=== PATIENT | female | born 1985 | race Caucasian/White ===

== ENCOUNTER 2016-08-22 13:00 | Outpatient (RCR) | payer MEDICAID ==
--- OUTSIDE RECORDS SUMMARY | 2016-05-27 10:42 | XMS REPORT | Continuity of Care Document ---
Author Author [facility] Organization [facility] Address Unknown Phone Unavailable Care Team Providers Care Barrel Polisher Name Role Phone Christiana Moses PCP [phone] Source Comments Some departments are not documenting in the electronic medical record. If you do not see the information that you expected, contact Release of Information in the Health Information Management department at [phone] for further assistance in locating additional records.[facility] Active Allergies and Adverse Reactions Allergen Noted Date Severity Reactions Comments Aspirin 12/01/2015 High ANAPHYLAXIS Orajel 02/15/2016 High ANAPHYLAXIS Current Medications Prescription Sig. Disp. Refills Start End Date Status Date metFORMIN (GLUCOPHAGE) Take 1,000 mg by mouth Active 1,000 mg tablet twice daily with meals. montelukast (SINGULAIR) Take 10 mg by mouth at Active 10 mg tablet bedtime daily. cetirizine (ZYRTEC) 10 mg Take 10 mg by mouth Active tablet daily. fluticasone (FLONASE) 50 Apply 2 Sprays to each Active mcg/actuation nasal spray nostril as directed daily. tiotropium (SPIRIVA) 18 Inhale 18 mcg by mouth Active mcg capsule for inhaler daily. OXYGEN-AIR DELIVERY Insert 3 L/min into nose Active SYSTEMS [facility] as directed. pantoprazole DR Take 40 mg by mouth Active (PROTONIX) 40 mg tablet daily. acetaminophen (TYLENOL) Take 500 mg by mouth Active 500 mg tablet every 6 hours as needed for Pain. metoprolol XL (TOPROL XL) Take 25 mg by mouth Active 25 mg tablet daily. DULoxetine DR (CYMBALTA) Take 60 mg by mouth Active 60 mg capsule daily. ondansetron (ZOFRAN) 8 mg Take 8 mg by mouth every Active tablet 8 hours as needed for Nausea. trimethoprim/sulfamethoxa Take 1 Tab by mouth three Active zole (BACTRIM DS) 160/800 times weekly. mg tablet GUAIFENESIN/DEXTROMETHORP Take by mouth as Needed. Active MCGRAW (MUCUS DM PO) albuterol 0.5% Inhale 2.5 mg solution as Active (PROVENTIL; VENTOLIN) 2.5 directed every 6 hours as mg/0.5 mL nebu nebulizer needed. solution beclomethasone(+) (QVAR) Inhale 1 Puff by mouth 1 Inhaler 12/05/19 Active 80 mcg/actuation inhaler twice daily. Indications: 16 MAINTENANCE THERAPY FOR ASTHMA fluticasone/salmeterol Inhale 1 Puff by mouth 1 Inhaler 12/05/19 Active (ADVAIR DISKUS) 500-50 every 12 hours. 16 mcg inhalation disk predniSONE (DELTASONE) 10 Take 6 tabs/day x4 days, 52 Tab 0 01/02/20 Active mg tablet 4 tabs/day/x4 days, 3 16 tabs/ dayx4 days, then 2 tabs daily. Indications: asthma exacerbation atenolol (TENORMIN) 25 mg Take 25 mg by mouth Active tablet daily. benzonatate (TESSALON) Take 200 mg by mouth Active 100 mg capsule three times daily. predniSONE (DELTASONE) 20 Take 1 Tab by mouth daily 100 Tab 0 03/06/ 20 Active mg tablet with breakfast. Take 2 16 tabs daily x 5 days, then 1 tab daily. promethazine/codeine Take 5-10 mL by mouth 180 mL 0 04/05/20 Active (PHENERGAN W/CODEINE) every 6 hours as needed 16 6.25/10 mg/5 mL oral for Cough (at bedtime syrup only). Indications: COUGH Active Problems Problem Noted Date Stridor 02/15/2016 Overview: expiratory GERD without esophagitis 02/15/2016 Morbid obesity (HCC) 02/15/2016 Most Recent Encounters Date Type Specialty Providers Description 05/10/2016 Office Visit Pulmonology Dean Cabrera MD Gastroesophageal reflux disease, esophagitis presence not specified (Primary Dx); Laryngopharyngeal reflux (LPR); Severe persistent allergic asthma; Eosinophilic asthma (HCC); Morbid obesity due to excess calories (HCC); Chronic respiratory failure with hypoxia (HCC); Current chronic use of systemic steroids; Seasonal allergic rhinitis due to pollen 04/05/2016 Telephone Pulmonology Dean Cabrera MD Breathing Problem 03/05/2016 Telephone Pulmonology Dean Cabrera MD Other 03/01/2016 Telephone Pulmonology Dean Cabrera MD Labs Only Social History Tobacco Use Types Packs/Day Years Used Date Former Smoker Quit: 11/30/2010 Smokeless Tobacco: Never Used Alcohol Use Drinks/Week oz/Week Comments No Last Filed Vital Signs Vital Sign Reading Time Taken Blood Pressure 138/69 05/10/2016 9:35 AM CDT Pulse 97 05/10/2016 9:35 AM CDT Temperature 37 C (98.6 F) 05/10/2016 9:35 AM CDT Respiratory Rate 16 05/10/2016 9:35 AM CDT Height 1.753 m (5' 9.02") 05/10/2016 9:35 AM CDT Weight 147.737 kg (325 lb 11.2 05/10/2016 9:35 AM CDT oz) Body Mass Index 48.08 05/10/2016 9:35 AM CDT Oxygen Saturation 99% 05/10/2016 9:35 AM CDT Plan of Care Date Type Specialty Providers Description 07/03/2016 Appointment Gastroenterology Monica Bang MD [address] [place] [address] 07/26/2016 Appointment Pulmonology Dean Cabrera MD [address] [facility] [address] [place] [address] [phone] (Fax) Health Maintenance Due Date Last Done Comments Physical (Comprehensive) 1993 Exam Pertussis Vaccine 1997 Tetanus Vaccine 2003 Cervical Cancer Screening 2007 Influenza Vaccine 04/18/2016 Results from Last 3 Months Not on file
[~2016-08-22 13:00] MED LIST: ACET-461 PO; ACHD5005 PO; ADV1DS1 INH; ALBU0.632 IH; ALBU0.8322 IH; ALBU17AE23 IH; ALBU2.5V4 NEB; ALBU8.5H2 IH; ALBUTEROL; ALBUTEROL INHALER NEB; AMOX-358 PO; ATEN25TA PO; AZIT-21 PO; BECL10PO MC; BECL8.7A7 PO; BPR150TCR; BUDE6HFA IH; CEFD300C PO; CEFD300C3 PO; CETI10TA17 PO; CETI10TA20 PO; CIPR-226 PO; CODE118S2 PO; CYCL-97 PO; CYCL10TA9 PO; DCS100C PO; DESV50TA PO; DICY20TA57 PO; DOCU-161 PO; DULO60CA58 PO; ENXP40I.4 SQ; ESTROGEN CREME; FAMO20TA5 PO; FERR-57 PO; FLUO10CA19; FLUT16SP22 NS; FLUT1BLS IH; FLUT1DIS26 IH; FLUT1DIS27 PO; FLUT1DIS28 IH; FLUT9.9S NS; FNT100TD TD; HCT25T PO; HYDR-2997 PO; HYDR-32; HYDR1TAB3 PO; HYDR1TAB71 PO; HYDR1TAB8 OP; IBUP-1780 PO; IBUP-2055 PO; IBUP-30 PO; IRON PILL; LAMO100T69 PO; LANS30CA8 PO; LORA10CA PO; LORA10TA7 PO; LVF500T PO; Loratadine PO; METF-479 PO; METF-761 PO; METF1000 PO; METH40VI2 IV; METO-333 PO; METO-354 PO; METO10TA3 PO; METO25TA2 PO; MNTL10T; MONT10TA21 PO; MONT10TA24 PO; MONT4TAB5 PO; MTF500T PO; MULT-301 PO; MULT-974 PO; NAPR-243 PO; NITR-65 PO; ONDA8TAB6 PO; ONDAN4ODT PO; OXYC-12 PO; OXYC-188 PO; OXYC-272 PO; PANT40TA2 PO; PANT40TA3 PO; PHEN118S12 PO; PHENOL MC; PNT40TEC PO; PRD10T PO; PRD20T PO; PRED10TA PO; PRO-AIR INHALER; PROM5SYR PO; Prednisone; Prednisone PO; RABE20TA PO; RT-ALBUINH IH; RT-ALBUINH INH; SPIR50TA27 PO; SULF-222 PO; SULF1TAB35 PO; SULF1TAB38 PO; TAPE50TA PO; TIOT18CA2 IH; TRAM50TA2; TRAM50TA2 PO; TRAZ50TA67 PO; TRM50T PO; VITAMIN; [UNRECOGNIZED DRUG - OTHER] IV
== END 2016-08-25 | disposition home or self-care (01) ==
LOC: PULM 13:00
PROVIDERS: ATTEND Nurse Practitioner Adult Health
DX: J45.909 Unspecified asthma, uncomplicated (principal); E66.9 Obesity, unspecified
CPT/HCPCS: 99211

== ENCOUNTER 2016-09-29 15:05 | Emergency (ER) | payer MEDICAID ==
[~2016-09-29] VITALS: Ht 165.1 cm; Wt 95.3 kg
--- OUTSIDE RECORDS SUMMARY | 2016-09-29 15:12 | XMS REPORT | Continuity of Care Document ---
Author Author [facility] Organization [facility] Address Unknown Phone Unavailable Care Team Providers Care Demonstrator Sales Name Role Phone Christiana Moses PCP [phone] Source Comments Some departments are not documenting in the electronic medical record. If you do not see the information that you expected, contact Release of Information in the Health Information Management department at [phone] for further assistance in locating additional records.[facility] Active Allergies and Adverse Reactions Allergen [...] into nose Active SYSTEMS MISC as directed. acetaminophen (TYLENOL) Take 500 mg by mouth [...] mepolizumab(+) (NUCALA) Inject 1 mL 1 mL 11 07/04/20 Active 100 mg/mL solr injection subcutaneously [...] 17 daily. Indications: MAINTENANCE THERAPY FOR ASTHMA pantoprazole DR Take 1 Tab by mouth twice 60 Tab 5 09/19/19 Active (PROTONIX) 40 mg tablet daily. 17 ranitidine(+) (ZANTAC) Take 1 Tab by mouth at 30 Tab 5 09/24/19 Active 300 mg tablet bedtime daily. [address] Take 40 mg by mouth 09/19/19 Discontin (PROTONIX) 40 mg tablet daily. 17 ued beclomethasone(+) (QVAR) Inhale 1 Puff by mouth 1 Inhaler 11 12/05/19 09/04/19 Discontin 80 mcg/actuation inhaler twice [...] Recent Encounters Date Type Specialty Providers Description 09/26/2016 Telephone Pulmonology Dean Cabrera MD Other - Nucala 09/19/2016 Telephone Gastroenterology Tong Mcgowan MD Results 09/06/2016 Injection Pulmonology 09/04/2016 Refill Pulmonology Dean Cabrera MD SOB (shortness of breath) (Primary Dx) 09/03/2016 Telephone Pulmonology Dean Cabrera MD Worsening Symptoms 08/16/2016 Telephone Pulmonology Dean Cabrera MD Follow-up Phone Call 07/30/2016 [facility] Tong Mcgowan MD GERD (gastroesophageal Encounter reflux [...] Case Gastroenterology Tong Mcgowan MD 07/02/2016 Telephone PulmonDean Ga MD Other - Treatment options Social History Tobacco Use Types Packs/Day Years Used Date Former Smoker Quit: 11/30/2010 Smokeless Tobacco: Never Used Alcohol Use Drinks/Week oz/Week Comments No Last Filed Vital Signs Vital Sign Reading Time Taken Blood Pressure 118/98 07/30/2016 3:43 PM COMMERCIAL COLLECTIONS DRIVER Pulse 85 07/30/2016 3:43 PM COMMERCIAL COLLECTIONS DRIVER Temperature 36.4 C (97.5 F) 07/30/2016 2:57 PM COMMERCIAL COLLECTIONS DRIVER Respiratory Rate 19 07/26/2016 8:01 AM COMMERCIAL COLLECTIONS DRIVER Height 1.753 m (5' 9") 07/30/2016 12:25 PM COMMERCIAL COLLECTIONS DRIVER Weight 149.687 kg (330 lb) 07/30/2016 12:25 PM COMMERCIAL COLLECTIONS DRIVER Body Mass Index 48.71 07/30/2016 12:25 PM COMMERCIAL COLLECTIONS DRIVER Oxygen Saturation 97% 07/30/2016 3:43 PM COMMERCIAL COLLECTIONS DRIVER Plan of Care Date Type Specialty Providers Description 10/25/2016 Appointment Pulmonology Dean Caberra MD [address] [facility] [address] [place] [address] [phone] (Fax) Health Maintenance Due Date Last Done Comments Physical (Comprehensive) 1993 Exam Pertussis Vaccine 1997 Tetanus Vaccine 2003 Cervical Cancer Screening 2007 Influenza Vaccine 04/18/2016 Procedures from Last 3 Months Procedure Name Priority Date/Time Associated Diagnosis Comments PROCEDURE RECORD-SCAN 08/09/2016 Results for this 3:08 PM COMMERCIAL COLLECTIONS DRIVER procedure are in the results section. TELEMETRY STRIPS-SCAN 07/31/2016 Results for this 12:57 PM COMMERCIAL COLLECTIONS DRIVER procedure are in the results section. ESOPHAGOGASTRODUODENOSCOP 07/30/2016 GERD (gastroesophageal Y 12:00 PM COMMERCIAL COLLECTIONS DRIVER reflux disease) Special Needs Please call and schedule pt for EGD with PICKETT with Dr. Mcgowan. Results from Last 3 Months PROCEDURE RECORD-SCAN (08/09/2016 3:08 PM) Narrative Ordered by an unspecified provider. TELEMETRY STRIPS-SCAN (07/31/2016 12:57 PM) Narrative Ordered by an unspecified provider. EGD (07/30/2016 1:03 PM) Component Value Range Provation Report Patient Name: Angy Montana Procedure Date: 07/30/2016 1:03 PM CSN: [id number] Date of : 1985 Gender: Female Attending Physician: Tong Mcgowan MD Procedure: Upper GI endoscopy Indications: He artburn, History of COPD/asthma Providers: Tong Mcgowan MD (Doctor), Grecia Escudero MD (Fellow), Saniya De Los Santos (Nurse), Reed Nielsen Germination Testing Manager (Germination Testing Manager) Referring Physician: Dean Cabrera MD Medications: Mo [...] 27 seconds Procedure Code(s): --- Professional --- 36827, Esophagogastroduodenoscopy, flexible, transoral; diagnostic, including collection of specimen(s) by brushing or washing, when performed (separate procedure) Diagnosis Code(s): --- Professional --- R12, Heartburn CPT copyright 2015 [employer]. All rights reserved. The codes documented in this report are preliminary and upon medical biller/coder review may be revised to meet current [...]
[2016-09-29] MEDS ORDERED: RT-ALBUTEROL/IPRATROPIUM 3 ML (DUONEB) VIAL INH ONE (16:15)
[2016-09-29] MEDS ORDERED: predniSONE 20 MG TAB PO ONE (16:15)
[2016-09-29] MEDS ORDERED: PROMETHAZINE/ CODEINE SYRUP 5 ML UDC PO ONE (16:15)
--- NOTE | 2016-09-29 16:25 | ED General ---
General Chief Complaint: Cough/Cold/Flu Symptoms Stated Complaint: SOA, CHEST PAIN Nursing Triage Note: c/o cough/congestion/fever/chills/chest tightness. Onset yesterday Nursing Sepsis Screen: Possible Sepsis Risk Source of Information: Patient Exam Limitations: No Limitations History of Present Illness Time Seen by Provider: 16:24 Initial Comments To ER with reports of nonproductive cough, congestion, shortness of breath and chills as well as chest tightness. This began yesterday. She wears oxygen [id number] for a history of COPD, emphysema, bronchitis and asthma she states. Timing/Duration: 1-2 Days Severity: Moderate Associated Systoms: Cough Fever/Chills Allergies and Home Medications Allergies Coded Allergies: allantoin (Verified Allergy, Unknown, 08/22/15) aspirin (Verified Allergy, Unknown, 08/22/15) benzocaine (Verified Allergy, Unknown, 08/22/15) carbamide peroxide (Verified Allergy, Unknown, 08/22/15) Home Medications Acetaminophen 500 Mg Tablet 1,000-1,500 MG PO TID PRN PRN PAIN (Reported) TAKES 2-3 (500MG) TABLETS Albuterol Sulfate 2.5 Mg/3 Ml Vial.neb 2.5 MG NEB Q4H PRN PRN SHORTNESS OF BREATH (Reported) Albuterol Sulfate 8.5 Gm Hfa.aer.ad 2 PUFF INH Q4H PRN PRN SHORTNESS OF BREATH ( Reported) Amoxicillin/Potassium Clav 1 Each Tablet #14 1 EACH PO BID Prescribed by: DEBBIE SIBLEY on 04/26/16 0956 Atenolol 25 Mg Tablet 25 MG PO DAILY (Reported) Beclomethasone Dipropionate 8.7 Gm Aer.w.adap 1 PUFF PO BID (Reported) Cetirizine HCl 10 Mg Tablet 10 MG PO DAILY (Reported) Duloxetine HCl 60 Mg Capsule.dr 60 MG PO HS (Reported) Fluticasone Propionate 16 Gm [place].susp 2 SPRAYS NS DAILY (Reported) Fluticasone/Salmeterol 1 Each Blst.w.dev 1 PUFF PO BID (Reported) Ibuprofen 200 Mg Tablet 800 MG PO TID PRN PRN PAIN (Reported) TAKES 4 (200MG) TABLETS Metformin HCl 1,000 Mg Masisyc92r 1,000 MG PO BID WITH MEALS (Reported) Montelukast Sodium 10 Mg Tablet 10 MG PO HS (Reported) Multivitamin 1 Each Tablet 1 TAB PO DAILY (Reported) Pantoprazole Sodium 40 Mg Tablet.dr 40 MG PO DAILY (Reported) Prednisone 20 Mg Tab 40 MG PO DAILY (Reported) Promethazine/Phenyleph/Codeine 118 Ml Syrup #120 5 ML PO Q6H Prescribed by: JUAN BOB on 06/13/16 1627 Tiotropium [place] 1 Inh Aerp 1 CAP IH DAILY (Reported) Constitutional: see HPI EENTM: see HPI Respiratory: see HPI cough Cardiovascular: no symptoms reported see HPI chest pain Genitourinary: no symptoms reported Musculoskeletal: no symptoms reported Skin: no symptoms reported Psychiatric/Neurological: No Symptoms Reported Hematologic/Lymphatic: No Symptoms Reported Immunological/Allergic: no symptoms reported Past Dydjsty-Kphzjy-Zmbkmm Hx Patient Social History Alcohol Use: Denies Use Recreational Drug Use: No Smoking Status: Unknown if Ever Smoked Former Smoker/When Quit: Nov 24, 2006 Recent Foreign Travel: No Contact w/Someone Who Travel: No Recent Infectious Disease Expo: No Recent Hopitalizations: No Immunizations Up To Date Tetanus Booster (TDap): Less than 5yrs Date of Pneumonia Vaccine: Aug 18, 2014 Date of Influenza Vaccine: Jun 18, 2014 Seasonal Allergies Seasonal Allergies: Yes Surgeries HX Surgeries: Yes (Tracheostomy) Surgeries: Appendectomy, Gallbladder, Orthopedic, Tonsillectomy Respiratory Hx Respiratory Disorders: Yes Respiratory Disorders: Asthma, COPD Cardiovascular Hx Cardiac Disorders: Yes (History of symptomatic bradycardia) Cardiac Disorders: Hypertension Neurological Hx Neurological Disorders: Yes Reproductive System : No Hx Reproductive Disorders: Yes Sexually Transmitted Disease: No Female Reproductive Disorders: Polycystic Ovarian Dis 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 Genitourinary Hx Genitourinary Disorders: No Gastrointestinal Hx Gastrointestinal Disorders: Yes Gastrointestinal Disorders: Gastroesophageal Reflux, Gastrointestinal Bleed Musculoskeletal Hx Musculoskeletal Disorders: Yes (Degenerative Joint Disease) Musculoskeletal Disorders: Rheumatoid Arthritis Endocrine Hx Endocrine Disorders: Yes Endocrine Disorders: Diabetes, Non-Insulin dep HEENT HX ENT Disorders: No Loss of Vision: Denies Hearing Impairment: Denies Cancer Hx Cancer: No Psychosocial Hx Psychiatric Problems: Yes (manic depression, insomnia) Behavioral Health Disorders: Anxiety, Depression Integumentary HX Skin/Integumentary Disorder: No Blood Transfusions Hx Blood Disorders: No Adverse Reaction to a Blood Tr: No Family Medical History Significant Family History: Diabetes Family Medial History: Diabetes mellitus 19 MOTHER G8 SISTER Physical Exam Vital Signs Vital Sign - Last 12Hours 09/29/16 15:35 Temp 100.0 Pulse 86 Resp 22 B/P 153/70 Pulse Ox 95 O2 Delivery Nasal Cannula O2 Flow Rate 3 Capillary Refill : Less Than 3 Seconds General Appearance: No Apparent Distress WD/WN Eyes: Bilateral Eye EOMI, Bilateral Eye Normal Inspection, Bilateral Eye PERRL HEENT: PERRL/EOMI TMs Normal Neck: Full Range of Motion Normal Inspection Respiratory: No Accessory Muscle Use Decreased Breath Sounds Wheezing Cardiovascular: Regular Rate, Rhythm Normal Peripheral Pulses Gastrointestinal: Non Tender Soft Extremity: Normal Capillary Refill Normal Inspection Neurologic/Psychiatric: Alert Oriented x3 Skin: Normal Color Warm/Dry Progress/Results/Core Measures Results/Orders Lab Results Laboratory Tests Test 09/29/16 16:45 Range/Units Alanine Aminotransferase (ALT/SGPT) 48 0-55 U/L Albumin 4.0 3.2-4.5 G/DL Alkaline Phosphatase 77 40-136 U/L Anion Gap 12 5-14 MMOL/L Aspartate Amino Transf (AST/SGOT) 34 5-34 U/L BUN/Creatinine Ratio 11 Basophils # (Auto) 0.0 0.0-0.1 10^3/uL Basophils (%) (Auto) 0 0-10 % Blood Urea Nitrogen 8 7-18 MG/DL Calcium Level 9.1 8.5-10.1 MG/DL Carbon Dioxide Level 21 21-32 MMOL/L Chloride Level 107 98-107 MMOL/L Creatinine 0.72 0.60-1.30 MG/DL Eosinophils # (Auto) 0.1 0.0-0.3 10^3/uL Eosinophils (%) (Auto) 1 0-10 % Estimat Glomerular Filtration Rate > 60 Glucose Level 107 H 70-105 MG/DL Hematocrit 37 35-52 % Hemoglobin 12.3 11.5-16.0 G/DL Lymphocytes # (Auto) 3.1 1.0-4.0 X 10^3 Lymphocytes (%) (Auto) 28 12-44 % Mean Corpuscular Hemoglobin 26 25-34 PG Mean Corpuscular Hemoglobin Concent 33 32-36 G/DL Mean Corpuscular Volume 79 L 80-99 FL Mean Platelet Volume 10.1 7.4-10.4 FL Monocytes # (Auto) 0.5 0.0-1.0 X 10^3 Monocytes (%) (Auto) 5 0-12 % Neutrophils # (Auto) 7.2 1.8-7.8 X 10^3 Neutrophils (%) (Auto) 66 42-75 % Platelet Count 236 130-400 10^3/uL Potassium Level 3.8 3.6-5.0 MMOL/L Red Blood Count 4.71 4.35-5.85 10^6/uL Red Cell Distribution Width 15.4 H 10.0-14.5 % Sodium Level 140 135-145 MMOL/L Total Bilirubin 0.6 0.1-1.0 MG/DL Total Protein 6.9 6.4-8.2 G/DL White Blood Count 10.8 4.3-11.0 10^3/uL Micro Results Microbiology 09/29/16 Influenza Types A,B Antigen (AMINA) - Final, Complete My Orders Orders-NADIRA العلي APRN Influenza A And B Antigens (09/29/16 15:43) Cbc With Automated Diff (09/29/16 16:14) Comprehensive Metabolic Panel (09/29/16 16:14) Chest Pa/Lat (2 View) (09/29/16 16:14) Albuterol/Ipra Inhalation Soln (Duoneb I (09/29/16 16:15) Svn Sm Volume Nebulizer Rt-Rfs (09/29/16 16:14) Prednisone Tablet (Deltasone Tablet) (09/29/16 16:15) Promethazine/ Codeine Syrup (Phenergan W (09/29/16 16:15) Troponin I (09/29/16 16:25) Ekg Tracing (09/29/16 16:25) Albuterol Pre-Mix Nebs (Rt) (Proventil P (09/29/16 16:38) Albuterol Pre-Mix Nebs (Rt) (Proventil P (09/29/16 16:45) Medications Given in ED Current Medications Medications Dose Ordered Sig/Malick Route Start Time Stop Time Status Last Admin Dose Admin Albuterol Sulfate 2.5 mg STK-MED ONCE .ROUTE 09/29/16 16:38 09/29/16 16:40 DC 09/29/16 16:41 2.5 MG Albuterol Sulfate 2.5 mg STK-MED ONCE .ROUTE 09/29/16 16:45 09/29/16 16:46 DC 09/29/16 16:47 2.5 MG Albuterol/ Ipratropium 3 ml ONCE ONCE INH 09/29/16 16:15 09/29/16 16:16 DC 09/29/16 16:34 3 ML Prednisone 40 mg ONCE ONCE PO 09/29/16 16:15 09/29/16 16:16 DC 09/29/16 17:04 40 MG Promethazine HCl/ Codeine 7.5 ml ONCE ONCE PO 09/29/16 16:15 09/29/16 16:16 DC 09/29/16 17:04 7.5 ML Vital Signs/I&O Vital Sign - Last 12Hours 09/29/16 09/29/16 09/29/16 09/29/16 15:35 15:40 16:35 16:41 Temp 100.0 Pulse 86 Resp 22 B/P 153/70 Pulse Ox 95 93 95 O2 Delivery Nasal Cannula O2 Flow Rate 3 3 3 3 09/29/16 16:48 Pulse Ox 95 O2 Flow Rate 3 Blood Pressure Mean: 97 Diagnostic Imaging Diagonstic Imaging: Xray Plain Films/CT/US/NM/MRI: chest Comments NAME: AUB[facility] REC#: [id number] PT STATUS: REG ER : 1985 PHYSICIAN: NADIRA العلي APRN ADMIT DATE: 09/29/16/ER Draft Date of Exam:09/29/16 CHEST PA/LAT (2 VIEW) INDICATION: Shortness of breath, chest pressure. COMPARISON: 06/13/16. EXAMINATION: Frontal and lateral views of the chest were obtained. FINDINGS: New infiltrate in the left hilum. The right lung is clear. There is no pneumothorax. No effusion is seen. Osseous structures are age-appropriate. IMPRESSION: Left suprahilar infiltrate. Followup recommended to assure resolution. Dictated on workstation # [id number] Dict: 09/29/161719 Trans: 09/29/161727 [facility] [id number] Interpreted by: JAYCE HUI Electronically signed by: Departure Impression Impression: Primary Impression: Asthma with acute exacerbation Qualified Code: J45.21 - Mild intermittent asthma with (acute) exacerbation Additional Impression: Pneumonia Qualified Code: J18.1 - Lobar pneumonia, unspecified organism Disposition: 01 HOME, SELF-CARE Condition: Stable Departure-Patient Inst. Decision time for Depature: 17:38 Referrals: [facility] (PCP/Family) Primary Care Physician Patient Instructions: Pneumonia, Adult (DC) Add. Discharge Instructions: All discharge instructions reviewed with patient and/or family. Voiced understanding. 1. Follow-up with her regular doctor later this week for recheck 2. Return to ER for any worsening 3. Antibiotics as directed Scripts Levofloxacin (Levaquin)750 Mg [id number] Mg PO DAILY #6 TAB Prov:NADIRA العلي APRN 09/29/16 NADIRA العلي APRN Sep 29, 2016 16:25
[2016-09-29] MEDS ORDERED: RT-ALBUTEROL SULF 2.5 MG/3 ML PRE-MIX VIAL ONE ×2 (16:38→16:45)
--- NOTE | 2016-09-29 17:29 | Diagnostic Imaging Report ---
INDICATION: Shortness of breath, chest pressure. COMPARISON: 06/13/16. EXAMINATION: Frontal and lateral views of the chest were obtained. FINDINGS: New infiltrate in the left hilum. The right lung is clear. There is no pneumothorax. No effusion is seen. Osseous structures are age-appropriate. IMPRESSION: Left suprahilar infiltrate. Followup recommended to assure resolution. Dictated by: Dictated on workstation # [id number]
[2016-09-29 17:33] LABS: ALANINE AMINOTRANSFERASE 48 U/L (0-55); ANION GAP 12 MMOL/L (5-14); ASPARTATE AMINO TRANSFERASE 34 U/L (5-34); BASOPHILS % (AUTO) 0 % (0-10); BILIRUBIN,TOTAL 0.6 MG/DL (0.1-1.0); BLOOD UREA NITROGEN 8 MG/DL (7-18); BUN/CREATININE RATIO 11; CALCIUM 9.1 MG/DL (8.5-10.1); CARBON DIOXIDE 21 MMOL/L (21-32); CHLORIDE 107 MMOL/L (98-107); CREATININE SERUM 0.72 MG/DL (0.60-1.30); EOSINOPHILS # (AUTO) 0.1 10^3/uL (0.0-0.3); EOSINOPHILS % (AUTO) 1 % (0-10); GFR ESTIMATED > 60; GLUCOSE 107 MG/DL (70-105); LYMPHOCYTES # (AUTO) 3.1 X 10^3 (1.0-4.0); LYMPHOCYTES % (AUTO) 28 % (12-44); MEAN CORPUSCULAR HEMOGLOBIN 26 PG (25-34); MEAN CORPUSCULAR HGB CONC 33 G/DL (32-36); MEAN CORPUSCULAR VOLUME 79 FL (80-99); MEAN PLATELET VOLUME 10.1 FL (7.4-10.4); MONOCYTES # (AUTO) 0.5 X 10^3 (0.0-1.0); MONOCYTES % (AUTO) 5 % (0-12); NEUTROPHILS # (AUTO) 7.2 X 10^3 (1.8-7.8); NEUTROPHILS % (AUTO) 66 % (42-75); PLATELET COUNT 236 10^3/uL (130-400); POTASSIUM 3.8 MMOL/L (3.6-5.0); RED BLOOD COUNT 4.71 10^6/uL (4.35-5.85); RED CELL DISTRIBUTION WIDTH 15.4 % (10.0-14.5); SODIUM 140 MMOL/L (135-145); TOTAL PROTEIN 6.9 G/DL (6.4-8.2); WHITE BLOOD COUNT 10.8 10^3/uL (4.3-11.0)
[2016-09-29 17:38] LABS: TROPONIN I < 0.30 NG/ML (<0.30)
[2016-09-29] MEDS ORDERED: LEVO750T9 PO (17:42)
[2016-09-29 17:45] VITALS: BP 142/70
[2016-09-29] MEDS ORDERED: LEVOFLOXACIN 750 MG TAB (LEVAQUIN) PO ONE (17:45)
[2016-09-29] MEDS ORDERED: LEVOFLOXACIN 500 MG TAB (LEVAQUIN) PO ONE (18:00)
== END 2016-09-29 18:01 | disposition home or self-care (01) ==
LOC: EDUNIT# 15:05 → ER 15:07
DX: J18.9 Pneumonia, unspecified organism (principal); J45.901 Unspecified asthma with (acute) exacerbation; J44.9 Chronic obstructive pulmonary disease, unspecified; I10 Essential (primary) hypertension; E11.9 Type 2 diabetes mellitus without complications; Z79.84 Long term (current) use of oral hypoglycemic drugs; Z79.899 Other long term (current) drug therapy; Z99.81 Dependence on supplemental oxygen
CPT/HCPCS: 36415; 71020; 80053; 84484; 85025; 87804; 93005; 94640

== ENCOUNTER → 2016-10-24 | Outpatient (CLI) | payer MEDICAID ==
[~2016-10-24] MED LIST changes: +LEVO750T9 PO
--- OUTSIDE RECORDS SUMMARY | 2016-10-24 12:58 | XMS REPORT | Continuity of Care Document ---
Author Author [facility] Organization [facility] Address Unknown Phone Unavailable Care Team Providers Care Granite Polisher Name Role Phone Christiana Moses PCP [phone] Source Comments Some departments are not documenting in the electronic medical record. If you do not see the information that you expected, contact Release of Information in the Health Information Management department at [phone] for further assistance in locating additional records.[facility] Active Allergies and Adverse Reactions Allergen [...] Active 300 mg tablet bedtime daily. 17 Hospital, Clinic, or Ordered Dose Route Frequency [...] Recent Encounters Date Type Specialty Providers Description 10/23/2016 Telephone Pulmonology Dean Cabrera MD Other - BT approval 10/11/2016 Telephone Pulmonology Dean Cabrera MD Medication Problem - ADVAIR/QVAR 10/09/2016 Telephone Pulmonology Dean Cabrera MD 09/26/2016 Telephone Pulmonology Dean Cabrera MD Other - Nucala 09/19/2016 Telephone Gastroenterology Tong Mcgowan MD Results 09/06/2016 Injection Pulmonology 09/04/2016 Refill Pulmonology Dean Cabrera MD SOB (shortness of breath) (Primary Dx) 09/03/2016 Telephone Pulmonology Dean Cabrera MD Worsening Symptoms 08/16/2016 Telephone Pulmonology Dean Cabrera MD Follow-up Phone Call 07/30/2016 Endo Rslt Enc Pulmonology Dean Cabrera [...] 07/26/2016 Orders Only Pulmonology Dean Cabrera MD Social History Tobacco Use Types Packs/Day Years Used Date Former Smoker Quit: 11/30/2010 Smokeless Tobacco: Never Used Alcohol Use Drinks/Week oz/Week Comments No Last Filed Vital Signs Vital Sign Reading Time Taken Blood Pressure 118/98 07/30/2016 3:43 PM EMERGENCY DEPARTMENT RN Pulse 85 07/30/2016 3:43 PM EMERGENCY DEPARTMENT RN Temperature 36.4 C (97.5 F) 07/30/2016 2:57 PM EMERGENCY DEPARTMENT RN Respiratory Rate 19 07/26/2016 8:01 AM EMERGENCY DEPARTMENT RN Height 1.753 m (5' 9") 07/30/2016 12:25 PM EMERGENCY DEPARTMENT RN Weight 149.687 kg (330 lb) 07/30/2016 12:25 PM EMERGENCY DEPARTMENT RN Body Mass Index 48.71 07/30/2016 12:25 PM EMERGENCY DEPARTMENT RN Oxygen Saturation 97% 07/30/2016 3:43 PM EMERGENCY DEPARTMENT RN Plan of Care Date Type Specialty Providers Description 10/25/2016 Appointment Pulmonology Dean Cabrera MD [address] [facility] [address] [place] [address] [phone] (Fax) Health Maintenance Due Date Last Done Comments Physical (Comprehensive) 1993 Exam Pertussis Vaccine 1997 Tetanus Vaccine 2003 Cervical Cancer Screening 2007 Influenza Vaccine 04/18/2017 Procedures from Last 3 Months Procedure Name Priority Date/Time Associated Diagnosis Comments PROCEDURE RECORD-SCAN 08/09/2016 Results for this 3:08 PM EMERGENCY DEPARTMENT RN procedure are in the results section. TELEMETRY STRIPS-SCAN 07/31/2016 Results for this 12:57 PM EMERGENCY DEPARTMENT RN procedure are in the results section. ESOPHAGOGASTRODUODENOSCOP 07/30/2016 GERD (gastroesophageal Y 12:00 PM EMERGENCY DEPARTMENT RN reflux disease) Special Needs Please call and schedule pt for EGD with [facility] with Dr. Mcgowan. Results from Last 3 Months PROCEDURE RECORD-SCAN (08/09/2016 3:08 PM) Narrative Ordered by an unspecified provider. TELEMETRY STRIPS-SCAN (07/31/2016 12:57 PM) Narrative Ordered by an unspecified provider. EGD (07/30/2016 1:03 PM) Component Value Range Provation Report Patient Name: Angy [place] Procedure Date: 07/30/2016 1:03 PM CSN: [id number] Date of : 1985 Gender: Female Attending Physician: Tong Mcgowan MD Procedure: Upper GI endoscopy Indications: He artburn, History of COPD/asthma Providers: Tong Mcgowan MD (Doctor), Grecia Escudero MD (Fellow), Saniya De Los Santos (Nurse), Reed Nielsen Loan Collector (Loan Collector) Referring Physician: Dean Cabrera MD Medications: Mo [...] 27 seconds Procedure Code(s): --- Professional --- 70223, Esophagogastroduodenoscopy, flexible, transoral; diagnostic, including collection of specimen(s) by brushing or washing, when performed (separate procedure) Diagnosis Code(s): --- Professional --- R12, Heartburn CPT copyright 2015 [employer]. All rights reserved. The codes documented in this report are preliminary and upon insurance checker review may be revised to meet current [...]
--- NOTE | 2016-10-27 12:43 | ECHOCARDIOGRAPHY REPORT ---
PROCEDURE PHYSICIAN: SHAINA CALDERON DATE OF PROCEDURE: 10/24/2016 TWO DIMENSIONAL ECHOCARDIOGRAM REPORT PRIMARY PHYSICIAN: OTHER PHYSICIAN: REFERRING PHYSICIAN: Dr. Kelley Michelle, [facility] ORDERING PHYSICIAN: INDICATION FOR THE PROCEDURE: Shortness of breath. MEASUREMENTS DERIVED VALUES LV DIAMETER (LAX) NORMALS NORMALS Diastolic 4.5 (3.6-5.2) Eject. Fract. 50% (60%+/-6%) Systolic (2.3-3.9) Diastolic Vol. % Shortening (0.22-0.42) Systolic Vol. Aortic Root IVS THICKNESS Diastolic 1.2 (0.6-1.1) LVPW THICKNESS Diastolic 1.2 (0.6-1.1) LA DIAMETER Systolic 3.2 (2.1-3.7) FINDINGS: 1. Technically difficult study. 2. The left ventricle is normal in size, endocardium was not well visualized in all segments. Overall systolic function appeared to be preserved. Estimated ejection fraction 50%. 3. The left atrium is normal in size. No clot or thrombus were seen within the left atrium. 4. The right atrium and right ventricle are normal in size. No clot or thrombus were seen within the right side. 5. Mitral valve is normal in morphology with mild mitral regurgitation noted by color Doppler flow. No mitral valve prolapse. No mitral valve stenosis. 6. Aortic valve is trileaflet with normal opening and closing pattern. No significant aortic stenosis or regurgitation was seen. 7. Tricuspid valve is normal in morphology with mild tricuspid regurgitation noted by color Doppler flow. Insufficient Doppler signal across tricuspid valve to evaluate pulmonary artery pressures. 8. Pulmonic valve is functioning normally. 9. No pericardial effusion. CONCLUSION: 1. Technically difficult study. 2. Normal left ventricular size and systolic function. Endocardium was not well visualized in all segments. Overall ejection fraction estimated to be 50% percent. 3. Mild mitral and tricuspid regurgitation. 4. Insufficient Doppler signal to evaluate pulmonary artery pressure Job ID: [id number] Dictated Date: 10/27/2016 09:18:16 Station Cleaning Porter Date: 10/27/2016 12:39:23 / hans
== END ==
LOC: CARD 12:54
PROVIDERS: ATTEND Internal Medicine Cardiovascular Disease
DX: J44.9 Chronic obstructive pulmonary disease, unspecified (principal); I10 Essential (primary) hypertension; I34.0 Nonrheumatic mitral (valve) insufficiency; R00.1 Bradycardia, unspecified
CPT/HCPCS: 93306

== ENCOUNTER 2016-12-05 13:00 | Outpatient (RCR) | payer MEDICAID ==
--- OUTSIDE RECORDS SUMMARY | 2016-09-10 12:45 | XMS REPORT | Continuity of Care Document ---
Author Author [facility] Organization [facility] Address Unknown Phone Unavailable Care Team Providers Care Hardware Installer Name Role Phone Christiana Moses PCP [phone] Source Comments Some departments are not documenting in the electronic medical record. If you do not see the information that you expected, contact Release of Information in the Health Information Management department at [phone] for further assistance in locating additional records.[facility] Active Allergies and Adverse Reactions Allergen Noted [...] Insert 3 L/min into nose Active SYSTEMS MISC as directed. pantoprazole DR Take 40 mg by mouth Active (PROTONIX) 40 mg tablet daily. acetaminophen (TYLENOL) Take 500 mg by mouth Active 500 mg tablet every 6 hours as needed for Pain. DULoxetine DR (CYMBALTA) Take 60 mg by [...] as mg/0.5 mL nebu nebulizer needed. solution atenolol (TENORMIN) 25 mg Take 25 mg by mouth Active tablet daily. promethazine/codeine Take 5-10 mL by mouth 180 mL 0 04/05/20 Active (PHENERGAN W/CODEINE) every 6 hours as needed 16 6.25/10 mg/5 mL oral for Cough (at bedtime syrup only). Indications: COUGH mepolizumab(+) (NUCALA) Inject 1 mL 1 mL 07/04/20 Active 100 mg/mL solr injection subcutaneously to upper 16 arm, thigh, or abdomen every 4 weeks. Indications: severe persistent allergic asthma EPINEPHrine(+) (EPIPEN) 1 Inject 0.3 mg (1 Pen) 2 Each 0 07/04/20 Active mg/mL injection pen into thigh if needed for 16 (2-Pack) anaphylactic reaction. May repeat in 5-15 minutes if needed. Indications: ANAPHYLAXIS prednisone (DELTASONE) 20 Take 1 Tab by mouth daily 100 Tab 0 Active mg tablet with breakfast. Take 2 17 tabs daily x 5 days, then 1 tab daily. levoFLOXacin (LEVAQUIN) Take 1 Tab by mouth 7 Tab 0 09/03/19 Active 750 mg tablet daily. Indications: sx 17 URI fluticasone/salmeterol Inhale 1 Puff by mouth 1 Inhaler 09/04/19 Active (ADVAIR DISKUS) 500-50 into the lungs every 12 17 mcg inhalation disk hours. Indications: MAINTENANCE THERAPY FOR ASTHMA beclomethasone(+) (QVAR) Inhale 1 Puff by mouth 1 Inhaler 09/04/19 Active 80 mcg/actuation inhaler into the lungs twice 17 daily. Indications: MAINTENANCE THERAPY FOR ASTHMA beclomethasone(+) (QVAR) Inhale 1 Puff by mouth 1 Inhaler 12/05/19 09/04/19 Discontin 80 mcg/actuation inhaler twice daily. Indications: 16 17 ued MAINTENANCE THERAPY FOR ASTHMA fluticasone/salmeterol Inhale 1 Puff by mouth 1 Inhaler 11 12/05/19 09/04/19 Discontin (ADVAIR DISKUS) 500-50 every 12 hours. 16 17 ued mcg inhalation disk predniSONE (DELTASONE) 20 Take 1 Tab by mouth daily 100 Tab 0 09/03/19 Discontin mg tablet with breakfast. Take 2 16 17 ued tabs daily x 5 days, then 1 tab daily. Hospital, Clinic, or Ordered Dose Route Frequency Start End Date Status Other Facility Date Administered Medication mepolizumab(+) (NUCALA) 100mg SC Q30 Days 07/26/20 Active injection 100 mg 16 Active Problems Problem Noted Date Uncomplicated severe persistent asthma 07/26/2016 Chronic respiratory failure with hypoxia (HCC) 07/26/2016 Non-seasonal allergic rhinitis due to pollen 07/26/2016 H/O tracheostomy 07/26/2016 Current chronic use of inhaled steroid 07/26/2016 Current chronic use of systemic steroids 07/26/2016 Stridor 02/15/2016 Overview: expiratory GERD without esophagitis 02/15/2016 Morbid obesity (HCC) 02/15/2016 Most Recent Encounters Date Type Specialty Providers Description 09/06/2016 Injection Pulmonology Arrived 09/04/2016 Refill Pulmonology Dean Cabrera MD SOB (shortness of breath) (Primary Dx) 09/03/2016 Telephone Pulmonology Dean Cabrera MD Worsening Symptoms 08/16/2016 Telephone PulmonDean Ga MD Follow-up Phone Call 07/30/2016 Hospital Tong Mcgowan MD GERD (gastroesophageal Encounter reflux disease) 07/30/2016 Endo Rslt Enc Pulmonology Dean Cabrera MD 07/30/2016 Anesthesia Deyanira Castro MD Event 07/30/2016 Surgery Tong Mcgowan MD ESOPHAGOGASTRODUODENOSCOP Y 07/26/2016 Injection Pulmonology 07/26/2016 Office Visit Pulmonology Dean Cabrera MD Uncomplicated severe persistent asthma (Primary Dx); Chronic respiratory failure with hypoxia (HCC); Non-seasonal allergic rhinitis due to pollen; Morbid obesity due to excess calories (HCC); GERD without esophagitis; H/O tracheostomy; Current chronic use of inhaled steroid; Current chronic use of systemic steroids 07/26/2016 Orders Only Pulmonology Dean Cabrera MD 07/15/2016 Telephone Pulmonology Dean Cabrera MD Worsening Symptoms 07/03/2016 Office Visit Gastroenterology Monica Bang MD GERD without esophagitis (Primary Dx) 07/03/2016 Prep for Case Gastroenterology Tong Mcgowan MD 07/02/2016 Telephone PulDean Chew MD Other - Treatment options 06/27/2016 Telephone PulmonDean Ga MD Prior Authorization 06/14/2016 Telephone PulmonDean Ga MD Worsening Symptoms Social History Tobacco Use Types Packs/Day Years Used Date Former Smoker Quit: 11/30/2010 Smokeless Tobacco: Never Used Alcohol Use Drinks/Week oz/Week Comments No Last Filed Vital Signs Vital Sign Reading Time Taken Blood Pressure 118/98 07/30/2016 3:43 PM RAIMANN MACHINE OPERATOR Pulse 85 07/30/2016 3:43 PM RAIMANN MACHINE OPERATOR Temperature 36.4 C (97.5 F) 07/30/2016 2:57 PM RAIMANN MACHINE OPERATOR Respiratory Rate 19 07/26/2016 8:01 AM RAIMANN MACHINE OPERATOR Height 1.753 m (5' 9") 07/30/2016 12:25 PM RAIMANN MACHINE OPERATOR Weight 149.687 kg (330 lb) 07/30/2016 12:25 PM RAIMANN MACHINE OPERATOR Body Mass Index 48.71 07/30/2016 12:25 PM RAIMANN MACHINE OPERATOR Oxygen Saturation 97% 07/30/2016 3:43 PM RAIMANN MACHINE OPERATOR Plan of Care Date Type Specialty Providers Description 10/25/2016 Appointment Pulmonology Dean Cabrera MD [address] [facility] [address] [place] [address] [phone] (Fax) Health Maintenance Due Date Last Done Comments Physical (Comprehensive) 1993 Exam Pertussis Vaccine 1997 Tetanus Vaccine 2003 Cervical Cancer Screening 2007 Influenza Vaccine 04/18/2016 Procedures from Last 3 Months Procedure Name Priority Date/Time Associated Diagnosis Comments PROCEDURE RECORD-SCAN 08/09/2016 Results for this 3:08 PM RAIMANN MACHINE OPERATOR procedure are in the results section. TELEMETRY STRIPS-SCAN 07/31/2016 Results for this 12:57 PM RAIMANN MACHINE OPERATOR procedure are in the results section. ESOPHAGOGASTRODUODENOSCOP 07/30/2016 GERD (gastroesophageal Y 12:00 PM RAIMANN MACHINE OPERATOR reflux disease) Special Needs Please call and schedule pt for EGD with PICKETT with Dr. Mcgowan. Results from Last 3 Months PROCEDURE RECORD-SCAN (08/09/2016 3:08 PM) Narrative Ordered by an unspecified provider. TELEMETRY STRIPS-SCAN (07/31/2016 12:57 PM) Narrative Ordered by an unspecified provider. EGD (07/30/2016 1:03 PM) Component Value Range Provation Report Patient Name: Angy Montana Procedure Date: 07/30/2016 1:03 PM CSN: [id number] Date of : 1985 Gender: Female Attending Physician: Tong Mcgowan MD Procedure: Upper GI endoscopy Indications: He artburn, History of COPD/asthma Providers: Tong Mcgowan MD (Doctor), Grecia Escudero MD (Fellow), Saniya De Los Santos (Nurse), Reed Nielsen Ward Maid (Ward Maid) Referring Physician: Dean Cabrera MD Medications: Mo nitored Anesthesia Care Complications: No immediate complications. Procedure: Pre-Anesthesia Assessment: - Prior to the procedure, a History and Physical was performed, and patient medications and allergies were reviewed. The patient's tolerance of previous anesthesia was also reviewed. The risks and benefits of the procedure and the sedation options and risks were discussed with the patient. All questions were answered, and informed consent was obtained. Prior Anticoagulants: The patient has taken no previous anticoagulant or antiplatelet agents. ASA Grade Assessment: III - A patient with severe systemic disease. After reviewing the risks and benefits, the patient was deemed in satisfactory condition to undergo the procedure. After obtaining informed consent, the endoscope was passed under direct vision. Throughout the procedure, the patient's blood pressure, pulse, and oxygen saturations were monitored continuously. The Endoscope was introduced through the mouth, and advanced to the third part of duodenum. The upper GI endoscopy was accomplished without difficulty. The patient tolerated the procedure well. Findings: Esophagogastric landmarks were identified: the Z-line was found at 39 cm from the incisors. The examined esophagus was normal. The entire examined stomach, cardia (on retroflexion) and gastric fundus (on retroflexion) were normal. The examined duodenum was normal. Pickett PH capsule was placed at 6 cm above the GEJ at 33cm from the incisors. Post capsule placement was verified with repeat endoscope which appeared satisfactory. Impression: - Esophagogastric landmarks identified. - Normal esophagus. - Normal stomach, cardia and gastric fundus. - Normal examined duodenum. - No specimens collected. - Pickett PH capsule placed. Estimated Blood Loss: Estimated blood loss: none. Recommendation: - Patient has a contact number available for emergencies. The signs and symptoms of potential delayed complications were discussed with the patient. Return to normal activities tomorrow. Written discharge instructions were provided to the patient. - Resume previous diet. - Continue present medications. - Return to referring physician. Scope In: 2:42:55 PM Scope Out: 2:51:22 PM Total Procedure Duration Time 0 hours 8 minutes 27 seconds Procedure Code(s): --- Professional --- 89163, Esophagogastroduodenoscopy, flexible, transoral; diagnostic, including collection of specimen(s) by brushing or washing, when performed (separate procedure) Diagnosis Code(s): --- Professional --- R12, Heartburn CPT copyright 2015 [employer]. All rights reserved. The codes documented in this report are preliminary and upon odd ticket clerk review may be revised to meet current compliance requirements. Attending Participation: I was present and participated during the entire procedure, including non-guzman portions. Tong Mcgowan MD 07/30/2016 2:56:10 PM The attending physician has electronically signed and finalized this document. MD Grecia Rangel MD 07/30/2016 2:54:46 PM Number of Addenda: 0 Note Initiated On: 07/30/2016 1:03 PM POC GLUCOSE (07/30/2016 12:13 PM) Component Value Range Glucose, POC 159 (H) 70-100 MG/DL
== END 2016-12-09 | disposition home or self-care (01) ==
LOC: PULM 13:00
PROVIDERS: ATTEND Nurse Practitioner Adult Health
DX: J45.909 Unspecified asthma, uncomplicated (principal); E66.9 Obesity, unspecified
CPT/HCPCS: 93005

== ENCOUNTER 2017-01-04 08:24 | Emergency (ER) | payer MEDICAID ==
[~2017-01-04] VITALS: Ht 175.3 cm; Wt 151.5 kg
[2017-01-04 09:39] LABS: BILIRUBIN,URINE NEGATIVE (NEGATIVE); KETONES,URINE NEGATIVE (NEGATIVE); LEUKOCYTE ESTERASE ,URINE 1+ (NEGATIVE); NITRITE,URINE NEGATIVE (NEGATIVE); PH,URINE 6 (5-9); PROTEIN,URINE NEGATIVE (NEGATIVE); UROBILINOGEN,URINE NORMAL (NORMAL)
[2017-01-04] MEDS ORDERED: KETOROLAC 60 MG/2 ML VIAL IM ONE (10:30)
--- NOTE | 2017-01-04 10:31 | ED Abdominal Pain ---
General Chief Complaint: Abdominal/GI Problems Stated Complaint: ABD PAIN Nursing Triage Note: STATES SHE HAS NOT HAD A PERIOD IN OVER A YEAR. STARTED IT TWO DAYS AGO ALONG WITH SEVERE ABD PAIN. PT STATES SHE HAS BEEN TAKING HYDROCODONE FOR THE PAIN. Sepsis Screen: No Definite Risk Source of Information: Patient Exam Limitations: No Limitations History of Present Illness Time Seen By Provider: 10:30 Initial Comments To ER with lower abdominal pain that started yesterday. She states that she has a Mirena in place and has not had a menstrual period in over a year. Yesterday started having severe abdominal pain and brownish discharge from the vagina. No fevers. Timing/Duration: 1-2 Days Severity/Quality: Moderate Location: Suprapubic Radiation: No Radiation Activities at Onset: None Associated Symptoms: Denies Symptoms Allergies and Home Medications Allergies Coded Allergies: cocaine (Verified Allergy, Severe, SOA, 01/04/17) procaine (Verified Allergy, Severe, SOA, 01/04/17) tetracaine (Verified Allergy, Severe, SOA, 01/04/17) allantoin (Verified Allergy, Unknown, 08/22/15) aspirin (Verified Allergy, Unknown, 08/22/15) benzocaine (Verified Allergy, Unknown, 08/22/15) carbamide peroxide (Verified Allergy, Unknown, 08/22/15) proparacaine (Verified Allergy, Unknown, SOA, 01/04/17) Uncoded Allergies: CHLORPROCAINE (Allergy, Severe, SOA, 01/04/17) Home Medications Acetaminophen 500 Mg Tablet, 1,000-1,500 MG PO TID PRN for PAIN, (Reported) TAKES 2-3 (500MG) TABLETS Albuterol Sulfate 2.5 Mg/3 Ml Vial.neb, 2.5 MG NEB Q4H PRN for SHORTNESS OF BREATH, (Reported) Albuterol Sulfate 8.5 Gm Hfa.aer.ad, 2 PUFF INH Q4H PRN for SHORTNESS OF BREATH, (Reported) Amoxicillin/Potassium Clav 1 Each Tablet, 1 EACH PO BID, #14 Ref 0 Prescribed by: DEBBIE SIBLEY on 04/26/16 0956 Atenolol 25 Mg Tablet, 25 MG PO DAILY, (Reported) Beclomethasone Dipropionate 8.7 Gm Aer.w.adap, 1 PUFF PO BID, (Reported) Cetirizine HCl 10 Mg Tablet, 10 MG PO DAILY, (Reported) Doxycycline Hyclate 100 Mg Capsule, 100 MG PO BID, #20 Prescribed by: NADIRA العلي on 01/04/17 1142 Duloxetine HCl 60 Mg Capsule.dr, 60 MG PO HS, (Reported) Fluticasone Propionate 16 Gm [place].susp, 2 SPRAYS NS DAILY, (Reported) Fluticasone/Salmeterol 1 Each Blst.w.dev, 1 PUFF PO BID, (Reported) Ibuprofen 200 Mg Tablet, 800 MG PO TID PRN for PAIN, (Reported) TAKES 4 (200MG) TABLETS Levofloxacin 750 Mg Tablet, 750 MG PO DAILY, #6 Prescribed by: NADIRA العلي on 09/29/16 1742 Metformin HCl 1,000 Mg [id number], 1,000 MG PO BID WITH MEALS, (Reported) Metronidazole 500 Mg Tablet, 500 MG PO BID, #20 Prescribed by: NADIRA العلي on 01/04/17 1142 Montelukast Sodium 10 Mg Tablet, 10 MG PO HS, (Reported) Multivitamin 1 Each Tablet, 1 TAB PO DAILY, (Reported) Pantoprazole Sodium 40 Mg Tablet.dr, 40 MG PO DAILY, (Reported) Prednisone 20 Mg Tab, 40 MG PO DAILY, (Reported) Promethazine/Phenyleph/Codeine 118 Ml Syrup, 5 ML PO Q6H, #120 Ref 0 Prescribed by: JUAN BOB on 06/13/16 1627 Tiotropium [place] 1 Inh Aerp, 1 CAP IH DAILY, (Reported) Review of Systems Constitutional: see HPI EENTM: No Symptoms Reported Respiratory: No Symptoms Reported Cardiovascular: See HPI Gastrointestinal: See HPI, Abdominal Pain Genitourinary: No Symptoms Reported Musculoskeletal: no symptoms reported Skin: no symptoms reported Psychiatric/Neurological: No Symptoms Reported Endocrine: No Symptoms Reported Hematologic/Lymphatic: No Symptoms Reported Past Cqdlomp-Htkswl-Tffwpx Hx Patient Social History Alcohol Use: Denies Use Recreational Drug Use: No Smoking Status: Former Smoker Former Smoker/When Quit: Nov 24, 2006 Recent Foreign Travel: No Contact w/Someone Who Travel: No Recent Infectious Disease Expo: No Recent Hopitalizations: No Immunizations Up To Date Tetanus Booster (TDap): Less than 5yrs Date of Pneumonia Vaccine: Aug 18, 2014 Date of Influenza Vaccine: Jun 18, 2014 Seasonal Allergies Seasonal Allergies: Yes Surgeries HX Surgeries: Yes (Tracheostomy) Surgeries: Appendectomy, Gallbladder, Orthopedic, Tonsillectomy Respiratory Hx Respiratory Disorders: Yes Respiratory Disorders: Asthma, Chronic Bronchitis, COPD Cardiovascular Hx Cardiac Disorders: Yes (History of symptomatic bradycardia) Cardiac Disorders: Hypertension Neurological Hx Neurological Disorders: Yes Reproductive System Hx Reproductive Disorders: Yes Sexually Transmitted Disease: No Female Reproductive Disorders: Polycystic Ovarian Dis [employer]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[employer] 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 Genitourinary Hx Genitourinary Disorders: No Gastrointestinal Hx Gastrointestinal Disorders: Yes Gastrointestinal Disorders: Gastroesophageal Reflux, Gastrointestinal Bleed Musculoskeletal Hx Musculoskeletal Disorders: Yes (Degenerative Joint Disease) Musculoskeletal Disorders: Rheumatoid Arthritis Endocrine Hx Endocrine Disorders: Yes Endocrine Disorders: Diabetes, Non-Insulin dep HEENT HX ENT Disorders: No Loss of Vision: Denies Hearing Impairment: Denies Cancer Hx Cancer: No Psychosocial Hx Psychiatric Problems: Yes (manic depression, insomnia) Behavioral Health Disorders: Anxiety, Depression Integumentary HX Skin/Integumentary Disorder: No Blood Transfusions Hx Blood Disorders: No Adverse Reaction to a Blood Tr: No Family Medical History Significant Family History: Diabetes Family Medial History: Diabetes mellitus 19 MOTHER G8 SISTER Physical Exam Vital Signs VS - Last 72 Hours, by Label 01/04/17 09:00 Temp 98.4 Pulse 87 Resp 16 B/P (MAP) Pulse Ox 98 Capillary Refill : Less Than 3 Seconds General Appearance: WD/WN, no apparent distress HEENT: PERRL/EOMI, normal ENT inspection Neck: non-tender, full range of motion Respiratory: no respiratory distress, no accessory muscle use Gastrointestinal: normal bowel sounds, soft, tenderness Extremities: normal range of motion, non-tender Back: other (due to the patient's morbid obesity and previous hip surgery she is unable to get in an optimal position for pelvic exam. As such I'm not able to visualize the cervix. There was a small amount of brownish discharge noted in the vaginal vault and sample of this was collected for culture.) Neurologic/Psychiatric: alert, normal mood/affect, oriented x 3 Skin: normal color, warm/dry Progress/Results/Core Measures Results/Orders Lab Results Laboratory Tests Test 01/04/17 08:55 01/04/17 10:36 01/04/17 11:10 Range/Units Urine Color YELLOW Urine Clarity CLEAR Urine pH 6 5-9 Urine Specific [place] 1.025 H 1.016-1.022 Urine Protein NEGATIVE NEGATIVE Urine Glucose (UA) NEGATIVE NEGATIVE Urine Ketones NEGATIVE NEGATIVE Urine Nitrite NEGATIVE NEGATIVE Urine Bilirubin NEGATIVE NEGATIVE Urine Urobilinogen NORMAL NORMAL MG/DL Urine Leukocyte Esterase 1+ H NEGATIVE Urine RBC (Auto) 3+ H NEGATIVE Urine RBC NONE /HPF Urine WBC 2-5 /HPF Urine Squamous Epithelial Cells 2-5 /HPF Urine Crystals NONE /LPF Urine Bacteria FEW H /HPF Urine Casts NONE /LPF Urine Mucus NEGATIVE /LPF Urine Culture Indicated NO Urine Test NEGATIVE NEGATIVE White Blood Count 10.3 4.3-11.0 10^3/uL Red Blood Count 4.64 4.35-5.85 10^6/uL Hemoglobin 12.1 11.5-16.0 G/DL Hematocrit 38 35-52 % Mean Corpuscular Volume 83 80-99 FL Mean Corpuscular Hemoglobin 26 25-34 PG Mean Corpuscular Hemoglobin Concent 32 32-36 G/DL Red Cell Distribution Width 16.5 H 10.0-14.5 % Platelet Count 249 130-400 10^3/uL Mean Platelet Volume 9.5 7.4-10.4 FL Neutrophils (%) (Auto) 56 42-75 % Lymphocytes (%) (Auto) 36 12-44 % Monocytes (%) (Auto) 6 0-12 % Eosinophils (%) (Auto) 1 0-10 % Basophils (%) (Auto) 1 0-10 % Neutrophils # (Auto) 5.8 1.8-7.8 X 10^3 Lymphocytes # (Auto) 3.7 1.0-4.0 X 10^3 Monocytes # (Auto) 0.6 0.0-1.0 X 10^3 Eosinophils # (Auto) 0.1 0.0-0.3 10^3/uL Basophils # (Auto) 0.1 0.0-0.1 10^3/uL Neutrophils % (Manual) 47 % Lymphocytes % (Manual) 40 % Monocytes % (Manual) 11 % Band Neutrophils 2 % Hypersegmented Neutrophils SLIGHT Blood Morphology Comment NORMAL Micro Results Microbiology 01/04/17 Genital Culture, Resulted Pending 01/04/17 Wet Prep - Final, Resulted My Orders Orders - NADIRA العلي APRN Urine Bedside (01/04/17 10:12) Hcg,Qualitative Urine (01/04/17 10:15) Cbc With Automated Diff (01/04/17 10:28) Wet Prep (01/04/17 10:28) Neisseria Gonorrhea Dna (01/04/17 10:28) Chlamydia Dna (01/04/17 10:28) Genital Culture (01/04/17 10:28) Ketorolac Injection (Toradol Injection) (01/04/17 10:30) Manual Differential (01/04/17 10:36) Us Non Ob Transvaginal [id number] (01/04/17 10:31) Ceftriaxone Injection (Rocephin Injectio (01/04/17 11:45) Ct Abdomen/Pelvis Wo (01/04/17 12:06) Oxycodone/Apap 5/325mg Tablet (Percocet (01/04/17 12:15) Lidocaine 1% Injection (Xylocaine 1% Inj (01/04/17 12:18) Water (Sterile) For Injection (Sterile W (01/04/17 12:22) Medications Given in ED Current Medications Medications Dose Ordered Sig/Malick Route Start Time Stop Time Status Last Admin Dose Admin Ceftriaxone Sodium 1,000 mg ONCE ONCE IM 01/04/17 11:45 01/04/17 11:46 DC 01/04/17 12:37 1,000 MG Ketorolac Tromethamine 60 mg ONCE ONCE IM 01/04/17 10:30 01/04/17 10:31 DC 01/04/17 10:36 60 MG Oxycodone/ Acetaminophen 1 tab ONCE ONCE PO 01/04/17 12:15 01/04/17 12:16 DC 01/04/17 12:36 1 TAB Vital Signs/I&O Vital Sign - Last 12Hours 01/04/17 09:00 Temp 98.4 Pulse 87 Resp 16 B/P (MAP) Pulse Ox 98 Point of Care Testing Urine -Bedside: Negative Diagnostic Imaging Diagonstic Imaging: CT Comments NAME: GEN CUNNINGHAMBERLY Aye [facility] REC#: [id number] PT STATUS: REG ER : 1985 PHYSICIAN: NADIRA العلي APRN ADMIT DATE: 01/04/17/ER Draft Date of Exam:01/04/17 CT ABDOMEN/PELVIS WO PROCEDURE: CT abdomen and pelvis without contrast. TECHNIQUE: Multiple contiguous axial images were obtained through the abdomen and pelvis without the use of intravenous contrast. INDICATION: Abdominal pain. CORRELATION STUDY: 05/31/2010 FINDINGS: LOWER THORAX: Clear. Trace pericardial effusion. LIVER: Rather pronounced diffuse hepatic steatosis. Enlarged at 20 cm craniocaudal. GALLBLADDER: Absent with clips in the fossa. SPLEEN: Mildly enlarged. PANCREAS: Unremarkable. ADRENAL GLANDS: Unremarkable. KIDNEYS: Normal configuration. No calcification or obstruction. ABDOMINAL AORTA: Unremarkable, nonaneurysmal. A few small scattered subcentimeter lymph nodes. GASTROINTESTINAL TRACT: No obstruction or inflammation. Mild severity fecal retention. The appendix cannot be definitively localized. URINARY BLADDER: Decompressed. REPRODUCTIVE: Intrauterine contraceptive device is present. Adnexa is largely obscured by extensive metallic artifact. OSSEOUS STRUCTURES: Right hip arthroplasty hardware results in rather extensive metallic artifact over the right hemipelvis. IMPRESSION: 1. Right hemipelvis is largely obscured by metallic artifact. Given limitations, no definitive evidence for acute abnormality about the abdomen and/or pelvis. The appendix, however, cannot be cleared. 2. Hepatosplenomegaly with hepatic steatosis. Dictated on workstation # [id number] Dict: 01/04/17 1238 Trans: 01/04/17 1247 [facility] [id number] Interpreted by: MARIO CUTLER DO Electronically signed by: Departure Communication Progress Notes Patient states that she can in fact Lidocaine so the rocephin shot is mixed with lidocaine. Impression Impression: Primary Impression: PID (acute pelvic inflammatory disease) Disposition: 01 HOME, SELF-CARE Condition: Stable Departure-Patient Inst. Decision time for Depature: 11:41 Referrals: [facility] (PCP) Primary Care Physician TAD MIX (Family) Primary Care Physician Patient Instructions: Pelvic Inflammatory Disease Add. Discharge Instructions: 1. Antibiotics as directed 2. Follow-up with her regular doctor tomorrow 3. Return to ER for any worsening All discharge instructions reviewed with patient and/or family. Voiced understanding. Scripts Metronidazole (Flagyl) 500 Mg Tablet 500 MG PO BID, #20 TAB Prov: NADIRA العلي LATEX DIPPER 01/04/17 Doxycycline Hyclate (Doxycycline Hyclate) 100 Mg Capsule 100 MG PO BID, #20 CAP Prov: NADIRA العلي LATEX DIPPER 01/04/17 NADIRA العلي APRN January 04, 2017 10:31
[2017-01-04 10:54] LABS: BASOPHILS # (AUTO) 0.1 10^3/uL (0.0-0.1); BASOPHILS % (AUTO) 1 % (0-10); EOSINOPHILS # (AUTO) 0.1 10^3/uL (0.0-0.3); EOSINOPHILS % (AUTO) 1 % (0-10); LYMPHOCYTES # (AUTO) 3.7 X 10^3 (1.0-4.0); LYMPHOCYTES % (AUTO) 36 % (12-44); MEAN CORPUSCULAR HEMOGLOBIN 26 PG (25-34); MEAN CORPUSCULAR HGB CONC 32 G/DL (32-36); MEAN CORPUSCULAR VOLUME 83 FL (80-99); MEAN PLATELET VOLUME 9.5 FL (7.4-10.4); MONOCYTES # (AUTO) 0.6 X 10^3 (0.0-1.0); MONOCYTES % (AUTO) 6 % (0-12); NEUTROPHILS # (AUTO) 5.8 X 10^3 (1.8-7.8); NEUTROPHILS % (AUTO) 56 % (42-75); PLATELET COUNT 249 10^3/uL (130-400); RED BLOOD COUNT 4.64 10^6/uL (4.35-5.85); RED CELL DISTRIBUTION WIDTH 16.5 % (10.0-14.5); WHITE BLOOD COUNT 10.3 10^3/uL (4.3-11.0)
[2017-01-04 11:09] LABS: BAND NEUTROPHILS 2 %; NEUTROPHILS % (MANUAL) 47 %
[2017-01-04 11:10] LABS: LYMPHOCYTES % (MANUAL) 40 %
[2017-01-04] MEDS ORDERED: DOXY100C2 PO (11:42)
[2017-01-04] MEDS ORDERED: METR500T PO (11:42)
[2017-01-04] MEDS ORDERED: cefTRIAXone 1 GM (ROCEPHIN) VIAL IM ONE (11:45)
[2017-01-04] MEDS ORDERED: oxyCODONE/APAP 5/325MG (PERCOCET 5) TABLET PO ONE (12:15)
[2017-01-04] MEDS ORDERED: LIDOCAINE 1% INJ 20 ML (XYLOCAINE) VIAL ONE (12:18)
[2017-01-04] MEDS ORDERED: WATER (STERILE) FOR INJECTION 20 ML ONE (12:22)
--- NOTE | 2017-01-04 12:26 | Diagnostic Imaging Report ---
INDICATION: Abdominal pain TECHNIQUE: Multiple real time ruffin scale sonographic images were obtained of the pelvis endovaginally. CORRELATION STUDY: None FINDINGS: UTERUS/ENDOMETRIUM: Uterus measures 9.3 x 5.2 x 4.1 cm. Endometrial thickness is 8 mm. Linear echogenic structure compatible with an intrauterine contraceptive device is present. Probable small cervical nabothian cyst. RIGHT OVARY: 3.2 x 1.4 x 2.3 cm. LEFT OVARY: Not visualized. Right ovary has an unremarkable appearance apart from a few likely physiologic follicles. Vascular flow demonstrated to the right ovary. No significant free pelvic fluid. IMPRESSION: 1. Intrauterine contraceptive device present. 2. Right ovary unremarkable. 3. Nonvisualization of the left ovary. Dictated by: Dictated on workstation # [id number]
--- NOTE | 2017-01-04 12:48 | Diagnostic Imaging Report ---
PROCEDURE: CT abdomen and pelvis without contrast. TECHNIQUE: Multiple contiguous axial images were obtained through the abdomen and pelvis without the use of intravenous contrast. INDICATION: Abdominal pain. CORRELATION STUDY: 05/31/2010 FINDINGS: LOWER THORAX: Clear. Trace pericardial effusion. LIVER: Rather pronounced diffuse hepatic steatosis. Enlarged at 20 cm craniocaudal. GALLBLADDER: Absent with clips in the fossa. SPLEEN: Mildly enlarged. PANCREAS: Unremarkable. ADRENAL GLANDS: Unremarkable. KIDNEYS: Normal configuration. No calcification or obstruction. ABDOMINAL AORTA: Unremarkable, nonaneurysmal. A few small scattered subcentimeter lymph nodes. GASTROINTESTINAL TRACT: No obstruction or inflammation. Mild severity fecal retention. The appendix cannot be definitively localized. URINARY BLADDER: Decompressed. REPRODUCTIVE: Intrauterine contraceptive device is present. Adnexa is largely obscured by extensive metallic artifact. OSSEOUS STRUCTURES: Right hip arthroplasty hardware results in rather extensive metallic artifact over the right hemipelvis. IMPRESSION: 1. Right hemipelvis is largely obscured by metallic artifact. Given limitations, no definitive evidence for acute abnormality about the abdomen and/or pelvis. The appendix, however, cannot be cleared. 2. Hepatosplenomegaly with hepatic steatosis. Dictated by: Dictated on workstation # [id number]
[2017-01-04 13:01] VITALS: BP 153/86
== END 2017-01-04 13:01 | disposition home or self-care (01) ==
LOC: EDUNIT# 08:24 → ER 08:25
DX: N73.9 Female pelvic inflammatory disease, unspecified (principal); K76.0 Fatty (change of) liver, not elsewhere classified; R16.2 Hepatomegaly with splenomegaly, not elsewhere classified; E11.9 Type 2 diabetes mellitus without complications; I10 Essential (primary) hypertension; E66.01 Morbid (severe) obesity due to excess calories; J44.9 Chronic obstructive pulmonary disease, unspecified; Z79.84 Long term (current) use of oral hypoglycemic drugs; Z79.899 Other long term (current) drug therapy; Z87.891 Personal history of nicotine dependence
CPT/HCPCS: 36415; 74176; 76830; 81000; 84703; 85007; 85027; 87070; 87210; 87491; 87591; 96372; 99284

== ENCOUNTER 2017-02-25 13:00 | Outpatient (RCR) | payer MEDICAID ==
[~2017-02-25 13:00] MED LIST changes: +DOXY100C2 PO; +METR500T PO
[2017-03-23] MEDS ORDERED: LEVO500T2 PO (15:17)
[2017-03-23] MEDS ORDERED: BENZ-13 PO (15:17)
[2017-03-23] MEDS ORDERED: D-ME118S7 PO (15:17)
== END 2017-03-26 | disposition home or self-care (01) ==
LOC: PULM 13:00
PROVIDERS: ATTEND Nurse Practitioner Adult Health
DX: J45.909 Unspecified asthma, uncomplicated (principal); E66.9 Obesity, unspecified

== ENCOUNTER 2017-03-23 12:09 | Emergency (ER) | payer MEDICAID ==
[~2017-03-23] VITALS: Ht 175.3 cm; Wt 151.5 kg
[2017-03-23] MEDS ORDERED: methylPREDNISolone 125 MG (Solu-MEDROL) VIAL IV STA (13:55)
[2017-03-23] MEDS ORDERED: RT-ALBUTEROL/IPRATROPIUM 3 ML (DUONEB) VIAL INH ONE ×2 (14:00→15:15)
[2017-03-23] MEDS ORDERED: DEXAMETHASONE 4 MG/ML SDV (DECADRON) IH ONE (14:00)
[2017-03-23 14:05] LABS: BASOPHILS # (AUTO) 0.1 10^3/uL (0.0-0.1); BASOPHILS % (AUTO) 1 % (0-10); EOSINOPHILS # (AUTO) 0.7 10^3/uL (0.0-0.3); EOSINOPHILS % (AUTO) 5 % (0-10); LYMPHOCYTES # (AUTO) 3.4 X 10^3 (1.0-4.0); LYMPHOCYTES % (AUTO) 26 % (12-44); MEAN CORPUSCULAR HEMOGLOBIN 26 PG (25-34); MEAN CORPUSCULAR HGB CONC 31 G/DL (32-36); MEAN CORPUSCULAR VOLUME 82 FL (80-99); MEAN PLATELET VOLUME 9.8 FL (7.4-10.4); MONOCYTES # (AUTO) 0.8 X 10^3 (0.0-1.0); MONOCYTES % (AUTO) 6 % (0-12); NEUTROPHILS # (AUTO) 7.9 X 10^3 (1.8-7.8); NEUTROPHILS % (AUTO) 62 % (42-75); PLATELET COUNT 261 10^3/uL (130-400); RED BLOOD COUNT 4.77 10^6/uL (4.35-5.85); RED CELL DISTRIBUTION WIDTH 16.5 % (10.0-14.5); WHITE BLOOD COUNT 12.9 10^3/uL (4.3-11.0)
[2017-03-23 14:23] LABS: ALANINE AMINOTRANSFERASE 55 U/L (0-55); ALBUMIN 4.1 GM/DL (3.2-4.5); ANION GAP 13 MMOL/L (5-14); ASPARTATE AMINO TRANSFERASE 26 U/L (5-34); BILIRUBIN,TOTAL 0.8 MG/DL (0.1-1.0); BLOOD UREA NITROGEN 6 MG/DL (7-18); BUN/CREATININE RATIO 9; CALCIUM 9.6 MG/DL (8.5-10.1); CARBON DIOXIDE 23 MMOL/L (21-32); CHLORIDE 106 MMOL/L (98-107); CREATININE SERUM 0.67 MG/DL (0.60-1.30); GFR ESTIMATED > 60; GLUCOSE 94 MG/DL (70-105); POTASSIUM 3.9 MMOL/L (3.6-5.0); SODIUM 142 MMOL/L (135-145); TOTAL PROTEIN 7.1 GM/DL (6.4-8.2)
[2017-03-23] MEDS ORDERED: LEVOFLOXACIN 500 MG TAB (LEVAQUIN) PO STA (15:11)
--- NOTE | 2017-03-23 15:13 | Diagnostic Imaging Report ---
INDICATION: Shortness of air. COMPARISON: 09/29/2016. FINDINGS: Lungs are clear. No pleural effusion or pneumothorax. Previously noted left upper lobe consolidation has resolved. Normal heart size and pulmonary vasculature. IMPRESSION: 1. No acute cardiopulmonary process. Dictated by: Dictated on workstation # [id number]
[2017-03-23] MEDS ORDERED: BENZONATATE 100 MG (TESSALON) CAPSULE PO SCH (15:15)
[2017-03-23] MEDS ORDERED: cefTRIAXone INJECTION 1,000 MG in NS (IVPB) 50 ML IV ONE (15:15)
[2017-03-23] MEDS ORDERED: LEVO500T2 PO (15:17)
[2017-03-23] MEDS ORDERED: BENZ-13 PO (15:17)
[2017-03-23] MEDS ORDERED: D-ME118S7 PO (15:17)
--- NOTE | 2017-03-23 15:18 | ED Respiratory ---
General Chief Complaint: Respiratory Problems Stated Complaint: SOB Nursing Triage Note: PT STATES SOB, PAIN IN CHEST AND BACK FROM COUGHING, STARTED YESTERDAY, HX OF COPD AND ASTHMA. Source: patient History of Present Illness Time seen by provider: 13:37 Initial Comments PT ARRIVES VIA POV FROM HOME C/O INCREASE IN CHRONIC SHORTNESS OF BREATH SINCE YESTERDAY PT NORMALLY WEARS O2 AT 3L/NC CONTINUOUSLY PT C/O PRODUCTIVE COUGH WITH YELLOW SPUTUM SINCE YESTERDAY NO FEVER C/O CHEST BACK PAIN--WITH COUGHING MOSTLY NO FEVER, BUT HAS HAD OCCASIONAL SWEATS HAS HAD FATIGUE AND DECREASED ACTIVITY SINCE YESTERDAY PT WITH ASTHMA AND COPD--HAS MULTIPLE INHALERS AND NEBULIZER--USED ALBUTEROL NEBULIZER X TODAY ON WAKING AT 11:00. HAS NOT USED OTHER INHALERS TODAY PT TAKES PREDNISONE 20 MG DAILY, AND BACTRIM EVERY OTHER DAY FOR MAINTENANCE. NO SWELLING IN LEGS FEET PCP: [facility]: IN , HAS A ROUTINE APPOINTMENT IN Allergies and Home Medications Allergies Coded Allergies: cocaine (Verified Allergy, Severe, SOA, 01/04/17) procaine (Verified Allergy, Severe, SOA, 01/04/17) tetracaine (Verified Allergy, Severe, SOA, 01/04/17) allantoin (Verified Allergy, Unknown, 08/22/15) aspirin (Verified Allergy, Unknown, 08/22/15) benzocaine (Verified Allergy, Unknown, 08/22/15) carbamide peroxide (Verified Allergy, Unknown, 08/22/15) proparacaine (Verified Allergy, Unknown, SOA, 01/04/17) Uncoded Allergies: CHLORPROCAINE (Allergy, Severe, SOA, 01/04/17) Home Medications Acetaminophen 500 Mg Tablet, 1,000-1,500 MG PO TID PRN for PAIN, (Reported) TAKES 2-3 (500MG) TABLETS Albuterol Sulfate 2.5 Mg/3 Ml Vial.neb, 2.5 MG NEB Q4H PRN for SHORTNESS OF BREATH, (Reported) Albuterol Sulfate 8.5 Gm Hfa.aer.ad, 2 PUFF INH Q4H PRN for SHORTNESS OF BREATH, (Reported) Amoxicillin/Potassium Clav 1 Each Tablet, 1 EACH PO BID, #14 Ref 0 Prescribed by: DEBBIE SIBLEY on 04/26/16 0956 Atenolol 25 Mg Tablet, 25 MG PO DAILY, (Reported) Beclomethasone Dipropionate 8.7 Gm Aer.w.adap, 1 PUFF PO BID, (Reported) Benzonatate 100 Mg Capsule, 1-2 TAB PO TID, #30 Prescribed by: SUNITA CHOU on 03/23/17 1517 Cetirizine HCl 10 Mg Tablet, 10 MG PO DAILY, (Reported) D-Methorphan Hb/Prometh HCl 118 Ml Syrup, 1-2 TSP PO Q4H, #120 Prescribed by: SUNITA CHOU on 03/23/17 1517 Doxycycline Hyclate 100 Mg Capsule, 100 MG PO BID, #20 Prescribed by: NADIRA العلي on 01/04/17 1142 Duloxetine HCl 60 Mg Capsule.dr, 60 MG PO HS, (Reported) Fluticasone Propionate 16 Gm Ono.susp, 2 SPRAYS NS DAILY, (Reported) Fluticasone/Salmeterol 1 Each Blst.w.dev, 1 PUFF PO BID, (Reported) Ibuprofen 200 Mg Tablet, 800 MG PO TID PRN for PAIN, (Reported) TAKES 4 (200MG) TABLETS Levofloxacin 750 Mg Tablet, 750 MG PO DAILY, #6 Prescribed by: NADIRA العلي on 09/29/16 1742 Levofloxacin 500 Mg Tablet, 500 MG PO DAILY, #10 Prescribed by: SUNITA CHOU on 03/23/17 1517 Metformin HCl 1,000 Mg [id number], 1,000 MG PO BID WITH MEALS, (Reported) Metronidazole 500 Mg Tablet, 500 MG PO BID, #20 Prescribed by: NADIRA العلي on 01/04/17 1142 Montelukast Sodium 10 Mg Tablet, 10 MG PO HS, (Reported) Multivitamin 1 Each Tablet, 1 TAB PO DAILY, (Reported) Pantoprazole Sodium 40 Mg Tablet.dr, 40 MG PO DAILY, (Reported) Prednisone 20 Mg Tab, 40 MG PO DAILY, (Reported) Promethazine/Phenyleph/Codeine 118 Ml Syrup, 5 ML PO Q6H, #120 Ref 0 Prescribed by: JUAN BOB on 06/13/16 1627 Tiotropium Fluker 1 Inh Aerp, 1 CAP IH DAILY, (Reported) Constitutional: see HPI, diaphoresis, No fever, malaise EENTM: no symptoms reported Respiratory: see HPI, cough, dyspnea on exertion, No hemoptysis, orthopnea, phlegm, short of breath, No stridor, wheezing Cardiovascular: see HPI, chest pain, No edema, No palpitations, No syncope, No vascular heart diseas Gastrointestinal: no symptoms reported Genitourinary: no symptoms reported, other (LMP>1 YEAR--HAS MIRENA IUD IN PLACE ) Musculoskeletal: see HPI, back pain Skin: no symptoms reported Psychiatric/Neurological: No Symptoms Reported Hematologic/Lymphatic: No Symptoms Reported Immunological/Allergic: no symptoms reported Past Cxyllnv-Tyhgir-Wkasyq Hx Patient Social History Alcohol Use: Denies Use Recreational Drug Use: No Smoking Status: Former Smoker Type Used: Cigarettes Former Smoker/When Quit: Nov 24, 2006 Recent Foreign Travel: No Contact w/Someone Who Travel: No Recent Infectious Disease Expo: No Recent Hopitalizations: No (12/2016 [facility] TO INCREASE LUNG FUNCTION) Immunizations Up To Date Tetanus Booster (TDap): Less than 5yrs Date of Pneumonia Vaccine: Aug 18, 2014 Date of Influenza Vaccine: May 22, 2016 Seasonal Allergies Seasonal Allergies: Yes Surgeries HX Surgeries: Yes (Tracheostomy/REMOVAL) Surgeries: Appendectomy, Gallbladder, Orthopedic, Tonsillectomy, Tracheostomy Respiratory Hx Respiratory Disorders: Yes (RESPIRATORY FAILURE--S/P TRACH/REMOVAL; O2 AT 3L /NC CONTINUOUS; STEROID DEPENDENT) Respiratory Disorders: Asthma, Chronic Bronchitis, COPD Cardiovascular Hx Cardiac Disorders: Yes (History of symptomatic bradycardia; PT STATES SHE "ALMOST 3 TIMES" AT THE TIME OF TRACH PLACEMENT) Cardiac Disorders: Hypertension Neurological Hx Neurological Disorders: No Neurological Disorders: Headaches /Migraines Reproductive System : No Hx Reproductive Disorders: Yes Sexually Transmitted Disease: No Female Reproductive Disorders: Polycystic Ovarian Dis [employer]PER[employer] History: IUD Genitourinary Hx Genitourinary Disorders: No Gastrointestinal Hx Gastrointestinal Disorders: Yes Gastrointestinal Disorders: Gastroesophageal Reflux, Gastrointestinal Bleed Musculoskeletal Hx Musculoskeletal Disorders: Yes (Degenerative Joint Disease) Musculoskeletal Disorders: Arthritis, Rheumatoid Arthritis Endocrine Hx Endocrine Disorders: Yes (MORBID OBESTIY) Endocrine Disorders: Diabetes, Insulin dep, Diabetes, Non-Insulin dep HEENT HX ENT Disorders: No Loss of Vision: Denies Hearing Impairment: Denies Cancer Hx Cancer: No Psychosocial Hx Psychiatric Problems: Yes (manic depression, insomnia) Behavioral Health Disorders: Anxiety, Depression Integumentary HX Skin/Integumentary Disorder: No Blood Transfusions Hx Blood Disorders: No Adverse Reaction to a Blood Tr: No Family Medical History Significant Family History: Diabetes Family Medial History: Diabetes mellitus 19 MOTHER G8 SISTER Physical Exam Vital Signs Vital Sign - Last 12Hours 03/23/17 03/23/17 13:27 14:25 Temp 98.4 Pulse 110 Resp 22 B/P (MAP) 129/103 Pulse Ox 96 O2 Delivery Nasal Cannula O2 Flow Rate 2.00 FiO2 24 Capillary Refill : Less Than 3 Seconds General Appearance: no apparent distress, obese (MORBIDLY ), other (TEXTING / PLAYING ON PHONE. DOES NOT APPEAR TO BE IN ANY DISCOMFORT OR DISTRESS) HEENT: PERRL/EOMI, normal ENT inspection Neck: non-tender, full range of motion, supple, normal inspection Respiratory: no respiratory distress, no accessory muscle use, wheezing ( DIFFUSE EXPIRATORY WHEEZING IN ALL LUNG JUAREZ), other (TIGHT COUGH) Cardiovascular: no murmur, tachycardia (110'S) Gastrointestinal: non tender, soft Extremities: non-tender, normal capillary refill, other (UNABLE TO DETERMINE IF EDEMA IS PRESENT DUE TO OBESITY/BODY HABITUS) Neurologic/Psychiatric: head trimmer II-XII nml as tested, no motor/sensory deficits, alert, oriented x 3 Skin: normal color, warm/dry Focused Exam Lactic Acid Level Laboratory Tests Test 03/23/17 13:55 Lactic Acid Level 1.61 MMOL/L (0.50-2.00) Progress/Results/Core Measures Results/Orders Lab Results Laboratory Tests Test 03/23/17 13:55 Range/Units White Blood Count 12.9 H 4.3-11.0 10^3/uL Red Blood Count 4.77 4.35-5.85 10^6/uL Hemoglobin 12.3 11.5-16.0 G/DL Hematocrit 39 35-52 % Mean Corpuscular Volume 82 80-99 FL Mean Corpuscular Hemoglobin 26 25-34 PG Mean Corpuscular Hemoglobin Concent 31 L 32-36 G/DL Red Cell Distribution Width 16.5 H 10.0-14.5 % Platelet Count 261 130-400 10^3/uL Mean Platelet Volume 9.8 7.4-10.4 FL Neutrophils (%) (Auto) 62 42-75 % Lymphocytes (%) (Auto) 26 12-44 % Monocytes (%) (Auto) 6 0-12 % Eosinophils (%) (Auto) 5 0-10 % Basophils (%) (Auto) 1 0-10 % Neutrophils # (Auto) 7.9 H 1.8-7.8 X 10^3 Lymphocytes # (Auto) 3.4 1.0-4.0 X 10^3 Monocytes # (Auto) 0.8 0.0-1.0 X 10^3 Eosinophils # (Auto) 0.7 H 0.0-0.3 10^3/uL Basophils # (Auto) 0.1 0.0-0.1 10^3/uL Sodium Level 142 135-145 MMOL/L Potassium Level 3.9 3.6-5.0 MMOL/L Chloride Level 106 98-107 MMOL/L Carbon Dioxide Level 23 21-32 MMOL/L Anion Gap 13 5-14 MMOL/L Blood Urea Nitrogen 6 L 7-18 MG/DL Creatinine 0.67 0.60-1.30 MG/DL Estimat Glomerular Filtration Rate > 60 BUN/Creatinine Ratio 9 Glucose Level 94 70-105 MG/DL Lactic Acid Level 1.61 0.50-2.00 MMOL/L Calcium Level 9.6 8.5-10.1 MG/DL Total Bilirubin 0.8 0.1-1.0 MG/DL Aspartate Amino Transf (AST/SGOT) 26 5-34 U/L Alanine Aminotransferase (ALT/SGPT) 55 0-55 U/L Alkaline Phosphatase 74 40-136 U/L B-Type Natriuretic Peptide 41.7 <100.0 PG/ML Total Protein 7.1 6.4-8.2 GM/DL Albumin 4.1 3.2-4.5 GM/DL Serum Test, Qualitative NEGATIVE NEGATIVE My Orders Orders - JOSÉ ANTONIOSUNITA K DO Saline Lock/Iv-Start (03/23/17 13:37) Ekg Tracing (03/23/17 13:37) O2 (03/23/17 13:37) Monitor-Rhythm Ecg Trace Only (03/23/17 13:37) BNP (03/23/17 13:37) Cbc With Automated Diff (03/23/17 13:37) Comprehensive Metabolic Panel (03/23/17 13:37) Hcg,Qualitative Serum (03/23/17 13:37) Lactic Acid Analyzer (03/23/17 13:37) Blood Culture (03/23/17 13:37) Chest Pa/Lat (2 View) (03/23/17 13:37) Albuterol/Ipra Inhalation Soln (Duoneb I (03/23/17 14:00) Dexamethasone Injection (Decadron Inject (03/23/17 14:00) Rt Request For Service (03/23/17 13:55) Methylprednisolone Sod Succ (Solu-Medrol (03/23/17 13:55) Svn Sm Volume Nebulizer Rt-Rfs (03/23/17 13:55) Ceftriaxone Injection (Rocephin Injectio (03/23/17 15:15) Levofloxacin Tablet (Levaquin Tablet) (03/23/17 15:11) Albuterol/Ipra Inhalation Soln (Duoneb I (03/23/17 15:15) Svn Sm Volume Nebulizer Rt-Rfs (03/23/17 15:11) Benzonatate Capsule (Tessalon Perles) (03/23/17 15:15) Sputum Culture (03/23/17 15:52) Medications Given in ED Current Medications Medications Dose Ordered Sig/Malick Route Start Time Stop Time Status Last Admin Dose Admin Albuterol/ Ipratropium 3 ml ONCE ONCE INH 03/23/17 14:00 03/23/17 14:01 DC 03/23/17 14:25 3 ML Albuterol/ Ipratropium 3 ml ONCE ONCE INH 03/23/17 15:15 03/23/17 15:16 DC 03/23/17 15:49 3 ML Ceftriaxone Sodium 1000 mg/ Sodium Chloride 50 ml @ 100 mls/hr ONCE ONCE IV 03/23/17 15:15 03/23/17 15:44 DC 03/23/17 15:47 100 MLS/HR Dexamethasone Sodium Phosphate 20 mg ONCE ONCE IH 03/23/17 14:00 03/23/17 14:01 DC 03/23/17 14:25 20 MG Vital Signs/I&O Vital Sign - Last 12Hours 03/23/17 03/23/17 03/23/17 13:27 14:25 15:49 Temp 98.4 Pulse 110 Resp 22 B/P (MAP) 129/103 Pulse Ox 96 94 94 O2 Delivery Nasal Cannula Nasal Cannula Nasal Cannula O2 Flow Rate 2.00 1.00 1.00 FiO2 24 Blood Pressure Mean: 112 Progress Note : Progress Note WHEEZING AND COUGH DECREASED, INCREASED AERATION AFTER NEB TREATMENTS NO DETERIORATION IN PT'S CONDITION DURING ER STAY ECG Initial ECG Impression Time: 14:08 Initial ECG Rate: 103 Initial ECG Rhythm: Normal Sinus Initial ECG Impression: Normal Diagnostic Imaging Comments CXR--NO ACUTE PROCESS, PER RADIOLOGIST REPORT @ 1535 Reviewed: Reviewed by Me Departure Impression Impression: Primary Impression: Acute asthma exacerbation Additional Impression: Bronchitis Disposition: 01 HOME, SELF-CARE Condition: Improved Departure-Patient Inst. Referrals: [facility] (PCP) Primary Care Physician TAD MIX (Family) Primary Care Physician Patient Instructions: Asthma, Adult (DC), Acute Bronchitis, Adult (DC), Chronic Bronchitis (DC) Add. Discharge Instructions: CONTINUE YOUR REGULAR MEDICATIONS PRESCRIBED, EXCEPT INCREASE YOUR PREDNISONE TO 60 MG A DAY X 3 DAYS, 50 MG DAILY X 3 DAYS, THEN 40 MG DAILY FOLLOW UP WITH [facility] AND/YOUR ART DIRECTOR THIS WEEK FOR FURTHER CARE RETURN TO ER IF WORSE All discharge instructions reviewed with patient and/or family. Voiced understanding. Scripts D-Methorphan Hb/Prometh HCl (Promethazine-Dm Syrup) 118 Ml Syrup 1-2 TSP PO Q4H for Cough, #120 ML Prov: SUNITA CHOU DO 03/23/17 Benzonatate (Tessalon Perle) 100 Mg Capsule 1-2 TAB PO TID for Cough, #30 CAP Prov: SUNITA CHOU DO 03/23/17 Levofloxacin (Levaquin) 500 Mg Tablet 500 MG PO DAILY for INFECTION, #10 TAB Prov: SUNITA CHOU DO 03/23/17 SUNITA CHOU DO Mar 23, 2017 15:18
[2017-03-23 16:27] VITALS: BP 130/95
== END 2017-03-23 16:27 | disposition home or self-care (01) ==
LOC: EDUNIT# 12:09 → ER 12:11
DX: J45.901 Unspecified asthma with (acute) exacerbation (principal); F41.9 Anxiety disorder, unspecified; F32.9 Major depressive disorder, single episode, unspecified; E11.9 Type 2 diabetes mellitus without complications; E66.01 Morbid (severe) obesity due to excess calories; M06.9 Rheumatoid arthritis, unspecified; K21.9 Gastro-esophageal reflux disease without esophagitis; G43.909 Migraine, unspecified, not intractable, without status migrainosus; I10 Essential (primary) hypertension; Z90.49 Acquired absence of other specified parts of digestive tract; Z90.89 Acquired absence of other organs; Z87.891 Personal history of nicotine dependence; Z79.84 Long term (current) use of oral hypoglycemic drugs; Z87.42 Personal history of other diseases of the female genital tract; Z30.432 Encounter for removal of intrauterine contraceptive device; Z68.42 Body mass index [BMI] 45.0-49.9, adult
CPT/HCPCS: 36415; 71020; 80053; 83605; 83880; 84703; 85025; 87040; 87070; 87205; 93005; 93041; 94640

== ENCOUNTER 2017-07-15 12:45 | Observation (INO) | payer MEDICAID ==
[~2017-07-15] VITALS: Ht 175.3 cm; Wt 159.2 kg
[~2017-07-15 12:45] MED LIST changes: +ACET-168 PO; +AZIT250T12 PO; +BECL8.7A6 INH; +BENZ-13 PO; +BENZ200C51 PO; +D-ME118S7 PO; +FERR324T PO; +FURO40TA4 PO; +GUAI-148 PO; +HYDR-3820 PO; +INSU100I10 SC; +INSU100I14 SC; +LEVO500T2 PO; +LEVO750T39 PO; +METF500T8 PO; +POTA10TA36 PO; +RANI300T4 PO; +VORT10TA PO
[2017-07-15 14:00] VITALS: BP 150/77
--- OUTSIDE RECORDS SUMMARY | 2017-07-15 14:05 | XMS REPORT | Continuity of Care Document ---
Author Author [employer] Organization [facility] Address Unknown Phone Unavailable Care Team Providers Care Auto Service Dispatcher Name Role Phone [employer] Unavailable Unavailable Problems Medications Allergies, Adverse Reactions, Alerts Immunizations Results Vital Signs Encounters Location Location Details Encounter Type Encounter Number Reason For Visit Attending Provider ADM Date DC Date Status Source OUTPATIENT [id number] SUN MUNOZ 12/05/2015 12/05/2015 Active [facility] INPATIENT [id number] EVA MYERS 04/02/2017 04/09/2017 Active [facility] O Active [facility] Procedures Plan of Care Social History Assessment and Plan Family History Value Date Source Advance Directives Order Name Results Value Date Source
--- OUTSIDE RECORDS SUMMARY | 2017-07-15 14:06 | XMS REPORT | Encounter Summary ---
Author Author [facility] Organization 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 Name Role Phone PCP Unavailable Reason for Visit * Reason Comments Cough Breathing Problem Encounter Details Date Type Department Care Team Description 04/14/2017 Telephone [facility] Dean Cabrera MD Cough; Breathing Problem Physicians - Internal [address] [facility] [place] [address] [place] [address] [id number] [facility] [phone] [place] [address] Social History Tobacco Use Types Packs/Day Years Used Date Former Smoker Cigarettes 0.25 5 Quit: 11/30/2008 Smokeless Tobacco: Never Used Alcohol Use Drinks/Week oz/Week Comments No Sex Assigned at Date Recorded Not on file as of this encounter Functional Status Functional Status Response Date of Assessment Does the patient have a hearing impairment: No 04/03/2017 Does the patient have a visual impairment: Yes 12/11/2016 Does the patient have impaired ambulation: Yes 12/11/2016 Does the patient have an activity of daily living No 12/11/2016 (ADL) impairment: Does the patient have an instrumental activity of No 12/11/2016 daily living (IADL) impairment: Cognitive Status Response Date of Assessment Does the patient have a cognitive impairment: No 12/11/2016 as of this encounter Miscellaneous Notes * Telephone Encounter - Arcadio Hamilton RN - 04/14/2017 10:12 AM CDT Patient called and left a voice mail stating that she is still experiencing a productive cough with yellow sputum and SOB while getting up. She states to have started 20 mg of prednisone today and remembers Dr. Cabrera saying she may go up to 40 mg for a few days if she is still having problems. Message routed to Dr. Cabrera. in this encounter Plan of Treatment Not on fileas of this encounter Visit Diagnoses Not on filein this encounter
--- OUTSIDE RECORDS SUMMARY | 2017-07-15 14:06 | XMS REPORT | Encounter Summary ---
Author Author [facility] Organization [facility] Address Unknown Phone Unavailable Care Team Providers Care Campaign Coordinator Name Role Phone PCP Unavailable Reason for Referral * Consult, Test & Treat Status Reason Specialty Diagnoses / Referred By Referred To Procedures Contact Contact New Request Specialty Pulmonary Disease Diagnoses Dean Cabrera, Services / Pulmonology Uncomplicated MD Required severe [address] asthma [place] [address] [place], [place] continuous [address] supplemental Phone: oxygen [phone] Chronic Fax: respiratory [phone] failure with hypoxia (HCC) Morbid obesity, unspecified obesity type (HCC) Current chronic use of systemic steroids History of tracheostomy Current chronic use of inhaled steroid Reason for Visit * Reason Comments Asthma Encounter Details Date Type Department Care Team Description 05/02/2017 Office Visit [facility] Dean Cabrera MD Asthma exacerbation Physicians - Internal [address] (Primary Dx);Prophylactic Medicine [place] [address] antibiotic;Uncomplicated [address] [facility] [address] [place] [address] severe persistent [place], [place] [phone] [place] [id number] continuous supplemental [phone] oxygen;Chronic respiratory failure with hypoxia (HCC);Morbid obesity, unspecified obesity type;Current chronic use of systemic steroids;History of tracheostomy;Current chronic use of inhaled steroid;Chronic nonseasonal allergic rhinitis due to pollen;GERD without esophagitis Social History Tobacco Use Types Packs/Day Years Used Date Former Smoker Cigarettes 0.25 5 Quit: 11/30/2008 Smokeless Tobacco: Never Used Alcohol Use Drinks/Week oz/Week Comments No Sex Assigned at Date Recorded Not on file as of this encounter Last Filed Vital Signs Vital Sign Reading Time Taken Blood Pressure 148/97 05/02/2017 10:10 AM CDT Pulse 98 05/02/2017 10:10 AM CDT Temperature 36.9 C (98.5 F) 05/02/2017 10:10 AM CDT Respiratory Rate 16 05/02/2017 10:10 AM CDT Oxygen Saturation 100% 05/02/2017 10:10 AM CDT Inhaled Oxygen - - Concentration Weight 158.8 kg (350 lb 1.6 oz) 05/02/2017 10:10 AM CDT Height 185.3 cm (6' 0.95") 05/02/2017 10:10 AM CDT Body Mass Index 46.25 05/02/2017 10:10 AM CDT in this encounter Functional Status Functional Status Response [...] impairment: No 12/11/2016 as of this encounter Instructions * Patient Instructions - Maureen Juarez RN - 05/02/2017 10:00 AM CDT Clinic Visit Summary: It was a pleasure seeing you in clinic today. Please follow-up in 3 months. We will send a referral to [facility] in [place]. - Complete Zpack, then start azithromycin 250 mg tablet, every Friday, Friday and Friday. - Increase prednisone to 60 mg daily x 3 days, then 40 mg daily x 3 days, then 30 mg daily x 3 days, then resume 20 mg daily. Please contact the Pulmonary Clinic Nurse Coordinator with signs and symptoms of worsening condition: Increased shortness of breath, increased coughing, productive cough with thick &/ or abnormal colored secretions, bloody sputum, chest tightness, chest pain, wheezing, shortness of breath, fever, chills, night sweats, or any questions or concerns. Pulmonary Clinic Nurse Coordinator- Maureen Juarez RN office) [phone]; fax) [phone] * For URGENT issues after business hours/weekends/holidays call and request for the [facility] to be paged. - For refills on medications, please have your pharmacy an electronic refill request. Please allow at least 3 business days for refill requests. To cancel, change, or schedule a clinic appointment, contact the Pulmonary Schedulers at . in this encounter Progress Notes * Dean Cabrera MD - 05/02/2017 10:00 AM CDT Formatting of this note may be different from the original. Date of Service: 05/02/2017 Subjective: Aubree Travis is a 32 y.o. female. History of Present Illness Pt recently discharged from our hospital after experiencing increasing cough, wheeze and SOB suggestive of asthma exacerbation. We attempted to treat as outpatient without much success. Presents to clinic in follow-up today. Reports developing an episode of laughter the other day that resulted in the inability to move air in or out of her lungs. Per report, her gave her rescue breaths to clear her airway. Pt currently reports waking up in the night SOB and coughing up large volumes of sputum then taking a nebulized treatment in order to recover. Reports daily cough with any exertion and intermittent wheezing. Never felt much better after being discharged from clinic. Currently using her albuterol (both HFA and neb) 5-6 times daily, Advair BID, QVAR BID, Spiriva, Flonase, Zyrtec, Singulair, prednisone 20 mg and bactrim prophylaxis. Pt has failed therapy with Xolair and developed hypotension while receiving IL-5 therapy. We attempted bronchial thermoplasty but pt developed bronchospasm prior to procedure. Pt is obviously frustrated with her current level of control as am I. Pt's morbid obesity definitely plays a role in making her disease hard to control. I am planning on referring her for a second opinion to [facility] in [facility]. Review of Systems Constitutional: Positive for fatigue. Respiratory: Positive for cough, chest tightness, shortness of breath and wheezing. Musculoskeletal: Positive for back pain. Neurological: Positive for dizziness and numbness. All other systems reviewed and are negative. Results for AUBREE TRAVIS ( ) as of 05/05/2017 13:07 Ref. Range 12/05/2015 14:02 04/04/2017 13:32 Total IgE Unknown 159 (H) Aspergillus Fumigatus IgE Unknown <0.10... Aspergillus Fumigatus Class IgE Unknown 0 Aspergillus Fumigatus IgG Unknown 4.1 IgE Latest Ref Range: 0 - 180 IU/ML 93 CT in March of 2017 was essentially normal: FINDINGS: Lower Neck: Unremarkable Axilla, Mediastinum and Francisca: No thoracic adenopathy. Heart and Great Vessels: The heart is normal in size with trace pericardial effusion. Normal caliber thoracic aorta. Limited evaluation due to contrast bolus timing. No filling defects are seen within the central pulmonary arteries to suggest pulmonary embolism. Airway, Lungs and Pleura: The central airways are patent. No pleural effusion or focal consolidation. Minimal atelectasis in the right lung base. Upper Abdomen: Diffuse hepatic steatosis. Chest Wall and Osseous Structures: Mild thoracic spondylosis. No destructive osseous lesion. IMPRESSION 1. Limited evaluation due to contrast timing without definite acute pulmonary embolism. 2. No consolidating pneumonia or pleural effusion. 3. Diffuse hepatic steatosis. Objective: acetaminophen (TYLENOL) 500 mg tablet Take 500 mg by mouth every 6 hours as needed for Pain. albuterol (VENTOLIN HFA, PROAIR HFA, PROVENTIL HFA) 90 mcg/actuation inhaler Inhale 2 Puffs by mouth into the lungs every 6 hours as needed for Wheezing or Shortness of Breath. Shake well before use. Indications: ACUTE ASTHMA ATTACK albuterol 0.5% (PROVENTIL; VENTOLIN) 2.5 mg/0.5 mL nebu nebulizer solution Inhale 2.5 mg solution by nebulizer as directed every 4-6 hours as needed for Shortness of Breath or Wheezing. beclomethasone(+) (QVAR) 80 mcg/actuation inhaler Inhale 2 puffs by mouth into the lungs twice daily. Indications: MAINTENANCE THERAPY FOR ASTHMA cetirizine (ZYRTEC) 10 mg tablet Take 10 mg by mouth daily. dextromethorphan/guaiFENesin(+) (GUAIFENEX DM) 30/600 mg Tb12 Take 1 Tab by mouth twice daily as needed (allergies/congestion/cough). Indications: COLD SYMPTOMS EPINEPHrine(+) (EPIPEN) 1 mg/mL injection pen (2-Pack) Inject 0.3 mg (1 Pen ) into thigh if needed for anaphylactic reaction. May repeat in 5-15 minutes if needed. Indications: ANAPHYLAXIS ferrous gluconate 324 mg (38 mg iron) tab Take 1 tablet by mouth daily with breakfast. fluticasone (FLONASE) 50 mcg/actuation nasal spray Apply 1 spray to each nostril as directed daily. fluticasone/salmeterol (ADVAIR DISKUS) 500-50 mcg inhalation disk Inhale 1 Puff by mouth into the lungs every 12 hours. Indications: MAINTENANCE THERAPY FOR ASTHMA furosemide (LASIX) 40 mg tablet Take 40 mg by mouth every morning. guaiFENesin LA (MUCINEX) 600 mg tablet Take 1 tablet by mouth twice daily. HYDROcodone/acetaminophen(+) (NORCO) 10/325 mg tablet Take 1 Tab by mouth every 6 hours as needed for Pain insulin aspart (NOVOLOG FLEXPEN) 100 unit/mL injection PEN Inject 15 Units under the skin three times daily with meals. INSULIN GLARGINE,HUM.REC.ANLOG (LANTUS SOLOSTAR SC) Inject 45 Units under the skin daily. metFORMIN (GLUCOPHAGE) 500 mg tablet Take 1,000 mg by mouth twice daily with meals. montelukast (SINGULAIR) 10 mg tablet Take 10 mg by mouth at bedtime daily. OXYGEN-AIR DELIVERY SYSTEMS MISC Insert 3 L/min into nose as directed. pantoprazole DR (PROTONIX) 40 mg tablet Take 1 tablet by mouth daily. potassium chloride SR (K-DUR) 10 mEq tablet Take 10 mEq by mouth twice daily. Take with a meal and a full glass of water. prednisone (DELTASONE) 20 mg tablet Take 40 mg for 4 days then 20 mg daily and continue this dose unless instructed to change by your airplane cover maker. ranitidine(+) (ZANTAC) 300 mg tablet TAKE ONE TABLET BY MOUTH EVERY NIGHT AT BEDTIME tiotropium (SPIRIVA) 18 mcg capsule for inhaler Inhale 18 mcg by mouth daily. trimethoprim/sulfamethoxazole (BACTRIM DS) 160/800 mg tablet Take 1 Tab by mouth three times weekly. Friday, Friday, Friday vitamins, multiple tablet Take 1 Tab by mouth daily. vortioxetine(+) (TRINTELLIX) 10 mg tablet Take 10 mg by mouth daily. Vitals: 05/02/17 1010 BP: (!) 148/97 Pulse: 98 Resp: 16 Temp: 36.9 C (98.5 F) TempSrc: Oral SpO2: 100% Weight: (!) 158.8 kg (350 lb 1.6 oz) Height: 185.3 cm (72.95") Body mass index is 46.25 kg/(m^2). Physical Exam Constitutional: She is oriented to person, place, and time. She appears distressed. Morbidly obese female in distress secondary to chronic persistent cough. Coughs always. HENT: Head: Normocephalic and atraumatic. Mouth/Throat: No oropharyngeal exudate. Eyes: EOM are normal. Pupils are equal, round, and reactive to light. Right eye exhibits no discharge. Left eye exhibits no discharge. Neck: Normal range of motion. Neck supple. No tracheal deviation present. Cardiovascular: Normal rate, regular rhythm, normal heart sounds and intact distal pulses. Exam reveals no gallop and no friction rub. No murmur heard. Pulmonary/Chest: No stridor. She has wheezes. Difficult for pt to take deep breath without eliciting a cough. Musculoskeletal: She exhibits no edema or deformity. Lymphadenopathy: She has no cervical adenopathy. Neurological: She is alert and oriented to person, place, and time. Skin: Skin is warm and dry. No rash noted. She is not diaphoretic. No erythema. No pallor. Psychiatric: She has a normal mood and affect. Her behavior is normal. Judgment and thought content normal. Vitals reviewed. Name: Aubree Travis ID: [id number] Doctor: Dean Cabrera M.D. Height: 67.50 in Age: 30 Tech: BRIONNA Weight: 320.00 lbs Sex: Female Date: 12/05/2015 Time: 10:12:48 AM Race: PRE-BRONCH POST -BRONCH Corazon Prd %Prd Corazon %Prd %Chg @SPIROMETRY$ FVC (L) 3.18 4.22 75 3.40 81 7 FEV1 (L) 1.97 3.53 56 2.52 71 28 FEV1/FVC (%) 62 84 74 74 88 19 FEF 25% (L/sec) 2.75 6.07 45 5.47 90 98 FEF 50% (L/sec) 1.33 4.50 30 2.80 62 111 FEF 75% (L/sec) 0.44 1.90 23 0.95 50 116 FEF 25-75% (L/sec) 1.04 3.67 28 2.25 61 116 FEF Max (L/sec) 5.39 6.19 87 5.79 93 7 FIVC (L) 2.79 3.03 8 FIF 50% (L/sec) 4.15 4.84 86 4.26 88 3 FIF Max (L/sec) 4.15 5.24 26 @LUNG VOLUMES$ SVC (L) 3.18 4.22 75 IC (L) 2.66 3.81 70 ERV (L) 0.52 0.41 126 TGV (L) 3.08 3.08 100 RV (Pleth) (L) 2.55 1.56 163 TLC (Pleth) (L) 5.57 5.58 100 RV/TLC (Pleth) (%) 46 27 169 @DIFFUSION$ DLCOunc 19.58 26.39 74 DL/VA 4.77 4.76 100 VA (L) 4.11 5.64 73 Interpretation: Spirometry demonstrates a moderately severe obstructive defect with a mild reduction in vital capacity. The response to bronchodilators (Albuterol) indicates a reversible component. Residual volume is moderately increased. Total lung capacity is normal. Transport factor (Diffusion Capacity) not corrected for hemoglobin is normal. RV/TLC is increased. IMPRESSION: Abnormalities demonstrate moderately severe obstructive pulmonary disease with airtrapping. There is significant improvement in lung function following the administration of a bronchodilator. Yue Kwong M.D. *Patient gave good effort. 12/09/2016 12:17 PM - Interface, In [facility] Reslts Component Results Component Value Flag Ref Range Units Status FVC-Pre 3.01 L Final FVC-%Pred-pre 68 % Final FEV1-Pre 2.28 L Final FEV1-%Pred-Pre 62 % Final [id number] 1.80 L/sec Final [id number]-%Pred-Pre 48 % Final PEF-Pre 410.7 L/min Final Assessment and Plan: Mrs. Valero is a pleasant 32 yo female with: 1. Severe persistent asthma with poor control. Phenotype is likely allergic and obesity related. PFT's with obstruction and marked reversibility. -- Currently receiving optimal guideline based therapy with a baseline 20 mg prednisone requirement. Repetitive exacerbations. Poor control. -- Previous use of Xolair without benefit. -- I discontinued her Nucala after three injections due to persistent headaches and hypotension that seems to correlate with injections. Cardiac work-up reported as negative. I will acquire these results. -- She presented for first BT procedure but developed bronchospasm with simple spirometry in pre-op. Procedure canceled. Pt now deemed to high risk for BT by pulmonary and anesthesia. -- Her options are now quite limited. She is willing to travel to [place] for a second opinion in regards to her poorly controlled asthma and to see if she would be considered for bronchial thermoplasty at another institution. -- Continue inhaler regimen including Advair, QVAR, Spiriva, montelukast, Albuterol prn, Flonase and Zyrtec. -- Take Z-perry for acute cough with mucus production. Once complete will continue at 250 mg three times a week for inflammation control. -- Increase prednisone to 60 mg and initiate taper for acute exacerbation. -- ABPA labs negative. -- Previous CT chest essentially normal. -- Previous PFT's with obvious bronchoconstriction and reversibility. FEV1 of 71% post-bronchodilator therapy. 2. Allergic rhinitis: Continue current therapy with Flonase, Singulair and zyrtec. 3. GERD: -- Seen by ENT. Continue Protonix for LPR. -- EGD on 08-17-2016 was normal. -- Man testing showed DeMeester score of 41.7. Pt was encouraged to take PPI BID. Could not afford so was told to take PPI qd and add 300 mg of zantac as well. 4. Chronic cough: Likely multifactorial related to asthma, allergic rhinitis and GERD. Appreciate ENT evaluation by Dr. Begum. 5. Morbid Obesity: This is definitely playing a role with her dyspnea and likely contributes to difficulty with asthma control. She may be a weight loss, gastric bypass candidate in the future but I would like to see more stable lung disease prior to planning surgery. 6. 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 Complete steroid taper to 20 mg prednisone baseline. If stable will slowly wean to 17.5 mg. 7. Chronic hypoxemic respiratory failure: I am uncertain as to the etiology of her chronic hypoxia. This is not a typical finding in asthmatics, no matter the severity. Her morbid obesity and possible OHV syndrome may be at play but her bicarbonate of 28 does not suggest chronic hypercapnia. Will assess oxygen initiation notes from outside for more information. CXR review does not suggest parenchymal disease. Will schedule for exercise and nocturnal oximetry if information not provided in records. Previous PSG was negative for AISHWARYA but did show nocturnal hypoxia requiring 3L. Snoring as well. RTC in 3 months. Will need Flu vaccine when available early May. Pneumovax and Prevnar UTD. Previous hospital course and medical history below: I had the opportunity to meet Mrs. Travis and her in Pulmonary Clinic on 12-05-2015. I was asked to evaluate her for poorly controlled asthma. She is a morbidly obese 30 yo female with a short (<5 yr) h/o tobacco abuse who has been struggling with control of her asthma dating back to a hospitalization in February/ March of 2015. She was diagnosed with asthma, pneumonia and a collapsed lung at the age of 5. This seemed to resolve until she reached the age of 22 and experienced her first . During her her asthma seemed to flare. It remained relatively easy to control through the of a second child but then started to become a real problem following a bout of flu/ pneumonia last fall. In February 2015, she woke up one morning with severe shortness of breath. Her checked her oxygen saturations which were quite low prompting a trip to the ER. Like times before, she was placed on BiPAP in the ER but her condition continued to deteriorate requiring admission to the ICU. There, intubation was attempted times two without success and she was emergently trached. She recovered to inpatient rehabilitation and the trach was de-cannulated about 1 month post-hospitalization (This was all per pt report in clinic. I am attempting to acquire these medical records from [facility] [place] in [place]). She underwent a PSG which was negative. I am uncertain if this was done while she was trached or post-decannulation. Ever since her hospitalization she has been on 3 L of oxygen at rest and 4 to 5 L with exertion. She also wears oxygen at night. She is currently requiring a baseline dose of 20 mg prednisone to maintain any control at all. Her triggers include smoke, seasonal allergies, viral illness, strong smells, cold weather and chemicals. Her persistent symptoms include chronic cough, wheeze, chest tightness and shortness of breath. She was reportedly tested for allergies while hospitalized in February as well. Her cough is sometimes productive of thick yellow mucus. When she is treated with steroid tapers and antibiotics her symptoms seem to get better temporarily. It doesn't take long post-treatment for her symptoms to recur. She has never been evaluated for VCD. She does not work, has two healthy children and lives with her near [facility]. They have one dog in the home. They have removed all the carpet in their home and tried multiple techniques to remove environmental allergens. She sleeps on a wedge pillow at night for comfort and to help with breathing. She used to weigh closer to 200 to 250 lbs but her weight has gone up since being on steroids and depo injections. She consistently uses her rescue inhaler 4 to 10 times a day. She takes, Advair 250/50, Spiriva, Zyrtec, Singulair and Flonase and has received weekly steroid injections prior to seeing a local airplane cover maker. She is not on prednisone 20 mg chronically. She still notices post-nasal drip and is not convinced her GERD is completely controlled on pantoprazole. She went through pulmonary rehabilitation and had a syncopal episode. She reports a cardiac work-up was negative. Nurse HPI comments. HPI Comments: Patient reports breathing issues since 5 years of age, with pneumonia, and lung collapse. Resolved until 20s, after having children. Last year had flu/ pneumonia and severe breathing issues. Last February, was using nocturnal O2, and had severe asthma attack, ended up hospitalized. Was vented 2x , and ended up with trach. Has never been evaluated for vocal cord dysfunction. Last sleep study in March, at [facility] in [place]. Currently using 3 L continuous, increases to 4-5 L with exertion. Coughing, increasingly productive , with clear to dark yellow sputum. SOB both a rest and on exertion, wheezing with rescue inhaler use, 4-10 x per day. Has been previously tested for seasonal allergies. Takes Zyrtec, Singulair and Flonase. Has been given weekly steroid injections to manage, until seeing Pulmonology. Has been seen at [facility] in [place]. Diagnosed with borderline htn. Hx syncopal episodes, one time during Pulmonary Rehab. Has had echo and tilt test at [facility]. Uses [facility] in [place] for home O2. PFT's while on prednisone 20 mg. FEV1/FVC 62 FVC 3.18 75% (post bronchodilator 3.40 +6%) FEV1 1.97 55% (post bronchodilator 2.52 +27%) FEF 25-75% 1.04 28% (post bronchodilator 2.25 +115%) RV 2.55 163% TLC 5.57 99% DLCOunc 74% IgE 93 Outside records sent with pt: 09/20/2015 Absolute eos 600 WBC 12 Hgb 12 Hct 36.2 Platelets 291 Eos 5% TSH 2.010 Chemistries normal CXR 10-16-2015: Normal CXR 09-19-2015: Normal CXR 06-29-2015: Normal Echo report from 08-26-2014: Normal LV. Estimated EF 50% Mild Mitral and tricuspid regurgitation Estimated PA pressure of 40 mmHg. ADDENDUM 03-04-2016: Sputum culture from 01-04-2016 Negative for AFB. IgE level was 86.6 on 02-27-2016 Cat dander < 0.35 (on prednisone) Dog dander < 0.35 (on prednisone) Penicillium < 0.35 (on prednisone) Derm Pterony < 0.35 (on prednisone) Aspergillus studies pending Asp Ab IGG 5.1 reference <46.0 Will follow-up on eosinophil counts. Absolute eosinophil count was 650 on 20 mg of prednisone. % Eos is 6.0% SWALLOW MOTION SERIES CLINICAL HISTORY: 32-year-old female, dysphagia, asthma exacerbation TECHNIQUE: The procedure was performed in conjunction with members of the department of speech pathology. Video fluoroscopy was performed during swallowing of various consistencies of barium. The patient tolerated the procedure well and left the department in stable condition. TOTAL FLUOROSCOPY TIME: 60 seconds FINDINGS: Trace laryngeal penetration during swallowing with thin and nectar consistencies of barium. No aspiration. IMPRESSION 1. Trace penetration. 2. Mild dysphagia. 3. Please see separately dictated report from the Department of Speech Pathology for further description. ENT exam of airway from 02-15-2016: Secondary to hyperactive gag reflex and chronic throat symptoms, flexible fiberoptic laryngoscopy was performed. After obtaining verbal informed consent , I sprayed down the nasal cavity with neosynephrine and 4% lidocaine. After adequate time for decongestion and anesthesia a flexible nasopharyngolaryngoscope was inserted. The nasal cavity was clear. The nasopharynx showed no mass and normal soft palate mobility. The base of tongue , hypopharynx, supraglottis, glottis, and visualized subglottis were clear. Vocal cord motion was normal. ABNORMAL FINDINGS: NO evidence of VCD. When she is asked to recreate the sound she exhales deep with widely patent glottic airway. Subglottis very well visualized without scar tissue, granulation tissue or stenosis. NO VC cyst/polyp/granuloma. MILD interarytenoid pachydermia and edema consistent with LPRD. Allergy Consultation following bronchospasm prior to bronchial thermoplasty procedure. Concern for possible lidocaine allergy. Admission Date: 12/09/2016 LOS: 1 day Reason for Consult: patient had bronchospasm after PFTs. Please evaluate benzocaine allergy Consult type: Written and direct verbal contact to designated provider Assessment/Plan Hx of Benzocaine allergy: -Used Orajel for tooth ache, developed shortness of breathing, wheezing, throat closure, facial swelling within 5 minutes, concerning for type 1 hypersensitivity reaction (these types of reactions to local anesthetics are rare and the data implicating these agents is limited to case reports) -Pt has tolerated local anesthetic used during dental procedures over the years without any issues (drugs not known to pt) -Tolerated lidocaine during EGD at on 08/09/16 -Pulmonary medicine is planning to do bronchial thermoplasty and would like to know options regarding use of local anesthetics during the procedure. Per notes they typically use tetracaine with epinephrine. Local anesthetics broadly fall under two categories based on their chemical structure: Group 1 Benzoic acid esters: Benzocaine, Procaine, Tetracaine, etc. Group 2 Amides: Bupivacaine, Lidocaine, Mepivacaine, etc. Drugs in these 2 groups can cross react with each other within the same group but do not cross react with agents in other group. This is based on patch testing which is not used for acute IgE mediated hypersensitivity reactions such as the one she had. Possible options in this case are: 1. Can use lidocaine as pt has used this w/o issues in 08/02 2. Can request local anesthetic agent used during last dental procedure 2 years ago (will call patient's dental surgeon in AM to find out this information) 3. Could use an agent from Group 2 (Bupivacaine, Lidocaine or Mepivacaine) as drugs in that group would likely not cross react with Benzocaine in group 1. Ideally would like to conduct skin prick testing to agent planned to be used but pt has poorly controlled asthma with FEV1 of 56% and is not at a candidate for allergy skin testing. Unfortunately there are no validated blood testing available for local anesthetic sensitivity evaluation. We will provide further recommendations once we discuss with Dr. Cabrera as to what possible agents could be used and have information on local anesthetic used during dental procedures. Asthma exacerbation: -Severe persistent, poorly controlled, currently being treated for an exacerbation -Would defer management to pulmonary service and primary team Aspirin allergy: -Reports hx of ASA allergy in childhood. On more than one occasions, developed shortness of breathing, wheezing, throat closure, facial swelling, concerning for type 1 hypersensitivity reaction, would continue to avoid ASA -She has tolerated ibuprofen, no hx of chronic rhinosinusitis or nasal polyposis so do not suspect AERD Thank you for allowing us to participate in care of Ms. Travis. Page with questions/concerns [phone]. Will follow along Pt seen and discussed with Dr. Guajardo and plan of care formulated. Kirt Arango MD Allergy/Immunology Fellow ATTESTATION I personally performed the guzman portions of the E/M visit, discussed case with resident and concur with resident documentation of history, physical exam, assessment, and treatment plan unless otherwise noted. Staff name: Martina Guajardo DO Date: 12/10/2016 in this encounter Plan of Treatment Name Priority Associated Diagnoses Order Schedule AMB REFERRAL TO PULMONARY Routine Uncomplicated severe Ordered: 2016 persistent asthma Dependence on continuous supplemental oxygen Chronic respiratory failure with hypoxia (HCC) Morbid obesity, unspecified obesity type Current chronic use of systemic steroids History of tracheostomy Current chronic use of inhaled steroid as of this encounter Visit Diagnoses Diagnosis Asthma exacerbation - Primary Unspecified asthma, with exacerbation Prophylactic antibiotic Encounter for long-term (current) use of antibiotics Uncomplicated severe persistent asthma Dependence on continuous supplemental oxygen Chronic respiratory failure with hypoxia (HCC) Chronic respiratory failure Morbid obesity, unspecified obesity type (HCC) Current chronic use of systemic steroids History of tracheostomy Tracheostomy status Current chronic use of inhaled steroid Chronic nonseasonal allergic rhinitis due to pollen GERD without esophagitis Esophageal reflux in this encounter
--- OUTSIDE RECORDS SUMMARY | 2017-07-15 14:06 | XMS REPORT ---
Author Author [facility] Organization [facility] Address [address] [place] [address] Care Team Providers Care Oil Lease Broker Name Role Phone HILTON MIXNETTE Unavailable PROBLEMS Type Condition ICD9-CM Code [id number] Code Onset Dates Condition Status SNOMED Code Problem Degenerative joint disease M19.90 Active 715021794 Problem GERD (gastroesophageal reflux disease) K21.9 Active 256074890 Problem Asthma J45.909 Active 506311233 Problem Hip pain, right M25.551 Active 303133273448924 Problem Obesity E66.9 Active 036118606 Problem Localized edema R60.0 Active 305743335 Problem Environmental allergies Z91.09 Active 074934174 Problem Chronic respiratory failure, unspecified whether with hypoxia or hypercapnia J96.10 Active 49600717 Problem Other constipation K59.09 Active 533322397 Problem Unspecified asthma with (acute) exacerbation J45.901 Active 151560177 Problem Morbid (severe) obesity due to excess calories E66.01 Active 023174792 Problem Body mass index (BMI) of 50-59.9 in adult Z68.43 Active 281427636 Problem Depression F32.9 Active 41926220 Problem Metabolic syndrome E88.81 Active 631126554 Problem HTN (hypertension) I10 Active 92665087 Problem Lumbago with sciatica, left side M54.42 Active 28586427 Problem Type 2 diabetes mellitus with other diabetic kidney complication E11.29 Active 21509612 Problem Supplemental oxygen dependent Z99.81 Active 223555478974 Problem Current chronic use of systemic steroids Z79.52 Active 446845453558249 Problem Dependence on continuous supplemental oxygen Z99.81 Active 18974886193245 Problem Bronchitis J40 Active 85479142 Problem Iron (Fe) deficiency anemia D50.9 Active 13041051 Problem Syncopal episodes R55 Active 443322034 Problem Chronic tension-type headache, not intractable G44.229 Active 501646382 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 Z79.51 Active 821554811 Problem 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 E09.9 Active 225199349 Problem Pneumonia J18.9 Active 875145242 ALLERGIES Substance Reaction Event Type Date Status Aspirin anaphylaxis Drug Allergy December, Active SOCIAL HISTORY Never Assessed PLAN OF CARE Activity Details Follow Up 4 Weeks Reason:asthma VITAL SIGNS Height 68 in 2017-01-14 Weight 340.1 lbs 2017-01-14 Temperature 98.1 degrees Fahrenheit 2017-01-14 Heart Rate 92 bpm 2017-01-14 Respiratory Rate 20 2017-01-14 BMI 51.71 kg/m2 2017-01-14 Blood pressure systolic 128 mmHg 2017-01-14 Blood pressure diastolic 88 mmHg 2017-01-14 MEDICATIONS Medication Instructions Dosage Frequency Start Date End Date Duration Status Montelukast Sodium 10 MG TAKE ONE TABLET BY MOUTH DAILY 30 Active PredniSONE 20 MG TAKE ONE TABLET BY MOUTH ONCE DAILY 30 Active NovoLog Flexpen 100 UNIT/ML Subcutaneous 3 times a day inject 15 8h December Active Qvar 80 MCG/ACT Inhalation Twice a day 1 puff 12h Active Cane Sep, Active Lantus SoloStar 100 UNIT/ML Subcutaneous Once a day Inject 45 units 24h Nov, 30 days Active Potassium Chloride ER 10 MEQ Orally Twice a day 1 tablet with food 12h Active Hydrocodone-Acetaminophen 10-325 MG Orally 3 times a day ( max ) 1 tablet as needed December, Active Acetaminophen 500 MG Orally 3 times a day 2 tablets as needed 8h Active Flonase Allergy Relief 50 MCG/ACT Nasally Once a day 1 spray in each nostril 24h Sep, Active Spiriva HandiHaler 18 MCG INHALE CONTENTS OF ONE CAPSULE BY MOUTH ONCE DAILY (TWO INHALATIONS PER ONE CAPSULE) 30 Active Bactrim DS 800-160 MG Orally fri, fri and friday 1 tablet Active Cymbalta 60 mg Orally Once a day 1 capsule 24h Active Blood Glucose Test Strip - In Vitro 4 times a day test blood sugar 6h Oct, Active Cetirizine HCl 10 MG TAKE ONE TABLET BY MOUTH ONCE DAILY Active Pantoprazole Sodium 40 MG TAKE ONE TABLET BY MOUTH ONCE DAILY 30 Active Ranitidine HCl 300 MG Orally Once a day 1 capsule at bedtime 24h Active Multivitamin Adult - Active Advair Diskus 500-50 MCG/DOSE Inhalation Twice a day 1 puff 12h Active Lasix 40 mg Orally Once a day 1 tablet 24h Active ProAir HFA 108 (90 Base) MCG/ACT Inhalation every 4 hrs 2 puffs as needed 4h Active Blood Glucose Monitor Software 1 as directed 12h Oct, Active Oxygen 3L/NC Active Albuterol Sulfate (2.5 MG/3ML) 0.083% Inhalation every 4-6 hours prn 3 ml 30 Jun, 2015 Active MetFORMIN HCl ER (OSM) 1000 MG TAKE ONE TABLET BY MOUTH TWICE DAILY WITH MEALS 30 Active RESULTS No Results PROCEDURES No Known procedures IMMUNIZATIONS No Known Immunizations MEDICAL (GENERAL) HISTORY Type Description Date Medical History iron deficiency anemia Medical History Asthma Medical History Degenerative joint disease Medical History Anxiety and depression Medical History GERD Medical History polycystic ovarian disease Medical History Pneumonia Medical History obesity Medical History GI bleed Medical History Chronic pain Medical History Nocturnal hypoxia requiring O2 at 3L by nasal cannula Medical History Postoperative anemia Medical History COPD Medical History enlarged heart Surgical History tonsillectomy Surgical History wisdom teeth all Surgical History right hip x4 last one was total hip replaced , 1st one had brittany, 3rd one had screw and plate Surgical History appendectomy Surgical History cholecystectomy Surgical History right knee meniscus repaired Surgical History trach- Surgical History top teeth pulled Surgical History andoscopy Hospitalization History asthma flare up pneumonia was in ICU 03/2015 Hospitalization History pneumonia and shortness of breath 04/2015 Hospitalization History ER visit for syncope 08/22/15 Hospitalization History syndopal episode Hospitalization History Sepsis, [facility] pneumonia, severe asthma--[facility] 04/22/16 Hospitalization History asthma 12/09-12/12 Hospitalization History asthma 03/2017
--- OUTSIDE RECORDS SUMMARY | 2017-07-15 14:06 | XMS REPORT | Clinical Summary ---
Author Author [facility] Organization [facility] Address Unknown Phone Unavailable Care Team Providers Care Press Tender Short Goods Name Role Phone PCP Unavailable Source Comments Some departments are not documenting in the electronic medical record. If you do not see the information that you expected, contact Release of Information in the Health Information Management department at [phone] for further assistance in locating additional records.[facility] Allergies Active Allergy Reactions Severity Noted Date Comments Aspirin ANAPHYLAXIS High 12/01/2015 Benzocaine ANAPHYLAXIS High 02/15/2016 Chloroprocaine SEE COMMENTS Low 12/11/2016 Pt with anaphylaxis to Benzocaine which can cross react with Chlorprocaine Cocaine SEE COMMENTS Low 12/11/2016 Pt with anaphylaxis to Benzocaine which can cross react with Cocaine Procaine SEE COMMENTS Low 12/11/2016 Pt with anaphylaxis to Benzocaine which can cross react with Procaine Proparacaine SEE COMMENTS Low 12/11/2016 Pt with anaphylaxis to Benzocaine which can cross react with Proparacaine Tetracaine SEE COMMENTS Low 12/11/2016 Pt with anaphylaxis to Benzocaine which can cross react with Tetracaine Current Medications Prescription Sig. Disp. Refills Start End Date Status Date montelukast (SINGULAIR) Take 10 mg by mouth at Active 10 mg tablet bedtime daily. cetirizine (ZYRTEC) 10 mg Take 10 mg by mouth Active tablet daily. fluticasone (FLONASE) 50 Apply 1 spray to each Active mcg/actuation nasal spray nostril as directed daily. tiotropium (SPIRIVA) 18 Inhale 18 mcg by mouth Active mcg capsule for inhaler daily. OXYGEN-AIR DELIVERY Insert 3 L/min into nose Active SYSTEMS MISC as directed. acetaminophen (TYLENOL) Take 500 mg by mouth Active 500 mg tablet every 6 hours as needed for Pain. trimethoprim/sulfamethoxa Take 1 Tab by mouth three Active zole (BACTRIM DS) 160/800 times weekly. Friday, mg tablet Friday, Friday albuterol 0.5% Inhale 2.5 mg solution by Active (PROVENTIL; VENTOLIN) 2.5 nebulizer as directed mg/0.5 mL nebu nebulizer every 4-6 hours as needed solution for Shortness of Breath or Wheezing. EPINEPHrine(+) (EPIPEN) 1 Inject 0.3 mg (1 Pen) 2 Each 0 07/04/20 Active mg/mL injection pen into thigh if needed for 16 (2-Pack)Indications: anaphylactic reaction. Anaphylaxis May repeat in 5-15 minutes if needed. Indications: ANAPHYLAXIS fluticasone/salmeterol Inhale 1 Puff by mouth 1 Inhaler 11 09/04/19 Active (ADVAIR DISKUS) 500-50 into the lungs every 12 17 mcg inhalation hours. Indications: diskIndications: MAINTENANCE THERAPY FOR MAINTENANCE THERAPY FOR ASTHMA ASTHMA dextromethorphan/guaiFENe Take 1 Tab by mouth twice Active sin(+) (GUAIFENEX DM) daily as needed 30/600 mg (allergies/congestion/cou [id number]: COLD gh). Indications: COLD SYMPTOMS SYMPTOMS albuterol (VENTOLIN HFA, Inhale 2 Puffs by mouth Active PROAIR HFA, PROVENTIL into the lungs every 6 HFA) 90 mcg/actuation hours as needed for inhalerIndications: ACUTE Wheezing or Shortness of ASTHMA ATTACK Breath. Shake well before use. Indications: ACUTE ASTHMA ATTACK HYDROcodone/acetaminophen Take 1 Tab by mouth every Active (+) (NORCO) 10/325 mg 6 hours as needed for tablet Pain furosemide (LASIX) 40 mg Take 40 mg by mouth every Active tablet morning. vitamins, multiple tablet Take 1 Tab by mouth Active daily. INSULIN Inject 45 Units under the Active GLARGINE,HUM.REC.ANLOG skin daily. (LANTUS SOLOSTAR SC) insulin aspart (NOVOLOG Inject 15 Units under the Active FLEXPEN) 100 unit/mL skin three times daily injection PEN with meals. ranitidine(+) (ZANTAC) TAKE ONE TABLET BY MOUTH 30 Tab 4 03/20/20 Active 300 mg tablet EVERY NIGHT AT BEDTIME 17 vortioxetine(+) Take 10 mg by mouth Active (TRINTELLIX) 10 mg tablet daily. metFORMIN (GLUCOPHAGE) Take 1,000 mg by mouth Active 500 mg tablet twice daily with meals. potassium chloride SR Take 10 mEq by mouth Active (K-DUR) 10 mEq tablet twice daily. Take with a meal and a full glass of water. beclomethasone(+) (QVAR) Inhale 2 puffs by mouth 04/09/20 Active 80 mcg/actuation into the lungs twice 17 inhalerIndications: daily. Indications: MAINTENANCE THERAPY FOR MAINTENANCE THERAPY FOR ASTHMA ASTHMA prednisone (DELTASONE) 20 Take 40 mg for 4 days 40 tablet 0 04/10/20 Active mg tablet then 20 mg daily and 17 continue this dose unless instructed to change by your wage and salary administrator. pantoprazole DR Take 1 tablet by mouth 04/09/20 Active (PROTONIX) 40 mg tablet daily. 17 guaiFENesin LA (MUCINEX) Take 1 tablet by mouth 28 tablet 0 04/09/20 Active 600 mg tablet twice daily. 17 ferrous gluconate 324 mg Take 1 tablet by mouth 90 tablet 1 04/09/20 Active (38 mg iron) tab daily with breakfast. 17 azithromycin (ZITHROMAX) Take 2 tabs by mouth on 6 tablet 0 05/02/20 Active 250 mg tabletIndications: day 1, followed by 1 tab 17 Asthma exacerbation, by mouth daily on days 2 Prophylactic antibiotic - 5. azithromycin (ZITHROMAX) Take 1 tab by mouth, on 13 tablet 11 Active 250 mg tabletIndications: Friday, Friday and 17 ppx Friday, after completion of Zpack Indications: ppx prednisone (DELTASONE) 10 Take 6 tabs by mouth 82 tablet 0 05/02/20 Active mg tabletIndications: daily x 3 days, 4 tabs 17 Asthma exacerbation daily x 3 days, 3 tabs daily x 3 days, then resume 20 mg daily. levoFLOXacin (LEVAQUIN) Take 1 tablet by mouth 10 tablet 0 06/18/20 06/28/20 750 mg tabletIndications: daily for 10 days. Hold 17 17 Severe persistent asthma azithromycin while with acute exacerbation, taking. 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/09/2016 Uncomplicated severe persistent asthma 07/26/2016 Chronic respiratory failure with hypoxia (HCC) 07/26/2016 Non-seasonal allergic rhinitis due to pollen 07/26/2016 H/O tracheostomy 07/26/2016 Current chronic use of inhaled steroid 07/26/2016 Current chronic use of systemic steroids 07/26/2016 Stridor 02/15/2016 Overview: expiratory GERD without esophagitis 02/15/2016 Morbid obesity (HCC) 02/15/2016 Encounters Date Type Specialty Care Team Description 07/14/2017 Telephone Pulmonology Dean Cabrera MD Breathing Problem 06/18/2017 Telephone Pulmonology Dean Cabrera MD Breathing Problem ; Cough; Fever 05/02/2017 Office Visit Pulmonology Dean Cabrera MD Asthma exacerbation (Primary Dx);Prophylactic antibiotic;Uncomplicated severe persistent asthma;Dependence on continuous supplemental oxygen;Chronic respiratory failure with hypoxia (HCC);Morbid obesity, unspecified obesity type;Current chronic use of systemic steroids;History of tracheostomy;Current chronic use of inhaled steroid;Chronic nonseasonal allergic rhinitis due to pollen;GERD without esophagitis 04/14/2017 Telephone Pulmonology Dean Cabrera MD Cough; Breathing Problem from Last 3 Months Family History Medical History Relation Name Comments Hypertension Father Diabetes Mother Migraines Mother Asthma Paternal Grandmother Heart Attack Paternal Grandmother Diabetes Sister Relation Name Status Comments Brother Alive Father Alive Mother Alive Paternal Grandmother Sister Alive Social History Tobacco Use Types Packs/Day Years Used Date Former Smoker Cigarettes 0.25 5 Quit: 11/30/2008 Smokeless Tobacco: Never Used Alcohol Use Drinks/Week oz/Week Comments No Sex Assigned at Date Recorded Not on file Last Filed Vital Signs Vital Sign Reading [...] Mass Index 46.25 05/02/2017 10:10 AM CDT Plan of Treatment Health Maintenance Due Date Last Done Comments PHYSICAL (COMPREHENSIVE) 1993 EXAM PERTUSSIS VACCINE 1997 TETANUS VACCINE 2003 CERVICAL CANCER SCREENING 01/07/2016 INFLUENZA VACCINE 03/18/2017 Results Not on filefrom Last 3 Months
--- OUTSIDE RECORDS SUMMARY | 2017-07-15 14:06 | XMS REPORT | Encounter Summary ---
Author Author [facility] Organization [facility] Address Unknown Phone Unavailable Care Team Providers Care Planning Manager Name Role Phone PCP Unavailable Reason for Visit * Reason Comments Breathing Problem Encounter Details Date Type Department Care Team Description 07/14/2017 Telephone [facility] Dean Cabrera MD Breathing Problem Physicians - Internal [address] [facility] [place] [address] [place] [address] [address] [facility] MED [phone] [place] [address] Social History Tobacco Use Types [...] encounter Miscellaneous Notes * Telephone Encounter - Maureen Juarez RN - 07/14/2017 3:40 PM SOCIAL MEDIA COMMUNITY MANAGER RN called patient. Patient states shes' "having problems breathing again...chest hurting on exhalation". Feeling weak. Skin is pale; diaphoretic. Patient denies fevers, chills. Continues taking Advair, Qvar, Spiriva; and albuterol q 4 hours. Continues Lasix 40 mg daily, and increased LE swelling and periorbital edema. Continues on 20 mg prednisone. Taking ppx Bactrim and azithromycin. Recently started using oxycodone and lidocaine for cracked tooth. Face is swollen. Patient has been referred to specialist in [place], with appointment . RN will discuss with Dr. Cabrera and call patient with recommendations. in this encounter Plan of Treatment Not on fileas of this encounter Visit Diagnoses Not on filein this encounter
--- OUTSIDE RECORDS SUMMARY | 2017-07-15 14:06 | XMS REPORT | Encounter Summary ---
Author Author [facility] Organization [facility] Address Unknown Phone Unavailable Care Team Providers Care Machine Tester Name Role Phone PCP Unavailable Reason for Referral * Radiology Services Status Reason Specialty Diagnoses / Referred By Referred To Procedures Contact Contact New Request Radiology Diagnoses Dean Cabrera Severe MD persistent [address] acute [place] [address] exacerbation [place], [place] SOB (shortness [address] of breath) on Phone: exertion [phone] Chest pressure Fax: Blood-tinged [phone] sputum Cough with sputum P rocedures CT CHEST WO CONTRAST Reason for Visit * Reason Comments Breathing Problem Cough Fever Encounter Details Date Type Department Care Team Description 06/18/2017 Telephone [facility] Dean Cabrera MD Breathing Problem; Cough; Physicians - Internal [address] Fever Medicine [place] [address] [place] [address] MED [phone] [place] [address] Social History Tobacco Use Types [...] as of this encounter Miscellaneous Notes * Addendum Note - Nikolas Stockton RN - 06/18/2017 4:51 PM CDT Addended by: NIKOLAS STOCKTON on: 06/18/2017 04:51 PM Modules accepted: Orders * Telephone Encounter - Nikolas Stockton RN - 06/18/2017 3:56 PM CDT RN called patient. Dr. Cabrera would like her to complete a CT chest, be seen [id number] by a local provider, and start Levaquin 750 mg daily x 10. Patient prefers [facility] in [place] for CT, and [facility] for Levaquin. RN instructed patient to hold azithromycin while taking Levaquin. * Telephone Encounter - Nikolas Stockton RN - 06/18/2017 10:25 AM CDT RN called patient to clarify symptoms. In addition to chest pressure, and "extreme" SOB, pt reports low grade fever; extreme fatigue; PC with yellow sputum, sometimes blood-tinged; and diaphoresis since last weekend. Patient denies nasal/ sinus congestion. Patient states that family was afraid to leave her at home alone during the day, so she's currently staying with her mother. She has been too ill to leave her bed today. Patient is currently taking all medications as prescribed: Advair BID, Qvar 2 puffs BID; Spiriva; Zyrtec, Flonase, Mucinex, Singulair; Lasix; prednisone; and Azithromycin and Bactrim ppx. Using albuterol Q 4 hours. RN will discuss with Dr. Cabrera, and call patient with recommendations. in this encounter Plan of Treatment Name Priority Associated Diagnoses Order Schedule CT CHEST WO CONTRAST Routine Severe persistent asthma Expected: 2016 with acute exacerbation (Approximate), Expires: SOB (shortness of breath) 06/18/2018 on exertion Chest pressure Blood-tinged sputum Cough with sputum as of this encounter Visit Diagnoses Diagnosis Severe persistent asthma without complication - Primary Severe persistent asthma with acute exacerbation Unspecified asthma, with exacerbation SOB (shortness of breath) on exertion Shortness of breath Chest pressure Other chest pain Blood-tinged sputum Hemoptysis, unspecified Cough with sputum Cough in this encounter
--- OUTSIDE RECORDS SUMMARY | 2017-07-15 14:09 | XMS REPORT ---
Author Author TAD MIX Organization [facility] [place] Address [address] [place] [address] Care Team Providers Care Packaging Line Attendant Name Role Phone HILTON MIXNETTE Unavailable PROBLEMS Type Condition ICD9-CM Code [id number] Code Onset Dates Condition Status SNOMED Code Problem Degenerative joint disease M19.90 Active 180507759 Problem GERD (gastroesophageal reflux disease) K21.9 Active 674382086 Problem Asthma J45.909 Active 904113895 Problem Hip pain, right M25.551 Active 834782293226097 Problem Obesity E66.9 Active 290426761 Problem Localized edema R60.0 Active 788173286 Problem Environmental allergies Z91.09 Active 865978972 Problem Chronic respiratory failure, unspecified whether with hypoxia or hypercapnia J96.10 Active 19635348 Problem Other constipation K59.09 Active 711727569 Problem Unspecified asthma with (acute) exacerbation J45.901 Active 299615432 Problem Morbid (severe) obesity due to excess calories E66.01 Active 929411106 Problem Body mass index (BMI) of 50-59.9 in adult Z68.43 Active 117055560 Problem Depression F32.9 Active 73638093 Problem Metabolic syndrome E88.81 Active 728318626 Problem HTN (hypertension) I10 Active 67754608 Problem Lumbago with sciatica, left side M54.42 Active 34429092 Problem Type 2 diabetes mellitus with other diabetic kidney complication E11.29 Active 68805172 Problem Supplemental oxygen dependent Z99.81 Active 494330681966 Problem Current chronic use of systemic steroids Z79.52 Active 985345969933146 Problem Dependence on continuous supplemental oxygen Z99.81 Active 46870736132201 Problem Bronchitis J40 Active 02544839 Problem Iron (Fe) deficiency anemia D50.9 Active 47735024 Problem Syncopal episodes R55 Active 673538702 Problem Chronic tension-type headache, not intractable G44.229 Active 945065152 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
--- OUTSIDE RECORDS SUMMARY | 2017-07-15 14:15 | XMS REPORT ---
Author Author TAD MIX Organization [facility] [place] Address [address] [place] [address] Care Team Providers Care Caregiver Services Home Name Role Phone HILTON MIXNETTE Unavailable PROBLEMS Type Condition ICD9-CM Code [id number] Code Onset Dates Condition Status SNOMED Code Problem Degenerative joint disease M19.90 Active 649913936 Problem GERD (gastroesophageal reflux disease) K21.9 Active 831703502 Problem Asthma J45.909 Active 280952437 Problem Hip pain, right M25.551 Active 881648870192143 Problem Obesity E66.9 Active 977222655 Problem Localized edema R60.0 Active 302372544 Problem Environmental allergies Z91.09 Active 071655322 Problem Chronic respiratory failure, unspecified whether with hypoxia or hypercapnia J96.10 Active 25994940 Problem Other constipation K59.09 Active 626238625 Problem Unspecified asthma with (acute) exacerbation J45.901 Active 554434900 Problem Morbid (severe) obesity due to excess calories E66.01 Active 359699304 Problem Body mass index (BMI) of 50-59.9 in adult Z68.43 Active 117448277 Problem Depression F32.9 Active 20486206 Problem Metabolic syndrome E88.81 Active 004657852 Problem HTN (hypertension) I10 Active 02145517 Problem Lumbago with sciatica, left side M54.42 Active 03334069 Problem Type 2 diabetes mellitus with other diabetic kidney complication E11.29 Active 75328307 Problem Supplemental oxygen dependent Z99.81 Active 355248896075 Problem Current chronic use of systemic steroids Z79.52 Active 405070614491654 Problem Dependence on continuous supplemental oxygen Z99.81 Active 29529480096393 Problem Bronchitis J40 Active 11251728 Problem Iron (Fe) deficiency anemia D50.9 Active 54837064 Problem Syncopal episodes R55 Active 938451427 Problem Chronic tension-type headache, not intractable G44.229 Active 880360400 Problem 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
--- OUTSIDE RECORDS SUMMARY | 2017-07-15 14:18 | XMS REPORT ---
Author Author TAD MIX Organization [facility] [place] Address [address] [place] [address] Care Team Providers Care [place] Guide Name Role Phone HILTON MIXNETTE Unavailable PROBLEMS Type Condition ICD9-CM Code ONQ04-LE Code Onset Dates Condition Status SNOMED Code Problem Degenerative joint disease M19.90 Active 162496368 Problem GERD (gastroesophageal reflux disease) K21.9 Active 173606381 Problem Asthma J45.909 Active 148817675 Problem Hip pain, right M25.551 Active 339713810443815 Problem Obesity E66.9 Active 656900432 Problem Localized edema R60.0 Active 009126131 Problem Environmental allergies Z91.09 Active 328445661 Problem Chronic respiratory failure, unspecified whether with hypoxia or hypercapnia J96.10 Active 54034562 Problem Other constipation K59.09 Active 141480925 Problem Unspecified asthma with (acute) exacerbation J45.901 Active 407834905 Problem Morbid (severe) obesity due to excess calories E66.01 Active 839113047 Problem Body mass index (BMI) of 50-59.9 in adult Z68.43 Active 501016228 Problem Depression F32.9 Active 24484656 Problem Metabolic syndrome E88.81 Active 109045176 Problem HTN (hypertension) I10 Active 67411673 Problem Lumbago with sciatica, left side M54.42 Active 75208799 Problem Type 2 diabetes mellitus with other diabetic kidney complication E11.29 Active 25353340 Problem Supplemental oxygen dependent Z99.81 Active 175235955970 Problem Current chronic use of systemic steroids Z79.52 Active 988312587093723 Problem Dependence on continuous supplemental oxygen Z99.81 Active 29587745055201 Problem Bronchitis J40 Active 50327705 Problem Iron (Fe) deficiency anemia D50.9 Active 81489399 Problem Syncopal episodes R55 Active 854946796 Problem Chronic tension-type headache, not intractable G44.229 Active 317721072 Problem rn long term care current use of inhaled steroid Z79.51 Active 828429343 Problem 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 E09.9 Active 369652980 Problem Pneumonia J18.9 Active 744835271 ALLERGIES Substance Reaction Event Type Date Status Aspirin anaphylaxis Drug Allergy December, Active SOCIAL HISTORY Never Assessed PLAN OF CARE Activity Details Follow Up 4 Weeks Reason:dm VITAL SIGNS Height 68 in 2016-12-17 Weight 332.2 lbs 2016-12-17 Temperature 98.2 degrees Fahrenheit 2016-12-17 Heart Rate 120 bpm 2016-12-17 Respiratory Rate 22 2016-12-17 BMI 50.51 kg/m2 2016-12-17 Blood pressure systolic 124 mmHg 2016-12-17 Blood pressure diastolic 70 mmHg 2016-12-17 MEDICATIONS Medication Instructions Dosage Frequency Start Date End Date Duration Status MetFORMIN HCl ER (MOD) 1000 MG Orally 2 times a day 1 tablet with evening meal 12h 17 Oct, 2015 Active Spiriva Respimat 1.25 MCG/ACT Inhalation Once a day 2 puffs 24h Sep, Active Montelukast Sodium 10 MG TAKE ONE TABLET BY MOUTH DAILY 30 Active NovoLog Flexpen 100 UNIT/ML Subcutaneous 3 times a day inject 15 8h December Active Lasix 40 mg Orally Once a day 1 tablet 24h 30 Active EpiPen 0.3 MG/0.3ML (1:1000) Active ZyrTEC 10 mg 1 tablet by Oral route 1 time per day Feb, Active Bactrim DS 800-160 MG Orally mon, fri and friday 1 tablet Active Lantus SoloStar 100 UNIT/ML Subcutaneous Once a day Inject 45 units 24h Nov, 30 days Active Atenolol 25 MG Orally Once a day 1 tablet 24h Active Multivitamin Adult - Active Cane Sep, Active Hydrocodone-Acetaminophen 10-325 MG Orally 3 times a day ( max ) 1 tablet as needed December, 28 Active PredniSONE 20 MG TAKE ONE TABLET BY MOUTH ONCE DAILY 30 Active Cymbalta 60 mg Orally Once a day 1 capsule 24h Active Advair Diskus 500-50 MCG/DOSE Inhalation Twice a day 1 puff 12h Active Albuterol Sulfate (2.5 MG/3ML) 0.083% Inhalation every 4-6 hours prn 3 ml Jun, Active Protonix 40 mg Orally, please voucher Once a day 1 tablet 24h Active Gaviscon 95-358 MG/15ML Orally Four times a day 15 ml after meals and at bedtime as needed 6h 19 May, 2016 Active MetFORMIN HCl ER (OSM) 1000 MG TAKE ONE TABLET BY MOUTH TWICE DAILY WITH MEALS 30 Active Symbicort 160-4.5 mcg/actuation Inhalation Twice a day inhale 2 puffs by inhalation route 2 times per day in the morning and evening 12h May, Active Blood Glucose Monitor Software 1 as directed Oct, Active Levaquin 750 MG Orally Once a day 1 tablet 24h Active Oxygen 3L/NC Active ProAir HFA 108 (90 Base) MCG/ACT Inhalation every 4 hrs 2 puffs as needed 4h 90 days Active Potassium Chloride ER 10 MEQ Orally Twice a day 1 tablet with food 12h 30 Active Cetirizine HCl 10 MG TAKE ONE TABLET BY MOUTH ONCE DAILY 30 Active Qvar 80 MCG/ACT Inhalation Twice a day 1 puff 12h Active Spiriva HandiHaler 18 MCG INHALE CONTENTS OF ONE CAPSULE BY MOUTH ONCE DAILY (TWO INHALATIONS PER ONE CAPSULE) 30 Active Flonase Allergy Relief 50 MCG/ACT Nasally Once a day 1 spray in each nostril 24h 10 Sep, 2016 90 days Active Acetaminophen 500 MG Orally 3 times a day 2 tablets as needed 8h Active Pantoprazole Sodium 40 MG TAKE ONE TABLET BY MOUTH ONCE DAILY 30 Active Blood Glucose Test Strip 1 as directed Oct, Active RESULTS No Results PROCEDURES Procedure Date Ordered Result Body Site GLYCATED HEMOGLOBIN TEST December 17, 2016 MICROALBUMIN, SEMIQUANT December 17, 2016 IMMUNIZATIONS No Known Immunizations MEDICAL (GENERAL) HISTORY [...] episode Hospitalization History Sepsis, RLL pneumonia, severe asthma--[facility] 04/22/16 Hospitalization History asthma 12/09-12/12 Hospitalization History asthma 03/2017
[2017-07-15] MEDS ORDERED: MULT1TAB69 PO (15:00)
[2017-07-15] MEDS ORDERED: OXYC-529 PO (15:00)
[2017-07-15] MEDS ORDERED: LIDO15SO2 MM (15:00)
[2017-07-15 15:42] VITALS: BP_SYST 114; BP_SYST 157; BP_DIAS 79; BP_DIAS 83
[2017-07-15] MEDS ORDERED: PATIENT MAY USE OWN MEDS, ALL PO SCH (16:15)
[2017-07-15] MEDS ORDERED: LIDOCAINE 2% VISCOUS 15 ML UDC MM PRN (16:30)
[2017-07-15] MEDS ORDERED: [UNRECOGNIZED DRUG - OTHER] PO PRN (16:30)
[2017-07-15 16:38] LABS: BASOPHILS # (AUTO) 0.1 10^3/uL (0.0-0.1); BASOPHILS % (AUTO) 1 % (0-10); EOSINOPHILS # (AUTO) 0.4 10^3/uL (0.0-0.3); EOSINOPHILS % (AUTO) 4 % (0-10); LYMPHOCYTES # (AUTO) 3.5 X 10^3 (1.0-4.0); LYMPHOCYTES % (AUTO) 36 % (12-44); MEAN CORPUSCULAR HEMOGLOBIN 27 PG (25-34); MEAN CORPUSCULAR HGB CONC 31 G/DL (32-36); MEAN CORPUSCULAR VOLUME 86 FL (80-99); MEAN PLATELET VOLUME 9.8 FL (7.4-10.4); MONOCYTES # (AUTO) 0.6 X 10^3 (0.0-1.0); MONOCYTES % (AUTO) 7 % (0-12); NEUTROPHILS # (AUTO) 5.3 X 10^3 (1.8-7.8); NEUTROPHILS % (AUTO) 54 % (42-75); PLATELET COUNT 236 10^3/uL (130-400); RED BLOOD COUNT 4.04 10^6/uL (4.35-5.85); RED CELL DISTRIBUTION WIDTH 17.2 % (10.0-14.5); WHITE BLOOD COUNT 9.8 10^3/uL (4.3-11.0)
[2017-07-15] MEDS: ENOXAPARIN 40 MG/0.4 ML (LOVENOX) SYR SC SCH (16:45)
[2017-07-15] MEDS: ACETAMINOPHEN 500 MG TAB (TYLENOL) PO PRN (16:48)
[2017-07-15] MEDS ORDERED: RT-ALBUTEROL SULF 2.5 MG/3 ML PRE-MIX VIAL ONE (16:48)
--- NOTE | 2017-07-15 16:54 | Diagnostic Imaging Report ---
INDICATION: Respiratory distress. COMPARISON STUDY: Chest from June 20. FINDINGS: Frontal and lateral views of the chest demonstrate the lungs to be clear. The heart size and vascularity are normal. There are no pleural effusions. IMPRESSION: Normal chest. Dictated by: Dictated on workstation # [id number]
[2017-07-15 16:55] LABS: ALANINE AMINOTRANSFERASE 74 U/L (0-55); ALBUMIN 3.7 GM/DL (3.2-4.5); ANION GAP 8 MMOL/L (5-14); ASPARTATE AMINO TRANSFERASE 24 U/L (5-34); BILIRUBIN,TOTAL 0.5 MG/DL (0.1-1.0); BLOOD UREA NITROGEN 9 MG/DL (7-18); BUN/CREATININE RATIO 12; CALCIUM 9.3 MG/DL (8.5-10.1); CARBON DIOXIDE 28 MMOL/L (21-32); CHLORIDE 106 MMOL/L (98-107); CREATININE SERUM 0.75 MG/DL (0.60-1.30); GFR ESTIMATED > 60; GLUCOSE 119 MG/DL (70-105); POTASSIUM 3.4 MMOL/L (3.6-5.0); SODIUM 142 MMOL/L (135-145); TOTAL PROTEIN 6.3 GM/DL (6.4-8.2)
[2017-07-15] MEDS ORDERED: BENZONATATE 100 MG (TESSALON) CAPSULE PO PRN (17:45)
[2017-07-15] MEDS: methylPREDNISolone 40 MG/ML (Solu-MEDROL) VIAL IV SCH ×2 (18:02→23:53)
[2017-07-15] MEDS: FERROUS SULF 325 MG (IRON) TAB PO SCH (18:02)
[2017-07-15] MEDS: KCL 10 MEQ TAB (MICRO K) PO SCH (18:03)
[2017-07-15] MEDS: inSUlin ASPART (NovoLOG) 1 UNIT/0.01 ML (CHARGE PER UNIT) SC SCH ×2 (18:03→20:44)
[2017-07-15] MEDS: RT-ALBUTEROL SULF 2.5 MG/3 ML PRE-MIX VIAL IH SCH ×2 (18:49→22:53)
[2017-07-15] MEDS: RT-ADVAIR HFA 115/21 MCG PER PUFF IH SCH (18:50)
[2017-07-15 20:15] VITALS: BP 128/67
[2017-07-15] MEDS: MONTELUKAST 10 MG (SINGULAIR) TAB PO SCH (20:44)
[2017-07-15] MEDS: HYDROcodone/APAP 10 MG/325 MG (LORTAB) TAB PO PRN (20:44)
[2017-07-15] MEDS: metFORMIN XR 500 MG (GLUCOPHAGE XR) TAB PO SCH (20:44)
[2017-07-15] MEDS: RT-FLUTICASONE 110 MCG (FLOVENT) PER PUFF INH SCH (23:01)
[2017-07-16] VITALS (7 sets, daily range): BP systolic 111–154; BP diastolic 56–85
[2017-07-16] MEDS: RT-ALBUTEROL SULF 2.5 MG/3 ML PRE-MIX VIAL IH SCH ×6 (02:33→22:17)
[2017-07-16] MEDS: MULTIVIT W/MINERALS TAB (THERAGRAN M) PO SCH (05:40)
[2017-07-16] MEDS: PANTOPRAZOLE 40 MG (PROTONIX) TAB PO SCH (05:40)
[2017-07-16] MEDS: FERROUS SULF 325 MG (IRON) TAB PO SCH ×3 (05:40→16:43)
[2017-07-16] MEDS: KCL 10 MEQ TAB (MICRO K) PO SCH ×2 (05:40→16:43)
[2017-07-16] MEDS: methylPREDNISolone 40 MG/ML (Solu-MEDROL) VIAL IV SCH ×4 (05:40→23:58)
[2017-07-16] MEDS: HYDROcodone/APAP 10 MG/325 MG (LORTAB) TAB PO PRN ×3 (05:41→20:21)
[2017-07-16] MEDS: inSUlin ASPART (NovoLOG) 1 UNIT/0.01 ML (CHARGE PER UNIT) SC SCH ×7 (05:41→20:28)
[2017-07-16] MEDS: RT-ADVAIR HFA 115/21 MCG PER PUFF IH SCH ×2 (07:11→18:59)
[2017-07-16] MEDS: RT-FLUTICASONE 110 MCG (FLOVENT) PER PUFF INH SCH ×2 (07:11→18:59)
[2017-07-16] MEDS: UMECLIDINIUM BROMIDE (INCRUSE ELLIPTA) 7'S IH SCH (07:12)
[2017-07-16] MEDS: inSUlin DETERMIR 1 UNIT/0.01 ML (LEVEMIR) CHARGE PER UNIT SQ SCH (08:44)
[2017-07-16] MEDS: LORATADINE (CLARITIN) 10 MG TAB PO SCH (08:45)
[2017-07-16] MEDS: metFORMIN XR 500 MG (GLUCOPHAGE XR) TAB PO SCH ×2 (08:45→20:21)
[2017-07-16] MEDS: FUROSEMIDE 40 MG (LASIX) TAB PO SCH (08:45)
[2017-07-16] MEDS: FLUTICASONE NASAL SPRAY (FLONASE) 16 GM BTL NS SCH (08:47)
[2017-07-16] MEDS ORDERED: NON-FORMULARY MEDICATION 1 EA EA (Vortioxetine Hydrobromide (Trintellix) 10 MG) PO SCH (09:00)
--- NOTE | 2017-07-16 09:34 | Pulmonary Consultation ---
History of Present Illness History of Present Illness Date of Consultation 07/16/17 09:31 Time Seen by Provider: 08:21 Date of Admission History of Present Illness 32yo with hx of severe uncontrolled asthma and noncompliance presented secondary to worsening SOB and wheezing. Onset was 2-3 days ago. Pt has had multiple episodes of hospitalizations secondary to asthma AE. 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 Pt states she has been taking her meds and does not smoke. She does have 1 inside dog. I am consulted for ICU management. Allergies and Home Medications Allergies Coded Allergies: cocaine (Verified Allergy, Severe, SOA, 01/04/17) procaine (Verified Allergy, Severe, SOA, 01/04/17) tetracaine (Verified Allergy, Severe, SOA, 01/04/17) allantoin (Verified Allergy, Unknown, 08/22/15) aspirin (Verified Allergy, Unknown, 08/22/15) benzocaine (Verified Allergy, Unknown, 08/22/15) carbamide peroxide (Verified Allergy, Unknown, 08/22/15) proparacaine (Verified Allergy, Unknown, SOA, 01/04/17) Uncoded Allergies: CHLORPROCAINE (Allergy, Severe, SOA, 01/04/17) Home Medications Acetaminophen 500 Mg Tablet, 500-1,000 MG PO Q4H PRN for PAIN-MILD, (Reported) Albuterol Sulfate 2.5 Mg/3 Ml Vial.neb, 2.5 MG NEB Q4H PRN for SHORTNESS OF BREATH, (Reported) Albuterol Sulfate 8.5 Gm Hfa.aer.ad, 2 PUFF INH Q4H PRN for SHORTNESS OF BREATH, (Reported) Azithromycin 250 Mg Tablet, 250 MG PO MoWeFr, (Reported) Beclomethasone Dipropionate 8.7 Gm Aer.w.adap, 2 PUFF INH BID, (Reported) Benzonatate 200 Mg Capsule, 200 MG PO TID PRN for COUGH, (Reported) Cetirizine HCl 10 Mg Tablet, 10 MG PO DAILY, (Reported) Ferrous Gluconate 324 Mg Tablet, 324 MG PO DAILY, (Reported) Fluticasone Propionate 16 Gm [place].susp, 1 SPRAYS NS DAILY, (Reported) Fluticasone/Salmeterol 1 Each Blst.w.dev, 1 PUFF PO BID, (Reported) Furosemide 40 Mg Tablet, 40 MG PO DAILY, (Reported) Guaifenesin/Pseudoephedrne HCl 1 Each Tab.er.12h, 1 TAB PO TID PRN for CONGESTION, (Reported) Hydrocodone/Acetaminophen 1 Each Tablet, 1 TAB PO TID PRN for PAIN-MODERATE, ( Reported) Ibuprofen 200 Mg Tablet, 800 MG PO TID PRN for PAIN-MILD, (Reported) TAKES 4 (200MG) TABLETS Insulin Aspart 300 Units/3 Ml Solution, 15 UNITS SC TIDWM, (Reported) Insulin Glargine,Hum.rec.anlog 100 Unit/1 Ml Insuln.pen, 45 UNITS SC DAILY, ( Reported) Lidocaine HCl 15 Ml Solution, 5 MG MM EVERY 3 HOURS PRN for TOOTH PAIN, ( Reported) Metformin HCl 500 Mg Tab.er.24h, 1,000 MG PO BID, (Reported) TAKES 2 (500MG) TABLETS Montelukast Sodium 10 Mg Tablet, 10 MG PO HS, (Reported) Multivitamin 1 Each Tablet, 1 TAB PO DAILY, (Reported) Oxycodone HCl 5 Mg Tablet, 5-10 MG PO Q6H PRN for PAIN-SEVERE, (Reported) TAKES 1-2 OF A (5 MG) TABLET Pantoprazole Sodium 40 Mg Tablet.dr, 40 MG PO DAILY, (Reported) Potassium Chloride 10 Meq Tab.er.prt, 10 MEQ PO BID, (Reported) Prednisone 20 Mg Tab, 20 MG PO DAILY, (Reported) Prednisone 20 Mg Tab, 20 MG PO DAILY, #22 Ref 0 Take 3 tabs(60mg)daily,decrease by 1/2 tab(10mg)every other day. Prescribed by: DEBBIE SIBLEY on 07/18/17 1104 Promethazine HCl/Codeine 118 Ml Syrup, 5 ML PO Q6H PRN for COUGH, (Reported) Ranitidine HCl 300 Mg Tablet, 300 MG PO HS, (Reported) Sulfamethoxazole/Trimethoprim 1 Each Tablet, 1 TAB PO MoWeFr, (Reported) Tiotropium Matheny 1 Inh Aerp, 1 CAP IH DAILY, (Reported) Vortioxetine Hydrobromide 10 Mg Tablet, 10 MG PO DAILY, (Reported) Past Eontrao-Wfqobx-Facnxs Hx Patient Social History Alcohol Use: Denies Use Recreational Drug Use: No Smoking Status: Former Smoker Type Used: Cigarettes Former Smoker, Quit: Jul 15, 2006 Recent Foreign Travel: No Contact w/Someone Who Travel: No Recent Infectious Disease Expo: No Recent Hopitalizations: No (12/2016 [facility] TO INCREASE LUNG FUNCTION) Immunizations Up To Date Tetanus Booster (TDap): Less than 5yrs PED Vaccines UTD: Yes Date of Pneumonia Vaccine: Aug 18, 2014 Date of Influenza Vaccine: May 19, 2017 Seasonal Allergies Seasonal Allergies: Yes Surgeries History of Surgeries: Yes (Tracheostomy, RT HIP) Surgeries: Appendectomy, Gallbladder, Orthopedic, Tonsillectomy, Tracheostomy Respiratory History of Respiratory Disorde: Yes Respiratory Disorders: Asthma, Chronic Bronchitis, COPD Currently Using CPAP: No Currently Using BIPAP: No Cardiovascular History of Cardiac Disorders: Yes (History of symptomatic bradycardia) Cardiac Disorders: Hypertension Neurological History of Neurological Disord: No Neurological Disorders: Headaches /Migraines Reproductive System Hx Reproductive Disorders: Yes Sexually Transmitted Disease: No HIV/AIDS: No Female Reproductive Disorders: Polycystic Ovarian Dis 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 Genitourinary History of Genitourinary Disor: No Gastrointestinal History of Gastrointestinal Di: Yes Gastrointestinal Disorders: Gastroesophageal Reflux, Gastrointestinal Bleed Musculoskeletal History of Musculoskeletal Dis: Yes (Degenerative Joint Disease) Musculoskeletal Disorders: Arthritis, Rheumatoid Arthritis Endocrine History of Endocrine Disorders: Yes Endocrine Disorders: Diabetes, Insulin dep, Diabetes, Non-Insulin dep HEENT History of HEENT Disorders: No Loss of Vision: Denies Hearing Impairment: Denies Cancer History of Cancer: No Psychosocial History of Psychiatric Problem: Yes (manic depression, insomnia) Behavioral Health Disorders: Anxiety, Depression Integumentary History of Skin or Integumenta: No Blood Transfusions History of Blood Disorders: No Adverse Reaction to a Blood Tr: No Family Medical History Significant Family History: Diabetes Family Medial History: Diabetes mellitus 19 MOTHER G8 SISTER Review of Systems Time Seen by Provider: 08:24 Constitutional: Weakness, Malaise, No: Fever, Chills, Sweats, Other Eyes: No: Pain, Vision change, Conjunctivae inflammation, Eyelid inflammation, Other, Redness ENT: No: Ear pain, Ear discharge, Nose pain, Nose discharge, Nose congestion, Mouth pain, Mouth swelling, Throat pain, Throat swelling, Other Respiratory: Cough, Shortness of breath, SOB with excertion, Wheezing, Sputum, No: Hemoptysis Cardiovascular: Orthopnea, Paroxysmal Noc. Dyspnea, Lt Headedness, No: Chest Pain, Palpitations, Edema, Other Neurological: Weakness Exam Exam Vital Signs Date Time Temp Pulse Resp B/P (MAP) Pulse Ox O2 Delivery O2 Flow Rate FiO2 07/16/17 08:35 96.8 105 20 154/83 95 Nasal Cannula 3.00 07/16/17 07:16 97 Nasal Cannula 3.00 07/16/17 07:15 97 Nasal Cannula 3.00 07/16/17 07:14 97 Nasal Cannula 3.00 07/16/17 07:12 97 Nasal Cannula 3.00 07/16/17 03:37 96.5 100 20 112/63 97 Nasal Cannula 3.00 07/16/17 02:34 95 Nasal Cannula 3.00 07/16/17 00:00 97.1 93 18 111/56 97 Nasal Cannula 3.00 07/15/17 22:53 97 Nasal Cannula 3.00 07/15/17 20:15 98.1 105 16 128/67 94 Nasal Cannula 3.00 07/15/17 18:52 97 Nasal Cannula 3.00 07/15/17 17:05 95 98 32 07/15/17 17:01 98 Nasal Cannula 3.00 07/15/17 15:42 97.8 99 16 157/83 98 Nasal Cannula 3.00 07/15/17 14:15 Nasal Cannula 07/15/17 14:00 98.1 106 20 150/77 96 Nasal Cannula 3.00 General Appearance: No Apparent Distress, WD/WN HEENT: PERRL/EOMI, TMs Normal Respiratory: No Accessory Muscle Use, No Respiratory Distress, Decreased Breath Sounds Gastrointestinal: normal bowel sounds, non tender, soft, abnormal bowel sounds Extremity: Normal Capillary Refill, Normal Inspection Neurologic/Psychiatric: Alert, Oriented x3, No Motor/Sensory Deficits Skin: Normal Color, Warm/Dry Results Lab Laboratory Tests 07/15/17 16:30 Assessment/Plan Assessment/Plan severe asthmaAE - no signs of infection -No Abx needed -Solumedrol 40 IV Q6 -SVNS Q4 Chronic respiratory failure Morbid obesity 254 Clinical Quality Measures DVT/VTE Risk/Contraindication: Risk Factor Score Per Nursin RFS Level Per Nursing on Admit: 3=High MARICHUY GUADALUPE DO Jul 16, 2017 09:33
--- NOTE | 2017-07-16 10:02 | Progress Note (SOAP) ---
Subjective Subjective/Events-last exam Tamia is still feeling poorly this morning. She states that she gets easily short of breath when she gets up and around. She feels better after nebs - which she just had a little bit ago Review of Systems Date Seen by Provider: Jul 16, 2017 Time Seen by Provider: 09:00 Pulmonary: Dyspnea, Cough Cardiovascular: No: Chest Pain Objective Exam Last Set of Vital Signs Vital Signs Date Time Temp Pulse Resp B/P (MAP) Pulse Ox O2 Delivery O2 Flow Rate FiO2 07/16/17 09:00 95 Nasal Cannula 3.00 07/16/17 08:35 96.8 105 20 154/83 07/15/17 17:05 32 Capillary Refill : I&O Intake and Output 07/17/17 00:00 Intake Total 400 ml Output Total 1250 ml Balance -850 ml Intake Oral 400 ml Output Urine Total 1250 ml General: Alert, Oriented X3, Cooperative, Mild Distress Lungs: Clear to Auscultation, Normal Air Movement Heart: Regular Rate, Normal S1, Normal S2, No Murmurs, Gallops, Rubs Abdomen: Normal Bowel Sounds, Soft, No Tenderness, No Hepatosplenomegaly, No Masses Extremities: No Cyanosis, No Edema (trace) Psych/Mental Status: Mental Status NL, Mood NL Results/Procedures Lab Laboratory Tests 07/15/17 16:30: White Blood Count 9.8, Red Blood Count 4.04L, Hemoglobin 10.8L, Hematocrit 35, Mean Corpuscular Volume 86, Mean Corpuscular Hemoglobin 27, Mean Corpuscular Hemoglobin Concent 31L, Red Cell Distribution Width 17.2H, Platelet Count 236, Mean Platelet Volume 9.8, Neutrophils (%) (Auto) 54, Lymphocytes (%) (Auto) 36, Monocytes (%) (Auto) 7, Eosinophils (%) (Auto) 4, Basophils (%) (Auto) 1, Neutrophils # (Auto) 5.3, Lymphocytes # (Auto) 3.5, Monocytes # (Auto) 0.6, Eosinophils # (Auto) 0.4H, Basophils # (Auto) 0.1, Sodium Level 142, Potassium Level 3.4L, Chloride Level 106, Carbon Dioxide Level 28, Anion Gap 8, Blood Urea Nitrogen 9, Creatinine 0.75, Estimat Glomerular Filtration Rate > 60, BUN/ Creatinine Ratio 12, Glucose Level 119H, Calcium Level 9.3, Total Bilirubin 0.5 , Aspartate Amino Transf (AST/SGOT) 24, Alanine Aminotransferase (ALT/SGPT) 74H , Alkaline Phosphatase 60, Total Protein 6.3L, Albumin 3.7 07/15/17 20:01: Glucometer 144H 07/16/17 05:12: Glucometer 204H Assessment/Plan Assessment/Plan Admission Dx SEVERE COPD SEVERE PERSISTENT ASTHMA WITH EXACERBATION CHRONIC RESPIRATORY FAILURE CHRONIC STEROIDS HISTORY OF TRACHEOSTOMY SUPRAMORBID OBESITY, BMI 52 DIABETES MELLITUS TYPE 2 Plan SEVERE COPD SEVERE PERSISTENT ASTHMA WITH EXACERBATION CHRONIC RESPIRATORY FAILURE CHRONIC STEROIDS HISTORY OF TRACHEOSTOMY ADM: 2nd admission this month. very concerning for prognosis. will do SVN q4h and solumedrol 40 q6h for now. Plan to decrease to q8h tomorrow. I have a call into Dr Dean Saleh at . His nurse is Maureen - [phone] - to see if there is anything else we need to be doing. I'd also like his overall plan for her care, which by her history includes bronchial thermoplasty at [facility] in [facility]. She states she now only has 1 dog but is living with her and 9 and 8 year old children. holding abx for now as she does not have a pneumonia. will restart the azithromyicn and bactrim if Dr Farley does not add abx today. He has kindly agreed to consult while she is in house. SUPRAMORBID OBESITY, BMI 52 DIABETES MELLITUS TYPE 2 ADM - BS high d/t steroids. Have restarted the home insulin regimen. will monitor and adjust as necessary. DVT PROPH: high risk so added lovenox Clinical Quality Measures DVT/VTE Risk/Contraindication: Risk Factor Score Per Nursin RFS Level Per Nursing on Admit: 3=High DEBBIE SIBLEY MD Jul 16, 2017 10:02 am
[2017-07-16] MEDS: ENOXAPARIN 40 MG/0.4 ML (LOVENOX) SYR SC SCH (15:07)
[2017-07-16] MEDS: MONTELUKAST 10 MG (SINGULAIR) TAB PO SCH (20:22)
[2017-07-16] MEDS: ACETAMINOPHEN 500 MG TAB (TYLENOL) PO PRN (21:53)
[2017-07-17] VITALS (9 sets, daily range): BP systolic 114–196; BP diastolic 59–102
[2017-07-17] MEDS: RT-ALBUTEROL SULF 2.5 MG/3 ML PRE-MIX VIAL IH SCH ×6 (02:25→23:03)
[2017-07-17] MEDS: FERROUS SULF 325 MG (IRON) TAB PO SCH ×3 (06:48→17:02)
[2017-07-17] MEDS: MULTIVIT W/MINERALS TAB (THERAGRAN M) PO SCH (06:48)
[2017-07-17] MEDS: methylPREDNISolone 40 MG/ML (Solu-MEDROL) VIAL IV SCH (06:48)
[2017-07-17] MEDS: HYDROcodone/APAP 10 MG/325 MG (LORTAB) TAB PO PRN ×3 (06:48→20:49)
[2017-07-17] MEDS: KCL 10 MEQ TAB (MICRO K) PO SCH ×2 (06:48→17:02)
[2017-07-17] MEDS: PANTOPRAZOLE 40 MG (PROTONIX) TAB PO SCH (06:49)
[2017-07-17] MEDS: RT-ADVAIR HFA 115/21 MCG PER PUFF IH SCH ×2 (06:50→19:27)
[2017-07-17] MEDS: UMECLIDINIUM BROMIDE (INCRUSE ELLIPTA) 7'S IH SCH (06:54)
[2017-07-17] MEDS: inSUlin ASPART (NovoLOG) 1 UNIT/0.01 ML (CHARGE PER UNIT) SC SCH ×7 (06:56→20:34)
[2017-07-17] MEDS: FLUTICASONE NASAL SPRAY (FLONASE) 16 GM BTL NS SCH (08:24)
[2017-07-17] MEDS: LORATADINE (CLARITIN) 10 MG TAB PO SCH (08:25)
[2017-07-17] MEDS: FUROSEMIDE 40 MG (LASIX) TAB PO SCH (08:25)
[2017-07-17] MEDS: metFORMIN XR 500 MG (GLUCOPHAGE XR) TAB PO SCH ×2 (08:25→20:34)
[2017-07-17] MEDS: inSUlin DETERMIR 1 UNIT/0.01 ML (LEVEMIR) CHARGE PER UNIT SQ SCH (08:26)
--- NOTE | 2017-07-17 09:30 | Progress Note (SOAP) ---
Subjective Subjective/Events-last exam Pt states she is anxious and having back and chest pain this morning. She states she still isn't breathing well. She tells me today that weight loss surgery has been discussed but that Dr Saleh indicated that her lung function was too poor to do it. Review of Systems Date Seen by Provider: Jul 17, 2017 Time Seen by Provider: 08:00 Pulmonary: Dyspnea, Cough Objective Exam Last Set of Vital Signs Vital Signs Date Time Temp Pulse Resp B/P (MAP) Pulse Ox O2 Delivery O2 Flow Rate FiO2 07/17/17 09:00 Nasal Cannula 3.00 07/17/17 08:00 98.8 96 16 121/78 96 07/15/17 17:05 32 Capillary Refill : I&O Intake and Output 07/18/17 00:00 Intake Total 320 ml Output Total 1100 ml Balance -780 ml Intake Oral 320 ml Output Urine Total 1100 ml General: Alert, Oriented X3, Cooperative, No Acute Distress Lungs: Clear to Auscultation, Normal Air Movement Heart: Regular Rate, Normal S1, Normal S2, No Murmurs, Gallops, Rubs Abdomen: Normal Bowel Sounds, Soft, No Tenderness, No Hepatosplenomegaly, No Masses Extremities: No Clubbing, No Cyanosis, No Edema Psych/Mental Status: Mental Status NL, Mood NL Results/Procedures Lab Laboratory Tests 07/16/17 10:24: Glucometer 274H 07/16/17 15:17: Glucometer 220H 07/16/17 20:24: Glucometer 273H 07/17/17 05:53: Glucometer 221H 07/17/17 09:01: Glucometer 252H Assessment/Plan Assessment/Plan Plan SEVERE COPD SEVERE PERSISTENT ASTHMA WITH EXACERBATION CHRONIC RESPIRATORY FAILURE CHRONIC STEROIDS HISTORY OF TRACHEOSTOMY ADM: 2nd admission this month. very concerning for prognosis. will do SVN q4h and solumedrol 40 q6h for now. Plan to decrease to q8h tomorrow. I have a call into Dr Dean Saleh at . His nurse is Maureen - [phone] - to see if there is anything else we need to be doing. I'd also like his overall plan for her care, which by her history includes bronchial thermoplasty at [facility] in [facility]. She states she now only has 1 dog but is living with her and 9 and 8 year old children. holding abx for now as she does not have a pneumonia. will restart the azithromyicn and bactrim if Dr Farley does not add abx today. He has kindly agreed to consult while she is in house. 07/17 - Spoke with Dr Farley as well as Dr Saleh. Dr Saleh indicates that Tamia is likely short of breath at baseline and that there is not the need for IV steroids. We will plan to obtain a PFT or Spirometry today while she is in house. He thinks that her baseline is 50-60%. She is not eligible for the bronchial thermoplasty as her insurance would not cover the procedure. change to po steroids today and plan for home tomorrow. SUPRAMORBID OBESITY, BMI 52 DIABETES MELLITUS TYPE 2 ADM - BS high d/t steroids. Have restarted the home insulin regimen. will monitor and adjust as necessary. 07/17 - Will be looking for a place to refer her for weight loss surgery, probably in [place]. DVT PROPH: high risk so added lovenox Clinical Quality Measures DVT/VTE Risk/Contraindication: Risk Factor Score Per Nursin RFS Level Per Nursing on Admit: 3=High DEBBIE SIBLEY MD Jul 17, 2017 09:29
--- NOTE | 2017-07-17 11:16 | Pulmonary Progress Note ---
Subjective Time Seen by Provider: 11:16 Subjective/Events-last exam No complications noted. Exam Exam Vital Signs Date Time Temp Pulse Resp B/P (MAP) Pulse Ox O2 Delivery O2 Flow Rate FiO2 07/17/17 10:30 96 Nasal Cannula 3.00 07/17/17 09:00 Nasal Cannula 3.00 07/17/17 08:00 98.8 96 16 121/78 96 Nasal Cannula 3.00 07/17/17 06:54 97 Nasal Cannula 3.00 07/17/17 06:52 97 Nasal Cannula 3.00 07/17/17 06:50 97 Nasal Cannula 3.00 07/17/17 06:42 97 Nasal Cannula 3.00 07/17/17 06:25 97 173/89 Nasal Cannula 3.00 07/17/17 06:25 99 196/102 Nasal Cannula 3.00 07/17/17 06:24 95 182/102 99 Nasal Cannula 3.00 07/17/17 05:13 97.9 98 18 117/59 95 Nasal Cannula 3.00 07/17/17 04:14 97.9 98 18 117/59 95 Nasal Cannula 3.00 07/17/17 02:26 95 Nasal Cannula 3.00 07/17/17 00:16 97.6 90 18 114/66 95 Nasal Cannula 3.00 07/16/17 22:18 95 Nasal Cannula 3.00 07/16/17 21:00 Nasal Cannula 3.00 07/16/17 20:41 96.7 101 18 121/80 94 Nasal Cannula 3.00 07/16/17 19:05 Nasal Cannula 3.00 07/16/17 19:04 Nasal Cannula 3.00 07/16/17 18:59 96 Nasal Cannula 3.00 07/16/17 16:00 98.0 107 20 119/82 94 Nasal Cannula 3.00 07/16/17 15:11 96 Nasal Cannula 3.00 07/16/17 12:00 98.0 114 20 135/85 97 Nasal Cannula 3.00 General Appearance: No Apparent Distress, WD/WN Neck: Full Range of Motion, Non Tender, Supple Respiratory: No Accessory Muscle Use, No Respiratory Distress, Decreased Breath Sounds Gastrointestinal: normal bowel sounds, non tender, soft, no organomegaly Neurologic/Psychiatric: Alert, Oriented x3 Skin: Normal Color, Warm/Dry Results Lab Laboratory Tests 07/15/17 16:30 Assessment/Plan Assessment/Plan severe asthmaAE - no signs of infection -Will do Full PFT today -No Abx needed -D/C Solumedrol now -- start prednisone taper tomorrow -SVNS Q4 Chronic respiratory failure Morbid obesity 232 Clinical Quality Measures DVT/VTE Risk/Contraindication: Risk Factor Score Per Nursin RFS Level Per Nursing on Admit: 3=High MARICHUY GUADALUPE DO Jul 17, 2017 11:16
--- NOTE | 2017-07-17 11:42 | Discharge Instructions ---
Discharge [email or web address] Discharge Medications New, Converted or Re-Newed RX: Transmitted to Pharmacy New Medications: Prednisone (Prednisone) 20 Mg Tab 20 MG PO DAILY, #22 TAB 0 Refills Take 3 tabs(60mg)daily,decrease by 1/2 tab(10mg)every other day. Continued Medications: Acetaminophen (Acetaminophen Extra Strength) 500 Mg Tablet 500-1000 MG PO Q4H PRN for PAIN-MILD, TAB Albuterol Sulfate (Albuterol Sulfate) 2.5 Mg/3 Ml Vial.neb 2.5 MG NEB Q4H PRN for SHORTNESS OF BREATH, EA Albuterol Sulfate (Proair Hfa) 8.5 Gm Hfa.aer.ad 2 PUFF INH Q4H PRN for SHORTNESS OF BREATH, INHALER Azithromycin (Azithromycin) 250 Mg Tablet 250 MG PO MoWeFr, TAB Beclomethasone Dipropionate (Qvar) 8.7 Gm Aer.w.adap 2 PUFF INH BID, INHALER Benzonatate (Benzonatate) 200 Mg Capsule 200 MG PO TID PRN for COUGH, CAP Cetirizine HCl (Cetirizine HCl) 10 Mg Tablet 10 MG PO DAILY, TAB Ferrous Gluconate (Ferrous Gluconate) 324 Mg Tablet 324 MG PO DAILY, TAB Fluticasone Propionate (Fluticasone Propionate) 16 Gm Sunman.susp 1 SPRAYS NS DAILY, EA Fluticasone/Salmeterol (Advair 500-50 Diskus) 1 Each Blst.w.dev 1 PUFF PO BID, INHALER Furosemide (Furosemide) 40 Mg Tablet 40 MG PO DAILY, TAB Guaifenesin/Pseudoephedrne HCl (Mucinex D ER Tablet) 1 Each Tab.er.12h 1 TAB PO TID PRN for CONGESTION, TAB Hydrocodone/Acetaminophen (Hydrocodon-Acetaminophn 10-325) 1 Each Tablet 1 TAB PO TID PRN for PAIN-MODERATE, TAB Ibuprofen (Advil) 200 Mg Tablet 800 MG PO TID PRN for PAIN-MILD, TAB TAKES 4 (200MG) TABLETS Insulin Aspart (Novolog Flexpen) 300 Units/3 Ml Solution 15 UNITS SC TIDWM, EA Insulin Glargine,Hum.rec.anlog (Lantus Solostar) 100 Unit/1 Ml Insuln.pen 45 UNITS SC DAILY, EA Lidocaine HCl (Lidocaine HCl Viscous) 15 Ml Solution 5 MG MM EVERY 3 HOURS PRN for TOOTH PAIN Metformin HCl (Metformin HCl ER) 500 Mg Tab.er.24h 1000 MG PO BID, TAB TAKES 2 (500MG) TABLETS Montelukast Sodium (Montelukast Sodium) 10 Mg Tablet 10 MG PO HS, TAB Multivitamin (Multivitamins) 1 Each Tablet 1 TAB PO DAILY, TAB Oxycodone HCl (Oxycodone HCl) 5 Mg Tablet 5-10 MG PO Q6H PRN for PAIN-SEVERE TAKES 1-2 OF A (5 MG) TABLET Pantoprazole Sodium (Pantoprazole Sodium) 40 Mg Tablet.dr 40 MG PO DAILY, TAB Potassium Chloride (Potassium Chloride) 10 Meq Tab.er.prt 10 MEQ PO BID, TAB Prednisone (Prednisone) 20 Mg Tab 20 MG PO DAILY, TAB Promethazine HCl/Codeine (Promethazine-Codeine Syrup) 118 Ml Syrup 5 ML PO Q6H PRN for COUGH, EA Ranitidine HCl (Ranitidine HCl) 300 Mg Tablet 300 MG PO HS, TAB Sulfamethoxazole/Trimethoprim (Sulfamethoxazole-Tmp Ds Tablet) 1 Each Tablet 1 TAB PO MoWeFr, TAB Tiotropium [place] (Spiriva) 1 Inh Aerp 1 CAP IH DAILY, INHALER Vortioxetine Hydrobromide (Trintellix) 10 Mg Tablet 10 MG PO DAILY, TAB Patient Instructions Goal/Follow Up Appt: DR SIBLEY AT 4PM ON 07/23 Patient Instructions: -PLEASE TAKE YOUR PREDNISONE TAPER PRESCRIBED. -WE WILL BE CALLING YOU ABOUT A REFERRAL TO A BARIATRIC (WEIGHT LOSS) SURGERY CENTER. Return to [facility] For: increased SOB, home O2 sats less than 90% Activity & Diet Discharge Diet: ADA Diet Activity as Tolerated: Yes Copy Copies To 1: DEBBIE SIBLEY MD, JULIE A MD Jul 17, 2017 11:33
[2017-07-17] MEDS: ENOXAPARIN 40 MG/0.4 ML (LOVENOX) SYR SC SCH (17:02)
[2017-07-17] MEDS: ACETAMINOPHEN 500 MG TAB (TYLENOL) PO PRN (17:04)
[2017-07-17] MEDS: RT-FLUTICASONE 110 MCG (FLOVENT) PER PUFF INH SCH ×2 (19:27→23:03)
[2017-07-17] MEDS: MONTELUKAST 10 MG (SINGULAIR) TAB PO SCH (20:49)
[2017-07-18] VITALS: BP 102/50
[2017-07-18] MEDS: RT-ALBUTEROL SULF 2.5 MG/3 ML PRE-MIX VIAL IH SCH ×3 (02:21→10:00)
[2017-07-18 04:00] VITALS: BP 125/59
[2017-07-18] MEDS: inSUlin ASPART (NovoLOG) 1 UNIT/0.01 ML (CHARGE PER UNIT) SC SCH ×4 (05:32→12:41)
[2017-07-18] MEDS: PANTOPRAZOLE 40 MG (PROTONIX) TAB PO SCH (06:01)
[2017-07-18] MEDS: FERROUS SULF 325 MG (IRON) TAB PO SCH ×2 (06:01→12:40)
[2017-07-18] MEDS: MULTIVIT W/MINERALS TAB (THERAGRAN M) PO SCH (06:01)
[2017-07-18] MEDS: KCL 10 MEQ TAB (MICRO K) PO SCH (06:01)
[2017-07-18] MEDS: RT-FLUTICASONE 110 MCG (FLOVENT) PER PUFF INH SCH (06:38)
[2017-07-18] MEDS: UMECLIDINIUM BROMIDE (INCRUSE ELLIPTA) 7'S IH SCH (06:39)
[2017-07-18] MEDS: RT-ADVAIR HFA 115/21 MCG PER PUFF IH SCH (06:39)
--- NOTE | 2017-07-18 07:33 | Pulmonary Progress Note ---
Subjective Time Seen by Provider: 07:27 Subjective/Events-last exam Pt feels improved. Exam Exam Vital Signs Date Time Temp Pulse Resp B/P (MAP) Pulse Ox O2 Delivery O2 Flow Rate FiO2 07/18/17 06:42 97 Nasal Cannula 3.00 07/18/17 06:41 98 Nasal Cannula 3.00 07/18/17 06:39 98 Nasal Cannula 3.00 07/18/17 06:39 98 Nasal Cannula 3.00 07/18/17 04:00 96.6 84 20 125/59 (81) 98 Nasal Cannula 3.00 07/18/17 02:22 98 Nasal Cannula 3.00 07/18/17 00:00 96.5 88 18 102/50 (67) 97 Nasal Cannula 3.00 07/17/17 23:04 98 Nasal Cannula 3.00 07/17/17 20:30 Nasal Cannula 3.00 07/17/17 19:40 98 Nasal Cannula 3.00 07/17/17 19:39 98 Nasal Cannula 3.00 07/17/17 19:28 98 Nasal Cannula 3.00 07/17/17 19:22 97.0 87 18 135/73 (93) 98 Nasal Cannula 3.00 07/17/17 15:29 97.1 98 20 146/78 (100) 98 Nasal Cannula 3.00 07/17/17 14:25 97 Nasal Cannula 3.00 07/17/17 12:00 98.4 94 20 131/79 (96) 96 Nasal Cannula 3.00 07/17/17 10:30 96 Nasal Cannula 3.00 07/17/17 09:00 Nasal Cannula 3.00 07/17/17 08:00 98.8 96 16 121/78 96 Nasal Cannula 3.00 General Appearance: No Apparent Distress, WD/WN Neck: Full Range of Motion, Non Tender, Supple Respiratory: No Accessory Muscle Use, No Respiratory Distress, Decreased Breath Sounds Gastrointestinal: normal bowel sounds, non tender, soft, no organomegaly Neurologic/Psychiatric: Alert, Oriented x3 Skin: Normal Color, Warm/Dry Assessment/Plan Assessment/Plan severe asthma - currently at baseline -Will do Full PFT today -No Abx needed - prednisone taper tomorrow -SVNS Q4 , advair, incruse Allergic rhinitis -Singulair, Flonase, claritin Chronic respiratory failure Morbid obesity -Consult dietary for education Pt is scheduled for full PFT today at 11. I am ok with patient being discharged after PFT and dietary consultation. Continue prednisone taper. I will f/u with patient in 1-2 wks. 232 Clinical Quality Measures DVT/VTE Risk/Contraindication: Risk Factor Score Per Nursin RFS Level Per Nursing on Admit: 3=High MARICHUY GUADALUPE DO Jul 18, 2017 07:33
[2017-07-18 08:00] VITALS: BP 129/64
[2017-07-18] MEDS: LORATADINE (CLARITIN) 10 MG TAB PO SCH (08:37)
[2017-07-18] MEDS: FLUTICASONE NASAL SPRAY (FLONASE) 16 GM BTL NS SCH (08:37)
[2017-07-18] MEDS: FUROSEMIDE 40 MG (LASIX) TAB PO SCH (08:37)
[2017-07-18] MEDS: metFORMIN XR 500 MG (GLUCOPHAGE XR) TAB PO SCH (08:38)
[2017-07-18] MEDS: HYDROcodone/APAP 10 MG/325 MG (LORTAB) TAB PO PRN (08:38)
[2017-07-18] MEDS: inSUlin DETERMIR 1 UNIT/0.01 ML (LEVEMIR) CHARGE PER UNIT SQ SCH (08:38)
[2017-07-18] MEDS ORDERED: PRD20T PO (11:04)
[2017-07-18] MEDS ORDERED: RT-ALBUTEROL SULF 2.5 MG/3 ML PRE-MIX VIAL IH ONE (11:15)
[2017-07-18 14:26] VITALS: BP 129/64
--- NOTE | 2017-07-19 12:11 | Discharge Summary ---
Diagnosis/Chief Complaint Date of Admission Jul 15, 2017 at 14:00 Date of Discharge Jul 18, 2017 at 14:10 Admission Diagnosis Admission Diagnosis SEVERE COPD SEVERE PERSISTENT ASTHMA WITH EXACERBATION CHRONIC RESPIRATORY FAILURE CHRONIC STEROIDS HISTORY OF TRACHEOSTOMY ADM: 2nd admission this month. very concerning for prognosis. will do SVN q4h and solumedrol 40 q6h for now. Plan to decrease to q8h tomorrow. I have a call into Dr Dean Saleh at . His nurse is Maureen - [phone] - to see if there is anything else we need to be doing. I'd also like his overall plan for her care, which by her history includes bronchial thermoplasty at [facility] in [facility]. She states she now only has 1 dog but is living with her and 9 and 8 year old children. holding abx for now as she does not have a pneumonia. will restart the azithromyicn and bactrim if Dr Farley does not add abx today. He has kindly agreed to consult while she is in house. 07/17 - Spoke with Dr Farley as well as Dr Saleh. Dr Saleh indicates that Tamia is likely short of breath at baseline and that there is not the need for IV steroids. We will plan to obtain a PFT or Spirometry today while she is in house. He thinks that her baseline is 50-60%. She is not eligible for the bronchial thermoplasty as her insurance would not cover the procedure. change to po steroids today and plan for home tomorrow. DISCHARGE: Tamia did get her PFTs today and was doing that when I saw her. She states she is ready for DC as planned. I will see her in clinic. We discussed the need for bariatric surgery. I also informed her that [facility] had declined the BT based on her insurance status. Our plan now is to see her about once a month and also to get spirometry prior to a direct admission next time. She will likely need a therapist, and we will arrange pulmonary rehab. SUPRAMORBID OBESITY, BMI 52 DIABETES MELLITUS TYPE 2 ADM - BS high d/t steroids. Have restarted the home insulin regimen. will monitor and adjust as necessary. 07/17 - Will be looking for a place to refer her for weight loss surgery, probably in [place]. 07/18 - no changes while in house. Discharge Diagnosis SEE ABOVE Chief Complaint/HPI Chief Complaint/HPI 32yo supramorbidly obese woman with history of asthma, COPD, prior trach presented to clinic with complaints of shortness of breath and was directly admitted for IV steroids and antibiotics. Discharge Summary-Simple/Stand Discharge Physical Examination Allergies: Coded Allergies: cocaine (Verified Allergy, Severe, SOA, 01/04/17) procaine (Verified Allergy, Severe, SOA, 01/04/17) tetracaine (Verified Allergy, Severe, SOA, 01/04/17) allantoin (Verified Allergy, Unknown, 08/22/15) aspirin (Verified Allergy, Unknown, 08/22/15) benzocaine (Verified Allergy, Unknown, 08/22/15) carbamide peroxide (Verified Allergy, Unknown, 08/22/15) proparacaine (Verified Allergy, Unknown, SOA, 01/04/17) Uncoded Allergies: CHLORPROCAINE (Allergy, Severe, SOA, 01/04/17) Vitals & I&Os Vital Sign - Last 12Hours Date Time Temp Pulse Resp B/P (MAP) Pulse Ox O2 Delivery O2 Flow Rate FiO2 07/18/17 14:26 96 20 129/64 98 Nasal Cannula 3.00 07/18/17 08:00 97.1 07/15/17 17:05 32 General Appearance: Alert, Oriented X3, Cooperative, No Acute Distress Psych/Mental Status: Mental Status NL, Mood NL Hospital Course See final discharge diagnosis. Labs Laboratory Tests Test 07/16/17 15:17 07/16/17 20:24 07/17/17 05:53 07/17/17 09:01 Range/Units Glucometer 220 H 273 H 221 H 252 H 70-110 MG/DL Test 07/17/17 14:42 07/17/17 20:23 07/18/17 04:50 07/18/17 09:59 Range/Units Glucometer 216 H 164 H 112 H 141 H 70-110 MG/DL Discharge Instructions to patient/family Please see electronic discharge instructions given to patient. Discharge Medications Reviewed and agree with Discharge Medication list on patient's Discharge Instruction sheet Clinical Quality Measures DVT/VTE Risk/Contraindication: Risk Factor Score Per Nursin RFS Level Per Nursing on Admit: 3=High Copy Copies To 1: DEBBIE SIBLEY MD, JULIE A MD Jul 19, 2017 12:11
== END 2017-07-18 11:06 | disposition home or self-care (01) ==
LOC: 4TH 13:58 → UNDOADMOB 13:58 → 4TH 14:00
PROVIDERS: ADMIT Family Medicine; ATTEND Family Medicine
DX: J45.51 Severe persistent asthma with (acute) exacerbation (principal); J96.10 Chronic respiratory failure, unspecified whether with hypoxia or hypercapnia; J44.9 Chronic obstructive pulmonary disease, unspecified; E66.01 Morbid (severe) obesity due to excess calories; Z68.43 Body mass index [BMI] 50.0-59.9, adult; E11.9 Type 2 diabetes mellitus without complications; I10 Essential (primary) hypertension; G43.909 Migraine, unspecified, not intractable, without status migrainosus; E28.2 Polycystic ovarian syndrome; K21.9 Gastro-esophageal reflux disease without esophagitis; M19.91 Primary osteoarthritis, unspecified site; M06.9 Rheumatoid arthritis, unspecified; G89.29 Other chronic pain; F41.9 Anxiety disorder, unspecified; F32.9 Major depressive disorder, single episode, unspecified; Z79.4 Long term (current) use of insulin; Z79.52 Long term (current) use of systemic steroids; Z99.81 Dependence on supplemental oxygen; Z87.891 Personal history of nicotine dependence
CPT/HCPCS: 36415; 71020; 80053; 82962; 85025; 93005; 94060; 94640; 94726; 94729; 94760; 99211; G0378

== ENCOUNTER 2018-04-21 18:04 | Emergency (ER) | payer MEDICAID ==
[~2018-04-21] VITALS: Ht 175.3 cm; Wt 156.5 kg
[~2018-04-21 18:04] MED LIST changes: -BENZ-13 PO; +BENZ100C18 PO; -CODE118S2 PO; +CODE118S4 PO; +LIDO15SO2 MM; +METF-399 PO; -METF1000 PO; +MULT1TAB69 PO; +OXYC-529 PO
[2018-04-21] MEDS ORDERED: RT-ALBUTEROL/IPRATROPIUM 3 ML (DUONEB) VIAL INH ONE (18:30)
[2018-04-21 18:36] LABS: BASOPHILS # (AUTO) 0.1 10^3/uL (0.0-0.1); BASOPHILS % (AUTO) 1 % (0-10); EOSINOPHILS # (AUTO) 0.5 10^3/uL (0.0-0.3); EOSINOPHILS % (AUTO) 4 % (0-10); HEMATOCRIT 37 % (35-52); HEMOGLOBIN 12.3 G/DL (11.5-16.0); LYMPHOCYTES # (AUTO) 3.2 X 10^3 (1.0-4.0); LYMPHOCYTES % (AUTO) 26 % (12-44); MEAN CORPUSCULAR HEMOGLOBIN 27 PG (25-34); MEAN CORPUSCULAR HGB CONC 33 G/DL (32-36); MEAN CORPUSCULAR VOLUME 81 FL (80-99); MEAN PLATELET VOLUME 11.1 FL (7.4-10.4); MONOCYTES # (AUTO) 0.7 X 10^3 (0.0-1.0); MONOCYTES % (AUTO) 6 % (0-12); NEUTROPHILS % (AUTO) 64 % (42-75); PLATELET COUNT 344 10^3/uL (130-400); RED BLOOD COUNT 4.62 10^6/uL (4.35-5.85); RED CELL DISTRIBUTION WIDTH 15.4 % (10.0-14.5); WHITE BLOOD COUNT 12.4 10^3/uL (4.3-11.0)
--- NOTE | 2018-04-21 18:40 | Diagnostic Imaging Report ---
EXAM: CHEST 1 VIEW, AP/PA ONLY INDICATION: Chest tightness. Shortness of breath. COMPARISON: Chest radiograph 07/15/2017. FINDINGS: Normal heart size and pulmonary vascularity. No focal pulmonary opacity, pleural effusion or pneumothorax. No acute osseous findings. IMPRESSION: No acute cardiopulmonary findings. Dictated by: Dictated on workstation # [id number]
[2018-04-21 18:55] LABS: ALANINE AMINOTRANSFERASE 64 U/L (0-55); ALKALINE PHOSPHATASE 77 U/L (40-136); BILIRUBIN,TOTAL 0.5 MG/DL (0.1-1.0); BUN/CREATININE RATIO 8; CALCIUM 9.7 MG/DL (8.5-10.1); CARBON DIOXIDE 23 MMOL/L (21-32); CHLORIDE 104 MMOL/L (98-107); CREATININE SERUM 0.75 MG/DL (0.60-1.30); GFR ESTIMATED > 60; GLUCOSE 173 MG/DL (70-105); MAGNESIUM 2.4 MG/DL (1.8-2.4); POTASSIUM 3.9 MMOL/L (3.6-5.0); SODIUM 139 MMOL/L (135-145)
[2018-04-21 19:06] LABS: INR 0.9 (0.8-1.4); PROTHROMBIN TIME PATIENT 11.8 SEC (12.2-14.7)
[2018-04-21] MEDS ORDERED: IOHEXOL 350 MG/ML 150 ML (OMNIPAQUE 350) VIAL IV ONE (19:45)
--- NOTE | 2018-04-21 20:51 | Diagnostic Imaging Report ---
PROCEDURE: CT angiography of the chest with contrast. TECHNIQUE: Multiple contiguous axial images were obtained through the chest after uneventful bolus administration of intravenous contrast. Reconstructed CTA MIP acquisitions were also performed. INDICATION: Cough. Shortness of breath. Chest pain. Elevated D-dimer. COMPARISON: CTA chest 06/19/2017. FINDINGS: Examination is mildly limited by contrast timing and limitations regarding tube current versus body mass. There are no large or central pulmonary emboli. No evidence of thoracic aneurysm or dissection. Normal heart size. No pericardial effusion. No mediastinal, hilar or axillary lymphadenopathy. The lungs are clear. No pleural effusion or pneumothorax. No endobronchial lesions. Hepatic steatosis. Cholecystectomy. No acute osseous findings. IMPRESSION: 1. No large or central pulmonary emboli. No thoracic aortic aneurysm or dissection. 2. No acute CT findings in the chest. 3. Hepatic steatosis. Dictated by: Dictated on workstation # [id number]
[2018-04-21 21:05] VITALS: BP 133/88
[2018-04-21] MEDS ORDERED: IPRA0.2S51 IH (21:14)
--- NOTE | 2018-04-21 21:14 | ED Respiratory ---
General Chief Complaint: Respiratory Problems Stated Complaint: CHEST TIGHTNESS, SOB Nursing Triage Note: Patient presents to ER, ambulatory with complaint of chest tightness, shortness of breath and cough x 2-3 weeks. Patient has been on antibiotics and is currently taking Doxycycline since Friday for these symptoms and states her prednisone was increased to 40 mg. Patient has chronic respiratory disease and is on oxygen at 3 LPM via nasal cannula at home. Patient sees Dr. Saleh at [facility] for the respiratory problems. Source: patient Exam Limitations: no limitations History of Present Illness Date Seen by Provider: Apr 22, 2018 Time Seen by Provider: 18:15 Initial Comments This 33-year-old woman presents to the emergency room from the [facility] with complaints of cough, wheezing, shortness of air, and chest tightness. She has significant COPD and is dependent on supplemental oxygen at 3 L/m. She has been feeling ill for about 3 weeks. She is presently on a round of doxycycline as prescribed by her filler blender, Dr. Saleh. She reports having a temperature at home up to 101. Prior to starting doxycycline she finished a round of Levaquin. She also had her prednisone increased. She has been using nebulizer treatments at home but still feels short of breath. She is afebrile here with stable vital signs. Allergies and Home Medications Allergies Coded Allergies: cocaine (Verified Allergy, Severe, SOA, 01/04/17) procaine (Verified Allergy, Severe, SOA, 01/04/17) tetracaine (Verified Allergy, Severe, SOA, 01/04/17) allantoin (Verified Allergy, Unknown, 08/22/15) aspirin (Verified Allergy, Unknown, 08/22/15) benzocaine (Verified Allergy, Unknown, 08/22/15) carbamide peroxide (Verified Allergy, Unknown, 08/22/15) proparacaine (Verified Allergy, Unknown, SOA, 01/04/17) Uncoded Allergies: CHLORPROCAINE (Allergy, Severe, SOA, 01/04/17) Home Medications Acetaminophen 500 Mg Tablet, 500-1,000 MG PO Q4H PRN for PAIN-MILD, (Reported) Albuterol Sulfate 2.5 Mg/3 Ml Vial.neb, 2.5 MG NEB Q4H PRN for SHORTNESS OF BREATH, (Reported) Albuterol Sulfate 8.5 Gm Hfa.aer.ad, 2 PUFF INH Q4H PRN for SHORTNESS OF BREATH, (Reported) Azithromycin 250 Mg Tablet, 250 MG PO MoWeFr, (Reported) Beclomethasone Dipropionate 8.7 Gm Aer.w.adap, 2 PUFF INH BID, (Reported) Benzonatate 200 Mg Capsule, 200 MG PO TID PRN for COUGH, (Reported) Cetirizine HCl 10 Mg Tablet, 10 MG PO DAILY, (Reported) Ferrous Gluconate 324 Mg Tablet, 324 MG PO DAILY, (Reported) Fluticasone Propionate 16 Gm [place].susp, 1 SPRAYS NS DAILY, (Reported) Fluticasone/Salmeterol 1 Each Blst.w.dev, 1 PUFF PO BID, (Reported) Furosemide 40 Mg Tablet, 40 MG PO DAILY, (Reported) Guaifenesin/Pseudoephedrne HCl 1 Each Tab.er.12h, 1 TAB PO TID PRN for CONGESTION, (Reported) Hydrocodone/Acetaminophen 1 Each Tablet, 1 TAB PO TID PRN for PAIN-MODERATE, ( Reported) Ibuprofen 200 Mg Tablet, 800 MG PO TID PRN for PAIN-MILD, (Reported) TAKES 4 (200MG) TABLETS Insulin Aspart 300 Units/3 Ml Solution, 15 UNITS SC TIDWM, (Reported) Insulin Glargine,Hum.rec.anlog 100 Unit/1 Ml Insuln.pen, 45 UNITS SC DAILY, ( Reported) Ipratropium Patterson 0.2 Mg/1 Ml Solution, 0.5 MG IH Q6H PRN for SHORTNESS OF BREATH Prescribed by: BRIT CLEANING on 04/21/182113 Lidocaine HCl 15 Ml Solution, 5 MG MM EVERY 3 HOURS PRN for TOOTH PAIN, ( Reported) Metformin HCl 500 Mg Tab.er.24h, 1,000 MG PO BID, (Reported) TAKES 2 (500MG) TABLETS Montelukast Sodium 10 Mg Tablet, 10 MG PO HS, (Reported) Multivitamin 1 Each Tablet, 1 TAB PO DAILY, (Reported) Oxycodone HCl 5 Mg Tablet, 5-10 MG PO Q6H PRN for PAIN-SEVERE, (Reported) TAKES 1-2 OF A (5 MG) TABLET Pantoprazole Sodium 40 Mg Tablet.dr, 40 MG PO DAILY, (Reported) Potassium Chloride 10 Meq Tab.er.prt, 10 MEQ PO BID, (Reported) Prednisone 20 Mg Tab, 20 MG PO DAILY, (Reported) Prednisone 20 Mg Tab, 20 MG PO DAILY Take 3 tabs(60mg)daily,decrease by 1/2 tab(10mg)every other day. Prescribed by: DEBBIE SIBLEY on 07/18/17 1108 Promethazine HCl/Codeine 118 Ml Syrup, 5 ML PO Q6H PRN for COUGH, (Reported) Ranitidine HCl 300 Mg Tablet, 300 MG PO HS, (Reported) Sulfamethoxazole/Trimethoprim 1 Each Tablet, 1 TAB PO MoWeFr, (Reported) Tiotropium Patterson 1 Inh Aerp, 1 CAP IH DAILY, (Reported) Vortioxetine Hydrobromide 10 Mg Tablet, 10 MG PO DAILY, (Reported) Patient Home Medication List Home Medication List Reviewed: Yes Review of Systems Review of Systems Constitutional: see HPI EENTM: no symptoms reported Respiratory: see HPI Cardiovascular: no symptoms reported Gastrointestinal: no symptoms reported Genitourinary: no symptoms reported : No Musculoskeletal: no symptoms reported Skin: no symptoms reported Psychiatric/Neurological: No Symptoms Reported Hematologic/Lymphatic: No Symptoms Reported Immunological/Allergic: no symptoms reported Past Rjikaol-Gqnmyv-Jkzbqv Hx Past Med/Social Hx: Reviewed and Corrections made Patient Social History Alcohol Use: Denies Use Recreational Drug Use: No Type Used: Cigarettes Former Smoker, Quit: Jul 15, 2006 Recent Foreign Travel: No Contact w/Someone Who Travel: No Recent Infectious Disease Expo: No Recent Hopitalizations: No (12/2016 [facility] TO INCREASE LUNG FUNCTION) Immunizations Up To Date Tetanus Booster (TDap): Unknown PED Vaccines UTD: Yes Date of Pneumonia Vaccine: Aug 18, 2014 Date of Influenza Vaccine: May 19, 2017 Seasonal Allergies Seasonal Allergies: Yes Past Medical History Surgeries: Yes (Tracheostomy, RT HIP) Appendectomy, Gallbladder, Orthopedic, Tonsillectomy, Tracheostomy Respiratory: Yes Asthma (Eosinophilic), Chronic Bronchitis, COPD (With chronic hypoxia) Currently Using CPAP: No Currently Using BIPAP: No Cardiac: Yes (History of symptomatic bradycardia) Hypertension Neurological: Yes Headaches /Migraines Reproductive Disorders: Yes Female Reproductive Disorders: Polycystic Ovarian Dis 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 Sexually Transmitted Disease: No HIV/AIDS: No Genitourinary: No Gastrointestinal: Yes Gastroesophageal Reflux, Gastrointestinal Bleed Musculoskeletal: Yes (Degenerative Joint Disease) Arthritis, Rheumatoid Arthritis Endocrine: Yes (And morbid obesity) Diabetes, Insulin dep, Diabetes, Non-Insulin dep HEENT: No Loss of Vision: Denies Hearing Impairment: Denies Cancer: No Psychosocial: Yes (manic depression, insomnia) Anxiety, Depression Integumentary: No Blood Disorders: No Adverse Reaction/Blood Tranf: No Family Medical History Reviewed Nursing Family Hx Diabetes mellitus 19 MOTHER G8 SISTER Diabetes Physical Exam Vital Signs - First Documented 04/21/18 18:05 Temp 98.8 Pulse 110 Resp 24 B/P (MAP) 150/110 (123) Pulse Ox 98 O2 Delivery Nasal Cannula O2 Flow Rate 3.00 Capillary Refill : Less Than 3 Seconds Height: 5'9.00" Weight: 345lbs. 15.6oz. 156.275681gk; 51.8 BMI Method:Stated General Appearance: WD/WN, mild distress, obese HEENT: PERRL/EOMI, normal ENT inspection, pharynx normal Neck: normal inspection Respiratory: no respiratory distress, no accessory muscle use; No crackles, No rhonchi; wheezing Cardiovascular: no edema, no murmur, tachycardia Gastrointestinal: non tender, soft Extremities: normal inspection, no pedal edema Neurologic/Psychiatric: soda tester II-XII nml as tested, no motor/sensory deficits, alert, normal mood/affect, oriented x 3 Skin: normal color, warm/dry Progress/Results/Core Measures Suspected Sepsis Recent Fever Within 48 Hours: No Infection Criteria Present: None New/Unexplained Altered Menta: No Sepsis Screen: No Definite Risk SIRS Temperature:98.8 Pulse: 102 Respiratory Rate: 20 Laboratory Tests 04/21/18 18:24: White Blood Count 12.4H Blood Pressure 133 /88 Mean: 103 Laboratory Tests 04/21/18 18:24: Creatinine 0.75, INR Comment 0.9, Platelet Count 344, Total Bilirubin 0.5 Results/Orders Lab Results Laboratory Tests Test 04/21/18 18:24 Range/Units White Blood Count 12.4 H 4.3-11.0 10^3/uL Red Blood Count 4.62 4.35-5.85 10^6/uL Hemoglobin 12.3 11.5-16.0 G/DL Hematocrit 37 35-52 % Mean Corpuscular Volume 81 80-99 FL Mean Corpuscular Hemoglobin 27 25-34 PG Mean Corpuscular Hemoglobin Concent 33 32-36 G/DL Red Cell Distribution Width 15.4 H 10.0-14.5 % Platelet Count 344 130-400 10^3/uL Mean Platelet Volume 11.1 H 7.4-10.4 FL Neutrophils (%) (Auto) 64 42-75 % Lymphocytes (%) (Auto) 26 12-44 % Monocytes (%) (Auto) 6 0-12 % Eosinophils (%) (Auto) 4 0-10 % Basophils (%) (Auto) 1 0-10 % Neutrophils # (Auto) 8.0 H 1.8-7.8 X 10^3 Lymphocytes # (Auto) 3.2 1.0-4.0 X 10^3 Monocytes # (Auto) 0.7 0.0-1.0 X 10^3 Eosinophils # (Auto) 0.5 H 0.0-0.3 10^3/uL Basophils # (Auto) 0.1 0.0-0.1 10^3/uL Prothrombin Time 11.8 L 12.2-14.7 SEC INR Comment 0.9 0.8-1.4 Activated Partial Thromboplast Time 20 L 24-35 SEC D-Dimer 0.79 H 0.00-0.49 UG/ML Sodium Level 139 135-145 MMOL/L Potassium Level 3.9 3.6-5.0 MMOL/L Chloride Level 104 98-107 MMOL/L Carbon Dioxide Level 23 21-32 MMOL/L Anion Gap 12 5-14 MMOL/L Blood Urea Nitrogen 6 L 7-18 MG/DL Creatinine 0.75 0.60-1.30 MG/DL Estimat Glomerular Filtration Rate > 60 BUN/Creatinine Ratio 8 Glucose Level 173 H 70-105 MG/DL Calcium Level 9.7 8.5-10.1 MG/DL Corrected Calcium 9.7 8.5-10.1 MG/DL Magnesium Level 2.4 1.8-2.4 MG/DL Total Bilirubin 0.5 0.1-1.0 MG/DL Aspartate Amino Transf (AST/SGOT) 55 H 5-34 U/L Alanine Aminotransferase (ALT/SGPT) 64 H 0-55 U/L Alkaline Phosphatase 77 40-136 U/L Myoglobin 18.0 10.0-92.0 NG/ML Troponin I < 0.30 <0.30 NG/ML C-Reactive Protein High Sensitivity 1.92 H 0.00-0.50 MG/DL B-Type Natriuretic Peptide < 10.0 <100.0 PG/ML Total Protein 7.0 6.4-8.2 GM/DL Albumin 4.0 3.2-4.5 GM/DL My Orders Orders - BRIT MARCUM MD Cbc With Automated Diff (04/21/18 18:16) Magnesium (04/21/18 18:16) Chest 1 View, Ap/Pa Only (04/21/18 18:16) Ekg Tracing (04/21/18 18:16) Cardiac Profile 1 (04/21/18 18:16) Comprehensive Metabolic Panel (04/21/18 18:16) Myoglobin Serum (04/21/18 18:16) Protime With Inr (04/21/18 18:16) Partial Thromboplastin Time (04/21/18 18:16) O2 (04/21/18 18:16) Monitor-Rhythm Ecg Trace Only (04/21/18 18:16) Saline Lock/Iv-Start (04/21/18 18:16) BNP (04/21/18 18:16) Hs C Reactive Protein (04/21/18 18:16) Albuterol/Ipra Inhalation Soln (Duoneb I (04/21/18 18:30) Svn Small Volume Nebulizer (04/21/18 18:24) Fibrin Degradation Products (04/21/18 18:45) Ct Angio Chest W (04/21/18 19:30) Iohexol Injection (Omnipaque 350 Mg/Ml 1 (04/21/18 19:45) Medications Given in ED Vital Signs/I&O 04/21/18 04/21/18 04/21/18 04/21/18 18:05 18:05 18:53 21:05 Temp 98.8 Pulse 110 102 Resp 24 20 B/P (MAP) 150/110 (123) 133/88 (103) Pulse Ox 98 98 97 O2 Delivery Nasal Cannula Nasal Cannula Nasal Cannula Nasal Cannula O2 Flow Rate 3.00 3.00 3.00 3.00 04/21/18 21:21 Temp 100.2 Pulse 92 Resp 16 B/P (MAP) 137/68 Pulse Ox 98 O2 Delivery Nasal Cannula O2 Flow Rate 3.00 Capillary Refill : Less Than 3 Seconds Blood Pressure Mean: 103 Progress Note : Progress Note Patient was given a DuoNeb treatment which improved her symptoms. D-dimer was performed as part of the workup and was positive. In the context of persistent exacerbation of COPD and tachycardia, CT angiogram was felt appropriate to offer. After discussing risks and benefits, patient elected to proceed with CT angiogram. CT angiogram ultimately noted no pulmonary emboli of significant size. Patient was ultimately dismissed home. ECG Initial ECG Impression Date: Apr 21, 2018 Initial ECG Impression Time: 18:33 Initial ECG Rate: 99 Initial ECG Rhythm: S.Tach Comment Sinus tachycardia with no ST elevation or depression. No abnormal intervals or axis deviation. Diagnostic Imaging Diagonstic Imaging: Xray Plain Films/CT/US/NM/MRI: chest Comments Chest x-ray viewed by me and report reviewed. See report below: [facility] REC[facility] [id number] PT STATUS: [facility] ER : 1985 PHYSICIAN: BRIT MARCUM MD ADMIT DATE: 04/21/18/ER Signed Date of Exam: 04/21/18 CHEST 1 VIEW, AP/PA ONLY EXAM: CHEST 1 VIEW, AP/PA ONLY INDICATION: Chest tightness. Shortness of breath. COMPARISON: Chest radiograph 07/15/2017. FINDINGS: Normal heart size and pulmonary vascularity. No focal pulmonary opacity, pleural effusion or pneumothorax. No acute osseous findings. IMPRESSION: No acute cardiopulmonary findings. Dictated by: Dictated on workstation # [id number] Dict: 04/21/181835 Trans: 04/21/182231 Interpreted by: JOHN WHITAKER MD Electronically signed by: JOHN WHITAKER MD 04/21/182231 Diagonstic Imaging: CT Plain Films/CT/US/NM/MRI: chest Comments CT angiogram of the chest reviewed by me and report reviewed. See report below: [facility] REC#: [id number] PT STATUS: [facility] ER : 1985 PHYSICIAN: BRIT MARCUM MD ADMIT DATE: 04/21/18/ER Signed Date of Exam: 04/21/18 CT ANGIO CHEST W PROCEDURE: CT angiography of the chest with contrast. TECHNIQUE: Multiple contiguous axial images were obtained through the chest after uneventful bolus administration of intravenous contrast. Reconstructed CTA MIP acquisitions were also performed. INDICATION: Cough. Shortness of breath. Chest pain. Elevated D-dimer. COMPARISON: CTA chest 06/19/2017. FINDINGS: Examination is mildly limited by contrast timing and limitations regarding tube current versus body mass. There are no large or central pulmonary emboli. No evidence of thoracic aneurysm or dissection. Normal heart size. No pericardial effusion. No mediastinal, hilar or axillary lymphadenopathy. The lungs are clear. No pleural effusion or pneumothorax. No endobronchial lesions. Hepatic steatosis. Cholecystectomy. No acute osseous findings. IMPRESSION: 1. No large or central pulmonary emboli. No thoracic aortic aneurysm or dissection. 2. No acute CT findings in the chest. 3. Hepatic steatosis. Dictated by: Dictated on workstation # [id number] Dict: 04/21/182026 Trans: 04/21/182231 Interpreted by: JOHN WHITAKER MD Electronically signed by: JOHN WHITAKER MD 04/21/182231 Departure Impression Primary Impression: Acute asthma exacerbation Qualified Codes: J45.901 - Unspecified asthma with (acute) exacerbation Additional Impression: Chest tightness Disposition: 01 HOME, SELF-CARE Condition: Improved Departure-Patient Inst. Decision time for Depature: 21:05 Referrals: [facility] [place] (PCP) Primary Care Physician TAD MIX (Family) Primary Care Physician Patient Instructions: Asthma, Adult (DC) Add. Discharge Instructions: Follow-up with your primary care provider and your filler blender for further instructions. You may add ipratropium to your nebulizer treatments in addition to albuterol. Use as prescribed. Return to care if symptoms are worsening. Continue all other medications as prescribed. All discharge instructions reviewed with patient and/or family. Voiced understanding. Scripts Ipratropium Patterson (Ipratropium Patterson) 0.2 Mg/1 Ml Solution 0.5 MG IH Q6H PRN for SHORTNESS OF BREATH, #30 EA Prov: BRIT MARCUM MD 04/21/18 Copy Copies To 1: LEX ABRAHAM JOSHUA T MD Apr 21, 2018 21:14
[2018-04-21 21:21] VITALS: BP 137/68
== END 2018-04-21 21:23 | disposition home or self-care (01) ==
LOC: EDUNIT# 18:04 → ER 18:05
DX: J45.901 Unspecified asthma with (acute) exacerbation (principal); R07.89 Other chest pain; J44.9 Chronic obstructive pulmonary disease, unspecified; I10 Essential (primary) hypertension; G43.909 Migraine, unspecified, not intractable, without status migrainosus; K21.9 Gastro-esophageal reflux disease without esophagitis; M06.9 Rheumatoid arthritis, unspecified; F41.9 Anxiety disorder, unspecified; F33.9 Major depressive disorder, recurrent, unspecified; G47.00 Insomnia, unspecified; E11.9 Type 2 diabetes mellitus without complications; Z87.19 Personal history of other diseases of the digestive system; Z97.5 Presence of (intrauterine) contraceptive device; Z88.5 Allergy status to narcotic agent; Z87.448 Personal history of other diseases of urinary system; Z88.4 Allergy status to anesthetic agent; Z88.6 Allergy status to analgesic agent; Z88.8 Allergy status to other drugs, medicaments and biological substances; Z79.51 Long term (current) use of inhaled steroids; Z79.4 Long term (current) use of insulin; Z79.52 Long term (current) use of systemic steroids; Z87.891 Personal history of nicotine dependence; Z90.89 Acquired absence of other organs; Z93.0 Tracheostomy status
CPT/HCPCS: 36415; 71045; 71275; 80053; 83735; 83874; 83880; 84484; 85025; 85379; 85610; 85730; 86141; 93005; 94640

== ENCOUNTER 2018-05-25 18:25 | Emergency (ER) | payer MEDICAID ==
[~2018-05-25] VITALS: Ht 175.3 cm; Wt 156.9 kg
[2018-05-25] MEDS ORDERED: RT-ALBUTEROL/IPRATROPIUM 3 ML (DUONEB) VIAL INH ONE ×2 (20:30→20:45)
[2018-05-25] MEDS ORDERED: NS IV 1000 ML 1,000 ML IV ONE (20:40)
[2018-05-25 21:18] LABS: BASOPHILS % (AUTO) 0 % (0-10); EOSINOPHILS % (AUTO) 0 % (0-10); HEMATOCRIT 38 % (35-52); HEMOGLOBIN 12.5 G/DL (11.5-16.0); LYMPHOCYTES % (AUTO) 38 % (12-44); MEAN CORPUSCULAR HEMOGLOBIN 27 PG (25-34); MEAN CORPUSCULAR HGB CONC 33 G/DL (32-36); MEAN CORPUSCULAR VOLUME 82 FL (80-99); MEAN PLATELET VOLUME 10.1 FL (7.4-10.4); MONOCYTES % (AUTO) 7 % (0-12); NEUTROPHILS % (AUTO) 55 % (42-75); PLATELET COUNT 226 10^3/uL (130-400); RED BLOOD COUNT 4.66 10^6/uL (4.35-5.85); RED CELL DISTRIBUTION WIDTH 16.3 % (10.0-14.5); WHITE BLOOD COUNT 10.2 10^3/uL (4.3-11.0)
[2018-05-25 21:19] LABS: LYMPHOCYTES # (AUTO) 3.9 X 10^3 (1.0-4.0); MONOCYTES # (AUTO) 0.7 X 10^3 (0.0-1.0); NEUTROPHILS # (AUTO) 5.6 X 10^3 (1.8-7.8)
[2018-05-25 21:30] LABS: BUN/CREATININE RATIO 10; CALCIUM 9.6 MG/DL (8.5-10.1); CARBON DIOXIDE 25 MMOL/L (21-32); CHLORIDE 104 MMOL/L (98-107); CREATININE SERUM 0.79 MG/DL (0.60-1.30); GFR ESTIMATED > 60; GLUCOSE 147 MG/DL (70-105); POTASSIUM 3.5 MMOL/L (3.6-5.0); SODIUM 142 MMOL/L (135-145)
[2018-05-25] MEDS ORDERED: methylPREDNISolone 125 MG (Solu-MEDROL) VIAL IVP ONE (21:30)
[2018-05-25] MEDS ORDERED: LEVOFLOXACIN 500 MG TAB (LEVAQUIN) PO ONE (21:45)
[2018-05-25] MEDS ORDERED: LEVO750T9 PO (22:00)
--- NOTE | 2018-05-25 22:01 | ED Respiratory ---
General Chief Complaint: Respiratory Problems Stated Complaint: COUGH,FEVER,CONGESTION Nursing Triage Note: AMBULATORY TO ED WITH C/O SOA,COUGH, CONGESTION STARTED ON FRIDAY WITH COUGH BECOMING WORSE SINCE FRIDAY. WEARS CONTINUOUS 3L, HAS LONG HX ASTHMA, COPD, BRONCHITIS, EMPHYSEMA. 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 Source: patient, old records Exam Limitations: no limitations History of Present Illness Date Seen by Provider: May 25, 2018 Time Seen by Provider: 18:29 Initial Comments This 33-year-old woman presents to the emergency room with respiratory illness for the past 3 days. She has cough, shortness of breath, and wheezing. She reports subjective fever at home as well. She wears oxygen at 3 L/m continuously and has a long-standing problem with COPD. She contacted her leather sprayer in [place] who she states directed her to outpatient x-rays. Those were performed earlier today. Patient reports that her leather sprayer could not get in touch with her primary care provider and therefore directed her to the ER. Patient takes inhaled bronchodilators at home as well as prednisone 30 mg daily. Allergies and Home Medications Allergies Coded Allergies: cocaine (Verified Allergy, Severe, SOA, 01/04/17) procaine (Verified Allergy, Severe, SOA, 01/04/17) tetracaine (Verified Allergy, Severe, SOA, 01/04/17) allantoin (Verified Allergy, Unknown, 08/22/15) aspirin (Verified Allergy, Unknown, 08/22/15) benzocaine (Verified Allergy, Unknown, 08/22/15) carbamide peroxide (Verified Allergy, Unknown, 08/22/15) proparacaine (Verified Allergy, Unknown, SOA, 01/04/17) Uncoded Allergies: CHLORPROCAINE (Allergy, Severe, SOA, 01/04/17) Home Medications Acetaminophen 500 Mg Tablet, 500-1,000 MG PO Q4H PRN for PAIN-MILD, (Reported) Albuterol Sulfate 2.5 Mg/3 Ml Vial.neb, 2.5 MG NEB Q4H PRN for SHORTNESS OF BREATH, (Reported) Albuterol Sulfate 8.5 Gm Hfa.aer.ad, 2 PUFF INH Q4H PRN for SHORTNESS OF BREATH, (Reported) Azithromycin 250 Mg Tablet, 250 MG PO MoWeFr, (Reported) Beclomethasone Dipropionate 8.7 Gm Aer.w.adap, 2 PUFF INH BID, (Reported) Benzonatate 200 Mg Capsule, 200 MG PO TID PRN for COUGH, (Reported) Cetirizine HCl 10 Mg Tablet, 10 MG PO DAILY, (Reported) Ferrous Gluconate 324 Mg Tablet, 324 MG PO DAILY, (Reported) Fluticasone Propionate 16 Gm [place].susp, 1 SPRAYS NS DAILY, (Reported) Fluticasone/Salmeterol 1 Each Blst.w.dev, 1 PUFF PO BID, (Reported) Furosemide 40 Mg Tablet, 40 MG PO DAILY, (Reported) Guaifenesin/Pseudoephedrne HCl 1 Each Tab.er.12h, 1 TAB PO TID PRN for CONGESTION, (Reported) Hydrocodone/Acetaminophen 1 Each Tablet, 1 TAB PO TID PRN for PAIN-MODERATE, ( Reported) Ibuprofen 200 Mg Tablet, 800 MG PO TID PRN for PAIN-MILD, (Reported) TAKES 4 (200MG) TABLETS Insulin Aspart 300 Units/3 Ml Solution, 15 UNITS SC TIDWM, (Reported) Insulin Glargine,Hum.rec.anlog 100 Unit/1 Ml Insuln.pen, 45 UNITS SC DAILY, ( Reported) Ipratropium [place] 0.2 Mg/1 Ml Solution, 0.5 MG IH Q6H PRN for SHORTNESS OF BREATH Prescribed by: BRIT CLEANING on 04/21/182113 Levofloxacin 750 Mg Tablet, 750 MG PO DAILY Prescribed by: BRIT CLEANING on 05/25/182199 Lidocaine HCl 15 Ml Solution, 5 MG MM EVERY 3 HOURS PRN for TOOTH PAIN, ( Reported) Metformin HCl 500 Mg Tab.er.24h, 1,000 MG PO BID, (Reported) TAKES 2 (500MG) TABLETS Montelukast Sodium 10 Mg Tablet, 10 MG PO HS, (Reported) Multivitamin 1 Each Tablet, 1 TAB PO DAILY, (Reported) Oxycodone HCl 5 Mg Tablet, 5-10 MG PO Q6H PRN for PAIN-SEVERE, (Reported) TAKES 1-2 OF A (5 MG) TABLET Pantoprazole Sodium 40 Mg Tablet.dr, 40 MG PO DAILY, (Reported) Potassium Chloride 10 Meq Tab.er.prt, 10 MEQ PO BID, (Reported) Prednisone 20 Mg Tab, 20 MG PO DAILY, (Reported) Prednisone 20 Mg Tab, 20 MG PO DAILY Take 3 tabs(60mg)daily,decrease by 1/2 tab(10mg)every other day. Prescribed by: DEBBIE SIBLEY on 07/18/17 1104 Promethazine HCl/Codeine 118 Ml Syrup, 5 ML PO Q6H PRN for COUGH, (Reported) Ranitidine HCl 300 Mg Tablet, 300 MG PO HS, (Reported) Sulfamethoxazole/Trimethoprim 1 Each Tablet, 1 TAB PO MoWeFr, (Reported) Tiotropium [place] 1 Inh Aerp, 1 CAP IH DAILY, (Reported) Vortioxetine Hydrobromide 10 Mg Tablet, 10 MG PO DAILY, (Reported) Patient Home Medication List Home Medication List Reviewed: Yes Review of Systems Review of Systems Constitutional: see HPI EENTM: no symptoms reported Respiratory: see HPI Cardiovascular: no symptoms reported Gastrointestinal: no symptoms reported Genitourinary: no symptoms reported Musculoskeletal: no symptoms reported Skin: no symptoms reported Psychiatric/Neurological: No Symptoms Reported Hematologic/Lymphatic: No Symptoms Reported Immunological/Allergic: no symptoms reported Past Lkbfiln-Pikyhj-Lvdfmw Hx Past Med/Social Hx: Reviewed Nursing Past Med/Soc Hx Patient Social History Alcohol Use: Denies Use Recreational Drug Use: No Type Used: Cigarettes Former Smoker, Quit: Jul 15, 2006 Recent Foreign Travel: No Contact w/Someone Who Travel: No Recent Infectious Disease Expo: No Recent Hopitalizations: No Immunizations Up To Date Tetanus Booster (TDap): Unknown PED Vaccines UTD: Yes Date of Pneumonia Vaccine: Aug 18, 2014 Date of Influenza Vaccine: May 19, 2017 Seasonal Allergies Seasonal Allergies: Yes Past Medical History Surgeries: Yes (Tracheostomy, RT HIP) Appendectomy, Gallbladder, Orthopedic, Tonsillectomy, Tracheostomy Respiratory: Yes Asthma, Chronic Bronchitis, COPD Currently Using CPAP: No Currently Using BIPAP: No Cardiac: Yes (History of symptomatic bradycardia) Hypertension Neurological: Yes Headaches /Migraines : No Reproductive Disorders: Yes Female Reproductive Disorders: Polycystic 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 Sexually Transmitted Disease: No HIV/AIDS: No Genitourinary: No Gastrointestinal: Yes Gastroesophageal Reflux, Gastrointestinal Bleed Musculoskeletal: Yes (Degenerative Joint Disease) Arthritis, Rheumatoid Arthritis Endocrine: Yes (And morbid obesity) Diabetes, Insulin dep HEENT: No Loss of Vision: Denies Hearing Impairment: Denies Cancer: No Psychosocial: Yes (manic depression, insomnia) Anxiety, Depression Integumentary: No Blood Disorders: No Adverse Reaction/Blood Tranf: No Family Medical History Reviewed Nursing Family Hx Diabetes mellitus 19 MOTHER G8 SISTER Diabetes Physical Exam Vital Signs - First Documented 05/25/18 05/25/18 19:45 20:36 Temp 99.0 Pulse 114 Resp 22 B/P (MAP) 142/104 (117) Pulse Ox 97 O2 Delivery Nasal Cannula O2 Flow Rate 3.00 Capillary Refill : Less Than 3 Seconds Height: 5'9.00" Weight: 345lbs. 15.6oz. 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 nml as tested, no motor/sensory deficits, alert, normal mood/affect, oriented x 3 Skin: normal color, warm/dry Progress/Results/Core Measures Suspected Sepsis Recent Fever Within 48 Hours: Yes Infection Criteria Present: Suspected New Infection New/Unexplained Altered Menta: No Sepsis Screen: Possible Sepsis Risk SIRS Temperature:99.0 Pulse: 114 Respiratory Rate: 22 Laboratory Tests 05/25/18 21:03: White Blood Count 10.2 Blood Pressure 142 /104 Mean: 117 Laboratory Tests 05/25/18 21:03: Creatinine 0.79, Platelet Count 226 Results/Orders Lab Results Laboratory Tests Test 05/25/18 21:03 Range/Units White Blood Count 10.2 4.3-11.0 10^3/uL Red Blood Count 4.66 4.35-5.85 10^6/uL Hemoglobin 12.5 11.5-16.0 G/DL Hematocrit 38 35-52 % Mean Corpuscular Volume 82 80-99 FL Mean Corpuscular Hemoglobin 27 25-34 PG Mean Corpuscular Hemoglobin Concent 33 32-36 G/DL Red Cell Distribution Width 16.3 H 10.0-14.5 % Platelet Count 226 130-400 10^3/uL Mean Platelet Volume 10.1 7.4-10.4 FL Neutrophils (%) (Auto) 55 42-75 % Lymphocytes (%) (Auto) 38 12-44 % Monocytes (%) (Auto) 7 0-12 % Eosinophils (%) (Auto) 0 0-10 % Basophils (%) (Auto) 0 0-10 % Neutrophils # (Auto) 5.6 1.8-7.8 X 10^3 Lymphocytes # (Auto) 3.9 1.0-4.0 X 10^3 Monocytes # (Auto) 0.7 0.0-1.0 X 10^3 Eosinophils # (Auto) 0.0 0.0-0.3 10^3/uL Basophils # (Auto) 0.0 0.0-0.1 10^3/uL Sodium Level 142 135-145 MMOL/L Potassium Level 3.5 L 3.6-5.0 MMOL/L Chloride Level 104 98-107 MMOL/L Carbon Dioxide Level 25 21-32 MMOL/L Anion Gap 13 5-14 MMOL/L Blood Urea Nitrogen 8 7-18 MG/DL Creatinine 0.79 0.60-1.30 MG/DL Estimat Glomerular Filtration Rate > 60 BUN/Creatinine Ratio 10 Glucose Level 147 H 70-105 MG/DL Calcium Level 9.6 8.5-10.1 MG/DL C-Reactive Protein High Sensitivity 2.67 H 0.00-0.50 MG/DL Micro Results Microbiology 05/25/18 Influenza Types A,B Antigen (AMINA) - Final, Complete My Orders Orders - BRIT MARCUM MD Influenza A And B Antigens (05/25/18 18:28) Albuterol/Ipra Inhalation Soln (Duoneb I (05/25/18 20:30) Svn Small Volume Nebulizer (05/25/18 20:28) Basic Metabolic Panel (05/25/18 20:40) Cbc With Automated Diff (05/25/18 20:40) Hs C Reactive Protein (05/25/18 20:40) Saline Lock/Iv-Start (05/25/18 20:40) Ns Iv 1000 Ml (Sodium Chloride 0.9%) (05/25/18 20:40) Albuterol/Ipra Inhalation Soln (Duoneb I (05/25/18 20:45) Methylprednisolone Sod Succ (Solu-Medrol (05/25/18 21:30) Levofloxacin Tablet (Levaquin Tablet) (05/25/18 21:45) Medications Given in ED Current Medications Medications Dose Ordered Sig/Malick Route Start Time Stop Time Status Last Admin Dose Admin Levofloxacin 750 mg ONCE ONCE PO 05/25/18 21:45 05/25/18 21:46 DC 05/25/18 21:44 750 MG Methylprednisolone Sodium Succinate 125 mg ONCE ONCE IVP 05/25/18 21:30 05/25/18 21:31 DC 05/25/18 21:43 125 MG Vital Signs/I&O 05/25/18 05/25/18 05/25/18 05/25/18 19:45 20:36 20:43 22:13 Temp 99.0 99.0 Pulse 114 114 Resp 22 22 B/P (MAP) 142/104 (117) 139/95 (110) Pulse Ox 97 98 98 98 O2 Delivery Nasal Cannula Nasal Cannula Nasal Cannula Nasal Cannula O2 Flow Rate 3.00 3.00 3.00 Capillary Refill : Less Than 3 Seconds Blood Pressure Mean: 117 Progress Note : Progress Note Chest x-ray from earlier in the day was reviewed. No evidence of pneumonia was found. Labs were reviewed and were relatively unremarkable. A liter of IV normal saline was administered. DuoNeb treatment was given. Case was discussed with Dr. Valdez. We agree that patient does not require admission at this time. Solu-Medrol 125 mg IV was given prior to dismissal. Departure Impression Primary Impression: Acute asthma exacerbation Qualified Codes: J45.901 - Unspecified asthma with (acute) exacerbation Additional Impression: Upper respiratory infection Qualified Codes: J06.9 - Acute upper respiratory infection, unspecified Disposition: HOME, SELF-CARE Condition: Improved Departure-Patient Inst. Decision time for Depature: 21:58 Referrals: [facility] (PCP/Family) Primary Care Physician Patient Instructions: Asthma, Adult (DC) Add. Discharge Instructions: Continue with your inhaled medications as prescribed. Increase your prednisone dose to 60 mg daily on Friday and Friday. Follow-up with your primary care provider soon as possible. Call in the morning for an appointment. Stay well-hydrated. Complete your antibiotics as prescribed. Return to the ER if you have worsening symptoms. All discharge instructions reviewed with patient and/or family. Voiced understanding. Scripts Levofloxacin (Levaquin) 750 Mg Tablet 750 MG PO DAILY, #4 TAB Prov: BRIT MARCUM MD 05/25/18 BRIT MARCUM MD May 25, 2018 22:01
[2018-05-25 22:13] VITALS: BP 139/95
== END 2018-05-25 22:22 | disposition home or self-care (01) ==
LOC: EDUNIT# 18:25 → ER 18:26
DX: J45.901 Unspecified asthma with (acute) exacerbation (principal); J06.9 Acute upper respiratory infection, unspecified; J44.9 Chronic obstructive pulmonary disease, unspecified; I10 Essential (primary) hypertension; G43.909 Migraine, unspecified, not intractable, without status migrainosus; K21.9 Gastro-esophageal reflux disease without esophagitis; E11.9 Type 2 diabetes mellitus without complications; E66.01 Morbid (severe) obesity due to excess calories; F41.9 Anxiety disorder, unspecified; F32.9 Major depressive disorder, single episode, unspecified; G47.00 Insomnia, unspecified; Z68.43 Body mass index [BMI] 50.0-59.9, adult; Z87.448 Personal history of other diseases of urinary system; Z97.5 Presence of (intrauterine) contraceptive device; Z79.52 Long term (current) use of systemic steroids; Z87.19 Personal history of other diseases of the digestive system; Z79.51 Long term (current) use of inhaled steroids; Z79.4 Long term (current) use of insulin; Z87.891 Personal history of nicotine dependence; Z93.0 Tracheostomy status; Z90.89 Acquired absence of other organs; Z88.5 Allergy status to narcotic agent; Z88.4 Allergy status to anesthetic agent; Z88.6 Allergy status to analgesic agent; Z88.8 Allergy status to other drugs, medicaments and biological substances
CPT/HCPCS: 36415; 80048; 85025; 86141; 87804; 94640

== ENCOUNTER → 2018-05-25 | Outpatient (CLI) | payer MEDICAID ==
[~2018-05-25] MED LIST changes: +IPRA0.2S51 IH
--- NOTE | 2018-05-25 14:31 | Diagnostic Imaging Report ---
INDICATION: Chest heaviness and fever. Comparison is made with prior examination from 04/21/2018. FINDINGS: The heart size is normal. Lungs are clear. There is no pleural effusion or pneumothorax. Mediastinum is unremarkable. IMPRESSION: No acute cardiopulmonary abnormality. Dictated by: Dictated on workstation # [id number]
== END ==
LOC: RAD 13:51
PROVIDERS: ATTEND Internal Medicine Critical Care Medicine
DX: J45.51 Severe persistent asthma with (acute) exacerbation (principal); R50.9 Fever, unspecified; R09.3 Abnormal sputum
CPT/HCPCS: 71046

== ENCOUNTER → 2019-03-23 | Outpatient (CLI) | payer MEDICAID ==
[~2019-03-23] MED LIST changes: -D-ME118S7 PO; -DULO60CA58 PO; +DULO60CA59 PO; -PHEN118S12 PO; +PHEN118S29 PO; +PROM118S4 PO
== END ==
LOC: CARD 11:39
PROVIDERS: ATTEND Physician Assistant
DX: I51.7 Cardiomegaly (principal); J44.9 Chronic obstructive pulmonary disease, unspecified; I10 Essential (primary) hypertension; E66.01 Morbid (severe) obesity due to excess calories
CPT/HCPCS: 93306

== ENCOUNTER 2019-04-24 20:21 | Emergency (ER) | payer MEDICAID ==
[~2019-04-24] VITALS: Ht 175.3 cm; Wt 151.0 kg
[2019-04-24] MEDS ORDERED: NS IV 1000 ML 1,000 ML IV STA (20:48)
[2019-04-24] MEDS ORDERED: KETOROLAC 30 MG/ML VIAL IVP STA (20:51)
[2019-04-24 20:55] LABS: BASOPHILS % (AUTO) 0 % (0-10); EOSINOPHILS % (AUTO) 0 % (0-10); HEMATOCRIT 39 % (35-52); HEMOGLOBIN 12.7 G/DL (11.5-16.0); LYMPHOCYTES # (AUTO) 1.5 X 10^3 (1.0-4.0); LYMPHOCYTES % (AUTO) 16 % (12-44); MEAN CORPUSCULAR HEMOGLOBIN 27 PG (25-34); MEAN CORPUSCULAR HGB CONC 33 G/DL (32-36); MEAN CORPUSCULAR VOLUME 83 FL (80-99); MEAN PLATELET VOLUME 10.7 FL (7.4-10.4); MONOCYTES # (AUTO) 0.3 X 10^3 (0.0-1.0); MONOCYTES % (AUTO) 3 % (0-12); NEUTROPHILS # (AUTO) 7.7 X 10^3 (1.8-7.8); NEUTROPHILS % (AUTO) 81 % (42-75); PLATELET COUNT 245 10^3/uL (130-400); RED CELL DISTRIBUTION WIDTH 14.9 % (10.0-14.5); WHITE BLOOD COUNT 9.6 10^3/uL (4.3-11.0)
--- NOTE | 2019-04-24 21:01 | ED Abdominal Pain ---
General Stated Complaint: SOB, STOMACH PAIN Source of Information: Patient Exam Limitations: No Limitations (BRIT REESE MED STUDENT) History of Present Illness Date Seen by Provider: Apr 24, 2019 Time Seen by Provider: 20:40 Initial Comments The patient is a WD/WN morbidly obese 34 y/o female who presents with a chief complaint of abdominal pain and shortness of breath. She reports that the abdominal pain is a sharp stabbing pain that started 2 days ago and has pr ogressively gotten worse and is now at 7/10. She initially believed that she had a yeast infection due to itching and burning in the vaginal area that then progressed to the abdominal pain. She states that she has had similar symptoms before and was diagnosed with pelvic inflammatory disease. She is also complaining of nausea with 3-4 bout of vomiting over the last 2 days. The isis ent also admits to frequent urination without burning and constant thirst. She states that her last bowel movement was 2 days ago. Her last menstrual period was one month ago and she has had intermittent bleeding since then. Timing/Duration: 1-2 Days Severity/Quality: Moderate Location: LLQ Radiation: No Radiation Activities at Onset: None Associated Symptoms: Fever/Chills, Nausea/Vomiting, Shortness of Air (BRIT REESE MED STUDENT) Timing/Duration: 1-2 Days Severity/Quality: Moderate, Aching, Burning Location: LLQ Radiation: No Radiation Activities at Onset: None Associated Symptoms: Fever/Chills, Nausea/Vomiting, Shortness of Air (TAMRA RICE MD) Allergies and Home Medications Allergies Coded Allergies: cocaine (Verified Allergy, Severe, SOA, 01/04/17) procaine (Verified Allergy, Severe, SOA, 01/04/17) tetracaine (Verified Allergy, Severe, SOA, 01/04/17) allantoin (Verified Allergy, Unknown, 08/22/15) aspirin (Verified Allergy, Unknown, 08/22/15) benzocaine (Verified Allergy, Unknown, 08/22/15) carbamide peroxide (Verified Allergy, Unknown, 08/22/15) proparacaine (Verified Allergy, Unknown, SOA, 01/04/17) Uncoded Allergies: CHLORPROCAINE (Allergy, Severe, SOA, 01/04/17) Home Medications Acetaminophen 500 Mg Tablet, 500-1,000 MG PO Q4H PRN for PAIN-MILD, (Reported) Albuterol Sulfate 2.5 Mg/3 Ml Vial.neb, 2.5 MG NEB Q4H PRN for SHORTNESS OF BREATH, (Reported) Albuterol Sulfate 8.5 Gm Hfa.aer.ad, 2 PUFF INH Q4H PRN for SHORTNESS OF BREATH, (Reported) Azithromycin 250 Mg Tablet, 250 MG PO MoWeFr, (Reported) Beclomethasone Dipropionate 8.7 Gm Aer.w.adap, 2 PUFF INH BID, (Reported) Benzonatate 200 Mg Capsule, 200 MG PO TID PRN for COUGH, (Reported) Cetirizine HCl 10 Mg Tablet, 10 MG PO DAILY, (Reported) Ferrous Gluconate 324 Mg Tablet, 324 MG PO DAILY, (Reported) Fluticasone Propionate 16 Gm Taylor.susp, 1 SPRAYS NS DAILY, (Reported) Fluticasone/Salmeterol 1 Each Blst.w.dev, 1 PUFF PO BID, (Reported) Furosemide 40 Mg Tablet, 40 MG PO DAILY, (Reported) Guaifenesin/Pseudoephedrne HCl 1 Each Tab.er.12h, 1 TAB PO TID PRN for CONGESTION, (Reported) Hydrocodone/Acetaminophen 1 Each Tablet, 1 TAB PO TID PRN for PAIN-MODERATE, (Reported) Ibuprofen 200 Mg Tablet, 800 MG PO TID PRN for PAIN-MILD, (Reported) TAKES 4 (200MG) TABLETS Insulin Aspart 300 Units/3 Ml Solution, 15 UNITS SC TIDWM, (Reported) Insulin Glargine,Hum.rec.anlog 100 Unit/1 Ml Insuln.pen, 45 UNITS SC DAILY, (Reported) Ipratropium Bob White 0.2 Mg/1 Ml Solution, 0.5 MG IH Q6H PRN for SHORTNESS OF BREATH Prescribed by: BRIT CLEANING on 04/21/182113 Levofloxacin 750 Mg Tablet, 750 MG PO DAILY Prescribed by: BRIT CLEANING on 05/25/182199 Lidocaine HCl 15 Ml Solution, 5 MG MM EVERY 3 HOURS PRN for TOOTH PAIN, (Reported) Metformin HCl 500 Mg Tab.er.24h, 1,000 MG PO BID, (Reported) TAKES 2 (500MG) TABLETS Montelukast Sodium 10 Mg Tablet, 10 MG PO HS, (Reported) Multivitamin 1 Each Tablet, 1 TAB PO DAILY, (Reported) Oxycodone HCl 5 Mg Tablet, 5-10 MG PO Q6H PRN for PAIN-SEVERE, (Reported) TAKES 1-2 OF A (5 MG) TABLET Pantoprazole Sodium 40 Mg Tablet.dr, 40 MG PO DAILY, (Reported) Potassium Chloride 10 Meq Tab.er.prt, 10 MEQ PO BID, (Reported) Prednisone 20 Mg Tab, 20 MG PO DAILY, (Reported) Prednisone 20 Mg Tab, 20 MG PO DAILY Take 3 tabs(60mg)daily,decrease by 1/2 tab(10mg)every other day. Prescribed by: DEBBIE SIBLEY on 07/18/17 1104 Promethazine HCl/Codeine 118 Ml Syrup, 5 ML PO Q6H PRN for COUGH, (Reported) Ranitidine HCl 300 Mg Tablet, 300 MG PO HS, (Reported) Sulfamethoxazole/Trimethoprim 1 Each Tablet, 1 TAB PO MoWeFr, (Reported) Tiotropium Bob White 1 Inh Aerp, 1 CAP IH DAILY, (Reported) Vortioxetine Hydrobromide 10 Mg Tablet, 10 MG PO DAILY, (Reported) Patient Home Medication List Home Medication List Reviewed: Yes (TAMRA RICE MD) Review of Systems Review of Systems Respiratory: Cough, Shortness of Air Cardiovascular: Denies Chest Pain, Denies Palpitations Gastrointestinal: Abdominal Pain, Nausea, Vomiting Genitourinary: Burning, Frequency, Urgency (BR[employer] RE[employer] MED STUDENT) Constitutional: see HPI EENTM: No Symptoms Reported Respiratory: See HPI Cardiovascular: Denies Chest Pain, Denies Edema Gastrointestinal: Abdominal Pain, Nausea, Vomiting Genitourinary: Burning, Discharge, Frequency, Urgency Musculoskeletal: no symptoms reported Skin: no symptoms reported Psychiatric/Neurological: No Symptoms Reported (TAMRA RICE MD) Past Xzdhyzj-Fkoyda-Rzicpk Hx Past Med/Social Hx: Reviewed Nursing Past Med/Soc Hx (TAMRA RICE MD) Patient Social History Type Used: Cigarettes Former Smoker, Quit: Jul 15, 2006 Recent Hopitalizations: No (BRIT REESE MED STUDENT) Immunizations Up To Date Tetanus Booster (TDap): Unknown PED Vaccines UTD: Yes Date of Pneumonia Vaccine: Aug 18, 2014 Date of Influenza Vaccine: May 19, 2017 (BRIT REEES STUDENT) Seasonal Allergies Seasonal Allergies: Yes (BRIT REESE STUDENT) Past Medical History Surgeries: Yes (Tracheostomy, RT HIP) Appendectomy, Gallbladder, Orthopedic, Tonsillectomy, Tracheostomy Respiratory: Yes Asthma, Chronic Bronchitis, COPD Currently Using CPAP: No Currently Using BIPAP: No Cardiac: Yes (History of symptomatic bradycardia) Hypertension Neurological: Yes Headaches /Migraines Reproductive Disorders: Yes Female Reproductive Disorders: Polycystic Ovarian Dis 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 Sexually Transmitted Disease: No HIV/AIDS: No Genitourinary: No Gastrointestinal: Yes Gastroesophageal Reflux, Gastrointestinal Bleed Musculoskeletal: Yes (Degenerative Joint Disease) Arthritis, Rheumatoid Arthritis Endocrine: Yes (And morbid obesity) Diabetes, Insulin dep HEENT: No Loss of Vision: Denies Hearing Impairment: Denies Cancer: No Psychosocial: Yes (manic depression, insomnia) Anxiety, Depression Integumentary: No Blood Disorders: No Adverse Reaction/Blood Tranf: No (BRIT REESE) Family Medical History Reviewed Nursing Family Hx (TAMRA RICE MD) Diabetes mellitus 19 MOTHER G8 SISTER Diabetes (BRIT REESE STUDENT) Physical Exam Vital Signs Vital Signs - First Documented 04/24/19 20:25 Temp 99.6 Pulse 112 Resp 20 B/P (MAP) 167/82 (110) Pulse Ox 96 (TAMRA RICE MD) Vital Signs Capillary Refill : (BRIT REESE STUDENT) Height/Weight/BMI Height: 5'9.00" Weight: 345lbs. 15.6oz. 156.489966to; 51.8 BMI Method:Stated General Appearance: WD/WN, mild distress, obese Respiratory: chest non-tender, lungs clear, normal breath sounds Cardiovascular: regular rate, rhythm, no JVD, no murmur Gastrointestinal: normal bowel sounds, soft, tenderness Neurologic/Psychiatric: alert, normal mood/affect, oriented x 3 Skin: normal color, warm/dry (BRIT REESE STUDENT) General Appearance: WD/WN, mild distress, obese Neck: full range of motion, supple Respiratory: lungs clear, normal breath sounds Cardiovascular: no murmur, tachycardia Gastrointestinal: soft, tenderness (left lower quadrant) Pelvic: normal external exam, no masses, discharge (white); No lesions, No mass, No tender w/ cervical motion; tender adnexa (left); No vaginal bleeding Neurologic/Psychiatric: alert, normal mood/affect, oriented x 3 Skin: normal color, warm/dry (TAMRA RICE MD) Progress/Results/Core Measures Results/Orders Lab Results Laboratory Tests Test 04/24/19 20:40 04/24/19 20:59 04/24/19 22:05 04/24/19 23:05 Range/Units White Blood Count 9.6 4.3-11.0 10^3/uL Red Blood Count 4.70 4.35-5.85 10^6/uL Hemoglobin 12.7 11.5-16.0 G/DL Hematocrit 39 35-52 % Mean Corpuscular Volume 83 80-99 FL Mean Corpuscular Hemoglobin 27 25-34 PG Mean Corpuscular Hemoglobin Concent 33 32-36 G/DL Red Cell Distribution Width 14.9 H 10.0-14.5 % Platelet Count 245 130-400 10^3/uL Mean Platelet Volume 10.7 H 7.4-10.4 FL Neutrophils (%) (Auto) 81 H 42-75 % Lymphocytes (%) (Auto) 16 12-44 % Monocytes (%) (Auto) 3 0-12 % Eosinophils (%) (Auto) 0 0-10 % Basophils (%) (Auto) 0 0-10 % Neutrophils # (Auto) 7.7 1.8-7.8 X 10^3 Lymphocytes # (Auto) 1.5 1.0-4.0 X 10^3 Monocytes # (Auto) 0.3 0.0-1.0 X 10^3 Eosinophils # (Auto) 0.0 0.0-0.3 10^3/uL Basophils # (Auto) 0.0 0.0-0.1 10^3/uL Sodium Level 133 L 135-145 MMOL/L Potassium Level 4.2 3.6-5.0 MMOL/L Chloride Level 97 L 98-107 MMOL/L Carbon Dioxide Level 20 L 21-32 MMOL/L Anion Gap 16 H 5-14 MMOL/L Blood Urea Nitrogen 8 7-18 MG/DL Creatinine 1.20 0.60-1.30 MG/DL Estimat Glomerular Filtration Rate 52 BUN/Creatinine Ratio 7 Glucose Level 677 *H 70-105 MG/DL Calcium Level 9.8 8.5-10.1 MG/DL Corrected Calcium 9.6 8.5-10.1 MG/DL Total Bilirubin 0.5 0.1-1.0 MG/DL Aspartate Amino Transf (AST/SGOT) 69 H 5-34 U/L Alanine Aminotransferase (ALT/SGPT) 99 H 0-55 U/L Alkaline Phosphatase 111 40-136 U/L C-Reactive Protein High Sensitivity 2.33 H 0.00-0.50 MG/DL Total Protein 7.5 6.4-8.2 GM/DL Albumin 4.3 3.2-4.5 GM/DL Urine Color YELLOW Urine Clarity CLEAR Urine pH 6 5-9 Urine Specific [place] 1.005 L 1.016-1.022 Urine Protein NEGATIVE NEGATIVE Urine Glucose (UA) 4+ H NEGATIVE Urine Ketones 2+ H NEGATIVE Urine Nitrite NEGATIVE NEGATIVE Urine Bilirubin NEGATIVE NEGATIVE Urine Urobilinogen NORMAL NORMAL MG/DL Urine Leukocyte Esterase 2+ H NEGATIVE Urine RBC (Auto) 2+ H NEGATIVE Urine RBC 5-10 H /HPF Urine WBC 2-5 /HPF Urine Squamous Epithelial Cells 2-5 /HPF Urine Crystals NONE /LPF Urine Bacteria FEW H /HPF Urine Casts NONE /LPF Urine Mucus NEGATIVE /LPF Urine Culture Indicated YES Glucometer 428 *H 70-110 MG/DL (TAMRA RICE MD) My Orders Orders - TAMRA RICE MD Cbc With Automated Diff (04/24/19 20:48) Comprehensive Metabolic Panel (04/24/19 20:48) Hs C Reactive Protein (04/24/19 20:48) Ua Culture If Indicated (04/24/19 20:48) Ns Iv 1000 Ml (Sodium Chloride 0.9%) (04/24/19 20:48) Ed Iv/Invasive Line Start (04/24/19 20:48) Urine Bedside (04/24/19 20:48) Ketorolac Injection (Toradol Injection) (04/24/19 20:51) Urine Culture (04/24/19 20:59) Ct Abd/Pelvis Wo(Kidney Stone) (04/24/19 21:23) Insulin (Regular) Human (Humulin R (Per (04/24/19 21:36) Lactated Ringers (Lr 1000 Ml Iv Solution (04/24/19 21:36) Fentanyl Injection (Sublimaze Injection (04/24/19 21:47) Wet Prep (04/24/19 21:49) Neisseria Gonorrhea Swab (04/24/19 21:49) Chlamydia Trachomatis Swab (04/24/19 21:49) Ceftriaxone For Iv Use (Rocephin For I (04/24/19 22:30) Azithromycin Tablet (Zithromax Tablet) (04/24/19 22:21) Fluconazole Tablet (Ed Only) (Diflucan T (04/24/19 22:24) Insulin (Regular) Human (Humulin R (Per (04/24/19 23:10) Rx-Hydrocodone/Apap 5-325 Mg (Rx-Vicodin (04/24/19 23:15) (TAMRA RICE MD) Medications Given in ED Current Medications Medications Dose Ordered Sig/Malick Route Start Time Stop Time Status Last Admin Dose Admin Ceftriaxone Sodium 1000 mg/ Sterile Water 10 ml @ 200 mls/hr ONCE ONCE IV 04/24/19 22:30 04/24/19 22:32 DC 04/24/19 22:31 200 MLS/HR Lactated Ringer's 1,000 ml @ 0 mls/hr Q0M ONCE IV 04/24/19 21:36 04/24/19 21:38 DC 04/24/19 21:58 1,000 MLS/HR (TAMRA RICE MD) Vital Signs/I&O 04/24/19 20:25 Temp 99.6 Pulse 112 Resp 20 B/P (MAP) 167/82 (110) Pulse Ox 96 (TAMRA RICE MD) Progress Progress Note : Time: 21:00 Progress Note The patient is resting with mild discomfort. She is using supplemental O2 and will be evaluated with CBC, CMP,and UA. (BRIT REESE MED STUDENT) Progress Note : Progress Note I have seen and evaluated the patient and agree with above except as indicated. Have directed the plan of care. Patient is here with left lower quadrant abdominal pain as well as burning with urination and white discharge that she believes may be a yeast infection. She does have diabetes mellitus and has had problems controlling her blood sugars. She states that she has been in the 500 range. Recently increased her prednisone as she has adrenal insufficiency so she changed it from 15 mg to 30 mg per her doctor's instructions and she did do that today. Has had some nausea and vomiting. Does have history of PID in the past. She does have Mirena for control. She is sexually active. Physical exam as above. IV, labs, UA, UCG, normal saline 1 L bolus, fentanyl 50 g IV and Toradol 30 mg IV ordered. Repeat fluids bolus due to markedly elevated sugar of LR 1 L bolus. Insulin 10 units IV. Pelvic exam done and wet prep and GC and chlamydia ordered. Monitor patient. 2315: Patient did have moderate wbc's on wet prep and all else negative. Rocephin 1 g IV and Zithromax 1 g by mouth given. We will continue outpatient treatment with Flagyl. Clinically, patient has used infection and Diflucan 150 mg by mouth given. Patient did have blood sugar decreased to 428. Insulin 10 units subcutaneous given. Discharged home with a go pack of hydrocodone. Patient will follow-up in the clinic. I will send a copy of the note to Dr. Debbie Sibley. Discharged home with return precautions. Patient verbalize understanding instructions and agreement with plan. I did discuss with her the need to follow-up with her doctor or [facility] for her left ovarian cyst 4.5 cm. (TAMRA RICE MD) Diagnostic Imaging Diagonstic Imaging: CT Plain Films/CT/US/NM/MRI: abdomen, pelvis Comments NAME: [facility] REC#: [id number] PT STATUS: REG ER : 1985 PHYSICIAN: TAMRA RICE MD ADMIT DATE: 04/24/19/ER Draft Date of Exam:04/24/19 CT ABD/PELVIS WO(KIDNEY STONE) PROCEDURE: CT urinary tract, rule out kidney stone. TECHNIQUE: Multiple contiguous axial images were obtained through the abdomen and pelvis without the use of intravenous contrast. Auto Exposure Controls were utilized during the CT exam to meet ALARA standards for radiation dose reduction. INDICATION: Abdominal pain and shortness of breath. FINDINGS: The visualized lung bases appear clear without focal infiltrate or consolidation. There is no effusion. There is advanced hepatic steatosis. There is no focal intrahepatic abnormality. The patient is status post cholecystectomy without biliary dilatation. Spleen is normal in size. Pancreas demonstrates no focal abnormality. There is no adrenal mass. The kidneys are nonobstructed. There are no findings of urolithiasis. Small and large bowel appear normal in caliber without evidence of obstruction. There is no focal abnormal bowel thickening. There are no inflammatory change within the right lower quadrant. There is no abnormal induration or stranding within the omentum or mesentery. There are no findings of free air or free fluid. There is no abscess. Urinary bladder is unremarkable. There is an intrauterine device. There is a 4.5 cm left ovarian cyst. There are no pathologically enlarged lymph nodes. Aorta is normal in caliber. No acute or suspicious osseous abnormality. IMPRESSION: 1. No CT evidence of an acute inflammatory or obstructive process within the abdomen or pelvis. 2. Advanced hepatic steatosis. 3. Previous cholecystectomy. 4. No evidence of bowel obstruction, appendicitis or abnormal bowel thickening. 5. No focal inflammation within the omentum or mesentery. There is no free air or free fluid 6. Left ovarian cyst. Dictated on workstation # [id number] Dict: 04/24/19 2203 Trans: 04/24/192211 [facility] [id number] Interpreted by: SUJATHA TAVERAS MD Electronically signed by: (TAMRA RICE MD) Departure Impression Primary Impression: Left ovarian cyst Additional Impressions: Cervicitis Uncontrolled type 2 diabetes mellitus Qualified Codes: E11.65 - Type 2 diabetes mellitus with hyperglycemia Disposition: 01 HOME, SELF-CARE Condition: Stable Departure-Patient Inst. Decision time for Depature: 23:22 (TAMRA RICE MD) Referrals: [facility] [place] (PCP/Family) Primary Care Physician ARMINDA CADENA DENNIS G MD SHAW, ANGELA C DO Patient Instructions: Hyperglycemia, Adult (DC), Ovarian Cyst (DC), Vaginitis Add. Discharge Instructions: Continue home meds as previously prescribed. Talk with her DrDalila about her uncontrolled diabetes. Also talk with her doctor regarding the ovarian cyst and or seek insurance specialist for further evaluation. You may take ibuprofen 600 mg every 8 hours as needed for pain. You may take Tylenol/acetaminophen 1000 mg every 8 hours as needed for pain if you are not taking the prescribed pain medicine. Do not take both together as both have acetaminophen in them. Do not exceed 4000 mg of acetaminophen in 24 hours. Return for worse pain, fever, vomiting, weakness, breathing problems or other concerns as needed. Scripts Metronidazole (Metronidazole) 500 Mg Tablet 500 MG PO BID, #14 TAB 0 Refills Prov: TAMRA RICE MD 04/24/19 Hydrocodone Bit/Acetaminophen (Hydrocodone/Acetaminophen 5/325mg Tablet) 1 Tab Tab 1 EACH PO Q6H PRN for PAIN-MODERATE MDD 10 for 3 Days, #6 TAB 0 Refills Prov: TAMRA RICE MD 04/24/19 Copy Copies To 1: DEBBIE SIBLEY MD, JOSHUA K MED STUDENT Apr 24, 2019 21:01 TAMRA RICE MD Apr 24, 2019 22:16
[2019-04-24 21:09] LABS: BILIRUBIN,URINE NEGATIVE (NEGATIVE); CLARITY,URINE CLEAR; COLOR,URINE YELLOW; GLUCOSE, URINE (UA) 4+ (NEGATIVE); KETONES,URINE 2+ (NEGATIVE); LEUKOCYTE ESTERASE ,URINE 2+ (NEGATIVE); NITRITE,URINE NEGATIVE (NEGATIVE); PH,URINE 6 (5-9); PROTEIN,URINE NEGATIVE (NEGATIVE); UROBILINOGEN,URINE NORMAL (NORMAL)
[2019-04-24] MEDS ORDERED: FLUT1BLS13 (21:12)
[2019-04-24] MEDS ORDERED: LATA2.5D5 (21:12)
[2019-04-24] MEDS ORDERED: BREX2TAB (21:12)
[2019-04-24] MEDS ORDERED: PHEN15CA PO (21:12)
[2019-04-24] MEDS ORDERED: BRIN8DRO (21:12)
[2019-04-24] MEDS ORDERED: LISI-556 (21:12)
[2019-04-24] MEDS ORDERED: FLUT200B (21:12)
[2019-04-24 21:14] LABS: CALCIUM 9.8 MG/DL (8.5-10.1); CREATININE SERUM 1.2 MG/DL (0.60-1.30); POTASSIUM 4.2 MMOL/L (3.6-5.0)
[2019-04-24 21:15] LABS: ALBUMIN 4.3 GM/DL (3.2-4.5); BILIRUBIN,TOTAL 0.5 MG/DL (0.1-1.0); TOTAL PROTEIN 7.5 GM/DL (6.4-8.2)
[2019-04-24 21:20] LABS: BACTERIA,URINE FEW /HPF
[2019-04-24] MEDS ORDERED: inSUlin (REGULAR) HUMAN 1 UNIT/0.01 ML (CHARGE PER UNIT) IV STA (21:36)
[2019-04-24] MEDS ORDERED: LACTATED RINGERS 1,000 ML IV ONE (21:36)
[2019-04-24] MEDS ORDERED: fentaNYL INJECTION 100 MCG/2 ML AMP IVP STA (21:47)
--- NOTE | 2019-04-24 22:13 | Diagnostic Imaging Report ---
PROCEDURE: CT urinary tract, rule out kidney stone. TECHNIQUE: Multiple contiguous axial images were obtained through the abdomen and pelvis without the use of intravenous contrast. Auto Exposure Controls were utilized during the CT exam to meet ALARA standards for radiation dose reduction. INDICATION: Abdominal pain and shortness of breath. FINDINGS: The visualized lung bases appear clear without focal infiltrate or consolidation. There is no effusion. There is advanced hepatic steatosis. There is no focal intrahepatic abnormality. The patient is status post cholecystectomy without biliary dilatation. Spleen is normal in size. Pancreas demonstrates no focal abnormality. There is no adrenal mass. The kidneys are nonobstructed. There are no findings of urolithiasis. Small and large bowel appear normal in caliber without evidence of obstruction. There is no focal abnormal bowel thickening. There are no inflammatory change within the right lower quadrant. There is no abnormal induration or stranding within the omentum or mesentery. There are no findings of free air or free fluid. There is no abscess. Urinary bladder is unremarkable. There is an intrauterine device. There is a 4.5 cm left ovarian cyst. There are no pathologically enlarged lymph nodes. Aorta is normal in caliber. No acute or suspicious osseous abnormality. IMPRESSION: 1. No CT evidence of an acute inflammatory or obstructive process within the abdomen or pelvis. 2. Advanced hepatic steatosis. 3. Previous cholecystectomy. 4. No evidence of bowel obstruction, appendicitis or abnormal bowel thickening. 5. No focal inflammation within the omentum or mesentery. There is no free air or free fluid 6. Left ovarian cyst. Dictated by: Dictated on workstation # [id number]
[2019-04-24] MEDS ORDERED: AZITHROMYCIN 250 MG TAB (ZITHROMAX) PO STA (22:21)
[2019-04-24] MEDS ORDERED: FLUCONAZOLE 150 MG TABLET (ED ONLY) PO STA (22:24)
[2019-04-24] MEDS ORDERED: cefTRIAXone FOR IV USE 1,000 MG in WATER (STERILE) FOR INJECTION 10 ML IV ONE (22:30)
[2019-04-24] MEDS ORDERED: inSUlin (REGULAR) HUMAN 1 UNIT/0.01 ML (CHARGE PER UNIT) SC STA (23:10)
[2019-04-24] MEDS ORDERED: RX-HYDROCODONE/APAP 5/325 MG #4 TAB PK PO PRN (23:15)
[2019-04-24] MEDS ORDERED: ACHD5005 PO (23:25)
[2019-04-24] MEDS ORDERED: METR-145 PO (23:25)
[2019-04-24 23:29] VITALS: BP 133/85
== END 2019-04-24 23:31 | disposition home or self-care (01) ==
LOC: EDUNIT# 20:21 → ER 20:23
DX: N83.202 Unspecified ovarian cyst, left side (principal); N72 Inflammatory disease of cervix uteri; E11.9 Type 2 diabetes mellitus without complications; J44.9 Chronic obstructive pulmonary disease, unspecified; I10 Essential (primary) hypertension; G43.909 Migraine, unspecified, not intractable, without status migrainosus; K21.9 Gastro-esophageal reflux disease without esophagitis; M06.9 Rheumatoid arthritis, unspecified; F31.9 Bipolar disorder, unspecified; E66.01 Morbid (severe) obesity due to excess calories; G47.00 Insomnia, unspecified; Z88.5 Allergy status to narcotic agent; Z88.6 Allergy status to analgesic agent; Z88.8 Allergy status to other drugs, medicaments and biological substances; Z88.4 Allergy status to anesthetic agent; Z79.4 Long term (current) use of insulin; Z79.52 Long term (current) use of systemic steroids; Z87.891 Personal history of nicotine dependence; Z90.49 Acquired absence of other specified parts of digestive tract; Z90.89 Acquired absence of other organs; Z93.0 Tracheostomy status; Z68.42 Body mass index [BMI] 45.0-49.9, adult
CPT/HCPCS: 36415; 74176; 80053; 81000; 82962; 84703; 85025; 86141; 87088; 87210; 87491; 87591; 96361; 96372; 96374; 96375

== ENCOUNTER → 2020-10-05 | Outpatient (CLI) | payer MEDICAID ==
[~2020-10-05] MED LIST changes: +ACHYD1T PO; +BREX2TAB; +BRIN8DRO; -CETI10TA20 PO; +CETI10TA49 PO; +FLUT1BLS13; +FLUT200B; -HYDR-3820 PO; -IBUP-2055 PO; +IBUP-2473 PO; +LATA2.5D5; -LIDO15SO2 MM; +LIDO20SO23 MM; +LISI-729; -METF-761 PO; +METF-846 PO; +METF-865 PO; -METF500T8 PO; +METR-145 PO; -MONT10TA24 PO; +MONT10TA32 PO; +MULT-567 PO; -MULT1TAB69 PO; +OXC5T PO; -OXYC-529 PO; -PANT40TA3 PO; +PANT40TA52 PO; +PHEN15CA PO; -PROM118S4 PO; +PROM118S5 PO; +RT-ALBUTEROL SULF 2.5 MG/3 ML PRE-MIX VIAL INH ONE
== END ==
LOC: RT 10:12
PROVIDERS: ATTEND Internal Medicine Critical Care Medicine
DX: J45.51 Severe persistent asthma with (acute) exacerbation (principal)
CPT/HCPCS: 94060; 94726; 94729

== ENCOUNTER → 2020-10-17 | Outpatient (CLI) | payer MEDICAID ==
[~2020-10-17] MED LIST changes: -RT-ALBUTEROL SULF 2.5 MG/3 ML PRE-MIX VIAL INH ONE
--- NOTE | 2020-10-17 14:25 | Diagnostic Imaging Report ---
EXAM: Lumbar spine - 2-3 views. INDICATION: Back pain. Long-term steroid use. COMPARISON: None. FINDINGS: There are 5 lumbar-type vertebral bodies. Normal alignment. Vertebral body heights are preserved. No substantial spondylotic change. No suspicious osteoblastic or lytic lesions. The visualized pelvis is intact. Cholecystectomy clips. IMPRESSION: No acute radiographic findings in the lumbar spine. No substantial spondylotic change. Dictated by: Dictated on workstation # [id number]
--- NOTE | 2020-10-17 15:40 | Diagnostic Imaging Report ---
INDICATION: Neck pain and back pain. TIME OF EXAM: 10:46 a.m. EXAMINATION: Three views of the cervical spine were obtained. FINDINGS: Alignment is normal. C1 through C6 is identified with clarity on the lateral view. Disc spaces are maintained. Prevertebral tissues are normal. Odontoid appears intact. IMPRESSION: No acute abnormality is detected. Dictated by: Dictated on workstation # [id number]
--- NOTE | 2020-10-17 15:41 | Diagnostic Imaging Report ---
INDICATION: Back pain. Time of exam: 10:52 a.m. Two views of the thoracic spine were obtained. Vertebral body heights are maintained. No acute compression fracture is seen. There is some mild generalized degenerative disc disease. Pedicles and paraspinous line are intact. IMPRESSION: Thoracic spondylosis. No acute bony abnormality is detected. Dictated by: Dictated on workstation # [id number]
== END ==
LOC: RAD 10:18
PROVIDERS: ATTEND Internal Medicine Critical Care Medicine
DX: M47.814 Spondylosis without myelopathy or radiculopathy, thoracic region (principal); Z79.899 Other long term (current) drug therapy
CPT/HCPCS: 72040; 72070; 72100

== ENCOUNTER → 2020-12-05 | Outpatient (CLI) | payer MEDICAID | LOC: CARD 10:00 | PROVIDERS: ATTEND Internal Medicine Cardiovascular Disease | DX: I11.9 Hypertensive heart disease without heart failure (principal) | CPT/HCPCS: 93306 ==

== ENCOUNTER 2021-03-18 18:44 | Emergency (ER) | payer MEDICAID ==
[~2021-03-18] VITALS: Ht 175 cm; Wt 140.6 kg
--- NOTE | 2021-03-18 19:13 | ED Upper Extremity ---
General Chief Complaint: Upper Extremity Stated Complaint: LEFT SHOULDER PAIN Nursing Triage Note: Patient ambulatory to ER with c/o left shoulder pain. pt states she went to bed last night feeling fine but woke up this AM with severe pain to the left shoulder that hurts worse with movement. Patient has taken tylenol and Ibuprofen with no relief. History of Present Illness Date Seen by Provider: Mar 18, 2021 Time Seen by Provider: 19:13 Initial Comments This is a 36-year-old female who presents to the ER with complaints of left shoulder pain that started upon awakening around 1:00 this afternoon. Allergies and Home Medications Allergies Coded Allergies: cocaine (Verified Allergy, Severe, SOA, 01/04/17) procaine (Verified Allergy, Severe, SOA, 01/04/17) tetracaine (Verified Allergy, Severe, SOA, 01/04/17) allantoin (Verified Allergy, Unknown, 08/22/15) aspirin (Verified Allergy, Unknown, 08/22/15) benzocaine (Verified Allergy, Unknown, 08/22/15) carbamide peroxide (Verified Allergy, Unknown, 08/22/15) proparacaine (Verified Allergy, Unknown, SOA, 01/04/17) Uncoded Allergies: CHLORPROCAINE (Allergy, Severe, SOA, 01/04/17) Home Medications Acetaminophen 500 Mg Tablet, 500-1,000 MG PO Q4H PRN for PAIN-MILD, (Reported) Albuterol Sulfate 2.5 Mg/3 Ml Vial.neb, 2.5 MG NEB Q4H PRN for SHORTNESS OF BREATH, (Reported) Albuterol Sulfate 8.5 Gm Hfa.aer.ad, 2 PUFF INH Q4H PRN for SHORTNESS OF BREATH, (Reported) Azithromycin 250 Mg Tablet, 250 MG PO MoWeFr, (Reported) Beclomethasone Dipropionate 8.7 Gm Aer.w.adap, 2 PUFF INH BID, (Reported) Benzonatate 200 Mg Capsule, 200 MG PO TID PRN for COUGH, (Reported) Cetirizine HCl 10 Mg Tablet, 10 MG PO DAILY, (Reported) Ferrous Gluconate 324 Mg Tablet, 324 MG PO DAILY, (Reported) Fluticasone Propionate 16 Gm [place].susp, 1 SPRAYS NS DAILY, (Reported) Fluticasone/Salmeterol 1 Each Blst.w.dev, 1 PUFF PO BID, (Reported) Furosemide 40 Mg Tablet, 40 MG PO DAILY, (Reported) Guaifenesin/Pseudoephedrne HCl 1 Each Tab.er.12h, 1 TAB PO TID PRN for CONGESTION, (Reported) Hydrocodone Bit/Acetaminophen 1 Each Tablet, 1 TAB PO TID PRN for PAIN-MODERATE, (Reported) Hydrocodone Bit/Acetaminophen 1 Tab Tab, 1 EACH PO Q6H PRN for PAIN-MODERATE Prescribed by: TAMRA RICE on 04/24/192324 Ibuprofen 200 Mg Tablet, 800 MG PO TID PRN for PAIN-MILD, (Reported) TAKES 4 (200MG) TABLETS Insulin Aspart 300 Units/3 Ml Solution, 15 UNITS SC TIDWM, (Reported) Insulin Glargine,Hum.rec.anlog 100 Unit/1 Ml Insuln.pen, 45 UNITS SC DAILY, (Reported) Ipratropium Chauncey 0.2 Mg/1 Ml Solution, 0.5 MG IH Q6H PRN for SHORTNESS OF BREATH Prescribed by: BRIT CLEANING on 04/21/182113 Levofloxacin 750 Mg Tablet, 750 MG PO DAILY Prescribed by: BRIT CLEANING on 05/25/182199 Lidocaine HCl 15 Ml Solution, 5 MG MM EVERY 3 HOURS PRN for TOOTH PAIN, (Reported) Metformin HCl 500 Mg Tab.er.24h, 1,000 MG PO BID, (Reported) TAKES 2 (500MG) TABLETS Metronidazole 500 Mg Tablet, 500 MG PO BID Prescribed by: TAMRA RICE on 04/24/192324 Montelukast Sodium 10 Mg Tablet, 10 MG PO HS, (Reported) Multivitamin 1 Each Tablet, 1 TAB PO DAILY, (Reported) Oxycodone Hcl 5 Mg Tablet, 5-10 MG PO Q6H PRN for PAIN-SEVERE, (Reported) TAKES 1-2 OF A (5 MG) TABLET Pantoprazole Sodium 40 Mg Tablet.dr, 40 MG PO DAILY, (Reported) Potassium Chloride 10 Meq Tab.er.prt, 10 MEQ PO BID, (Reported) Prednisone 20 Mg Tab, 20 MG PO DAILY, (Reported) Prednisone 20 Mg Tab, 20 MG PO DAILY Take 3 tabs(60mg)daily,decrease by 1/2 tab(10mg)every other day. Prescribed by: DEBBIE SIBLEY on 07/18/17 1104 Promethazine HCl/Codeine 118 Ml Syrup, 5 ML PO Q6H PRN for COUGH, (Reported) Ranitidine HCl 300 Mg Tablet, 300 MG PO HS, (Reported) Sulfamethoxazole/Trimethoprim 1 Each Tablet, 1 TAB PO MoWeFr, (Reported) Tiotropium Chauncey 1 Inh Aerp, 1 CAP IH DAILY, (Reported) Vortioxetine Hydrobromide 10 Mg Tablet, 10 MG PO DAILY, (Reported) Past Nrvemly-Dieagv-Kbbmwx Hx Patient Social History Tobacco Use?: No Smoking Status: Never a Smoker Smokeless Tobacco Frequency: Never a User Use of E-Cig and/or Vaping dev: No Use of E-Cig and/or Vaping Armin: Never a User Substance use?: No Alcohol Use?: No Pt feels they are or have been: No Immunizations Up To Date Tetanus Booster (TDap): Unknown PED Vaccines UTD: Yes Seasonal Allergies Seasonal Allergies: Yes Past Medical History Surgery/Hospitalization HX: right hip surgery x 3, trach history, gallbladder, History of COPD Asthma, Chronic hypoxia- patient is on oxygen at 3 LPM via [place] at all times Surgeries: Yes (Tracheostomy, RT HIP) Appendectomy, Gallbladder, Orthopedic, Tonsillectomy, Tracheostomy Respiratory: Yes Asthma, Chronic Bronchitis, COPD Currently Using CPAP: No Currently Using BIPAP: No Cardiac: Yes (History of symptomatic bradycardia) Hypertension Neurological: Yes Headaches /Migraines Reproductive Disorders: Yes Female Reproductive Disorders: Polycystic Ovarian Dis 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[employer] 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 History: IUD Sexually Transmitted Disease: No HIV/AIDS: No Genitourinary: No Gastrointestinal: Yes Gastroesophageal Reflux, Gastrointestinal Bleed Musculoskeletal: Yes (Degenerative Joint Disease) Arthritis, Rheumatoid Arthritis Endocrine: Yes (And morbid obesity) Diabetes, Insulin dep HEENT: No Loss of Vision: Denies Hearing Impairment: Denies Cancer: No Psychosocial: Yes (manic depression, insomnia) Anxiety, Depression Integumentary: No Blood Disorders: No Adverse Reaction/Blood Tranf: No Family Medical History Diabetes mellitus 19 MOTHER G8 SISTER Diabetes Physical Exam Vital Signs Vital Signs - First Documented 03/18/21 18:51 Temp 36.9 Pulse 97 Resp 20 B/P (MAP) 137/87 (104) Pulse Ox 99 O2 Delivery Nasal Cannula O2 Flow Rate 3.00 Capillary Refill : Less Than 3 Seconds Height, Weight, BMI Height: 5'9.00" Weight: 333lbs. 15.6oz. 151.935602ps; 45.00 BMI Method:Actual Progress/Results/Core Measures Results/Orders My Orders Orders - BIBIANA OSEGUERA APRN Orphenadrine Inj (Ed Only) (Norflex Inje (03/18/21 19:30) Medications Given in ED Current Medications Medications Dose Ordered Sig/Malick Route Start Time Stop Time Status Last Admin Dose Admin Orphenadrine Citrate 60 mg ONCE ONCE IM 03/18/21 19:30 03/18/21 19:31 DC 03/18/21 19:24 60 MG Vital Signs/I&O 03/18/21 18:51 Temp 36.9 Pulse 97 Resp 20 B/P (MAP) 137/87 (104) Pulse Ox 99 O2 Delivery Nasal Cannula O2 Flow Rate 3.00 Blood Pressure Mean: 104 Departure Impression Primary Impression: Left shoulder strain Disposition: 01 HOME, SELF-CARE Condition: Improved Departure-Patient Inst. Decision time for Depature: 19:55 Referrals: [facility] [place] (PCP/Family) Primary Care Physician Patient Instructions: Using Cold for Pain Add. Discharge Instructions: Plan: 1. Use ice 20 minutes at a time 4-6x per day. 2. May use Tylenol as needed for pain per package. 3. Use Flexeril every 8 hours as needed for breakthrough pain. 4. Follow up with your doctor if your symptoms persist. 5. Return to ER for any new, concerning, or worsening symptoms. All discharge instructions reviewed with patient and/or family. Voiced understanding. Scripts Cyclobenzaprine HCl (Cyclobenzaprine HCl) 10 Mg Tablet 10 MG PO Q8H PRN for SPASMS, #15 TAB 0 Refills Prov: BIBIANA OSEGUERA APRN 03/18/21 BIBIANA OSEGUERA APRN Mar 18, 2021 19:13
[2021-03-18] MEDS ORDERED: ORPHENADRINE 60 MG/2 ML (NORFLEX) AMP (ED ONLY) IM ONE (19:30)
[2021-03-18] MEDS ORDERED: CYCL10TA9 PO (20:32)
[2021-03-18] MEDS ORDERED: RX-CYCLOBENZAPRINE 10 MG (FLEXERIL) TAB PPK#3 PO STA (20:32)
[2021-03-18 20:53] VITALS: BP 135/80
== END 2021-03-18 20:54 | disposition home or self-care (01) ==
LOC: EDUNIT# 18:44 → ER 18:49
DX: S46.912A Strain of unspecified muscle, fascia and tendon at shoulder and upper arm level, left arm, initial encounter (principal); J44.9 Chronic obstructive pulmonary disease, unspecified; I10 Essential (primary) hypertension; K21.9 Gastro-esophageal reflux disease without esophagitis; F32.9 Major depressive disorder, single episode, unspecified; E66.01 Morbid (severe) obesity due to excess calories; E11.9 Type 2 diabetes mellitus without complications; Z68.42 Body mass index [BMI] 45.0-49.9, adult; Z79.899 Other long term (current) drug therapy; Z79.4 Long term (current) use of insulin; Z79.52 Long term (current) use of systemic steroids; X58.XXXA Exposure to other specified factors, initial encounter
CPT/HCPCS: 99284; A4565

== ENCOUNTER 2021-09-23 13:34 | Emergency (ER) | payer MEDICAID ==
[~2021-09-23] VITALS: Ht 175.3 cm; Wt 140.6 kg
[~2021-09-23 13:34] MED LIST changes: +CYCL10TA25 PO; -DOXY100C2 PO; +DOXY100C5 PO; -LISI-729; +LISI5TAB20; +MONT-40 PO; -MONT10TA32 PO; -PHEN15CA PO; +PHEN15CA6 PO; -POTA10TA36 PO; +POTA10TA37 PO
[2021-09-23] MEDS ORDERED: HYDROcodone/APAP 5 MG/325 MG (LORTAB) TAB PO ONE (14:15)
[2021-09-23] MEDS ORDERED: LACTATED RINGERS 1,000 ML IV SCH (14:15)
[2021-09-23] MEDS ORDERED: RT-ALBUTEROL/IPRATROPIUM 3 ML (DUONEB) VIAL INH ONE (14:15)
[2021-09-23] MEDS ORDERED: methylPREDNISolone 125 MG (Solu-MEDROL) VIAL IVP ONE (14:15)
[2021-09-23 14:17] LABS: ABG BASE EXCESS -0.3 MMOL/L (-2.5-2.5); ABG OXYGEN SATURATION 99 % (94-100); ABG PCO2 31 MMHG (35-45); ABG PH 7.48 (7.37-7.43); ABG PO2 92 MMHG (79-93); ABG TCO2 24.1 MMOL/L (21.0-31.0); ALLENS TEST YES-POS; INSPIRED O2 3L; VENTILATOR NO
[2021-09-23 14:18] LABS: BASOPHILS # (AUTO) 0.1 10^3/uL (0.0-0.1); BASOPHILS % (AUTO) 1 % (0-10); EOSINOPHILS # (AUTO) 0.2 10^3/uL (0.0-0.3); EOSINOPHILS % (AUTO) 2 % (0-10); HEMATOCRIT 40 % (35-52); HEMOGLOBIN 12.9 g/dL (11.5-16.0); LYMPHOCYTES # (AUTO) 1.5 10^3/uL (1.0-4.0); LYMPHOCYTES % (AUTO) 14 % (12-44); MEAN CORPUSCULAR HEMOGLOBIN 26 pg (25-34); MEAN CORPUSCULAR HGB CONC 32 g/dL (32-36); MEAN CORPUSCULAR VOLUME 81 fL (80-99); MEAN PLATELET VOLUME 9.9 fL (9.0-12.2); MONOCYTES # (AUTO) 0.2 10^3/uL (0.0-1.0); MONOCYTES % (AUTO) 2 % (0-12); NEUTROPHILS # (AUTO) 8.7 10^3/uL (1.8-7.8); NEUTROPHILS % (AUTO) 80 % (42-75); PLATELET COUNT 251 10^3/uL (130-400); WHITE BLOOD COUNT 10.8 10^3/uL (4.3-11.0)
--- NOTE | 2021-09-23 14:24 | ED Respiratory ---
General Chief Complaint: Respiratory Problems Stated Complaint: SOA, COUGH, H/A, Nursing Triage Note: PT TO RM 9 W C/O INCREASING SOA, COUGH, AND STABBING CP SX YESTERDAY. PT REPORTS SHE TESTED COVID + ON . PT WEARS 3L NC HOME O2. PT A&OX4. Source: patient Exam Limitations: no limitations History of Present Illness Date Seen by Provider: Sep 23, 2021 Time Seen by Provider: 14:21 Initial Comments To ER by private vehicle from home with reports of a worsening of her chronic shortness of breath and cough since last night. She is had chills but no fever. She has a stabbing left-sided chest pain. She tested positive for Covid on 08/29/2021 but became symptomatic 2 days prior on 08/27/2021. She was Covid vaccinated. She has an extensive pulmonary history for which she follows with Dr. Cabrera from pulmonology at the [facility] and has an appointment with him on 09/25/2021. Past medical history includes severe persistent asthma, morbid obesity with possible obesity hypoventilation syndrome, chronic hypoxemic respiratory failure requiring oxygen supplement at 3 L/min per nasal cannula. She is steroid-dependent at 15 mg/day of prednisone. She has had to use her nebulizer twice overnight once yesterday evening and once this morning. Timing/Duration: constant, getting worse Prior Episodes/Possible Cause: no prior episodes Associated Symptoms: cough, shortness of breath Allergies and Home Medications Allergies Coded Allergies: cocaine (Verified Allergy, Severe, SOA, 01/04/17) procaine (Verified Allergy, Severe, SOA, 01/04/17) tetracaine (Verified Allergy, Severe, SOA, 01/04/17) allantoin (Verified Allergy, Unknown, 08/22/15) aspirin (Verified Allergy, Unknown, 08/22/15) benzocaine (Verified Allergy, Unknown, 08/22/15) carbamide peroxide (Verified Allergy, Unknown, 08/22/15) proparacaine (Verified Allergy, Unknown, SOA, 01/04/17) Uncoded Allergies: CHLORPROCAINE (Allergy, Severe, SOA, 01/04/17) Patient Home Medication List Home Medication List Reviewed: Yes Acetaminophen (Acetaminophen Extra Strength) 500 Mg Tablet, 500-1,000 MG PO Q4H PRN for PAIN-MILD, (Reported) Entered as Reported by: DARIO MIMS on 06/19/17 1331 Albuterol Sulfate (Albuterol Sulfate) 2.5 Mg/3 Ml Vial.neb, 2.5 MG NEB Q4H PRN for SHORTNESS OF BREATH, (Reported) Entered as Reported by: SALLIE SANTOS on 05/11/15 09 Albuterol Sulfate (Proair Hfa) 8.5 Gm Hfa.aer.ad, 2 PUFF INH Q4H PRN for SHORTNESS OF BREATH, (Reported) Entered as Reported by: DARIO MIMS on 08/22/15 1500 Azithromycin (Azithromycin) 250 Mg Tablet, 250 MG PO MoWeFr, (Reported) Entered as Reported by: DARIO MIMS on 06/19/17 1331 Azithromycin (Azithromycin) 250 Mg Tablet, 250 MG PO UD Prescribed by: NADIRA العلي on 09/23/21 1525 Beclomethasone Dipropionate (Qvar) 8.7 Gm Aer.w.adap, 2 PUFF INH BID, (Reported) Entered as Reported by: DARIO MIMS on 06/19/17 1331 Benzonatate (Benzonatate) 200 Mg Capsule, 200 MG PO TID PRN for COUGH, (Reported) Entered as Reported by: DARIO MIMS on 06/19/17 1331 Benzonatate (Tessalon Perles) 100 Mg Capsule, 200 MG PO TID Prescribed by: NADIRA العلي on 09/23/21 1502 Brexpiprazole (Rexulti) 2 Mg Tablet, (Reported) Entered as Reported by: CRISTINA TSNAG on 04/24/192111 Brinzolamide/Brimonidine Tart (Simbrinza 1%-0.2% Eye Drops) 8 Ml Drops.susp, (Reported) Entered as Reported by: CRISTINA TSANG on 04/24/192111 Cetirizine HCl (Cetirizine HCl) 10 Mg Tablet, 10 MG PO DAILY, (Reported) Entered as Reported by: SALLIE SANTOS on 05/11/15 09 Cyclobenzaprine HCl (Cyclobenzaprine HCl) 10 Mg Tablet, 10 MG PO Q8H PRN for SPASMS Prescribed by: BIBIANA OSEGUERA on 03/18/212031 Ferrous Gluconate (Ferrous Gluconate) 324 Mg Tablet, 324 MG PO DAILY, (Reported) Entered as Reported by: DARIO MIMS on 06/19/17 133 Fluticasone Furoate (Arnuity Ellipta) 200 Mcg Blst.w.dev, (Reported) Entered as Reported by: CRISTINA TSANG on 04/24/192111 Fluticasone Propion/Salmeterol (Fluticasone-Salmeterol 500-50) 1 Each Blst.w. dev, (Reported) Entered as Reported by: CRISTINA TSANG on 04/24/192111 Fluticasone Propionate (Fluticasone Propionate) 16 Gm [place].susp, 1 SPRAYS NS DAILY, (Reported) Entered as Reported by: SALLIE SANTOS on 05/11/15 0931 Fluticasone/Salmeterol (Advair 500-50 Diskus) 1 Each Blst.w.dev, 1 PUFF PO BID, (Reported) Entered as Reported by: DARIO MIMS on 04/23/16 0935 Furosemide (Furosemide) 40 Mg Tablet, 40 MG PO DAILY, (Reported) Entered as Reported by: DARIO MIMS on 06/19/17 1331 Guaifenesin/Pseudoephedrne HCl (Mucinex D ER Tablet) 1 Each Tab.er.12h, 1 TAB PO TID PRN for CONGESTION, (Reported) Entered as Reported by: DARIO MIMS on 06/19/17 1334 Hydrocodone Bit/Acetaminophen (HYDROcodone/APAP 10/325 TABLET) 1 Each Tablet, 1 TAB PO TID PRN for PAIN-MODERATE, (Reported) Entered as Reported by: DARIO MIMS on 06/19/17 1331 Hydrocodone Bit/Acetaminophen (Lortab 5 Mg Tablet) 1 Tab Tab, 1 EACH PO Q6H PRN for PAIN-MODERATE Prescribed by: TAMRA RICE on 04/24/19 232 Ibuprofen (Advil) 200 Mg Tablet, 800 MG PO TID PRN for PAIN-MILD, (Reported) Entered as Reported by: DARIO MIMS on 04/23/16 0935 Insulin Aspart (Novolog Flexpen) 300 Units/3 Ml Solution, 15 UNITS SC TIDWM, (Reported) Entered as Reported by: DARIO MIMS on 06/19/17 133 Insulin Glargine,Hum.rec.anlog (Lantus Solostar) 100 Unit/1 Ml Insuln.pen, 45 UNITS SC DAILY, (Reported) Entered as Reported by: DARIO MIMS on 06/19/171330 Ipratropium [place] (Ipratropium [place]) 0.2 Mg/1 Ml Solution, 0.5 MG IH Q6H PRN for SHORTNESS OF BREATH Prescribed by: BRIT CLEANING on 04/21/182113 Latanoprost (Latanoprost) 2.5 Ml Drops, (Reported) Entered as Reported by: CRISTINA TSANG on 04/24/192111 Levofloxacin (Levaquin) 750 Mg Tablet, 750 MG PO DAILY Prescribed by: BRIT CLEANING on 05/25/182199 Lidocaine HCl (Lidocaine HCl Viscous) 15 Ml Solution, 5 MG MM EVERY 3 HOURS PRN for TOOTH PAIN, (Reported) Entered as Reported by: SALLIE SANTOS on 07/15/171499 Lisinopril (Lisinopril) 5 Mg Tablet, (Reported) Entered as Reported by: CRISTINA TSANG on 04/24/192111 Metformin HCl (Metformin HCl ER) 500 Mg Tab.er.24h, 1,000 MG PO BID, (Reported) Entered as Reported by: DARIO MIMS on 06/19/171330 Metronidazole (Metronidazole) 500 Mg Tablet, 500 MG PO BID Prescribed by: TAMRA RICE on 04/24/19 232 Montelukast Sodium (Montelukast Sodium) 10 Mg Tablet, 10 MG PO HS, (Reported) Entered as Reported by: SALLIE SANTOS on 05/11/15 0931 Multivitamin (Multivitamins) 1 Each Tablet, 1 TAB PO DAILY, (Reported) Entered as Reported by: SALLIE SANTOS on 07/15/17 1500 Oxycodone Hcl (Oxyir Tablet) 5 Mg Tablet, 5-10 MG PO Q6H PRN for PAIN-SEVERE, (Reported) Entered as Reported by: SALLIE SANTOS on 07/15/17 1500 Pantoprazole Sodium (Pantoprazole Sodium) 40 Mg Tablet.dr, 40 MG PO DAILY, (Reported) Entered as Reported by: SALLIE SANTOS on 05/11/15 0931 Phentermine HCl (Phentermine HCl) 15 Mg Capsule, 15 MG PO, (Reported) Entered as Reported by: CRISTINA TSANG on 04/24/19 211 Potassium Chloride (Potassium Chloride) 10 Meq Tab.er.prt, 10 MEQ PO BID, (Reported) Entered as Reported by: DARIO MIMS on 06/19/17 133 Prednisone (Prednisone) 20 Mg Tab, 20 MG PO DAILY, (Reported) Entered as Reported by: DARIO MIMS on 04/23/16 0935 Prednisone (Prednisone) 20 Mg Tab, 20 MG PO DAILY Prescribed by: DEBBIE SIBLEY on 07/18/17 1104 Promethazine HCl/Codeine (Promethazine-Codeine Syrup) 118 Ml Syrup, 5 ML PO Q6H PRN for COUGH, (Reported) Entered as Reported by: DARIO MIMS on 06/19/17 133 Ranitidine HCl (Ranitidine HCl) 300 Mg Tablet, 300 MG PO HS, (Reported) Entered as Reported by: DARIO MIMS on 06/19/17 1331 Sulfamethoxazole/Trimethoprim (Sulfamethoxazole-Tmp Ds Tablet) 1 Each Tablet, 1 TAB PO MoWeFr, (Reported) Entered as Reported by: DARIO MIMS on 06/19/17 133 Tiotropium [place] (Spiriva) 1 Inh Aerp, 1 CAP IH DAILY, (Reported) Entered as Reported by: NIKOLAS KEE on 05/10/15 1536 Vortioxetine Hydrobromide (Trintellix) 10 Mg Tablet, 10 MG PO DAILY, (Reported) Entered as Reported by: DARIO MIMS on 06/19/17 133 Review of Systems Review of Systems Constitutional: see HPI, chills EENTM: see HPI Respiratory: see HPI, cough (Cough is nonproductive but bothersome), short of breath, wheezing Cardiovascular: no symptoms reported Genitourinary: no symptoms reported Musculoskeletal: no symptoms reported Skin: no symptoms reported Psychiatric/Neurological: No Symptoms Reported Hematologic/Lymphatic: No Symptoms Reported Immunological/Allergic: no symptoms reported Past Lnuggau-Ztchtq-Vmhryq Hx Patient Social History Tobacco Use?: No Use of E-Cig and/or Vaping dev: No Substance use?: No Alcohol Use?: No Immunizations Up To Date Tetanus Booster (TDap): Unknown PED Vaccines UTD: Yes First/Initial COVID19 Vaccinat: 2020 Second COVID19 Vaccination Chris: 2020 COVID19 Vaccine 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: TRISH Seasonal Allergies Seasonal Allergies: Yes Past Medical History Surgery/Hospitalization HX: right hip surgery x 3, trach history, gallbladder, History of COPD Asthma, Chronic hypoxia- patient is on oxygen at 3 LPM via NC at all times Surgeries: Yes (Tracheostomy, RT HIP) Appendectomy, Gallbladder, Orthopedic, Tonsillectomy, Tracheostomy Respiratory: Yes Asthma, Chronic Bronchitis, COPD Currently Using CPAP: No Currently Using BIPAP: No Cardiac: Yes (History of symptomatic bradycardia) Hypertension Neurological: Yes Headaches /Migraines Reproductive Disorders: Yes Female Reproductive Disorders: Polycystic Ovarian Dis 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 Sexually Transmitted Disease: No HIV/AIDS: No Genitourinary: No Gastrointestinal: Yes Gastroesophageal Reflux, Gastrointestinal Bleed Musculoskeletal: Yes (Degenerative Joint Disease) Arthritis, Rheumatoid Arthritis Endocrine: Yes (And morbid obesity) Diabetes, Insulin dep HEENT: No Loss of Vision: Denies Hearing Impairment: Denies Cancer: No Psychosocial: Yes (manic depression, insomnia) Anxiety, Depression Integumentary: No Blood Disorders: No Adverse Reaction/Blood Tranf: No Family Medical History Diabetes mellitus 19 MOTHER G8 SISTER Diabetes Physical Exam Vital Signs - First Documented 09/23/21 13:58 Temp 36.9 Pulse 115 Resp 26 B/P (MAP) 194/85 (121) Pulse Ox 97 O2 Delivery Nasal Cannula O2 Flow Rate 3.00 Capillary Refill : Less Than 3 Seconds Height: 5'9.00" Weight: 333lbs. 15.6oz. 151.847123wk; 45.00 BMI Method:Actual General Appearance: WD/WN, no apparent distress, obese, other (Alert and oriented very pleasant. Heart rate is about 100 205 sinus. Oxygen 97 to 99% on her baseline 3 L. Lungs are diminished and without obvious wheezing. No stridor.) Eyes: Bilateral Eye Normal Inspection, Bilateral Eye PERRL, Bilateral Eye EOMI Neck: non-tender, full range of motion Respiratory: no respiratory distress, no accessory muscle use Cardiovascular: regular rate, rhythm, no murmur Gastrointestinal: normal bowel sounds, non tender Extremities: normal range of motion, non-tender Neurologic/Psychiatric: alert, normal mood/affect, oriented x 3 Skin: normal color, warm/dry Progress/Results/Core Measures Suspected Sepsis SIRS Temperature: Pulse: 115 Respiratory Rate: 26 Laboratory Tests 09/23/21 14:05: White Blood Count 10.8 Blood Pressure 194 /85 Mean: 121 Laboratory Tests 09/23/21 14:05: Creatinine 0.76, Platelet Count 251, Total Bilirubin 0.7 Results/Orders Lab Results Laboratory Tests Test 09/23/21 14:05 09/23/21 14:07 09/23/21 14:09 Range/Units White Blood Count 10.8 4.3-11.0 10^3/uL Red Blood Count 4.91 3.80-5.11 10^6/uL Hemoglobin 12.9 11.5-16.0 g/dL Hematocrit 40 35-52 % Mean Corpuscular Volume 81 80-99 fL Mean Corpuscular Hemoglobin 26 25-34 pg Mean Corpuscular Hemoglobin Concent 32 32-36 g/dL Red Cell Distribution Width 14.7 H 10.0-14.5 % Platelet Count 251 130-400 10^3/uL Mean Platelet Volume 9.9 9.0-12.2 fL Immature Granulocyte % (Auto) 1 % Neutrophils (%) (Auto) 80 H 42-75 % Lymphocytes (%) (Auto) 14 12-44 % Monocytes (%) (Auto) 2 0-12 % Eosinophils (%) (Auto) 2 0-10 % Basophils (%) (Auto) 1 0-10 % Neutrophils # (Auto) 8.7 H 1.8-7.8 10^3/uL Lymphocytes # (Auto) 1.5 1.0-4.0 10^3/uL Monocytes # (Auto) 0.2 0.0-1.0 10^3/uL Eosinophils # (Auto) 0.2 0.0-0.3 10^3/uL Basophils # (Auto) 0.1 0.0-0.1 10^3/uL Immature Granulocyte # (Auto) 0.1 0.0-0.1 10^3/uL D-Dimer 0.83 H 0.00-0.49 UG/ML Sodium Level 138 135-145 MMOL/L Potassium Level 3.7 3.6-5.0 MMOL/L Chloride Level 103 98-107 MMOL/L Carbon Dioxide Level 23 21-32 MMOL/L Anion Gap 12 5-14 MMOL/L Blood Urea Nitrogen 4 L 7-18 MG/DL Creatinine 0.76 0.60-1.30 MG/DL Estimat Glomerular Filtration Rate 105 BUN/Creatinine Ratio 5 Glucose Level 173 H 70-105 MG/DL Calcium Level 10.0 8.5-10.1 MG/DL Corrected Calcium 9.8 8.5-10.1 MG/DL Total Bilirubin 0.7 0.1-1.0 MG/DL Aspartate Amino Transf (AST/SGOT) 17 5-34 U/L Alanine Aminotransferase (ALT/SGPT) 29 0-55 U/L Alkaline Phosphatase 74 40-136 U/L Troponin I < 0.028 <0.028 NG/ML C-Reactive Protein High Sensitivity 3.51 H 0.00-0.50 MG/DL B-Type Natriuretic Peptide < 10.0 <100.0 PG/ML Total Protein 8.4 H 6.4-8.2 GM/DL Albumin 4.3 3.2-4.5 GM/DL Procalcitonin 0.05 <0.10 NG/ML Serum Test, Qualitative NEGATIVE NEGATIVE Blood Gas Puncture Site R RAD Blood Gas Patient Temperature 36.0 Arterial Blood pH 7.48 H 7.37-7.43 Arterial Blood Partial Pressure CO2 31 L 35-45 MMHG Arterial Blood Partial Pressure O2 92 79-93 MMHG Arterial Blood HCO3 23 23-27 MMOL/L Arterial Blood Total CO2 24.1 21.0-31.0 MMOL/L Arterial Blood Oxygen Saturation 99 94-100 % Arterial Blood Base Excess -0.3 -2.5-2.5 MMOL/L Rogers Test YES-POS Blood Gas Ventilator Setting NO Blood Gas Inspired Oxygen 3L Influenza Type A Antigen NEGATIVE NEGATIVE Influenza Type B Antigen NEGATIVE NEGATIVE My Orders Orders - NADIRA العلي APRN Arterial Blood Gas (09/23/21 14:07) Cbc With Automated Diff (09/23/21 14:11) Hcg,Qualitative Serum (09/23/21 14:11) Comprehensive Metabolic Panel (09/23/21 14:11) Fibrin Degradation Products (09/23/21 14:11) Influenza A & B Antigens (09/23/21 14:11) Hs C Reactive Protein (09/23/21 14:11) Procalcitonin (Pct) (09/23/21 14:11) Ed Iv/Invasive Line Start (09/23/21 14:11) Lactated Ringers (Lr 1000 Ml Iv Solution (09/23/21 14:15) Bnp [place] (09/23/21 14:11) Troponin I [place] (09/23/21 14:11) Ekg Tracing (09/23/21 14:11) Hydrocodone/Apap 5/325 Tablet (Lortab 5 (09/23/21 14:15) Methylprednisolone Sod Succ (Solu-Medrol (09/23/21 14:15) Albuterol/Ipra Inhalation Soln (Duoneb I (09/23/21 14:15) Svn Small Volume Nebulizer (09/23/21 14:11) Chest 1 View, Ap/Pa Only (09/23/21 14:15) Ct Angio Chest W (09/23/21 14:47) Iohexol Injection (Omnipaque 350 Mg/Ml 1 (09/23/21 15:00) Received Contrast (Hold Metformin- Contr (09/23/21 15:00) Ns (Ivpb) (Sodium Chloride 0.9% Ivpb Bag (09/23/21 15:00) Medications Given in ED Current Medications Medications Dose Ordered Sig/Malick Route Start Time Stop Time Status Last Admin Dose Admin Acetaminophen/ Hydrocodone Bitart 1 ea ONCE ONCE PO 09/23/21 14:15 09/23/21 14:16 DC 09/23/21 14:34 1 EA Albuterol/ Ipratropium 3 ml ONCE ONCE INH 09/23/21 14:15 09/23/21 14:16 DC 09/23/21 14:35 3 ML Iohexol 100 ml ONCE ONCE IV 09/23/21 15:00 09/23/21 15:01 DC 09/23/21 15:10 88 ML Methylprednisolone Sodium Succinate 125 mg ONCE ONCE IVP 09/23/21 14:15 09/23/21 14:16 DC 09/23/21 14:34 125 MG Sodium Chloride 100 ml ONCE ONCE IV 09/23/21 15:00 09/23/21 15:01 DC 09/23/21 15:10 80 ML Vital Signs/I&O 09/23/21 13:58 Temp 36.9 Pulse 115 Resp 26 B/P (MAP) 194/85 (121) Pulse Ox 97 O2 Delivery Nasal Cannula O2 Flow Rate 3.00 Capillary Refill : Less Than 3 Seconds Blood Pressure Mean: 121 Departure Communication (Admissions) EKG shows sinus rhythm at [address] segment changes no ectopy. Family Conversation NAME: AUBREE [facility] REC#: [id number] PT STATUS: REG ER : 1985 PHYSICIAN: NADIRA العلي APRN ADMIT DATE: 09/23/21/ER Draft Date of Exam:09/23/21 CHEST 1 VIEW, AP/PA ONLY EXAMINATION: Chest radiograph, portable AP view. DATE: 09/23/2021 2:31 PM INDICATION: 36-year-old female, cough, shortness of breath. COMPARISON: April 21, 2018. FINDINGS: Heart size and mediastinal contours are unchanged. There is no identified pneumothorax. There is no large pleural effusion. There is no identified focal airspace consolidation. IMPRESSION: No identified acute cardiopulmonary abnormality. Dictated on workstation # [id number] Dict: 09/23/21 1432 Trans: 09/23/21 1440 PJE [id number] Interpreted by: EARNEST CHAHAL MD Electronically signed by: 1424-Arterial blood gas was obtained, will give her a DuoNeb, Solu-Medrol, check some labs. 1533-she overall feels better, her cough is controlled. Labs are unimpressive. She is already on Zithromax at home. Impression Primary Impression: Chronic hypoxemic respiratory failure Additional Impression: Asthma with acute exacerbation Disposition: 01 HOME, SELF-CARE Condition: Stable Departure-Patient Inst. Decision time for Depature: 14:59 Referrals: [facility] (PCP) Primary Care Physician [facility]/ (Family) Primary Care Physician Patient Instructions: Asthma in Adults Add. Discharge Instructions: 1. Use your nebulizer 1 treatment every 4 hours. Return to ER for any worsening. Cough medication as directed. There are some small inflammatory changes in the left upper lung likely related to your recent Covid infection. I have sent the images to [facility] so that Dr. Cabrera can review them if he wishes to. All discharge instructions reviewed with patient and/or family. Voiced understanding. Scripts Hydrocodone/Acetaminophen (Hydrocodone-Acetamin 5-325 mg) 1 Each Tablet 1 TAB PO Q6H PRN for PAIN-MODERATE (5-7), #10 TAB Prov: NADIRA العلي APRN 09/23/21 Benzonatate (TESSALON PERLES) 100 Mg Capsule 200 MG PO TID, #14 CAP Prov: NADIRA العلي APRN 09/23/21 NADIRA العلي APRN Sep 23, 2021 14:24
[2021-09-23 14:36] LABS: ALBUMIN 4.3 GM/DL (3.2-4.5); CHLORIDE 103 MMOL/L (98-107); POTASSIUM 3.7 MMOL/L (3.6-5.0); SODIUM 138 MMOL/L (135-145)
[2021-09-23 14:38] LABS: GLUCOSE 173 MG/DL (70-105); TOTAL PROTEIN 8.4 GM/DL (6.4-8.2)
[2021-09-23 14:39] LABS: CARBON DIOXIDE 23 MMOL/L (21-32)
[2021-09-23 14:40] LABS: BILIRUBIN,TOTAL 0.7 MG/DL (0.1-1.0)
--- NOTE | 2021-09-23 14:40 | Diagnostic Imaging Report ---
EXAMINATION: Chest radiograph, portable AP view. DATE: 09/23/2021 2:31 PM INDICATION: 36-year-old female, cough, shortness of breath. COMPARISON: April 21, 2018. FINDINGS: Heart size and mediastinal contours are unchanged. There is no identified pneumothorax. There is no large pleural effusion. There is no identified focal airspace consolidation. IMPRESSION: No identified acute cardiopulmonary abnormality. Dictated by: Dictated on workstation # [id number]
[2021-09-23 14:42] LABS: ALKALINE PHOSPHATASE 74 U/L (40-136); CREATININE SERUM 0.76 MG/DL (0.60-1.30); GFR ESTIMATED 105
[2021-09-23 14:43] LABS: BUN/CREATININE RATIO 5
[2021-09-23 14:45] LABS: ALANINE AMINOTRANSFERASE 29 U/L (0-55)
[2021-09-23] MEDS ORDERED: IOHEXOL 350 MG/ML 100 ML (OMNIPAQUE 350) VIAL IV ONE (15:00)
[2021-09-23] MEDS ORDERED: HOLD METFORMIN - RECEIVED CONTRAST 20 ML VIAL IV SCH (15:00)
[2021-09-23] MEDS ORDERED: NS 100 ML (IVPB) BAG IV ONE (15:00)
[2021-09-23] MEDS ORDERED: BENZ100C18 PO (15:02)
--- NOTE | 2021-09-23 15:21 | Diagnostic Imaging Report ---
PROCEDURE: CT angiography of the chest with contrast. TECHNIQUE: Multiple contiguous axial images were obtained through the chest after uneventful bolus administration of intravenous contrast. 3D reconstructed CTA MIP acquisitions were also performed. Auto Exposure Controls were utilized during the CT exam to meet ALARA standards for radiation dose reduction. DATE: September 23, 2021. COMPARISON: Chest radiograph May 25, 2018. CT chest April 21, 2018. INDICATION: 36-year-old female, shortness of breath. Elevated d-dimer. FINDINGS: There are two small foci of groundglass type consolidation in the peripheral aspect of the left upper lobe without additional identified focal airspace consolidation. There is some respiratory motion artifact present. There is no identified pulmonary nodule or lung mass. There is no pneumothorax. There is no pleural effusion. The central airways are patent. There is no identified central or segmental pulmonary embolus. There is limited evaluation for subsegmental pulmonary emboli given timing of the contrast bolus and respiratory motion artifact. The heart is not enlarged. There is no pericardial effusion. There is no identified abnormally enlarged mediastinal, hilar or axillary lymph node meeting CT size criteria for adenopathy. The patient is status post cholecystectomy. There is soft tissue attenuation in the anterior mediastinum which may reflect prominent thymic tissue. This is similar in appearance to the prior CT chest exam. There is no identified acute bony abnormality. IMPRESSION: CT CHEST. 1. 2 small foci of groundglass type lung consolidation in the left upper lobe which may relate to early infectious or inflammatory etiology. Atypical infectious etiologies, including Covid 19, are in the differential diagnosis. 2. No identified central or segmental pulmonary embolus. Dictated by: Dictated on workstation # [id number]
[2021-09-23] MEDS ORDERED: AZIT250T12 PO (15:25)
[2021-09-23] MEDS ORDERED: ACHD5005 PO (15:35)
[2021-09-23 16:09] VITALS: BP 112/66
== END 2021-09-23 16:08 | disposition home or self-care (01) ==
LOC: EDUNIT# 13:34 → ER 13:37
DX: J96.11 Chronic respiratory failure with hypoxia (principal); J44.9 Chronic obstructive pulmonary disease, unspecified; I10 Essential (primary) hypertension; K21.9 Gastro-esophageal reflux disease without esophagitis; E66.01 Morbid (severe) obesity due to excess calories; E11.9 Type 2 diabetes mellitus without complications; F41.9 Anxiety disorder, unspecified; F32.9 Major depressive disorder, single episode, unspecified; Z68.42 Body mass index [BMI] 45.0-49.9, adult; Z79.4 Long term (current) use of insulin; Z79.899 Other long term (current) drug therapy
CPT/HCPCS: 36415; 71045; 71275; 80053; 82805; 83880; 84145; 84484; 84703; 85025; 85379; 86141; 87804; 93005; 94640

== ENCOUNTER → 2021-11-12 | Outpatient (CLI) | payer MEDICAID ==
--- NOTE | 2021-11-12 12:04 | Diagnostic Imaging Report ---
INDICATION: Routine screening. No prior studies are available for comparison. This is a baseline study. 2-D and 3-D bilateral screening mammography was performed with CAD. Scattered fibroglandular densities are identified bilaterally. No mass or malignant-appearing microcalcifications are seen. Axillae are unremarkable. IMPRESSION: BI-RADS Category 1 No mammographic features suspicious for malignancy are identified. ACR BI-RADS Category 1: Negative. Result letter will be mailed to the patient. Note: At least 10% of breast cancer is not imaged by mammography. Dictated by: Dictated on workstation # [id number]
== END ==
LOC: RAD 10:00
PROVIDERS: ATTEND Obstetrics & Gynecology
DX: Z12.31 Encounter for screening mammogram for malignant neoplasm of breast (principal)
CPT/HCPCS: 77063; 77067

== ENCOUNTER → 2021-12-10 | Outpatient (CLI) | payer MEDICAID | LOC: CARD 12:00 | PROVIDERS: ATTEND Physician Assistant | DX: I11.9 Hypertensive heart disease without heart failure (principal) | CPT/HCPCS: 93306 ==

== ENCOUNTER → 2021-12-24 | Outpatient (CLI) | payer MEDICAID ==
[~2021-12-24] VITALS: Ht 175 cm; Wt 138.6 kg
[~2021-12-24] MED LIST changes: +BUPR1PAT TD; +DULA4.5P SQ; +EMPA10TA PO; -LISI5TAB20; +LISI5TAB20 PO; +PAMI30VI8 SQ; +[UNRECOGNIZED DRUG - OTHER]
== END | disposition home or self-care (01) ==
LOC: PREOP 05:36
PROVIDERS: ATTEND Specialist
DX: Z01.818 Encounter for other preprocedural examination (principal)

== ENCOUNTER 2021-12-31 08:59 | Day surgery (SDC) | payer MEDICAID ==
[~2021-12-31] VITALS: Ht 175 cm; Wt 138.6 kg
[2021-12-31 09:00] VITALS: BP 136/84
[2021-12-31] MEDS ORDERED: PHENYLEPHRINE 10% OPHTH (NEO-SYN) 5 ML BTL OU PRN (09:15)
[2021-12-31] MEDS ORDERED: TROPICAMIDE 1% OPH SOLN (MYDRIACYL) 15 ML BTL OU PRN (09:15)
[2021-12-31] MEDS: TETRACAINE 0.5% OPHTH SOLN 4 ML BTL (SINGLE DOSE ONLY) OU PRN ×2 (09:21→09:24)
[2021-12-31 09:35] VITALS: BP 136/84
--- NOTE | 2021-12-31 09:51 | Ophthalmologist Pre-Op Note ---
Pre-Operative Progress Note H&P Reviewed The H&P was reviewed, patient examined and no changes noted. Date H&P Reviewed: December 31, 2021 Time H&P Reviewed: 09:33 Pre-Op Dx Secondary Cataract, Bilateral Eyes ANNELIESE CHENG MD December 31, 2021 09:51
--- NOTE | 2021-12-31 09:53 | Ophthalmology Operative Report ---
YAG Capsulotomy PREOPERATIVE DIAGNOSIS: Secondary Cataract Bilateral POSTOPERATIVE DIAGNOSIS: Secondary Cataract Bilateral PROCEDURE: YAG Capsulotomy, Bilateral SURGEON: Marcin Cheng ANESTHESIA: Topical anesthesia COMPLICATIONS: None ESTIMATED BLOOD LOSS: Minimal DESCRIPTION OF PROCEDURE: After proper informed consent was obtained, the patient's, a 36 female , received one drop of Tropicamide and one drop of Tetracaine in each eye. The patient was then placed at the YAG laser and using a power of [ 4.0] millijoules and bursts [18] right eye and [24 ] left eye were used to fashion a central capsulotomy. The patient tolerated the procedure well without complications. MARCIN CHENG MD December 31, 2021 09:53
== END 2021-12-31 09:35 | disposition home or self-care (01) ==
LOC: SDC 08:59
PROVIDERS: ATTEND Specialist
DX: E11.36 Type 2 diabetes mellitus with diabetic cataract (principal); H26.40 Unspecified secondary cataract; Z87.891 Personal history of nicotine dependence; Z79.4 Long term (current) use of insulin; Z79.84 Long term (current) use of oral hypoglycemic drugs

== ENCOUNTER → 2022-01-02 | Outpatient (CLI) | payer MEDICAID ==
[~2022-01-02] MED LIST changes: +CATHETER FLUSH 10 ML SYR IVP PRN; +REGADENOSON 0.4 MG/5 ML SYR (LEXISCAN) IV ONE
[2022-01-02 09:30] VITALS: BP 179/84
[2022-01-02 10:14] LABS: ALBUMIN 3.8 GM/DL (3.2-4.5); BILIRUBIN,TOTAL 0.4 MG/DL (0.1-1.0); CALCIUM 9.1 MG/DL (8.5-10.1); CREATININE SERUM 0.68 MG/DL (0.60-1.30); POTASSIUM 3.8 MMOL/L (3.6-5.0); TOTAL PROTEIN 6.7 GM/DL (6.4-8.2)
--- NOTE | 2022-01-02 12:07 | Cardiology Stress Test Report ---
Stress Test Report Date of Procedure/Referring: Date of Procedure: January 02, 2022 Soheila Romero Admitting Physician Kana [facility] Indications: HTN Baseline Heart Rate: 90 Baseline Blood Pressure: Blood Pressure Systolic: 179 Blood Pressure Diastolic: 84 Baseline Vitals Vital Signs Date Time Temp Pulse Resp B/P (MAP) Pulse Ox O2 Delivery O2 Flow Rate FiO2 01/02/22 09:30 90 179/84 (115) Baseline EKG: Baseline EKG: NSR Summary After explaining the procedure to the patient, she signed a consent and then brought to the stress nuclear laboratory. Patient received 0.4 mg Lexiscan for stress test, ECG, heart rate and blood pressure were monitored continuously. Resting and stress dose of radio tracer were injected, imaging was acquired and reviewed in short axis, horizontal long axis and vertical long axis views. TID: 1.09 SSS: 18 SDS: 11 EF: 50 1. Patient tolerated Lexiscan well 2. Reversible ischemia involving the anterior wall and anterolateral wall 3. Normal left ventricular size with mild hypokinesia of the anterior wall, ejection fraction 50% SHAINA CALDERON MD January 02, 2022 12:07
== END ==
LOC: CARD 08:30
PROVIDERS: ATTEND Physician Assistant
DX: I10 Essential (primary) hypertension (principal); E78.2 Mixed hyperlipidemia
CPT/HCPCS: 78452; 80053; 80061; 93017; A9502; 36415

== ENCOUNTER 2022-01-09 09:00 | Day surgery (SDC) | payer MEDICAID ==
[~2022-01-09] VITALS: Ht 175.3 cm; Wt 142.1 kg
[2022-01-09] VITALS (9 sets, daily range): BP systolic 100–120; BP diastolic 64–81
[2022-01-09 07:29] LABS: HEMATOCRIT 39 % (35-52); HEMOGLOBIN 11.9 g/dL (11.5-16.0); MEAN CORPUSCULAR HEMOGLOBIN 25 pg (25-34); MEAN CORPUSCULAR HGB CONC 31 g/dL (32-36); MEAN CORPUSCULAR VOLUME 82 fL (80-99); MEAN PLATELET VOLUME 9.5 fL (9.0-12.2); PLATELET COUNT 308 10^3/uL (130-400); WHITE BLOOD COUNT 16.3 10^3/uL (4.3-11.0)
--- NOTE | 2022-01-09 07:34 | Diagnostic Imaging Report ---
INDICATION: ABN STRESS TEST, COPD, O2 DEPENDENT COMPARISON: 09/23/2021 FINDINGS: Single frontal view of the chest demonstrates normal heart size and pulmonary vascularity. The lungs are well aerated and clear. No large pleural effusion or pneumothorax is seen. The visualized osseous structures show no acute abnormalities. IMPRESSION: 1. No acute cardiopulmonary process. Dictated by: Dictated on workstation # [id number]
[2022-01-09 07:42] LABS: BILIRUBIN,URINE NEGATIVE (NEGATIVE); CLARITY,URINE CLEAR; COLOR,URINE YELLOW; GLUCOSE, URINE (UA) 2+ (NEGATIVE); KETONES,URINE NEGATIVE (NEGATIVE); LEUKOCYTE ESTERASE ,URINE NEGATIVE (NEGATIVE); NITRITE,URINE NEGATIVE (NEGATIVE); PROTEIN,URINE TRACE (NEGATIVE)
[2022-01-09 07:49] LABS: ALBUMIN 4.2 GM/DL (3.2-4.5); POTASSIUM 3.5 MMOL/L (3.6-5.0)
[2022-01-09 07:50] LABS: CALCIUM 9.4 MG/DL (8.5-10.1)
[2022-01-09 07:51] LABS: TOTAL PROTEIN 7.5 GM/DL (6.4-8.2)
[2022-01-09 07:53] LABS: BILIRUBIN,TOTAL 0.6 MG/DL (0.1-1.0)
[2022-01-09 07:55] LABS: CREATININE SERUM 0.75 MG/DL (0.60-1.30)
[2022-01-09 08:10] LABS: BACTERIA,URINE MODERATE /HPF
[2022-01-09 08:11] LABS: YEAST,URINE FEW /HPF
[2022-01-09 08:12] LABS: HCG,QUALITATIVE URINE NEGATIVE (NEGATIVE)
[2022-01-09 08:16] LABS: INR 0.9 (0.8-1.4); PROTHROMBIN TIME PATIENT 12.4 SEC (12.2-14.7)
[~2022-01-09 09:00] MED LIST changes: +BECL10.62 IH; +BREX3TAB PO; +BRIN8DRO OP; +BUPR1PAT2 TD; +BUSP10TA95 PO; -CATHETER FLUSH 10 ML SYR IVP PRN; +DUPI300S SQ; +ERGO1250 PO; +FLUT1BLS13 IH; +FLUT200B IH; +HEParin (CATH LAB) 2,000 ML IV ONE; +INSU100V SQ; +INSU100V6 SQ; +IPRA3AMP31 IH; +LATA7.5D OP; +LIDOCAINE 1% INJ 20 ML VIAL ONE; +LISI40TA9 PO; +MEDR10TA PO; +NS IV 1000 ML 1,000 ML IV SCH; +NS IV 1000 ML 1,000 ML ONE; +PRED5TAB PO; +PREG75CA75 PO; +PROP10DR4 OP; -REGADENOSON 0.4 MG/5 ML SYR (LEXISCAN) IV ONE; +VORT20TA PO; +methylPREDNISolone 125 MG (Solu-MEDROL) VIAL ONE
[2022-01-09] MEDS ORDERED: VERAPAMIL 5 MG/2 ML (CALAN) VIAL IV ONE (09:05)
[2022-01-09] MEDS ORDERED: NITRO DRIP 25000 MCG/D5W 250 ML IV ONE (09:05)
[2022-01-09] MEDS ORDERED: fentaNYL INJ 100 MCG/2 ML AMP ONE (09:05)
[2022-01-09] MEDS ORDERED: HEParin 1000 UNIT/ML (10ML VIAL) FOR BOLUS ONE (09:05)
[2022-01-09] MEDS ORDERED: MIDAZOLAM 5 MG/5 ML (VERSED) VIAL ONE (09:05)
--- NOTE | 2022-01-09 09:47 | Conscious Sedation/ASA ---
Conscious Sedation Pre-Proced Time 09:00 ASA Score 3 For ASA 3 and 4: Consider anesthesia and medical clearance. Also, for patients with a history of failed moderate sedation consider anesthesia. Airway Lungs Heart ASA score ASA 1: a normal healthy patient ASA 2: a patient with a mild systemic disease (mid diabetes, controlled hypertension, obesity x ASA 3: a patient with a severe systemic disease that limits activity (angina, COPD, prior Myocardial infarction) ASA 4: a patient with an incapacitating disease that is a constant threat to life (CHF, renal failure) ASA 5: a moribund patient not expected to survive 24 hrs. (ruptured aneurysm) ASA 6: a declared brain- patient whose organs are being harvested. For emergent operations, add the letter E after the classification Mallampati Classification Grade 3 Sedation Plan Analgesia, Amnesia, Plan communicated to team members, Discussed options with patient/fam, Discussed risks with patient/fam The patient is an appropriate candidate to undergo the planned procedure, sedation, and anesthesia. The patient immediately re-assessed prior to indication. SHAINA CALDERON MD January 09, 2022 09:47
--- NOTE | 2022-01-09 09:49 | Discharge Inst-Post CATH ---
Discharge Inst-CATH/EP Problems Reviewed?: Yes Post Cardiac Cath/EP D/C Inst Follow Up/Plan Appointment with Dr. Martinez's office in 2 to 4 weeks <b>CARDIAC CATH/EP PROCEDURE DISCHARGE INSTRUCTIONS</b> ACTIVITY * Go Home directly and rest. * Limit activity of the leg (or wrist if it was used) for 7 days including aer obics, swimming, jogging, bicycling, etc. * Restrict stair-climbing for 7 days if possible, if not, climb up with your non-cath leg, then bring together on the same step. * Avoid lifting, pushing, pulling or excessive movement of the affected extremi ty for 7 days. * Customary sexual activity may be resumed after 2 days-use caution not to use a position that strains or causes pain to the affected extremity. * No driving for 24 hours. * NO SMOKING. * Avoid straining for bowel movements for 7 days. * Gentle walking on level ground is allowed. * Returning to work will depend on the type of procedure and the results. Your doctor will discuss this with you. CALL YOUR DOCTOR FOR ANY OF THE FOLLOWING: *If bleeding from the puncture site occurs- Apply gentle pressure to site with clean cloth and call your doctor or EMS. * If a knot or lump forms under the skin, increases in size, or causes pain. * If bruising appears to be worsening or moving further down your leg instead of disappearing. * Temperature above 101 F. CARE OF YOUR GROIN INCISION; * Bruising or purple discoloration of the skin near the puncture site is common. * You may shower only, no bathtub bathing for 5 days. Be careful to avoid slipping as your leg may feel stiff. * If a closure device was used on your femoral artery, please see the attached guide regarding care of the device and your leg. * Leave dressing on FOR 24 hours. CARE OF YOUR WRIST INCISION; * Bruising or purple discoloration of the skin near the puncture site is common. * You may shower. * DO NOT submerge wrist. * Leave dressing on FOR 24 hours. SHAINA MARTINEZ MD January 09, 2022 09:49
--- NOTE | 2022-01-09 09:53 | Cardiac Cath Report ---
Cardiac Cath Report Physician (s)/Transmission Inspector (s) Physician SHAINA CALDERON MD Pre-Procedure Diagnosis Pre-Procedure Diagnosis: Coronary artery disease Post-Procedure Note Procedure Start Date: January 09, 2022 Name of Procedure: Left heart catheterization Findings/Procedure Note PROCEDURE NOTE: 37-year-old lady with history of hypertension, hyperlipidemia, diabetes mellitus, had an abnormal stress test, scheduled for cardiac catheterization possible PTCA. After explaining the procedure to the patient, all pros and cons were explained, all questions were answered. The patient signed the consent and then she was placed on the cardiac catheterization laboratory. Groin was prepped SL fashion local anesthesia was used. Sheath placed in the right radial artery, [place] catheter was advanced to the left ventricular cavity, pressure was measured, pullback LV to aorta, engaged the right and left coronary system, angiogram was done. At the end of the procedure the sheath was removed. Vascular band was used FINDINGS: Hemodynamics LV 104/16, end-diastolic pressure of 16 Aorta 94/69 mean of 75 ANATOMY: Left Main is free of obstructive disease Left Anterior Descending slightly tortuous with mild disease no significant obstructive disease Left Circumflex is free of obstructive disease Right Coronary Artery is small nondominant artery with no obstructive disease LV Gram was not done, pressure was measured CONCLUSION: 1. Slightly tortuous coronary system with mild disease nonobstructive disease 2. Normal left ventricular end-diastolic pressure DISCUSSION AND RECOMMENDATION: Patient had significant reversible ischemia involving the anterior wall, most probably secondary to breast attenuation. Her coronary anatomy showed very mild disease nonobstructive disease Anesthesia Type: Conscious Sedation Estimated blood loss (mL): 10 ml Contrast Amount: 50 ml Total Radiation Dose: 810 mGy Post-Procedure Diagnosis Post-operative diagnosis: Chest pain Coronary artery disease Hypertension Hyperlipidemia SHAINA CALDERON MD January 09, 2022 09:53
[2022-01-09] MEDS ORDERED: NS IV 1000 ML 1,000 ML IV SCH (10:00)
== END 2022-01-09 12:05 ==
LOC: CATH 09:00 → SDC 10:04 → CATH 12:05
PROVIDERS: ATTEND Internal Medicine Cardiovascular Disease
DX: I25.10 Atherosclerotic heart disease of native coronary artery without angina pectoris (principal); E78.5 Hyperlipidemia, unspecified; E11.9 Type 2 diabetes mellitus without complications; E66.9 Obesity, unspecified; I10 Essential (primary) hypertension; J44.9 Chronic obstructive pulmonary disease, unspecified; J45.998 Other asthma; Z68.44 Body mass index [BMI] 60.0-69.9, adult; Z87.891 Personal history of nicotine dependence; Z79.899 Other long term (current) drug therapy; Z99.81 Dependence on supplemental oxygen; Z79.4 Long term (current) use of insulin; Z79.84 Long term (current) use of oral hypoglycemic drugs
CPT/HCPCS: 71045; 80053; 81000; 84703; 85027; 85610; 85730; 87081; 87088; 93005; 93458; C1894; 36415

== ENCOUNTER 2022-01-31 12:54 | Outpatient (CLI) | payer MEDICAID ==
[~2022-01-31 12:54] MED LIST changes: -HEParin (CATH LAB) 2,000 ML IV ONE; -LIDOCAINE 1% INJ 20 ML VIAL ONE; -NS IV 1000 ML 1,000 ML IV SCH; -NS IV 1000 ML 1,000 ML ONE; -methylPREDNISolone 125 MG (Solu-MEDROL) VIAL ONE
[2022-01-31] MEDS ORDERED: IRON DEXTRAN 25 MG/NS 6.25 ML TOTAL VOLUME IV ONE ×3 (13:15)
[2022-01-31] MEDS ORDERED: IRON DEXTRAN 1,000 MG/NS 250 ML IVPB IV ONE ×2 (13:30)
[2022-01-31 14:00] VITALS: BP 116/69
== END 2022-01-31 16:25 ==
LOC: SDC 12:54
PROVIDERS: ATTEND Pediatrics
DX: D50.9 Iron deficiency anemia, unspecified (principal)
CPT/HCPCS: 96365

== ENCOUNTER → 2022-05-02 | Outpatient (CLI) | payer MEDICAID ==
[~2022-05-02] MED LIST changes: +LEVO750T PO; -LEVO750T39 PO; +POTA-177 PO; -POTA10TA37 PO; +RT-ALBUTEROL SULF 2.5 MG/3 ML PRE-MIX VIAL INH ONE
== END ==
LOC: RT 09:15
PROVIDERS: ATTEND Internal Medicine Critical Care Medicine
DX: J45.50 Severe persistent asthma, uncomplicated (principal)
CPT/HCPCS: 94060; 94726; 94729

== ENCOUNTER 2022-10-04 13:21 | Emergency (ER) | payer MEDICAID ==
[~2022-10-04] VITALS: Ht 172 cm; Wt 134.0 kg
[~2022-10-04 13:21] MED LIST changes: +ALBU8.5H6 INH; -RT-ALBUINH INH; -RT-ALBUTEROL SULF 2.5 MG/3 ML PRE-MIX VIAL INH ONE
[2022-10-04] MEDS ORDERED: NS IV 1000 ML 1,000 ML IV STA (13:44)
[2022-10-04] MEDS ORDERED: fentaNYL INJ 100 MCG/2 ML AMP IVP STA (13:44)
[2022-10-04] MEDS ORDERED: ONDANSETRON 4 MG/2 ML (SDV) Z0FRAN IVP ONE ×2 (13:45→15:15)
[2022-10-04 13:57] LABS: BASOPHILS # (AUTO) 0.1 10^3/uL (0.0-0.1); BASOPHILS % (AUTO) 1 % (0-10); EOSINOPHILS % (AUTO) 9 % (0-10); HEMATOCRIT 36 % (35-52); HEMOGLOBIN 11.7 g/dL (11.5-16.0); LYMPHOCYTES # (AUTO) 2.8 10^3/uL (1.0-4.0); LYMPHOCYTES % (AUTO) 27 % (12-44); MEAN CORPUSCULAR HEMOGLOBIN 27 pg (25-34); MEAN CORPUSCULAR HGB CONC 33 g/dL (32-36); MEAN CORPUSCULAR VOLUME 82 fL (80-99); MEAN PLATELET VOLUME 9.8 fL (9.0-12.2); MONOCYTES # (AUTO) 0.6 10^3/uL (0.0-1.0); MONOCYTES % (AUTO) 5 % (0-12); NEUTROPHILS # (AUTO) 6.1 10^3/uL (1.8-7.8); NEUTROPHILS % (AUTO) 58 % (42-75); PLATELET COUNT 216 10^3/uL (130-400); WHITE BLOOD COUNT 10.5 10^3/uL (4.3-11.0)
[2022-10-04 13:59] LABS: ALBUMIN 4.1 GM/DL (3.2-4.5); POTASSIUM 3.8 MMOL/L (3.6-5.0)
--- NOTE | 2022-10-04 13:59 | ED GI ---
General Chief Complaint: Abdominal/GI Problems Stated Complaint: POST OP VOMITING AND NAUSEA Nursing Triage Note: PT AMB TO RM 6 PT CO OF N/V FOR 3 DAYS, PT HAS RECENTLY HAD GASTRIC SLEEVE ON 08/30/22. PT SENT TO ED BY SURGEON. PT WEARS O2@ 2L PER N/C. Source of Information: Patient Exam Limitations: No Limitations (NIURKA HATCH) History of Present Illness Date Seen by Provider: Oct 04, 2022 Time Seen by Provider: 13:55 Initial Comments Patient is a 37-year-old female who presents to the ED for left upper quadrant abdominal pain with nausea and vomiting. Nausea started on Friday with vomiting on Friday. She reports 10+ episodes daily since Friday. She denies hematemesis. She reports a dull achy pain since Friday to her left upper quadrant with sharp pain right after eating. Has not been able to take her oral medications secondary to not able to keep fluid and food down over the past 48 hours. She states she did have a bowel movement on Friday. History of appendectomy and cholecystectomy. Denies chest pain, shortness of breath, cough, headache, dizziness, dysuria, hematuria. She reports low-grade fever. She had a gastric endoscopy sleeve placed by Dr. Yovany mcdermott on August 30. Has had no issues or pain since. She is currently on 2 L oxygen daily for asthma and COPD. She has diabetic. Has not been able to take her Zofran. Currently on hyoscyamine placed by her GI specialist. (NIURKA HATCH) Allergies and Home Medications Allergies Coded Allergies: cocaine (Verified Allergy, Severe, SOA, 01/04/17) procaine (Verified Allergy, Severe, SOA, 01/04/17) tetracaine (Verified Allergy, Severe, SOA, 01/04/17) allantoin (Verified Allergy, Unknown, 08/22/15) aspirin (Verified Allergy, Unknown, 08/22/15) benzocaine (Verified Allergy, Unknown, 08/22/15) carbamide peroxide (Verified Allergy, Unknown, 08/22/15) proparacaine (Verified Allergy, Unknown, SOA, 01/04/17) Uncoded Allergies: CHLORPROCAINE (Allergy, Severe, SOA, 5/20/17) Patient Home Medication List Home Medication List Reviewed: Yes (NIURKA HATCH) Albuterol Sulfate (Albuterol Sulfate) 2.5 Mg/3 Ml Vial.neb, 2.5 MG NEB Q4H PRN for SHORTNESS OF BREATH, (Reported) Entered as Reported by: SALLIE SANTOS on 05/11/15 0931 Albuterol Sulfate (Ventolin Hfa) 8.5 Gm Hfa.aer.ad, 2 PUFF INH Q4H PRN for SHORTNESS OF BREATH, (Reported) Entered as Reported by: DARIO MIMS on 08/22/15 1500 Beclomethasone Dipropionate (Qvar Redihaler) 80 Mcg/Actuation Hfa.aeroba, 1 PUFF IH BID, (Reported) Entered as Reported by: PA MIRELES on 01/09/22824 Brexpiprazole (Rexulti) 3 Mg Tablet, 3 MG PO HS, (Reported) Entered as Reported by: PA MIRELES on 01/09/22824 Brinzolamide/Brimonidine Tart (Simbrinza 1%-0.2% Eye Drops) 1 %-0.2 % Drops.susp, 1 ML OP TID, (Reported) Entered as Reported by: PA MIRELES on 01/09/22824 Buprenorphine (Butrans) 10 Mcg/Hour Patch.tdwk, 1 EACH TD FRIDAY, (Reported) Entered as Reported by: PA MIRELES on 01/09/22824 Buspirone HCl (Buspirone HCl) 10 Mg Tablet, 10 MG PO TID, (Reported) Entered as Reported by: PA MIRELES on 01/09/22824 Cephalexin (Cephalexin) 500 Mg Tablet, 500 MG PO BID Prescribed by: CASIE PEREZ on 10/04/22 1739 Cetirizine HCl (Cetirizine HCl) 10 Mg Tablet, 10 MG PO DAILY, (Reported) Entered as Reported by: PA MIRELES on 01/09/22824 Dulaglutide (Trulicity) 4.5 Mg/0.5 Ml Pen.injctr, 4.5 MG SQ FRIDAY, (Reported) Entered as Reported by: PA MIRELES on 01/09/22824 Dupilumab (Dupixent) 300 Mg/2 Ml Syringe, 300 MG SQ [id number], (Reported) Entered as Reported by: PA MIRELES on 01/09/22824 Empagliflozin (Jardiance) 10 Mg Tablet, 10 MG PO DAILY, (Reported) Entered as Reported by: PA MIRELES on 01/09/22824 Ergocalciferol (Vitamin D2) (Vitamin D2) 1,250 Mcg (16580 Unit) Capsule, 1,250 MCG PO FRIDAY, (Reported) Entered as Reported by: PA MIRELES on 01/09/22824 Ferrous Gluconate (Ferrous Gluconate) 324 Mg (38 Mg Iron) Tablet, 324 MG PO DAILY, (Reported) Entered as Reported by: PA MIRELES on 01/09/22824 Fluticasone Furoate (Arnuity Ellipta) 200 Mcg Blst.w.dev, 1 PUFF IH DAILY, (Reported) Entered as Reported by: PA MIRELES on 01/09/22824 Fluticasone Propion/Salmeterol (Fluticasone-Salmeterol 500-50) 500 Mcg-50 Mcg/Dose Blst.w.dev, 1 PUFF IH BID, (Reported) Entered as Reported by: PA MIRELES on 01/09/22824 Fluticasone Propionate (Fluticasone Propionate) 16 Gm [place].susp, 1 SPRAYS NS DAILY, (Reported) Entered as Reported by: SALLIE ASNTOS on 05/11/15 0931 Furosemide (Furosemide) 40 Mg Tablet, 40 MG PO DAILY PRN for FLUID RETENTION, (Reported) Entered as Reported by: DARIO MIMS on 06/19/17 1331 Insulin Glargine,Hum.rec.anlog (Lantus) 100 Unit/Ml Vial, 20 UNIT SQ BID, (Reported) Entered as Reported by: PA MIRELES on 01/09/22824 Insulin Lispro (Humalog) 100 Unit/Ml Vial, 60 UNIT SQ BEFORE BREAKFAST, (Reported) Entered as Reported by: PA MIRELES on 01/09/22824 Insulin Lispro (Humalog) 100 Unit/Ml Vial, 40 UNIT SQ BEFORE LUNCH, (Reported) Entered as Reported by: PA MIRELES on 01/09/22824 Insulin Lispro (Humalog) 100 Unit/Ml Vial, 60 UNIT SQ BEFORE DINNER, (Reported) Entered as Reported by: PA MIRELES on 01/09/22824 Ipratropium/Albuterol Sulfate (Iprat-Albut 0.5-3(2.5) mg/3 ml) 0.5 Mg-3 Mg (2.5 Mg Base)/3 Ml Ampul.neb, 3 ML IH Q4H PRN for SHORTNESS OF BREATH, (Reported) Entered as Reported by: PA MIRELES on 01/09/22824 Latanoprost/Pf (Latanoprost 0.005% Eye Drop) 0.005 % Drops, 1 DROP OP BID, (Reported) Entered as Reported by: PA MIRELES on 01/09/22824 Lisinopril (Lisinopril) 40 Mg Tablet, 40 MG PO DAILY, (Reported) Entered as Reported by: PA MIRELES on 01/09/22824 Medroxyprogesterone Acetate (Provera) 10 Mg Tablet, 10 MG PO DAILY, (Reported) Entered as Reported by: PA MIRELES on 01/09/22824 Pantoprazole Sodium (Pantoprazole Sodium) 40 Mg Tablet.dr, 40 MG PO BID, (Reported) Entered as Reported by: PA MIRELES on 01/09/22824 Potassium Chloride (Potassium Chloride) 10 Meq Tab.er.prt, 10 MEQ PO BID, (Reported) Entered as Reported by: PA MIRELES on 01/09/22824 Prednisone (Prednisone) 5 Mg Tablet, 15 MG PO DAILY, (Reported) Entered as Reported by: PA MIRELES on 01/09/22824 Pregabalin (Pregabalin) 75 Mg Capsule, 75 MG PO TID, (Reported) Entered as Reported by: PA MIRELES on 01/09/22824 Promethazine HCl (Promethazine Tablet) 25 Mg Tablet, 25 MG PO Q6H PRN for NAUSEA /VOMITING Prescribed by: CASIE PEREZ on 10/04/22 4298 Propylene Glycol/Peg 400 (Systane Gel Eye Drops) 0.3 %-0.4 % Drops.gel, 1 DROP OP DAILY PRN for DRY EYES, (Reported) Entered as Reported by: PA MIRELES on 01/09/22824 Vortioxetine Hydrobromide (Trintellix) 20 Mg Tablet, 20 MG PO HS, (Reported) Entered as Reported by: PA MIRELES on 01/09/22824 Review of Systems Review of Systems Constitutional: No chills, No diaphoresis; fever; No malaise, No weakness EENTM: No Double Vision, No Eye Pain Respiratory: Denies Cough, Denies Orthopnea Cardiovascular: Denies Chest Pain, Denies Edema Gastrointestinal: Abdominal Pain; Denies Constipated, Denies Diarrhea; Nausea, Vomiting Genitourinary: Denies Burning Musculoskeletal: No back pain, No joint pain, No muscle pain, No muscle stiffness Skin: No change in color, No change in hair/nails Psychiatric/Neurological: Denies Anxiety, Denies Depressed (NIURKA HATCH) All Other Systems Reviewed Negative Unless Noted: Yes (NIURKA HATCH) Past Dcliwyq-Aflwpg-Ucojwh Hx Patient Social History Tobacco Use?: No Substance use?: No Alcohol Use?: No Pt feels they are or have been: No (NIURKA HATCH) Immunizations Up To Date Tetanus Booster (TDap): Unknown PED Vaccines UTD: Yes Influenza Vaccine Up-to-Date: Yes; Up-to-Date First/Initial COVID19 Vaccinat: 2020 Second COVID19 Vaccination Chris: 2020 Third COVID19 Vaccination Date: 2020 (NIURKA HATCH) Seasonal Allergies Seasonal Allergies: Yes (NIURKA HATCH) Past Medical History Surgery/Hospitalization HX: right hip surgery x 3, trach history, gallbladder, GASTRIC SLEEVE History of COPD Asthma, Chronic hypoxia- patient is on oxygen at 3 LPM via NC at all times Surgeries: Yes (Tracheostomy, RT HIP) Appendectomy, Gallbladder, Orthopedic, Tonsillectomy, Tracheostomy Respiratory: Yes Asthma, Chronic Bronchitis, COPD Currently Using CPAP: No Currently Using BIPAP: No Cardiac: Yes (History of symptomatic bradycardia) Hypertension Neurological: Yes Headaches /Migraines Reproductive Disorders: Yes Female Reproductive Disorders: Polycystic 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 Sexually Transmitted Disease: No HIV/AIDS: No Genitourinary: No Gastrointestinal: Yes Gastroesophageal Reflux, Gastrointestinal Bleed Musculoskeletal: Yes (Degenerative Joint Disease) Arthritis, Rheumatoid Arthritis Endocrine: Yes (And morbid obesity) Diabetes, Insulin dep HEENT: No Loss of Vision: Denies Hearing Impairment: Denies Cancer: No Psychosocial: Yes (manic depression, insomnia) Anxiety, Depression Integumentary: No Blood Disorders: No Adverse Reaction/Blood Tranf: No (NIURKA HATCH) Family Medical History Diabetes mellitus 19 MOTHER G8 SISTER Diabetes (NIURKA HATCH) Physical Exam Vital Signs Vital Signs - First Documented 10/04/22 13:32 Temp 36.6 Pulse 104 Resp 22 B/P (MAP) 169/103 (125) Pulse Ox 99 O2 Delivery Nasal Cannula O2 Flow Rate 2.00 (BRIT MARCUM MD) Vital Signs Capillary Refill : Less Than 3 Seconds (NIURKA HATCH) Height/Weight/BMI Height: 5'9.00" Weight: 333lbs. 15.6oz. 151.846804sw; 45.00 BMI Method:Actual General Appearance: WD/WN, no apparent distress HEENT: PERRL/EOMI, normal ENT inspection, TMs normal, pharynx normal Neck: non-tender, full range of motion, supple, normal inspection Respiratory: chest non-tender, lungs clear, normal breath sounds, no respiratory distress, no accessory muscle use Cardiovascular: regular rate, rhythm, no edema, no gallop, no JVD Gastrointestinal: soft, no organomegaly, tenderness (Left upper quadrant tenderness.) Extremities: normal range of motion, non-tender, normal inspection, no pedal edema, no calf tenderness Back: normal inspection, no CVA tenderness, no vertebral tenderness 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 II-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 nml as tested, no motor/sensory deficits, alert, normal mood/affect, oriented x 3 Skin: normal color, warm/dry (NIURKA HATCH) Progress/Results/Core Measures Results/Orders Lab Results Laboratory Tests Test 10/04/22 13:37 10/04/22 15:35 Range/Units White Blood Count 10.5 4.3-11.0 10^3/uL Red Blood Count 4.35 3.80-5.11 10^6/uL Hemoglobin 11.7 11.5-16.0 g/dL Hematocrit 36 35-52 % Mean Corpuscular Volume 82 80-99 fL Mean Corpuscular Hemoglobin 27 25-34 pg Mean Corpuscular Hemoglobin Concent 33 32-36 g/dL Red Cell Distribution Width 17.0 H 10.0-14.5 % Platelet Count 216 130-400 10^3/uL Mean Platelet Volume 9.8 9.0-12.2 fL Immature Granulocyte % (Auto) 1 % Neutrophils (%) (Auto) 58 42-75 % Lymphocytes (%) (Auto) 27 12-44 % Monocytes (%) (Auto) 5 0-12 % Eosinophils (%) (Auto) 9 0-10 % Basophils (%) (Auto) 1 0-10 % Neutrophils # (Auto) 6.1 1.8-7.8 10^3/uL Lymphocytes # (Auto) 2.8 1.0-4.0 10^3/uL Monocytes # (Auto) 0.6 0.0-1.0 10^3/uL Eosinophils # (Auto) 1.0 H 0.0-0.3 10^3/uL Basophils # (Auto) 0.1 0.0-0.1 10^3/uL Immature Granulocyte # (Auto) 0.1 0.0-0.1 10^3/uL Sodium Level 139 135-145 MMOL/L Potassium Level 3.8 3.6-5.0 MMOL/L Chloride Level 105 98-107 MMOL/L Carbon Dioxide Level 24 21-32 MMOL/L Anion Gap 10 5-14 MMOL/L Blood Urea Nitrogen 5 L 7-18 MG/DL Creatinine 0.65 0.60-1.30 MG/DL Estimat Glomerular Filtration Rate 117 BUN/Creatinine Ratio 8 Glucose Level 83 70-105 MG/DL Calcium Level 9.2 8.5-10.1 MG/DL Corrected Calcium 9.1 8.5-10.1 MG/DL Total Bilirubin 0.8 0.1-1.0 MG/DL Aspartate Amino Transf (AST/SGOT) 17 5-34 U/L Alanine Aminotransferase (ALT/SGPT) 22 0-55 U/L Alkaline Phosphatase 64 40-136 U/L Total Protein 7.5 6.4-8.2 GM/DL Albumin 4.1 3.2-4.5 GM/DL Lipase 24 8-78 U/L Urine Color YELLOW Urine Clarity SL CLOUDY Urine pH 6.0 5-9 Urine Specific [place] 1.015 L 1.016-1.022 Urine Protein NEGATIVE NEGATIVE Urine Glucose (UA) NEGATIVE NEGATIVE Urine Ketones 3+ H NEGATIVE Urine Nitrite NEGATIVE NEGATIVE Urine Bilirubin 1+ H NEGATIVE Urine Urobilinogen 0.2 < = 1.0 MG/DL Urine Leukocyte Esterase 2+ H NEGATIVE Urine RBC (Auto) NEGATIVE NEGATIVE Urine RBC 0-2 /HPF Urine WBC 5-10 H /HPF Urine Squamous Epithelial Cells 25-50 H /HPF Urine Crystals PRESENT H /LPF Urine Amorphous Sediment FEW GERONIMO URATES H /LPF Urine Bacteria MODERATE H /HPF Urine Casts NONE /LPF Urine Mucus LARGE H /LPF Urine Culture Indicated YES Urine Opiates Screen POSITIVE H NEGATIVE Urine Oxycodone Screen NEGATIVE NEGATIVE Urine Methadone Screen NEGATIVE NEGATIVE Urine Propoxyphene Screen NEGATIVE NEGATIVE Urine Barbiturates Screen NEGATIVE NEGATIVE Ur Tricyclic Antidepressants Screen NEGATIVE NEGATIVE Urine Phencyclidine Screen NEGATIVE NEGATIVE Urine Amphetamines Screen NEGATIVE NEGATIVE Urine Methamphetamines Screen NEGATIVE NEGATIVE Urine Benzodiazepines Screen NEGATIVE NEGATIVE Urine Cocaine Screen NEGATIVE NEGATIVE Urine Cannabinoids Screen NEGATIVE NEGATIVE (BRIT MARCUM MD) Vital Signs/I&O 10/04/22 10/04/22 13:32 17:50 Temp 36.6 36.4 Pulse 104 87 Resp 22 18 B/P (MAP) 169/103 (125) 146/82 Pulse Ox 99 97 O2 Delivery Nasal Cannula Room Air O2 Flow Rate 2.00 (BRIT MARCUM MD) Blood Pressure Mean: 125 Departure Communication (PCP) Patient with normal white blood count. Kidney function normal. She does not appear severely dehydrated. Normal electrolytes. Patient with few episodes of vomiting here. Nonbilious without blood. She does have left upper quadrant Don moises pain. Patient was recommended to come to ED for further evaluation concern for obstruction versus narrowing from the gastric sleeve placed last month by Yovany Mcdermott. Oral contrast was provided. CT abdomen pelvis was negative for acute obstruction or acute abdomen. Noted 12 cm cyst of the left ovary concern for cystadenoma. Outpatient ultrasound follow-up. Patient was given Zofran initially with few episodes of vomiting. Was given Phenergan with improvement. She was given morphine for pain improvement. She was given a liter of fluid. Patient was tolerating p.o. fluids at bedside. Discussed all results with patient. Discussed potential etiologies such as GERD, ulcer, dumping syndrome, change in diet, overeating, food intolerance. Recommend oral hydration and clear liquids for the next 48 hours. If no vomiting recommend increasing the diet. Recommend following up with your GI specialist. discuss PPI as well. Urinalysis was concerning for urinary tract infection. Will discharge with Keflex. Urinalysis culture pending. Return precaution were discussed with patient. Pain-free at this time. (NIURKA HATCH) Impression Primary Impression: Vomiting Additional Impression: UTI (urinary tract infection) Disposition: HOME, SELF-CARE Condition: Stable Departure-Patient Inst. Decision time for Depature: 17:37 (NIURKA HATCH) Referrals: DEBBIE SIBLEY MD (PCP/Family) Primary Care Physician Patient Instructions: Nausea and Vomiting, Adult (DC) Add. Discharge Instructions: Recommend following up with your GI specialist for further evaluation. Continue with Phenergan for nausea and vomiting. Clear liquids for the next 24 to 48 hours and then increase bland diet. Return back to ED if symptoms worsen All discharge instructions reviewed with patient and/or family. Voiced understanding. Scripts Cephalexin (Cephalexin) 500 Mg Tablet 500 MG PO BID for 7 Days, #14 TAB Prov: NIURKA HATCH 10/04/22 Promethazine HCl (Promethazine Tablet) 25 Mg Tablet 25 MG PO Q6H PRN for NAUSEA/VOMITING, #14 TAB Prov: NIURKA HATCH 10/04/22 ATTENDING PHYSICIAN NOTE: I was physically present as attending physician in the emergency department during the care of this patient, but I was not directly involved in the decision making or delivery of care for this patient. (BRIT MARCUM MD) NIURKA HATCH Oct 04, 2022 13:59 BRIT MARCUM MD Oct 06, 2022 06:27
[2022-10-04 14:00] LABS: CALCIUM 9.2 MG/DL (8.5-10.1)
[2022-10-04 14:01] LABS: TOTAL PROTEIN 7.5 GM/DL (6.4-8.2)
[2022-10-04 14:03] LABS: BILIRUBIN,TOTAL 0.8 MG/DL (0.1-1.0)
[2022-10-04 14:05] LABS: CREATININE SERUM 0.65 MG/DL (0.60-1.30)
[2022-10-04] MEDS ORDERED: DIATRIZOATE MEGLUM/SODIUM 37% 120 ML (GASTROGRAFIN) PO ONE (15:00)
[2022-10-04] MEDS ORDERED: morphine INJ 10 MG/ML 1ML (SYR OR VIAL) IVP ONE (15:15)
--- NOTE | 2022-10-04 15:39 | Diagnostic Imaging Report ---
CT ABDOMEN/PELVIS WO TECHNIQUE: Unenhanced CT imaging of the abdomen and pelvis was performed. 2-D reformats are created and submitted for interpretation. Automatic exposure controls were utilized to optimize patient dose. INDICATION: Left upper quadrant pain. Recent gastric sleeve procedure. COMPARISON: CT abdomen and pelvis from 04/24/2019 FINDINGS: Lower chest: The lung bases are clear. No pericardial or pleural effusion. Peritoneum: No free intraperitoneal air or fluid. Liver and biliary system: Liver is enlarged measuring 20 cm. There is no focal abnormality of the liver. Cholecystectomy. No biliary ductal dilatation. Spleen and Pancreas: Spleen is normal. Unenhanced pancreas is grossly normal. Adrenals: Normal. tract: No renal or ureteral calculi. No obstructive uropathy. There is a 12 x 11 cm cystic structure arising from the left adnexa and located in the midline of the pelvis, anterior to the uterus. Uterus is normal in appearance. GI tract: Stomach is filled with contrast material which does not extend beyond the margins to indicate gastric leak. There are surgical clips along the anterior margin of the stomach from recent gastric sleeve surgery. No bowel obstruction. No pericolonic inflammatory changes. Appendix is not seen and could be surgically absent. Vasculature and Lymph nodes: Normal caliber aorta. No abdominal or pelvic lymphadenopathy. Musculoskeletal: Right hip total arthroplasty. No concerning osseous abnormality. IMPRESSION: 1. No perforation or leak from the stomach after gastric sleeve surgery. 2. No bowel obstruction. 3. Large simple cystic mass arises from the left ovary and measures up to 12 cm. This is likely a cystadenoma. Nonemergent gynecology consultation is advised for further management. Dictated by: Dictated on workstation # [id number]
[2022-10-04 15:45] LABS: CLARITY,URINE SL CLOUDY; COLOR,URINE YELLOW; GLUCOSE, URINE (UA) NEGATIVE (NEGATIVE); KETONES,URINE 3+ (NEGATIVE); LEUKOCYTE ESTERASE ,URINE 2+ (NEGATIVE); NITRITE,URINE NEGATIVE (NEGATIVE); PROTEIN,URINE NEGATIVE (NEGATIVE)
[2022-10-04 16:03] LABS: RBC,URINE 0-2 /HPF
[2022-10-04 16:04] LABS: SQUAMOUS EPITHELIAL CELL,UR 25-50 /HPF
[2022-10-04 16:05] LABS: AMORPHOUS SEDIMENT,UR FEW AMOR URATES /LPF; BACTERIA,URINE MODERATE /HPF
[2022-10-04] MEDS ORDERED: PROMETHAZINE INJ 25 MG/ML (PHENERGAN) AMP IVP ONE (16:15)
[2022-10-04] MEDS ORDERED: PROM25TA14 PO (17:38)
[2022-10-04] MEDS ORDERED: CEPH500T PO (17:39)
[2022-10-04 17:50] VITALS: BP 146/82
[2022-10-04 18:06] LABS: AMPHETAMINE SCREEN, URINE NEGATIVE (NEGATIVE); BARBITURATE SCREEN URINE NEGATIVE (NEGATIVE); BENZODIAZEPINES SCREEN URINE NEGATIVE (NEGATIVE); CANNABINOID SCREEN, URINE NEGATIVE (NEGATIVE); COCAINE SCREEN URINE NEGATIVE (NEGATIVE); METHADONE STAT NEGATIVE (NEGATIVE); OPIATE SCREEN URINE POSITIVE (NEGATIVE); OXYCODONE STAT NEGATIVE (NEGATIVE); PROPOXYPHENE STAT NEGATIVE (NEGATIVE); TRICYCLIC ANTIDEPRESSANTS SCRE NEGATIVE (NEGATIVE)
[2022-10-05 11:09] LABS: BILIRUBIN,URINE 1+ (NEGATIVE)
== END 2022-10-04 17:50 | disposition home or self-care (01) ==
LOC: EDUNIT# 13:21 → ER 13:23
DX: N39.0 Urinary tract infection, site not specified (principal); J44.9 Chronic obstructive pulmonary disease, unspecified; J45.909 Unspecified asthma, uncomplicated; E66.01 Morbid (severe) obesity due to excess calories; Z68.42 Body mass index [BMI] 45.0-49.9, adult; Z90.49 Acquired absence of other specified parts of digestive tract; Z99.81 Dependence on supplemental oxygen
CPT/HCPCS: 36415; 74176; 80053; 80306; 81000; 83690; 85025; 87088

== ENCOUNTER → 2022-10-31 | Outpatient (CLI) | payer MEDICAID ==
[~2022-10-31] MED LIST changes: +CEPH500T PO; +LIDO15SO6 MM; -LIDO20SO23 MM; +PROM25TA14 PO
--- NOTE | 2022-10-31 13:18 | Diagnostic Imaging Report ---
PROCEDURE: Pelvic comp/transvaginal sonogram. TECHNIQUE: Complete transabdominal and transvaginal pelvic ultrasound was performed. In addition, limited pelvic Doppler was performed. INDICATION: Ovarian cyst. Uterus is anteverted measuring 8.5 x 5.3 x 5.3 cm. Endometrium is 9 mm in thickness. No myometrial mass is identified. The ovaries could not be definitely visualized, however, there is a large cystic structure in the left adnexa measuring 11.1 x 12.6 x 12.2 cm. No definite of nodularity or soft tissue component to the cyst is seen. No abnormal vascularity with color Doppler is seen. There is no free fluid. IMPRESSION: A large cystic mass in the midline to left pelvis correlating with CT abnormality. While no definite normal ovarian tissue is identified this likely ovarian in origin. No other significant abnormality is seen. Continued follow-up would be recommended to confirm clearing. Dictated by: Dictated on workstation # [id number]
== END ==
LOC: RAD 12:00
PROVIDERS: ATTEND Obstetrics & Gynecology
DX: N94.89 Other specified conditions associated with female genital organs and menstrual cycle (principal)
CPT/HCPCS: 76830; 76856

== ENCOUNTER 2022-12-07 15:02 | Emergency (ER) | payer MEDICAID ==
[~2022-12-07] VITALS: Ht 172 cm; Wt 125.0 kg
[~2022-12-07 15:02] MED LIST changes: +MONT-47 PO; -MONT10TA21 PO
--- NOTE | 2022-12-07 15:33 | ED General ---
General Stated Complaint: LEFT SIDE ABDOMINAL PAIN Source of Information: Patient Exam Limitations: No Limitations History of Present Illness Date Seen by Provider: Dec 07, 2022 Time Seen by Provider: 15:30 Initial Comments Patient is a 37-year-old female with a history of severe asthma/COPD chronically oxygen dependent on 2 L per nasal cannula presents to the emergency room with severe lower abdominal cramping. Patient states that it started after she went to the bathroom about an hour prior to arrival. She has taken Tylenol without relief of symptoms. She reports that she has a 12 cm left ovarian cyst that she is following up with Dr. Garcia about. She is awaiting medical clearance to have surgery with him. She denies fevers or chills. She is nauseous. No diarrhea. No dysuria urgency or frequency. She is on day 3 of her menstrual cycle. She has had previous appendectomy cholecystectomy. She states walking makes the pain much worse. She states she has not been prescribed any pain medication for it. Timing/Duration: 1-2 Days Severity: Severe Modifying Factors: worse with Movement Associated Systoms: Nausea/Vomiting (Nausea) Allergies and Home Medications Allergies Coded Allergies: cocaine (Verified Allergy, Severe, SOA, 01/04/17) procaine (Verified Allergy, Severe, SOA, 01/04/17) tetracaine (Verified Allergy, Severe, SOA, 01/04/17) allantoin (Verified Allergy, Unknown, 08/22/15) aspirin (Verified Allergy, Unknown, 08/22/15) benzocaine (Verified Allergy, Unknown, 08/22/15) carbamide peroxide (Verified Allergy, Unknown, 08/22/15) proparacaine (Verified Allergy, Unknown, SOA, 01/04/17) Uncoded Allergies: CHLORPROCAINE (Allergy, Severe, SOA, 01/04/17) Patient Home Medication List Home Medication List Reviewed: Yes Albuterol Sulfate (Albuterol Sulfate) 2.5 Mg/3 Ml Vial.neb, 2.5 MG NEB Q4H PRN for SHORTNESS OF BREATH, (Reported) Entered as Reported by: SALLIE SANTOS on 05/11/15 0931 Albuterol Sulfate (Ventolin Hfa) 8.5 Gm Hfa.aer.ad, 2 PUFF INH Q4H PRN for SHORTNESS OF BREATH, (Reported) Entered as Reported by: DARIO MIMS on 08/22/15 1500 Beclomethasone Dipropionate (Qvar Redihaler) 80 Mcg/Actuation Hfa.aeroba, 1 PUFF IH BID, (Reported) Entered as Reported by: PA MIRELES on 01/09/22824 Brexpiprazole (Rexulti) 3 Mg Tablet, 3 MG PO HS, (Reported) Entered as Reported by: PA MIRELES on 01/09/22824 Brinzolamide/Brimonidine Tart (Simbrinza 1%-0.2% Eye Drops) 1 %-0.2 % Drops.susp, 1 ML OP TID, (Reported) Entered as Reported by: PA MIRELES on 01/09/22824 Buprenorphine (Butrans) 10 Mcg/Hour Patch.tdwk, 1 EACH TD FRIDAY, (Reported) Entered as Reported by: PA MIRELES on 01/09/22824 Buspirone HCl (Buspirone HCl) 10 Mg Tablet, 10 MG PO TID, (Reported) Entered as Reported by: PA MIRELES on 01/09/22824 Cephalexin (Cephalexin) 500 Mg Tablet, 500 MG PO BID Prescribed by: CASIE PEREZ on 10/04/22 1739 Cetirizine HCl (Cetirizine HCl) 10 Mg Tablet, 10 MG PO DAILY, (Reported) Entered as Reported by: PA MIRELES on 01/09/22824 Dulaglutide (Trulicity) 4.5 Mg/0.5 Ml Pen.injctr, 4.5 MG SQ FRIDAY, (Reported) Entered as Reported by: PA IMRELES on 01/09/22824 Dupilumab (Dupixent) 300 Mg/2 Ml Syringe, 300 MG SQ [id number], (Reported) Entered as Reported by: PA MIRELES on 01/09/22824 Empagliflozin (Jardiance) 10 Mg Tablet, 10 MG PO DAILY, (Reported) Entered as Reported by: PA MIRELES on 01/09/22824 Ergocalciferol (Vitamin D2) (Vitamin D2) 1,250 Mcg (59555 Unit) Capsule, 1,250 MCG PO FRIDAY, (Reported) Entered as Reported by: PA MIRELES on 01/09/22824 Ferrous Gluconate (Ferrous Gluconate) 324 Mg (38 Mg Iron) Tablet, 324 MG PO DAILY, (Reported) Entered as Reported by: PA MIRELES on 01/09/22824 Fluticasone Furoate (Arnuity Ellipta) 200 Mcg Blst.w.dev, 1 PUFF IH DAILY, (Reported) Entered as Reported by: PA MIRELES on 01/09/22824 Fluticasone Propion/Salmeterol (Fluticasone-Salmeterol 500-50) 500 Mcg-50 Mcg/Dose Blst.w.dev, 1 PUFF IH BID, (Reported) Entered as Reported by: PA MIRELES on 01/09/22824 Fluticasone Propionate (Fluticasone Propionate) 16 Gm Uehling.susp, 1 SPRAYS NS DAILY, (Reported) Entered as Reported by: SALLIE SANTOS on 05/11/15 0931 Furosemide (Furosemide) 40 Mg Tablet, 40 MG PO DAILY PRN for FLUID RETENTION, (Reported) Entered as Reported by: DARIO MIMS on 06/19/17 1331 Insulin Glargine,Hum.rec.anlog (Lantus) 100 Unit/Ml Vial, 20 UNIT SQ BID, (Reported) Entered as Reported by: PA MIRELES on 01/09/22824 Insulin Lispro (Humalog) 100 Unit/Ml Vial, 60 UNIT SQ BEFORE BREAKFAST, (Reported) Entered as Reported by: PA MIRELES on 01/09/22824 Insulin Lispro (Humalog) 100 Unit/Ml Vial, 40 UNIT SQ BEFORE LUNCH, (Reported) Entered as Reported by: PA MIRELES on 01/09/22824 Insulin Lispro (Humalog) 100 Unit/Ml Vial, 60 UNIT SQ BEFORE DINNER, (Reported) Entered as Reported by: PA MIRELES on 01/09/22824 Ipratropium/Albuterol Sulfate (Iprat-Albut 0.5-3(2.5) mg/3 ml) 0.5 Mg-3 Mg (2.5 Mg Base)/3 Ml Ampul.neb, 3 ML IH Q4H PRN for SHORTNESS OF BREATH, (Reported) Entered as Reported by: PA MIRELES on 01/09/22824 Latanoprost/Pf (Latanoprost 0.005% Eye Drop) 0.005 % Drops, 1 DROP OP BID, (Reported) Entered as Reported by: PA MIRELES on 01/09/22824 Lisinopril (Lisinopril) 40 Mg Tablet, 40 MG PO DAILY, (Reported) Entered as Reported by: PA MIRELES on 01/09/22824 Medroxyprogesterone Acetate (Provera) 10 Mg Tablet, 10 MG PO DAILY, (Reported) Entered as Reported by: PA MIRELES on 01/09/22824 Pantoprazole Sodium (Pantoprazole Sodium) 40 Mg Tablet.dr, 40 MG PO BID, (Reported) Entered as Reported by: PA MIRELES on 01/09/22824 Potassium Chloride (Potassium Chloride) 10 Meq Tab.er.prt, 10 MEQ PO BID, (Reported) Entered as Reported by: PA MIRELES on 01/09/22824 Prednisone (Prednisone) 5 Mg Tablet, 15 MG PO DAILY, (Reported) Entered as Reported by: PA MIRELES on 01/09/22824 Pregabalin (Pregabalin) 75 Mg Capsule, 75 MG PO TID, (Reported) Entered as Reported by: PA MIRELES on 01/09/22824 Promethazine HCl (Promethazine Tablet) 25 Mg Tablet, 25 MG PO Q6H PRN for NAUSEA/VOMITING Prescribed by: CASIE PEREZ on 10/04/22 4398 Propylene Glycol/Peg 400 (Systane Gel Eye Drops) 0.3 %-0.4 % Drops.gel, 1 DROP OP DAILY PRN for DRY EYES, (Reported) Entered as Reported by: PA MIRELES on 01/09/22824 Vortioxetine Hydrobromide (Trintellix) 20 Mg Tablet, 20 MG PO HS, (Reported) Entered as Reported by: PA MIRELES on 01/09/22824 Review of Systems Review of Systems Constitutional: see HPI EENTM: no symptoms reported Respiratory: no symptoms reported Cardiovascular: no symptoms reported Gastrointestinal: abdominal pain, nausea Genitourinary: no symptoms reported LMP: Dec 05, 2022 Musculoskeletal: no symptoms reported Skin: no symptoms reported Past Nzfffio-Itakna-Cnqkmw Hx Immunizations Up To Date Tetanus Booster (TDap): Unknown PED Vaccines UTD: Yes First/Initial COVID19 Vaccinat: 2020 Second COVID19 Vaccination Chris: 2020 Third COVID19 Vaccination Date: 2020 Seasonal Allergies Seasonal Allergies: Yes Past Medical History Surgery/Hospitalization HX: right hip surgery x 3, trach history, gallbladder, GASTRIC SLEEVE History of COPD Asthma, Chronic hypoxia- patient is on oxygen at 3 LPM via NC at all times Surgeries: Yes (Tracheostomy, RT HIP) Appendectomy, Gallbladder, Orthopedic, Tonsillectomy, Tracheostomy Respiratory: Yes Asthma, Chronic Bronchitis, COPD Currently Using CPAP: No Currently Using BIPAP: No Cardiac: Yes (History of symptomatic bradycardia) Hypertension Neurological: Yes Headaches /Migraines Reproductive Disorders: Yes Female Reproductive Disorders: Polycystic Ovarian Dis ENGAGEMENT LEAD History: IUD Sexually Transmitted Disease: No HIV/AIDS: No Genitourinary: No Gastrointestinal: Yes Gastroesophageal Reflux, Gastrointestinal Bleed Musculoskeletal: Yes (Degenerative Joint Disease) Arthritis, Rheumatoid Arthritis Endocrine: Yes (And morbid obesity) Diabetes, Insulin dep HEENT: No Loss of Vision: Denies Hearing Impairment: Denies Cancer: No Psychosocial: Yes (manic depression, insomnia) Anxiety, Depression Integumentary: No Blood Disorders: No Adverse Reaction/Blood Tranf: No Family Medical History Diabetes mellitus 19 MOTHER G8 SISTER Diabetes Physical Exam Vital Signs Vital Signs - First Documented 12/07/22 15:15 Temp 36.4 Pulse 111 Resp 24 B/P (MAP) 138/86 (103) Pulse Ox 98 O2 Delivery Nasal Cannula O2 Flow Rate 2.00 Capillary Refill : Height, Weight, BMI Height: 5'9.00" Weight: 333lbs. 15.6oz. 151.015525bk; 45.00 BMI Method:Actual General Appearance: WD/WN, Mild Distress, Obese HEENT: PERRL/EOMI Neck: Normal Inspection Respiratory: Lungs Clear, Normal Breath Sounds, No Accessory Muscle Use, No Respiratory Distress Cardiovascular: Regular Rate, Rhythm Gastrointestinal: Soft, Tenderness (Diffuse lower abdominal tenderness without rebound.), Other (Negative heeltap) Back: Normal Inspection Extremity: Normal Capillary Refill, Normal Inspection, Normal Range of Motion Neurologic/Psychiatric: Alert, Oriented x3, Normal Mood/Affect Skin: Normal Color, Warm/Dry Progress/Results/Core Measures Suspected Sepsis SIRS Temperature: Pulse: Respiratory Rate: Laboratory Tests 12/07/22 15:24: White Blood Count 12.8H Blood Pressure / Mean: Laboratory Tests 12/07/22 15:24: Creatinine 0.69, Platelet Count 272 Results/Orders Lab Results Laboratory Tests Test 12/07/22 15:24 12/07/22 16:13 Range/Units White Blood Count 12.8 H 4.3-11.0 10^3/uL Red Blood Count 4.49 3.80-5.11 10^6/uL Hemoglobin 11.9 11.5-16.0 g/dL Hematocrit 37 35-52 % Mean Corpuscular Volume 82 80-99 fL Mean Corpuscular Hemoglobin 27 25-34 pg Mean Corpuscular Hemoglobin Concent 32 32-36 g/dL Red Cell Distribution Width 15.4 H 10.0-14.5 % Platelet Count 272 130-400 10^3/uL Mean Platelet Volume 10.6 9.0-12.2 fL Immature Granulocyte % (Auto) 0 % Neutrophils (%) (Auto) 77 H 42-75 % Lymphocytes (%) (Auto) 13 12-44 % Monocytes (%) (Auto) 4 0-12 % Eosinophils (%) (Auto) 5 0-10 % Basophils (%) (Auto) 0 0-10 % Neutrophils # (Auto) 9.9 H 1.8-7.8 X 10^3 Lymphocytes # (Auto) 1.7 1.0-4.0 X 10^3 Monocytes # (Auto) 0.5 0.0-1.0 X 10^3 Eosinophils # (Auto) 0.6 H 0.0-0.3 10^3/uL Basophils # (Auto) 0.1 0.0-0.1 10^3/uL Immature Granulocyte # (Auto) 0.0 0.0-0.1 10^3/uL Sodium Level 141 135-145 MMOL/L Potassium Level 3.4 L 3.6-5.0 MMOL/L Chloride Level 105 98-107 MMOL/L Carbon Dioxide Level 23 21-32 MMOL/L Anion Gap 13 5-14 MMOL/L Blood Urea Nitrogen 7 7-18 MG/DL Creatinine 0.69 0.60-1.30 MG/DL Estimat Glomerular Filtration Rate 115 BUN/Creatinine Ratio 10 Glucose Level 105 70-105 MG/DL Calcium Level 9.6 8.5-10.1 MG/DL Urine Color LEWIS H Urine Clarity CLOUDY Urine pH 6.0 5-9 Urine Specific [place] 1.015 L 1.016-1.022 Urine Protein TRACE H NEGATIVE Urine Glucose (UA) 2+ H NEGATIVE Urine Ketones 2+ H NEGATIVE Urine Nitrite NEGATIVE NEGATIVE Urine Bilirubin 1+ H NEGATIVE Urine Urobilinogen 0.2 < = 1.0 MG/DL Urine Leukocyte Esterase NEGATIVE NEGATIVE Urine RBC (Auto) 3+ H NEGATIVE Urine RBC 50-100 H /HPF Urine WBC NONE /HPF Urine Squamous Epithelial Cells 5-10 /HPF Urine Crystals NONE /LPF Urine Bacteria NEGATIVE /HPF Urine Casts NONE /LPF Urine Mucus NEGATIVE /LPF Urine Culture Indicated NO My Orders Orders - LIANE RIVERA MD Ed Iv/Invasive Line Start (12/07/22 15:44) Cbc With Automated Diff (12/07/22 15:44) Basic Metabolic Panel (12/07/22 15:44) Ua Culture If Indicated (12/07/22 15:44) Urine Bedside (12/07/22 15:44) Fentanyl Inj (Sublimaze Injection) (12/07/22 15:45) Ondansetron Injection (Zofran Injectio (12/07/22 15:45) Hydrocodone/Apap 7.5/325 Tab (Lortab 7. (12/07/22 17:00) Medications Given in ED Current Medications Medications Dose Ordered Sig/Malick Route Start Time Stop Time Status Last Admin Dose Admin Acetaminophen/ Hydrocodone Bitart 1 ea ONCE ONCE PO 12/07/22 17:00 12/07/22 17:01 DC 12/07/22 17:02 1 EA Fentanyl Citrate 50 mcg ONCE ONCE IVP 12/07/22 15:45 12/07/22 15:46 DC 12/07/22 16:00 50 MCG Ondansetron HCl 8 mg ONCE ONCE IVP 12/07/22 15:45 12/07/22 15:46 DC 12/07/22 15:59 8 MG Vital Signs/I&O 12/07/22 15:15 Temp 36.4 Pulse 111 Resp 24 B/P (MAP) 138/86 (103) Pulse Ox 98 O2 Delivery Nasal Cannula O2 Flow Rate 2.00 Capillary Refill : Departure Impression Primary Impression: Abdominal pain Qualified Codes: R10.30 - Lower abdominal pain, unspecified Additional Impression: Ovarian cyst, left Disposition: 01 HOME, SELF-CARE Condition: Stable Departure-Patient Inst. Decision time for Depature: 17:15 Referrals: ARMINDA GARCIA JULIE A MD (PCP/Family) Primary Care Physician Patient Instructions: Chronic Pelvic Pain (DC) Add. Discharge Instructions: Drink plenty of fluids to stay well-hydrated. Take the hydrocodone with 1 extra strength Tylenol every 6 hours as needed for severe pain. Otherwise alternate just regular extra strength Tylenol with hydrocodone. Opiate pain medications can make you constipated. Take a daily stool softener. Warm compresses to the lower abdomen can also help with pain. Please follow-up with Dr. Garcia on Friday for further pain management. Scripts Hydrocodone/Acetaminophen (Hydrocodone-Acetamin 5-325 mg) 5 Mg-325 Mg Tablet 1 TAB PO Q6H PRN for PAIN-MODERATE (5-7), #8 TAB Prov: LIANE RIVERA MD 12/07/22 Copy Copies To 1: ARMINDA GARCIA DO Copies To 2: DEBBIE SIBLEY MD, KATHRYN M MD Dec 07, 2022 15:33
[2022-12-07] MEDS ORDERED: fentaNYL INJ 100 MCG/2 ML AMP IVP ONE ×2 (15:45→17:30)
[2022-12-07] MEDS ORDERED: ONDANSETRON 4 MG/2 ML (SDV) Z0FRAN IVP ONE (15:45)
[2022-12-07 16:20] LABS: CLARITY,URINE CLOUDY; COLOR,URINE AMBER; GLUCOSE, URINE (UA) 2+ (NEGATIVE); KETONES,URINE 2+ (NEGATIVE); LEUKOCYTE ESTERASE ,URINE NEGATIVE (NEGATIVE); NITRITE,URINE NEGATIVE (NEGATIVE); PROTEIN,URINE TRACE (NEGATIVE)
[2022-12-07 16:32] LABS: POTASSIUM 3.4 MMOL/L (3.6-5.0)
[2022-12-07 16:33] LABS: CALCIUM 9.6 MG/DL (8.5-10.1)
[2022-12-07 16:34] LABS: BASOPHILS # (AUTO) 0.1 10^3/uL (0.0-0.1); BASOPHILS % (AUTO) 0 % (0-10); EOSINOPHILS # (AUTO) 0.6 10^3/uL (0.0-0.3); EOSINOPHILS % (AUTO) 5 % (0-10); HEMATOCRIT 37 % (35-52); HEMOGLOBIN 11.9 g/dL (11.5-16.0); LYMPHOCYTES # (AUTO) 1.7 X 10^3 (1.0-4.0); LYMPHOCYTES % (AUTO) 13 % (12-44); MEAN CORPUSCULAR HEMOGLOBIN 27 pg (25-34); MEAN CORPUSCULAR HGB CONC 32 g/dL (32-36); MEAN CORPUSCULAR VOLUME 82 fL (80-99); MEAN PLATELET VOLUME 10.6 fL (9.0-12.2); MONOCYTES # (AUTO) 0.5 X 10^3 (0.0-1.0); MONOCYTES % (AUTO) 4 % (0-12); NEUTROPHILS # (AUTO) 9.9 X 10^3 (1.8-7.8); NEUTROPHILS % (AUTO) 77 % (42-75); PLATELET COUNT 272 10^3/uL (130-400); WHITE BLOOD COUNT 12.8 10^3/uL (4.3-11.0)
[2022-12-07 16:38] LABS: CREATININE SERUM 0.69 MG/DL (0.60-1.30)
[2022-12-07 16:45] LABS: BACTERIA,URINE NEGATIVE /HPF; BILIRUBIN,URINE 1+ (NEGATIVE); RBC,URINE 50-100 /HPF
[2022-12-07] MEDS ORDERED: HYDROcodone/APAP 7.5 MG/325 MG (LORTAB, LORCET PLUS) TABLET PO ONE (17:00)
[2022-12-07] MEDS ORDERED: ACHD5005 PO (17:17)
[2022-12-07 17:50] VITALS: BP 120/84
== END 2022-12-07 17:50 | disposition home or self-care (01) ==
LOC: EDUNIT# 15:02 → ER 15:05
DX: N83.202 Unspecified ovarian cyst, left side (principal); J44.9 Chronic obstructive pulmonary disease, unspecified; E66.01 Morbid (severe) obesity due to excess calories; Z99.81 Dependence on supplemental oxygen; Z68.42 Body mass index [BMI] 45.0-49.9, adult
CPT/HCPCS: 36415; 80048; 81000; 84703; 85025

== ENCOUNTER 2023-01-07 05:34 | Outpatient (CLI) | payer MEDICAID ==
[~2023-01-07] VITALS: Ht 175.2 cm; Wt 120.0 kg
[~2023-01-07 05:34] MED LIST changes: +LIDO15SO3 MM; -LIDO15SO6 MM
[2023-01-07] MEDS ORDERED: OMEP40CA6 PO (11:25)
[2023-01-07] MEDS ORDERED: LISI10TA25 PO (11:25)
[2023-01-07] MEDS ORDERED: MELA1TAB72 PO (11:25)
[2023-01-07] MEDS ORDERED: HYOS-19 SL (11:25)
[2023-01-07] MEDS ORDERED: EMPA25TA PO (11:25)
[2023-01-07] MEDS ORDERED: AZIT250T12 PO (11:25)
[2023-01-07] MEDS ORDERED: EPIN0.3P2 IJ (11:25)
== END 2023-01-07 14:16 | disposition home or self-care (01) ==
LOC: PREOP 05:34
PROVIDERS: ATTEND Obstetrics & Gynecology
DX: Z01.818 Encounter for other preprocedural examination (principal)

== ENCOUNTER 2023-01-14 07:00 | Day surgery (SDC) | payer MEDICAID ==
[~2023-01-14] VITALS: Ht 175 cm; Wt 120.0 kg
[2023-01-14] VITALS (13 sets, daily range): BP systolic 109–132; BP diastolic 59–97
[~2023-01-14 07:00] MED LIST changes: +EMPA25TA PO; +EPIN0.3P2 IJ; +HYOS-19 SL; +LISI10TA25 PO; +MELA1TAB72 PO; +OMEP40CA6 PO
[2023-01-14] MEDS ORDERED: ONDANSETRON 4 MG/2 ML (SDV) Z0FRAN ONE (07:02)
[2023-01-14] MEDS ORDERED: GLYCOPYRROLATE 0.2 MG/ML (ROBINUL) 2 ML VIAL ONE ×2 (07:02→09:38)
[2023-01-14] MEDS ORDERED: proPOfol 200 MG/20 ML (DIPRIVAN) VIAL IV ONE (07:02)
[2023-01-14] MEDS ORDERED: MIDAZOLAM 2 MG/2 ML (VERSED) VIAL ONE (07:02)
[2023-01-14] MEDS ORDERED: fentaNYL INJ 100 MCG/2 ML AMP ONE ×2 (07:02→09:23)
[2023-01-14] MEDS ORDERED: LIDOCAINE PF 2% 5 ML (XYLOCAINE) VIAL ONE (07:02)
[2023-01-14] MEDS ORDERED: BUPIVACAINE 0.25% 30 ML (SENSORCAINE) VIAL ONE (07:03)
[2023-01-14] MEDS ORDERED: NEOSTIGMINE (BLOXIVERZ ) 1 MG/1ML 10 ML VIAL ONE (07:03)
[2023-01-14] MEDS ORDERED: ceFAZolin INJECTION 2,000 MG in NS (IVPB) 50 ML IV ONE (07:15)
[2023-01-14] MEDS ORDERED: metroNIDAZOLE 500MG/100ML IVPB 100 ML IV ONE (07:15)
--- NOTE | 2023-01-14 07:18 | Progress Note-Pre Operative ---
Pre-Operative Progress Note Date of Available H&P: January 14, 2023 Date H&P Reviewed: January 14, 2023 Time H&P Reviewed: 07:15 History & Physical: H&P Reviewed, Patient Examed, No changes noted Pre-Operative Diagnosis: 10 cm pelvic mass, CPP, Dysmenorrhea ARMINDA CADENA DO January 14, 2023 07:18
--- NOTE | 2023-01-14 07:22 | Discharge Inst-Women's Service ---
Discharge Inst-Women's Serv Depart Medication/Instructions New, Converted or Re-Newed RX: Transmitted to Pharmacy Problems Reviewed?: Yes Consults/Follow Up Additional Follow Up: Yes Orders/Referrals Dr. Garcia in 7-10 days and in 8 weeks Activity Activity: Activity as Tolerated Driving Instructions: No Driving for 1 Week NO SMOKING: NO SMOKING Nothing Inside Vagina: No Douching, No [place], No Tampons Diet Discharge Diet: No Restrictions Symptoms to Report to : Bleeding Excessive, Pain Increased, Fever Over 101 Degrees F, Vaginal Bleeding Increase, Questions/Concerns For Any Problems or Questions: Contact Your Physician Skin/Wound Care Infection Signs and Symptoms: Increased Redness, Foul Odor of Wound, Increased Drainage, Skin Itchy or Has a Rash, Increased Swelling, Temperature Above 101 F Operative Area Clean and Dry: Keep Incision Clean/Dry Stitches/Dolly/Dermabond: Dermabond, Care of Stitches Bathing Instructions: RAMINDA Pruitt DO January 14, 2023 07:22
[2023-01-14] MEDS ORDERED: SIME80TA16 PO (07:24)
[2023-01-14] MEDS ORDERED: IBUP-844 PO (07:24)
[2023-01-14] MEDS ORDERED: HYDR-34 PO (07:24)
[2023-01-14] MEDS ORDERED: DOCU100C37 PO (07:24)
[2023-01-14] MEDS ORDERED: ONDANSETRON 4 MG/2 ML (SDV) Z0FRAN IV PRN (07:30)
[2023-01-14] MEDS ORDERED: ANTACID SUSP 30 ML UDC (MYLANTA) PO PRN (07:30)
[2023-01-14] MEDS ORDERED: ZOLPIDEM 5 MG (AMBIEN) TAB PO PRN (07:30)
[2023-01-14] MEDS ORDERED: BENZOCAINE LOZENGES 1 EACH LOZENGE MM PRN (07:30)
[2023-01-14] MEDS: LACTATED RINGERS 1,000 ML IV PRN ×2 (07:46→10:31)
[2023-01-14 07:51] LABS: BASOPHILS # (AUTO) 0.1 10^3/uL (0.0-0.1); BASOPHILS % (AUTO) 1 % (0-10); EOSINOPHILS % (AUTO) 10 % (0-10); HEMATOCRIT 36 % (35-52); HEMOGLOBIN 11.4 g/dL (11.5-16.0); LYMPHOCYTES # (AUTO) 2.9 10^3/uL (1.0-4.0); LYMPHOCYTES % (AUTO) 27 % (12-44); MEAN CORPUSCULAR HEMOGLOBIN 26 pg (25-34); MEAN CORPUSCULAR HGB CONC 31 g/dL (32-36); MEAN CORPUSCULAR VOLUME 82 fL (80-99); MEAN PLATELET VOLUME 10.3 fL (9.0-12.2); MONOCYTES # (AUTO) 0.4 10^3/uL (0.0-1.0); MONOCYTES % (AUTO) 4 % (0-12); NEUTROPHILS # (AUTO) 6.2 10^3/uL (1.8-7.8); NEUTROPHILS % (AUTO) 58 % (42-75); PLATELET COUNT 228 10^3/uL (130-400); WHITE BLOOD COUNT 10.6 10^3/uL (4.3-11.0)
[2023-01-14] MEDS ORDERED: ROCURONIUM 50 MG/5 ML (ZEMURON) VIAL IV ONE (09:16)
[2023-01-14] MEDS ORDERED: SEVOFLURANE (ULTANE) 15 ML INHAL SOLN ONE (09:16)
[2023-01-14] MEDS ORDERED: HYDROCORTISONE 100 MG/2 ML (Solu-CORTEF) VIAL ONE (09:45)
[2023-01-14] MEDS ORDERED: KETOROLAC 30 MG/ML VIAL ONE (09:48)
[2023-01-14] MEDS: KETOROLAC 30 MG/ML VIAL IVP PRN ×2 (09:51→16:01)
[2023-01-14] MEDS ORDERED: ONDANSETRON 4 MG/2 ML (SDV) Z0FRAN IVP PRN (10:00)
[2023-01-14] MEDS ORDERED: HYDROmorphone 2 MG/ML VIAL (DILAUDID) IV PRN (10:00)
[2023-01-14] MEDS ORDERED: HYDROmorphone 2 MG/ML VIAL (DILAUDID) IV ONE (10:00)
[2023-01-14] MEDS ORDERED: HYDROmorphone 2 MG/ML VIAL (DILAUDID) ONE (10:05)
--- NOTE | 2023-01-14 11:50 | Anesthesia-General Post-Op ---
General Patient Condition Mental Status/LOC: Same as Preop Cardiovascular: Satisfactory Nausea/Vomiting: Absent Respiratory: Satisfactory Pain: Controlled Complications: Absent Post Op Complications Complications None Follow Up Care/Instructions Patient Instructions None needed. Anesthesia/Patient Condition Patient Condition Patient is doing well, no complaints, stable vital signs, no apparent adverse anesthesia problems. No complications reported per nursing. ZAN ROJO CRNA January 14, 2023 11:50
[2023-01-14] MEDS ORDERED: HYDROcodone/APAP 7.5 MG/325 MG (LORTAB, LORCET PLUS) TABLET PO ONE (12:01)
[2023-01-14] MEDS: HYDROcodone/APAP 7.5 MG/325 MG (LORTAB, LORCET PLUS) TABLET PO PRN ×3 (12:05→23:32)
[2023-01-14] MEDS: LACTATED RINGERS 1,000 ML IV SCH (14:39)
--- NOTE | 2023-01-14 16:46 | OPERATIVE REPORT ---
DATE OF SERVICE: 01/14/2023 PREOPERATIVE DIAGNOSES: 1. A 38-year-old female with chronic pelvic pain. 2. Pelvic mass, greater than 10 cm. 3. Dysmenorrhea. POSTOPERATIVE DIAGNOSES: 1. A 38-year-old female with chronic pelvic pain. 2. Pelvic mass, greater than 10 cm. 3. Dysmenorrhea. PROCEDURE: Robotic-assisted total laparoscopic hysterectomy with bilateral salpingectomy and left oophorectomy and removal of left adnexal mass. SURGEON: Feroz Cadena DO STUDY HALL SUPERVISOR: Jeanne Gardner DNP was necessary for manipulation and retraction throughout the procedure. ANESTHESIA: General endotracheal. ESTIMATED BLOOD LOSS: 100 mL URINE OUTPUT: 150 mL clear at the end of the procedure. FLUIDS: 1800 mL lactated Ringer's solution. FINDINGS: Grossly normal-appearing uterus, bilateral fallopian tubes and right ovary. The left ovary is grossly enlarged, approximately 10-12 possibly and 15 cm diameter in its greatest margin, clear simple cystic fluid noted on drainage of the left ovary. SPECIMEN SENT: Left ovarian cyst aspirate and left ovary, bilateral fallopian tubes, uterus and cervix. INDICATIONS FOR PROCEDURE: A 38-year-old female patient had sought care in my office with multiple medical comorbidities, requiring medical clearance, surgical clearance, pulmonology clearance, cardiology clearance prior to proceeding with the procedure. She had chronic pelvic pain and had identified a 12 cm pelvic mass on CT scan due to this pain. I discussed with the patient addressing this in the form of hysterectomy as the patient had noted plans on childbearing age. Due to her multiple medical comorbidities and her age, the hysterectomy would offer both an alleviation of her chronic pelvic pain and dysmenorrhea, but also a method to remove this large pelvic mass. Risks of the procedure were discussed with the patient in detail and after all of her questions were answered, she was agreeable to proceed. All of her clearances were received from her accessory providers and she was scheduled at the next earliest convenience. After all of her questions were answered in the preoperative area, consent was obtained, the patient was taken to the operating room. OPERATIVE DESCRIPTION IN DETAIL: Once in the operating room, anesthesia was administered and found to be adequate, was placed in dorsal lithotomy position, prepped and draped in normal sterile fashion. Timeout was performed. Anesthesia administered and found to be adequate. A Hedrick catheter was placed using sterile technique. A weighted speculum inserted to the patient's vagina. Right angle retractor was utilized to visualize the cervix, which was grasped at 12 o'clock position using a 0 Vicryl suture, which was placed in the anterior lip of the cervix. I then gently sound the uterine cavity and that was found to be 8 cm. I selected an 8 cm VERA uterine manipulator tip and a 4 cm colpotomy ring. The manipulator tip was advanced into the uterus where the balloon was deployed and the colpotomy ring was advanced around the vaginal fornix and then removed all the instruments from the patient's vagina, performed change of gloves and my attention to the abdomen where subcostally at the midclavicular line, I introduced a Veress needle through the skin on the left side until intraperitoneal placement confirmed using saline drop test. An opening pressure of 5 mmHg was noted. I proceeded with CO2 insufflation to max pressure of 15 mmHg, at which point make an 8 mm infraumbilical trocar site incision using a knife and direct 8 mm blunt laparoscopic da Mercedes camera trocar through the incision for placement was confirmed using the da Mercedes laparoscope. There was no evidence of damage from entry site. A brief scan of the upper abdominal anatomy appears to be grossly normal with no evidence of damage upon the Veress entry site and the Veress was removed at that point. I then had the patient placed in steep Trendelenburg where I am able to visualize all my pelvic anatomy as defined in my findings above. I placed 2 lateral trocars using both 8 mm trocars placed under direct visualization laparoscope. Once both of these trocars were placed in adequate positioning, I bring in the da Mercedes robot and docked in appropriate fashion, placing the vessel sealer on left hand and monopolar elliot in the right hand. I began first by performing the following dissection bilaterally starting at the uteroovarian ligament. I sealed and transected this using the vessel sealer, I then created a window in the mesosalpinx just taken this laterally down the mesosalpinx amputating the fallopian tube from its surrounding blood supply then grasped the round ligament, which I sealed and transected using the vessel sealer. I then grasped the entire broad ligament, which I sealed and transected using vessel sealer. I do this down to the level of the lower uterine segment, at which point I the anterior and posterior leaves of broad ligament. Anterior leaflet was taken to the anterior vaginal fornix. The posterior leaflet was taken around the posterior vaginal fornix. This allows me to skeletonize the uterine vessels laterally, which I sealed and transected using a vessel sealer. I then created a colpotomy at 12 o'clock position using monopolar elliot and took this circumferentially around the vaginal fornix amputating the cervix away from the vagina. The entire specimen was then removed through the vagina. I then taped my attention to the left infundibulopelvic ligament, which is still suspended very large left ovary with ovarian cyst. I isolated the infundibulopelvic ligament. I sealed and transected using the da Mercedes vessel sealer, which point I bring this up to the opening of the vaginal cuff. Once I tried opening vaginal cuff, we were able to grasp it using a long Allis clamp. I then introduced a suction device into the cyst itself and I am able to suction without spilling any of the fluid into the peritoneal cavity, all of the contents of the left ovary. It was then removed as it was decompressed through the vagina. I then proceeded with closing the vaginal cuff using 2-0 V-Loc in a running fashion, after which there was active bleeding noted from any of my dissection planes. I then undocked the da Mercedes robot and proceeded with remainder of case laparoscopically, copiously irrigated the pelvis using normal saline. Once again, there was no active bleeding noted from any of my dissection planes, I placed Surgiflo hemostatic agent over all my planes of dissection. I have the patient taken out of steep Trendelenburg where I removed the lateral trocars under direct visualization of laparoscope. The infraumbilical trocars left in place to release the remainder of insufflation and to introduce 10 mL of 0.25% Marcaine, prepped into the peritoneal cavity for postoperative pain management. I then removed this trocar as well. The skin reapproximated using 4-0 Monocryl and interrupted subcuticular stitches. Dermabond was applied to the incisions and Band-Aids were placed over the incisions as well. Hedrick catheter was left in place. Lap and sponge counts were correct at the end of the procedure. Instrument counts correct as well. Two grams of Ancef and 500 mg of Flagyl were given preoperatively for infection prophylaxis. Job ID: [id number] DocumentID: [id number] Dictated Date: 01/14/2023 10:40:14 Tax Adjuster Date: 01/14/2023 16:44:00 Dictated By: FEROZ CADENA DO
[2023-01-14] MEDS ORDERED: ALPRAZolam 0.25 MG (XANAX) TAB PO PRN (17:30)
[2023-01-14] MEDS: SIMETHICONE 80 MG (MYLICON) CHEW PO PRN (18:32)
[2023-01-14] MEDS ORDERED: IBUPROFEN 600 MG (MOTRIN) TAB PO ONE (21:58)
[2023-01-14] MEDS: DOCUSATE SODIUM 100 MG (COLACE) CAP PO PRN (21:59)
[2023-01-15 04:19] VITALS: BP 98/58
[2023-01-15] MEDS: IBUPROFEN 600 MG (MOTRIN) TAB PO PRN ×2 (04:19→11:06)
[2023-01-15] MEDS: HYDROcodone/APAP 7.5 MG/325 MG (LORTAB, LORCET PLUS) TABLET PO PRN ×2 (06:56→13:15)
[2023-01-15] MEDS: LACTATED RINGERS 1,000 ML IV SCH (07:00)
[2023-01-15] MEDS: DOCUSATE SODIUM 100 MG (COLACE) CAP PO PRN (08:19)
[2023-01-15 08:20] VITALS: BP 108/59
[2023-01-15] MEDS: SIMETHICONE 80 MG (MYLICON) CHEW PO PRN (08:25)
[2023-01-15 12:15] VITALS: BP 109/54
[2023-01-19] MEDS ORDERED: IBUPROFEN 600 MG (MOTRIN) TAB PO PRN ×2 (06:00→22:00)
== END 2023-01-15 13:30 | disposition home or self-care (01) ==
LOC: SDC 07:00 → WS 10:43 → SDC 01-15 13:30
PROVIDERS: ATTEND Obstetrics & Gynecology
DX: D27.1 Benign neoplasm of left ovary (principal); N83.8 Other noninflammatory disorders of ovary, fallopian tube and broad ligament; N94.5 Secondary dysmenorrhea; G89.29 Other chronic pain; E66.9 Obesity, unspecified; J44.9 Chronic obstructive pulmonary disease, unspecified; Z68.39 Body mass index [BMI] 39.0-39.9, adult; Z87.891 Personal history of nicotine dependence; Z99.81 Dependence on supplemental oxygen
CPT/HCPCS: 36415; 82947; 84703; 85025; 86850; 86870; 86900; 86901; 87081; 88307; 94664

== ENCOUNTER 2023-02-21 19:30 | Emergency (ER) | payer MEDICAID ==
[~2023-02-21] VITALS: Ht 173 cm; Wt 116.0 kg
[~2023-02-21 19:30] MED LIST changes: +DOCU100C37 PO; +HYDR-34 PO; +IBUP-844 PO; +SIME80TA16 PO
--- NOTE | 2023-02-21 20:06 | Diagnostic Imaging Report ---
INDICATION: Chest pain and shortness of breath. EXAMINATION: Frontal chest was obtained at 7:46 p.m. FINDINGS: Heart and mediastinal silhouette are normal in appearance. The lungs are clear. There is no pneumothorax or pleural fluid. IMPRESSION: Negative chest, no change from 01/09/2022. Dictated by: Dictated on workstation # [id number]
[2023-02-21 20:09] LABS: BASOPHILS # (AUTO) 0.1 10^3/uL (0.0-0.1); BASOPHILS % (AUTO) 1 % (0-10); EOSINOPHILS # (AUTO) 0.4 10^3/uL (0.0-0.3); EOSINOPHILS % (AUTO) 4 % (0-10); HEMATOCRIT 34 % (35-52); HEMOGLOBIN 10.9 g/dL (11.5-16.0); LYMPHOCYTES # (AUTO) 2.8 10^3/uL (1.0-4.0); LYMPHOCYTES % (AUTO) 25 % (12-44); MEAN CORPUSCULAR HEMOGLOBIN 26 pg (25-34); MEAN CORPUSCULAR HGB CONC 32 g/dL (32-36); MEAN CORPUSCULAR VOLUME 80 fL (80-99); MEAN PLATELET VOLUME 10.4 fL (9.0-12.2); MONOCYTES # (AUTO) 0.4 10^3/uL (0.0-1.0); MONOCYTES % (AUTO) 4 % (0-12); NEUTROPHILS # (AUTO) 7.7 10^3/uL (1.8-7.8); NEUTROPHILS % (AUTO) 67 % (42-75); PLATELET COUNT 227 10^3/uL (130-400); WHITE BLOOD COUNT 11.6 10^3/uL (4.3-11.0)
[2023-02-21 20:29] LABS: CHLORIDE 107 MMOL/L (98-107); POTASSIUM 3.8 MMOL/L (3.6-5.0); SODIUM 140 MMOL/L (135-145)
[2023-02-21 20:30] LABS: CALCIUM 9.2 MG/DL (8.5-10.1); INR 0.9 (0.8-1.4); PROTHROMBIN TIME PATIENT 12.6 SEC (12.2-14.7)
[2023-02-21 20:31] LABS: GLUCOSE 148 MG/DL (70-105)
[2023-02-21 20:32] LABS: TOTAL PROTEIN 7.2 GM/DL (6.4-8.2)
[2023-02-21 20:33] LABS: BILIRUBIN,TOTAL 0.3 MG/DL (0.1-1.0); CARBON DIOXIDE 20 MMOL/L (21-32)
[2023-02-21 20:35] LABS: ALKALINE PHOSPHATASE 67 U/L (40-136)
[2023-02-21 20:38] LABS: ALANINE AMINOTRANSFERASE 16 U/L (0-55); MAGNESIUM 1.8 MG/DL (1.6-2.4)
[2023-02-21] MEDS ORDERED: PANTOPRAZOLE 40 MG (PROTONIX) VIAL IV ONE (20:45)
[2023-02-21] MEDS ORDERED: LIDOCAINE 2% VISCOUS 15 ML UDC PO ONE (20:45)
[2023-02-21] MEDS ORDERED: ONDANSETRON 4 MG/2 ML (SDV) Z0FRAN IVP ONE (20:45)
[2023-02-21] MEDS ORDERED: ANTACID SUSP 30 ML UDC (MYLANTA) PO ONE (20:45)
--- NOTE | 2023-02-21 20:53 | ED Chest Pain ---
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 PT REPORTS SHE WAS SITTING WATCHING TV WHEN SHE HAD SUDDEN ONSET SOB AND CP THAT RADIATES INTO R CLAVICLE. Source: patient Exam Limitations: no limitations (PAIGE LIANG) History of Present Illness Date Seen by Provider: Feb 21, 2023 Time Seen by Provider: 20:20 Initial Comments Our patient is a 38 yo F with an extensive medical history that presents to the emergency department with left-sided chest pain that radiates up into her left shoulder. She describes the pain as a pressure-like feeling, constant, 8/10 in severity that is worsened by sitting up, deep inhalation, and walking and is relieved partially by laying down. This pain started around 1 hour before arrival while sitting in her chair watching TV. She then went to rise from the chair and began to experience significant lightheadedness as well as nausea accompanied by vomiting, SOB, and headache. She denies LOC, fever, recent sick contacts, or recent illnesses. She has previously experienced bronchitis and pneumonia but notes that this pain is more severe than the chest pain that she had with these conditions. She has tried ibuprofen, tylenol, and her albuterol inhaler with no relief in her symptoms. She has a history of GERD treated with omeprazole, a previous gastric sleeve surgery, COPD, chronic hypoxic respiratory failure, asthma, hypertension, type II diabetes, and adrenal insufficiency. Timing/Duration: 1-3 hours Location: central, epigastric Radiation: shoulders Activities at Onset: rest Prior CP/Workup: cardiac cath Modifying Factors: worse with breathing, worse with coughing; improves with lying down; worse with movement, worse with palpation; improves with rest Associated Symptoms: abdominal pain; No diaphoresis; dizziness; No fever/chills; headache, heartburn, nausea/vomiting, shortness of breath; No syncope (PAIGE LIANG) Allergies and Home Medications Allergies Coded Allergies: cocaine (Verified Allergy, Severe, SOA, 01/07/23) procaine (Verified Allergy, Severe, SOA, 01/07/23) tetracaine (Verified Allergy, Severe, SOA, 01/07/23) allantoin (Verified Allergy, Unknown, 01/07/23) aspirin (Verified Allergy, Unknown, PT HAS RECEIVED IBUPROFEN IN THE PAST, 01/14/23) benzocaine (Verified Allergy, Unknown, 01/07/23) carbamide peroxide (Verified Allergy, Unknown, 01/07/23) proparacaine (Verified Allergy, Unknown, SOA, 01/07/23) Uncoded Allergies: CHLORPROCAINE (Allergy, Severe, SOA, 01/04/17) Patient Home Medication List Albuterol Sulfate (Albuterol Sulfate) 2.5 Mg/3 Ml Vial.neb, 2.5 MG NEB Q4H PRN for SHORTNESS OF BREATH, (Reported) Entered as Reported by: SALLIE SANTOS on 05/11/15 0931 Albuterol Sulfate (Ventolin Hfa) 8.5 Gm Hfa.aer.ad, 2 PUFF INH Q4H PRN for SHORTNESS OF BREATH, (Reported) Entered as Reported by: DARIO MIMS on 08/22/15 1500 Azithromycin (Azithromycin) 250 Mg Tablet, 250 MG PO MWF, (Reported) Entered as Reported by: MARA KINCAID on 01/07/23 1125 Beclomethasone Dipropionate (Qvar Redihaler) 80 Mcg/Actuation Hfa.aeroba, 1 PUFF IH BID, (Reported) Entered as Reported by: PA MIRELES on 01/09/22 0825 Brexpiprazole (Rexulti) 3 Mg Tablet, 3 MG PO HS, (Reported) Entered as Reported by: PA MIRELES on 01/09/22 0825 Brinzolamide/Brimonidine Tart (Simbrinza 1%-0.2% Eye Drops) 1 %-0.2 % Drops.susp, 1 ML OP TID, (Reported) Entered as Reported by: PA MIRELES on 01/09/22 0825 Buprenorphine (Butrans) 10 Mcg/Hour Patch.tdwk, 1 EACH TD FRIDAY, (Reported) Entered as Reported by: PA MIRELES on 01/09/22 08 Buspirone HCl (Buspirone HCl) 10 Mg Tablet, 10 MG PO TID, (Reported) Entered as Reported by: PA MIRELES on 01/09/22824 Cetirizine HCl (Cetirizine HCl) 10 Mg Tablet, 10 MG PO DAILY, (Reported) Entered as Reported by: PA MIRELES on 01/09/22824 Docusate Sodium (Docusate Sodium) 100 Mg Capsule, 100 MG PO BID PRN for CONSTIPATION-1ST LINE Prescribed by: ARMINDA CADENA on 01/14/23 0724 Dulaglutide (Trulicity) 4.5 Mg/0.5 Ml Pen.injctr, 4.5 MG SQ FRIDAY, (Reported) Entered as Reported by: PA MIRELES on 01/09/22824 Dupilumab (Dupixent) 300 Mg/2 Ml Syringe, 300 MG SQ [id number], (Reported) Entered as Reported by: PA MIRELES on 01/09/22824 Empagliflozin (Jardiance) 25 Mg Tablet, 25 MG PO DAILY, (Reported) Entered as Reported by: MARA KINCAID on 01/07/231124 Epinephrine (Epipen) 0.3 Mg/0.3 Ml Auto.injct, 0.3 MG IJ UD, (Reported) Entered as Reported by: MARA KINCAID on 01/07/23 112 Ergocalciferol (Vitamin D2) (Vitamin D2) 1,250 Mcg (48623 Unit) Capsule, 1,250 MCG PO FRIDAY, (Reported) Entered as Reported by: PA MIRELES on 01/09/22824 Ferrous Gluconate (Ferrous Gluconate) 324 Mg (38 Mg Iron) Tablet, 324 MG PO DAILY, (Reported) Entered as Reported by: PA MIRELES on 01/09/22824 Fluticasone Furoate (Arnuity Ellipta) 200 Mcg Blst.w.dev, 1 PUFF IH DAILY, (Reported) Entered as Reported by: PA MIRELES on 01/09/22824 Fluticasone Propionate (Fluticasone Propionate) 16 Gm [place].susp, 1 SPRAYS NS DAILY, (Reported) Entered as Reported by: SALLIE SANTOS on 05/11/15 0931 Furosemide (Furosemide) 40 Mg Tablet, 20 MG PO DAILY PRN for FLUID RETENTION, (Reported) Entered as Reported by: DARIO MIMS on 06/19/17 1331 Hydrocodone Bit/Acetaminophen (HYDROcodone/APAP 7.5/325 TAB) 1 Ea Tablet, 1-2 EA PO Q6HR PRN for PAIN-MODERATE (5-7) Prescribed by: ARMINDA CADENA on 01/14/23723 Hyoscyamine Sulfate (Hyoscyamine Sulfate) Unknown Strength Tab.subl, Unknown Dose SL UD, (Reported) Entered as Reported by: MARA KINCAID on 01/07/231124 Ibuprofen (Ibu) 600 Mg Tablet, 600 MG PO Q6HR PRN for PAIN-MILD (1-4) Prescribed by: ARMINDA CADENA on 01/14/23723 Insulin Glargine,Hum.rec.anlog (Lantus) 100 Unit/Ml Vial, 7 UNIT SQ BID, (Reported) Entered as Reported by: PA MIRELES on 01/09/22824 Insulin Lispro (Humalog) 100 Unit/Ml Vial, 5-10 UNIT SQ AC, (Reported) Entered as Reported by: PA MIRELES on 01/09/22824 Ipratropium/Albuterol Sulfate (Iprat-Albut 0.5-3(2.5) mg/3 ml) 0.5 Mg-3 Mg (2.5 Mg Base)/3 Ml Ampul.neb, 3 ML IH Q4H PRN for SHORTNESS OF BREATH, (Reported) Entered as Reported by: PA MIRELES on 01/09/22824 Latanoprost/Pf (Latanoprost 0.005% Eye Drop) 0.005 % Drops, 1 DROP OP BID, (Reported) Entered as Reported by: PA MIRELES on 01/09/22824 Lisinopril (Lisinopril) 10 Mg Tablet, 10 MG PO DAILY, (Reported) Entered as Reported by: MARA KINCAID on 01/07/231124 Medroxyprogesterone Acetate (Provera) 10 Mg Tablet, 10 MG PO DAILY, (Reported) Entered as Reported by: PA MIRELES on 01/09/22824 Melatonin/Pyridoxine HCl (B6) (Melatonin 10 mg Tablet) 10 Mg-10 Mg Tab.mphase, 1 EACH PO HS, (Reported) Entered as Reported by: MARA KINCAID on 01/07/231124 Omeprazole (Omeprazole) 40 Mg Capsule.dr, 40 MG PO BID, (Reported) Entered as Reported by: MARA KINCAID on 5/23/23 1125 Potassium Chloride (Potassium Chloride) 10 Meq Tab.er.prt, 10 MEQ PO BID, (Reported) Entered as Reported by: PA MIRELES on 01/09/22 0825 Prednisone (Prednisone) 5 Mg Tablet, 10 MG PO DAILY, (Reported) Entered as Reported by: PA MIRELES on 01/09/22 0825 Promethazine HCl (Promethazine Tablet) 25 Mg Tablet, 25 MG PO Q6H PRN for NAUSEA/VOMITING Prescribed by: CASIE PEREZ on 10/04/22 1738 Propylene Glycol/Peg 400 (Systane Gel Eye Drops) 0.3 %-0.4 % Drops.gel, 1 DROP OP DAILY PRN for DRY EYES, (Reported) Entered as Reported by: PA MIRELES on 01/09/22 0825 Simethicone (Simethicone) 80 Mg Tab.chew, 40 MG PO TID PRN for INDIGESTION 2ND LINE Prescribed by: ARMINDA CADENA on 01/14/23 0724 Vortioxetine Hydrobromide (Trintellix) 20 Mg Tablet, 20 MG PO HS, (Reported) Entered as Reported by: PA MIRELES on 01/09/22 0825 Review of Systems Review of Systems Constitutional: No chills, No diaphoresis, No fever EENTM: No Symptoms Reported; No Blurred Vision, No Throat Pain Respiratory: Cough, Shortness of Air Cardiovascular: Chest Pain; Denies Irregular Heart Rate; Lightheadedness, Palpitations; Denies Syncope Gastrointestinal: Diarrhea, Nausea, Vomiting Genitourinary: No Symptoms Reported; Denies Burning, Denies Frequency, Denies Pain Musculoskeletal: no symptoms reported Skin: no symptoms reported Psychiatric/Neurological: Headache Endocrine: No Symptoms Reported Hematologic/Lymphatic: No Symptoms Reported (PAIGE LIANG) Past Xjavyzw-Aiulfm-Icyhjo Hx Patient Social History Tobacco Use?: No Smoking Status: Former Smoker Use of E-Cig and/or Vaping dev: No Substance use?: No Alcohol Use?: No Pt feels they are or have been: No (PAIGE LIANG) Immunizations Up To Date Tetanus Booster (TDap): Unknown PED Vaccines UTD: Yes Influenza Vaccine Up-to-Date: Yes; Up-to-Date First/Initial COVID19 Vaccinat: 2020 Second COVID19 Vaccination Chris: 2020 Third COVID19 Vaccination Date: 2020 (PAIGE LIANG) Seasonal Allergies Seasonal Allergies: Yes (PAIGE LIANG) Past Medical History Surgery/Hospitalization HX: right hip surgery x 3, r hip replacement, thea, appendectomy, GASTRIC SLEEVE COPD, Asthma, Chronic hypoxia- patient is on oxygen at 2 LPM via NC at all times Surgeries: Yes (Tracheostomy, RT HIP, ENDOSCOPIC SLEEVE, WISDOM, BILAT CATARACTS) Adenoidectomy, Appendectomy, Bowel Surgery (Gastric sleeve), Gallbladder, Hysterectomy, Orthopedic, Tonsillectomy, Tracheostomy Respiratory: Yes (COPD/ASTHMA, OXYGEN 2L NC 2.5-3 PRN 247, CHRONIC HYPOXIC RESP FAILURE, ) Asthma, Pneumonia, Chronic Bronchitis, COPD Currently Using CPAP: No Currently Using BIPAP: No Cardiac: Yes (History of symptomatic bradycardia) Hypertension Neurological: Yes Headaches /Migraines Reproductive Disorders: Yes Female Reproductive Disorders: Polycystic Ovarian Dis 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 Sexually Transmitted Disease: No HIV/AIDS: No Genitourinary: Yes UTI-Chronic Gastrointestinal: Yes Gastroesophageal Reflux, Gastrointestinal Bleed, Gall Bladder Disease Musculoskeletal: Yes (Degenerative Joint Disease) Arthritis, Rheumatoid Arthritis Endocrine: Yes (And morbid obesity) Diabetes, Insulin dep HEENT: Yes (SCAR TISSUE FROM EYES) Cataract, Glaucoma Loss of Vision: Denies Hearing Impairment: Denies Cancer: No Psychosocial: Yes (manic depression, insomnia) Anxiety, PTSD, Depression Integumentary: No Blood Disorders: No (ANEMIA) Adverse Reaction/Blood Tranf: No (PAIGE LIANG) Family Medical History Diabetes mellitus 19 MOTHER G8 SISTER Diabetes (PAIGE LIANG) Physical Exam Vital Signs Vital Signs - First Documented (BRIT MARCUM MD) Vital Signs Capillary Refill : Less Than 3 Seconds (PAIGE LIANG) Height, Weight, BMI Height: 5'9.00" Weight: 333lbs. 15.6oz. [id number]; 38.00 BMI Method:Actual General Appearance: WD/WN, Mild Distress, Obese HEENT: PERRL/EOMI; No Scleral Icterus (L), No Scleral Icterus (R) Neck: Normal Inspection, Non Tender, Supple; No Carotid Bruit, No JVD, No Lymphadenopathy (L), No Lymphadenopathy (R) Respiratory: Chest Non Tender, Lungs Clear, Normal Breath Sounds, No Accessory Muscle Use, No Respiratory Distress Cardiovascular: Regular Rate, Rhythm, No Edema, No Gallop, No JVD, No Murmur, Normal Peripheral Pulses Gastrointestinal: Normal Bowel Sounds, No Organomegaly, Soft; No Guarding, No Hepatomegaly; Tenderness (Epigastric) Rectal: Deferred Extremity: Normal Capillary Refill, Normal Inspection Neurologic/Psychiatric: Alert, Oriented x3, Normal Mood/Affect Skin: Normal Color, Warm/Dry (PAIGE LIANG) Progress/Results/Core Measures Results/Orders Lab Results Laboratory Tests Test 02/21/23 19:55 02/21/23 20:44 02/21/23 22:01 02/22/23 00:00 Range/Units White Blood Count 11.6 H 4.3-11.0 10^3/uL Red Blood Count 4.27 3.80-5.11 10^6/uL Hemoglobin 10.9 L 11.5-16.0 g/dL Hematocrit 34 L 35-52 % Mean Corpuscular Volume 80 80-99 fL Mean Corpuscular Hemoglobin 26 25-34 pg Mean Corpuscular Hemoglobin Concent 32 32-36 g/dL Red Cell Distribution Width 15.8 H 10.0-14.5 % Platelet Count 227 130-400 10^3/uL Mean Platelet Volume 10.4 9.0-12.2 fL Immature Granulocyte % (Auto) 0 % Neutrophils (%) (Auto) 67 42-75 % Lymphocytes (%) (Auto) 25 12-44 % Monocytes (%) (Auto) 4 0-12 % Eosinophils (%) (Auto) 4 0-10 % Basophils (%) (Auto) 1 0-10 % Neutrophils # (Auto) 7.7 1.8-7.8 10^3/uL Lymphocytes # (Auto) 2.8 1.0-4.0 10^3/uL Monocytes # (Auto) 0.4 0.0-1.0 10^3/uL Eosinophils # (Auto) 0.4 H 0.0-0.3 10^3/uL Basophils # (Auto) 0.1 0.0-0.1 10^3/uL Immature Granulocyte # (Auto) 0.0 0.0-0.1 10^3/uL Prothrombin Time 12.6 12.2-14.7 SEC INR Comment 0.9 0.8-1.4 Activated Partial Thromboplast Time 28 24-35 SEC D-Dimer 0.46 0.00-0.49 UG/ML Sodium Level 140 135-145 MMOL/L Potassium Level 3.8 3.6-5.0 MMOL/L Chloride Level 107 98-107 MMOL/L Carbon Dioxide Level 20 L 21-32 MMOL/L Anion Gap 13 5-14 MMOL/L Blood Urea Nitrogen 9 7-18 MG/DL Creatinine 0.70 0.60-1.30 MG/DL Estimat Glomerular Filtration Rate 114 BUN/Creatinine Ratio 13 Glucose Level 148 H 70-105 MG/DL Calcium Level 9.2 8.5-10.1 MG/DL Corrected Calcium 9.2 8.5-10.1 MG/DL Magnesium Level 1.8 1.6-2.4 MG/DL Total Bilirubin 0.3 0.1-1.0 MG/DL Aspartate Amino Transf (AST/SGOT) 12 5-34 U/L Alanine Aminotransferase (ALT/SGPT) 16 0-55 U/L Alkaline Phosphatase 67 40-136 U/L Myoglobin 6.3 L 10.0-92.0 NG/ML Troponin I < 0.028 < 0.028 <0.028 NG/ML C-Reactive Protein High Sensitivity 1.96 H 0.00-0.50 MG/DL Total Protein 7.2 6.4-8.2 GM/DL Albumin 4.0 3.2-4.5 GM/DL Lipase 37 8-78 U/L Influenza Type A (RT-PCR) Not Detected Not Detecte Influenza Type B (RT-PCR) Not Detected Not Detecte SARS-CoV-2 RNA (RT-PCR) Not Detected Not Detecte Test 02/22/23 00:20 Range/Units (BRIT MARCUM MD) My Orders Orders - BRIT MARCUM MD Ekg Tracing (02/21/23 19:33) Cbc With Automated Diff (02/21/23 19:43) Magnesium (02/21/23 19:43) Chest 1 View, Ap/Pa Only (02/21/23 19:43) Comprehensive Metabolic Panel (02/21/23 19:43) Myoglobin Serum (02/21/23 19:43) Protime With Inr (02/21/23 19:43) Partial Thromboplastin Time (02/21/23 19:43) O2 (02/21/23 19:43) Monitor-Rhythm Ecg Trace Only (02/21/23 19:43) Lipid Panel (02/22/23 06:00) Ed Iv/Invasive Line Start (02/21/23 19:43) Troponin I Millard (02/21/23 19:43) Lipase (02/21/23 20:41) Hs C Reactive Protein (02/21/23 20:43) Ondansetron Injection (Zofran Injectio (02/21/23 20:45) Lidocaine 2% Viscous 15 Ml (Xylocaine Vi (02/21/23 20:45) Antacid Suspension (Mylanta Suspension (02/21/23 20:45) Pantoprazole Injection (Protonix Injecti (02/21/23 20:45) Fibrin Degradation Products (02/21/23 21:52) Covid 19 Inhouse Test (02/21/23 21:52) Influenza A And B By Pcr (02/21/23 21:52) Fentanyl Inj (Sublimaze Injection) (02/21/23 22:00) Promethazine Injection (Phenergan Injec (02/21/23 22:00) Lactated Ringers (Lr 1000 Ml Iv Solution (02/21/23 22:00) Troponin I Millard (02/21/23 23:40) Ct Abdomen/Pelvis W (02/22/23 00:01) (BRIT MARCUM MD) Medications Given in ED Current Medications Medications Dose Ordered Sig/Malick Route Start Time Stop Time Status Last Admin Dose Admin Al Hydrox/Mg Hydrox/Simethicone 30 ml ONCE ONCE PO 02/21/23 20:45 02/21/23 20:48 DC 02/21/23 21:22 30 ML Fentanyl Citrate 50 mcg ONCE ONCE IVP 02/21/23 22:00 02/21/23 22:01 DC 02/21/23 22:20 50 MCG Lactated Ringer's 1,000 ml @ 0 mls/hr Q0M ONCE IV 02/21/23 22:00 02/21/23 22:01 DC 02/21/23 22:20 999 MLS/HR Lidocaine HCl 15 ml ONCE ONCE PO 02/21/23 20:45 02/21/23 20:48 DC 02/21/23 21:22 15 ML Ondansetron HCl 8 mg ONCE ONCE IVP 02/21/23 20:45 02/21/23 20:48 DC 02/21/23 21:00 8 MG Pantoprazole 40 mg ONCE ONCE IV 02/21/23 20:45 02/21/23 20:48 DC 02/21/23 21:00 40 MG Promethazine HCl 25 mg ONCE ONCE IVP 02/21/23 22:00 02/21/23 22:01 DC 02/21/23 22:20 25 MG (BRIT MARCUM MD) Vital Signs/I&O 02/21/23 02/21/23 19:32 19:32 Temp 37.3 Pulse 97 Resp 19 B/P (MAP) 108/77 (87) Pulse Ox 100 100 O2 Delivery Nasal Cannula Nasal Cannula O2 Flow Rate 2.00 2.00 02/22/23 00:00 Intake Total 1000 ml Balance 1000 ml (BRIT MARCUM MD) Blood Pressure Mean: 87 Initial ECG Impression Date: Feb 21, 2023 Initial ECG Impression Time: 19:39 Initial ECG Rate: 94 Initial ECG Rhythm: Normal Sinus Initial ECG Intervals: Normal Initial ECG Impression: Normal Comment Normal sinus rhythm with no ST elevation or depression. No abnormal intervals or axis deviation. (BRIT MARCUM MD) Departure Impression Primary Impression: Atypical chest pain Additional Impressions: Epigastric pain Nausea & vomiting Qualified Codes: R11.2 - Nausea with vomiting, unspecified Disposition: 01 HOME, SELF-CARE Condition: Improved Departure-Patient Inst. Decision time for Depature: 01:55 (BRIT MARCUM MD) Referrals: DEBBIE SIBLEY MD (PCP/Family) Primary Care Physician Patient Instructions: Abdominal Pain, Adult ED Add. Discharge Instructions: The exact cause of your abdominal pain, nausea, and vomiting is uncertain. Possible causes include viral illness, gastritis (inflammation of the stomach), and esophagitis (inflammation of the esophagus). Continue taking omeprazole da letitia. Add Carafate 4 times daily before meals and at bedtime. The Carafate will work better if you chew it or crush/dissolve it into a small amount of water to make a slurry. Take 30 minutes before meals and bedtime for best effect. Use Zofran (ondansetron) as prescribed for nausea and vomiting. Start with a noncarbonated clear liquid diet and gradually advance your diet with small quantities of bland food as tolerated. Avoid use of NSAID medications such as ibuprofen or naproxen due to your gastric sleeve surgery and stomach irritation. As an alternative, use Tylenol for mild pain and the hydrocodone for more intense pain. Do not combine Tylenol and hydrocodone as hydrocodone contains Tylenol. Use hydrocodone with caution as it may cause drowsiness. Do not drive, operate machinery, or make important decisions while on hydrocodone. Hydrocodone may cause constipation, so you may wish to use a stool softener while using hydrocodone. Follow-up with your primary care provider as soon as possible. Return to the ER if you have worsening symptoms despite following these instructions. All discharge instructions reviewed with patient and/or family. Voiced understanding. Scripts Sucralfate (Carafate) 1 Gram Tablet 1 GM PO QID, #120 TAB Crush/dissolve into 5-10 mL water to make a slurry. Take 30 minutes before meals and bedtime. Alternatively may chew. Prov: BRIT MARCUM MD 02/22/23 Hydrocodone/Acetaminophen (Hydrocodone-Acetamin 5-325 mg) 5 Mg-325 Mg Tablet 1 TAB PO Q4H PRN for PAIN-MODERATE (5-7), #10 TAB Prov: BRIT MARCUM MD 02/22/23 Ondansetron (Ondansetron Odt) 4 Mg Tab.rapdis 4 MG SL Q4H PRN for NAUSEA/VOMITING, #10 TAB Prov: BRIT MARCUM MD 02/22/23 PAIGE LIANG Feb 21, 2023 20:53 BRIT MARCUM MD Feb 21, 2023 23:27
[2023-02-21 21:05] LABS: BUN/CREATININE RATIO 13; GFR ESTIMATED 114
[2023-02-21] MEDS ORDERED: fentaNYL INJ 100 MCG/2 ML AMP IVP ONE (22:00)
[2023-02-21] MEDS ORDERED: PROMETHAZINE INJ 25 MG/ML (PHENERGAN) AMP IVP ONE (22:00)
[2023-02-21] MEDS ORDERED: LACTATED RINGERS 1,000 ML IV ONE (22:00)
[2023-02-22] MEDS ORDERED: ONDA4TAB11 SL (02:00)
[2023-02-22] MEDS ORDERED: SUCR1TAB36 PO (02:00)
[2023-02-22] MEDS ORDERED: ACHD5005 PO (02:00)
[2023-02-22] MEDS ORDERED: HYDROcodone/APAP 5 MG/325 MG (LORTAB) TAB PO ONE (02:00)
[2023-02-22 02:31] VITALS: BP 116/72
--- NOTE | 2023-02-22 07:03 | Diagnostic Imaging Report ---
EXAMINATION: CT abdomen and pelvis with intravenous contrast. TECHNIQUE: Multiple contiguous axial images were obtained through the abdomen and pelvis after the uneventful administration of intravenous contrast. All CT scans use one or more of the following dose optimizing techniques: automated exposure control, MA and/or KvP adjustment based on patient size and exam type or iterative reconstruction. HISTORY: Epigastric pain, nausea and vomiting. COMPARISON: 10/04/2022 FINDINGS: Limited views of the lower thorax are unremarkable. The liver is normal without focal lesion. There is no biliary ductal dilation. Gallbladder is absent. Pancreas is normal. Spleen is normal. Adrenal glands are normal. The kidneys are normal. There is no hydronephrosis. Urinary bladder is normal. There is a corpus luteum cyst in the right ovary. Bowel is normal in caliber without obstruction or inflammation. No free fluid or air. No abdominal or pelvic lymphadenopathy. Aorta is normal in caliber without aneurysm. There are no suspicious osseus lesions. There is a right hip arthroplasty. IMPRESSION: 1. No acute abnormality in the abdomen or pelvis. There is no significant disagreement with the preliminary report. Dictated by: Dictated on workstation # [id number]
== END 2023-02-22 02:34 | disposition home or self-care (01) ==
LOC: EDUNIT# 19:30 → ER 19:32
DX: R07.89 Other chest pain (principal); R10.13 Epigastric pain; R11.2 Nausea with vomiting, unspecified; R09.02 Hypoxemia; E66.01 Morbid (severe) obesity due to excess calories; Z87.891 Personal history of nicotine dependence; Z99.81 Dependence on supplemental oxygen; Z68.38 Body mass index [BMI] 38.0-38.9, adult; Z20.822 Contact with and (suspected) exposure to COVID-19; Z87.19 Personal history of other diseases of the digestive system
CPT/HCPCS: 36415; 71045; 74177; 80053; 83690; 83735; 83874; 84484; 85025; 85379; 85610; 85730; 86141; 87636; 93005; 93041